=== PATIENT | male | born 1965 | race Two or more races ===

== ENCOUNTER 2024-07-28 17:59 | Emergency (ER) | payer MEDICAID, OTHER ==
[~2024-07-28] VITALS: Ht 170.2 cm; Wt 256.0 kg
[2024-07-28 19:52] LABS: Basophils # (auto) 0 10 ^3/uL (0-0.2); Eosinophils # (auto) 0.2 10 ^3/uL (0-0.8); Hemoglobin 12.7 g/dL (13.5-17.5); Platelet Count (auto) 75 10^3/uL (140-450)
[2024-07-28 19:55] LABS: Basophils % (auto) 0.6 % (0.0-2.0); Eosinophils % (auto) 3.2 % (0.0-7.0); Hematocrit 37.1 % (41.0-53.0); Lymphocytes # (auto) 2.8 10 ^3/uL (0.4-5.4); Lymphocytes % (auto) 52.2 % (10.0-50.0); Mean Corpuscular Hgb Conc. 34.4 g/dL (32.0-36.0); Mean Corpuscular Volume 101.8 fL (80.0-100.0); Monocytes # (auto) 0.7 10 ^3/uL (0-1.3); Monocytes % (auto) 12.6 % (0.0-12.0); Neutrophils # (auto) 1.7 10 ^3/uL (1.6-8.6); Neutrophils % (auto) 31.4 % (37.0-80.0); Nucleated Red Blood Cells % 0.4 %; Red Blood Cells 3.64 10^6/uL (4.5-5.90); Red Cell Distribution Width 19.1 % (11.8-14.3); White Blood Cell 5.3 10^3/uL (4.4-10.8)
[2024-07-28 20:07] LABS: Alanine Aminotransferase 35 U/L (7-40); Alkaline Phosphatase 243 U/L (46-116); Anion Gap 7 (5-15); Aspartate Aminotransferase 47 U/L (13-40); BUN/Creatinine Ratio 11.4 (10.0-20.0); Blood Urea Nitrogen 10 mg/dL (9-23); Calcium 8.9 mg/dL (8.7-10.4); Carbon Dioxide 24 mmol/L (20-31); Chloride 111 mmol/L (98-107); Glucose 69 mg/dL (74-106); Potassium 3.9 mmol/L (3.5-5.1); Sodium 142 mmol/L (136-145)
[2024-07-28 20:08] LABS: Albumin 2.6 g/dL (3.2-4.8); Macrocytosis Slight; Platelet Estimate Decreased; Total Protein 6.5 g/dL (5.7-8.2)
[2024-07-28] MEDS ORDERED: ZINC OXIDE 20 % OINT 30GM TOP SCH (22:00)
[2024-07-29] MEDS ORDERED: CEPH500C PO (01:19)
[2024-07-29] MEDS ORDERED: HYDR-4798 PO (01:19)
[2024-07-29] MEDS: NEOMYCIN-BACITRACIN-POLYM 15GM TOP OINT TOP ONE (01:38)
[2024-07-29 01:51] VITALS: BP 134/84; PULSE 83; RESP 16; TEMP 98.1; O2SAT 96
== END 2024-07-29 01:59 | disposition home or self-care (01) ==
LOC: ER 17:59
DX: I83.009 Varicose veins of unspecified lower extremity with ulcer of unspecified site (principal); L97.919 Non-pressure chronic ulcer of unspecified part of right lower leg with unspecified severity; L97.929 Non-pressure chronic ulcer of unspecified part of left lower leg with unspecified severity; I87.2 Venous insufficiency (chronic) (peripheral); I10 Essential (primary) hypertension; L03.116 Cellulitis of left lower limb; L03.115 Cellulitis of right lower limb; E11.9 Type 2 diabetes mellitus without complications; Z88.8 Allergy status to other drugs, medicaments and biological substances; Z79.899 Other long term (current) drug therapy
CPT/HCPCS: 36415; 80053; 83615; 85025

== ENCOUNTER 2024-10-22 15:47 | Inpatient (IN) | payer MEDICAID ==
[~2024-10-22] VITALS: Ht 170.2 cm; Wt 110.0 kg
[~2024-10-22 15:47] MED LIST: CEPH500C PO; HYDR-4798 PO
--- NOTE | 2024-10-22 16:04 | ED.PDOC ---
General HPI Comments 59 y.o male presents to he ED for a chief complaint of bilateral flank pain radiating down to his back associated with dark urine. Patient reports he was incarcerated, recently was let out but was never given a guide for PCP and specialist to help him manage his liver cirrhosis. At this time, patient feels he is more jaundice appearing and is here for help. Patient states of intermittent chest pain concerns as well. Patient was mildly hypertensive on arrival. Chief Complaint: Flank Pain Time Seen by MD: 15:55 Reviewed notes: Nurses Notes, Medications, Allergies Allergies: Coded Allergies: Ceftriaxone (Verified Allergy, Unknown, 07/28/24) Uncoded Allergies: FISH (Allergy, Unknown, 07/28/24) Home Meds Active Scripts Hydrocodone-Acetaminophen (Hydrocodone Bitartrate/AC 10-325 mg) 1 Tab Tab, 1 TAB PO Q8HPRN PRN for 3 Days, #9 TAB Prov:RAFAEL MORFIN MD 07/29/24 Cephalexin Monohydrate (Cephalexin) 500 Mg Cap, 500 MG PO Q6HR for 10 Days, #40 MG Prov:RAFAEL MORFIN MD 07/29/24 Information Source: Patient Mode of Arrival: Ambulatory Severity: Moderate Timing: Months, Came on: Gradually Duration: Since onset, Intermittent Onset: Spontaneous Symptoms: None History of: None Location: (R) Flank, (L)Flank Penile discharge: None Modifying factors: None associated signs and symptoms: Flank Pain, Back Pain, Other (Intermittent chest pain) Past Medical History PAST MEDICAL HISTORY: DM, Liver Surgical History: Denies all surgeries Family History Family History: Reviewed,noncontributory to illness, No family hx of Cancer, No family hx of DM, No family hx of Heart estephanie, No family hx of HTN, No family hx ofKidney estephanie, No family hx of Liver estephanie, No family hx of Lung estephanie, No family hx of Stroke Social History Smoker: Non-Smoker Alcohol: Denies ETOH Use Drugs: Denies Drug Use Lives In: Home Constitutional: denies: chills, diaphoresis, fatigue, fever, malaise, sweats, weakness, others EENTM: denies: blurred vision, double vision, ear bleeding, ear discharge, ear drainage, ear pain, ear ringing, eye pain, eye redness, hearing loss, mouth pain, mouth swelling, nasal discharge, nose bleeding, nose congestion, nose pain, photophobia, tearing, throat pain, throat swelling, voice changes, others Respiratory: denies: cough, hemoptysis, orthopnea, SOB at rest, shortness of breath, SOB with excertion, stridor, wheezing, others Cardiovascular: reports: chest pain; denies: dizzy spells, diaphoresis, Dyspnea on exertion, edema, irregular heart beat, left arm pain, lightheadedness, palpitations, PND, syncope, others Gastrointestinal: denies: abdomen distended, abdominal pain, blood streaked bowels, constipated, diarrhea, dysphagia, difficulty swallowing, hematemesis, melena, nausea, poor appetite, poor fluid intake, rectal bleeding, rectal pain, vomiting, others Genitourinary: reports: flank pain; denies: burning, dysuria, frequency, hematuria, incontinence, penile discharge, penile sore, pain, testicle pain, testicle swelling, urgency, others Neurological: denies: dizziness, fainting, headache, left sided numbness, left sided weakness, numbness, paresthesia, pre-existing deficit, right sided numbness, right sided weakness, seizure, speech problems, tingling, tremors, weakness, others Musculoskeletal: reports: back pain; denies: gout, joint pain, joint swelling, muscle pain, muscle stiffness, neck pain, others Integumetry: denies: bruises, change in color, change in hair/nails, dryness, laceration, lesions, lumps, rash, wounds, others Allergic/Immunocompromised: denies: Difficulty Healing, Frequent Infections, Hives, Itching, others Hematologic/Lymphatic: denies: anemia, blood clots, easy bleeding, easy b ruising, swollen glands, others Endocrine: denies: excessive hunger, excessive sweating, excessive thirst, excessive urination, flushing, intolerance to cold, intolerance to heat, unexplained weight gain, unexplained weight loss, others Psychiatric: denies: anxiety, bipolar disorder, depression, hopeless, panic disorder, schizophrenia, sleepless, suicidal, others All Other Systems: Reviewed and Negative Physical Exam General Appearance: Moderate Distress (Patient appears to be moderate distress at time of evaluation.), Normal HEENT: Normal ENT Inspection, Pharynx Normal, TMs Normal Neck: Full Range of Motion, Non-Tender, Normal, Normal Inspection Respiratory: Chest Non-Tender, Lungs Clear, No Accessory Muscle Use, No Res piratory Distress, Normal Breath Sounds Cardiovascular: No Edema, No JVD, No Murmur, No Gallop, Normal Peripheral Pulses, Regular Rate/Rhythm Breast Exam: Deferred Gastrointestinal: No Pulsatile Mass, Normal Bowel Sounds, Soft, Tenderness (Diffuse tenderness to palpation throughout bilateral upper quadrants. No puls atile masses. Abdomen was mildly rigid.) Genitalia: Deferred Pelvic: Deferred Rectal: Deferred Extremities: No calf tenderness, Normal capillary refill, Normal inspection, Normal range of motion, Non-tender, No pedal edema Musculoskeletal : Location: Bilateral Extremity Location: Back Apperance: Tenderness: Mild Neurologic: Alert, No Motor Deficits, Normal Affect, Normal Mood, No Sensory Deficits Cerebellar Function: Normal Reflexes: Normal Skin: Dry, Warm Lymphatic: No Adenopathy Was a procedure done? Was a procedure done?: No Differential Diagnosis Kidney stone (Female): Musculoskeletal pain, Pancreatitis, Pyelonephritis, Strain, Other (Learn cirrhosis, acute coronary syndrome) X-Ray, Labs, Meds, VS Vital Signs Date Time Temp Pulse Resp B/P (MAP) Pulse Ox O2 Delivery O2 Flow Rate FiO2 10/22/24 20:35 97.9 63 20 142/71 (94) 96 97.9 10/22/24 20:19 60 10/22/24 16:31 73 18 97 Room Air 10/22/24 16:31 98.1 73 18 120/69 (86) 97 98.1 10/22/24 15:58 97.6 82 18 148/72 (97) 98 Lab Test 10/22/24 19:01 10/22/24 17:50 10/22/24 16:33 10/22/24 16:20 Range/Units Lactic Acid Level 2.5 *H 0.4-2.0 mmol/L Troponin I High Sensitivity 193 *H 191 *H 202 *H </=54 ng/L Urine Color Yellow Yellow Urine Clarity Clear Clear Urine pH 6.5 5.0-9.0 Urine Specific [place] 1.021 1.001-1.035 Urine Protein 1+ H Negative Urine Ketones Trace Negative Urine Blood Trace H Negative /uL Urine Nitrite Negative Negative Urine Bilirubin 1+ Negative Urine Urobilinogen 4 H Negative mg/dL Urine Leukocyte Esterase Negative Negative /uL Urine RBC 3 0 - 3 /hpf Urine WBC 4 0 - 3 /hpf Urine Squamous Epithelial Cells Few <5 /hpf Urine Bacteria None seen None Seen /hpf Urine Mucus Few None Seen Urine Glucose Normal Normal mg/dL White Blood Count 3.7 L 4.4-10.8 10^3/uL Red Blood Count 3.91 L 4.5-5.90 10^6/uL Hemoglobin 14.1 13.5-17.5 g/dL Hematocrit 40.8 L 41.0-53.0 % Mean Corpuscular Volume 104.4 H 80.0-100.0 fL Mean Corpuscular Hemoglobin 36.2 H 28.0-32.0 pg Mean Corpuscular Hemoglobin Concent 34.7 32.0-36.0 g/dL Red Cell Distribution Width 18.2 H 11.8-14.3 % Platelet Count 69 L 140-450 10^3/uL Mean Platelet Volume 8.7 6.9-10.8 fL Neutrophils (%) (Auto) 44.5 37.0-80.0 % Lymphocytes (%) (Auto) 39.4 10.0-50.0 % Monocytes (%) (Auto) 12.9 H 0.0-12.0 % Eosinophils (%) (Auto) 2.5 0.0-7.0 % Basophils (%) (Auto) 0.7 0.0-2.0 % Neutrophils # (Auto) 1.7 1.6-8.6 10 ^3/uL Lymphocytes # (Auto) 1.5 0.4-5.4 10 ^3/uL Monocytes # (Auto) 0.5 0-1.3 10 ^3/uL Eosinophils # (Auto) 0.1 0-0.8 10 ^3/uL Basophils # (Auto) 0 0-0.2 10 ^3/uL Nucleated Red Blood Cells 0.3 % Sodium Level 142 136-145 mmol/L Potassium Level 3.5 3.5-5.1 mmol/L Chloride Level 111 H 98-107 mmol/L Carbon Dioxide Level 23 20-31 mmol/L Anion Gap 8 5-15 Blood Urea Nitrogen 10 9-23 mg/dL Creatinine 0.90 0.700-1.30 mg/dL Glomerular Filtration Rate Calc 98 >90 mL/min BUN/Creatinine Ratio 11.1 10.0-20.0 Serum Glucose 93 74-106 mg/dL Calcium Level 8.9 8.7-10.4 mg/dL Total Bilirubin 3.5 H 0.2-1.0 mg/dL Aspartate Amino Transferase (AST) 56 H 13-40 U/L Alanine Aminotransferase (ALT) 43 H 7-40 U/L Alkaline Phosphatase 265 H 46-116 U/L Total Protein 6.5 5.7-8.2 g/dL Albumin 2.7 L 3.2-4.8 g/dL Lipase 20 12-53 U/L Current Medications Medications (Trade) Dose Ordered Sig/Sherron Route Start Time Stop Time Status Last Admin Acetaminophen/ Hydrocodone Bitart ([place] 10/325MG Tab) 1 tab ONCE ONCE PO 10/22/24 16:00 10/22/24 16:01 DC 10/22/24 16:30 X-Ray, Labs, Meds, VS Comment All studies performed the ED were evaluated by me personally. Laboratories revealed a thrombocytopenia, elevated troponins and elevated lactic acid. EKG was remarkable for a sinus rhythm with a rate of 60. Abnormal R-wave progression and early transition was noted as well as an old inferior infarct and possible anterior infarct concerns. [place] interval of 143 and QT interval 493. Imaging studies confirmed liver cirrhosis without signs of ascites formation. Patient will be admitted for conversation is related to his acute coronary syndrome as well as assistance with respect to his liver cirrhosis. Time of 1ST Reevaluation: 20:49 Reevaluation 1ST: Improved Consultation: PCP, Cardiology Patient Education/Counseling: Diagnosis, Treatment, Prognosis Family Education/Counseling: Diagnosis, Treatment, No Family Present Departure 1 Departure Time of Disposition: 20:50 Impression: Primary Impression: Acute coronary syndrome Additional Impressions: Liver cirrhosis Elevated lactic acid level Elevated troponin Thrombocytopenia Disposition: 09 ADMITTED INPATIENT Condition: Stable Discharged With: Self Critical Care Note Critical Care Time?: No Stability Stability form required: No I personally scribed for ELIZABETH TURCIOS PAC ([email or web address]) on 10/22/24 at 16:04. Electronically submitted by Cecilia Otoole ([facility]). ELIZABETH TURCIOS PAC Oct 22, 2024 16:04
[2024-10-22] MEDS: HYDROcodone-ACET 10/325MG TAB PO ONE (16:30)
[2024-10-22 16:40] LABS: Basophils # (auto) 0 10 ^3/uL (0-0.2); Eosinophils # (auto) 0.1 10 ^3/uL (0-0.8); Eosinophils % (auto) 2.5 % (0.0-7.0); Mean Corpuscular Volume 104.4 fL (80.0-100.0); Monocytes # (auto) 0.5 10 ^3/uL (0-1.3); Nucleated Red Blood Cells % 0.3 %; White Blood Cell 3.7 10^3/uL (4.4-10.8)
[2024-10-22 16:42] LABS: Basophils % (auto) 0.7 % (0.0-2.0); Hematocrit 40.8 % (41.0-53.0); Hemoglobin 14.1 g/dL (13.5-17.5); Lymphocytes # (auto) 1.5 10 ^3/uL (0.4-5.4); Lymphocytes % (auto) 39.4 % (10.0-50.0); Mean Corpuscular Hemoglobin 36.2 pg (28.0-32.0); Mean Corpuscular Hgb Conc. 34.7 g/dL (32.0-36.0); Monocytes % (auto) 12.9 % (0.0-12.0); Neutrophils # (auto) 1.7 10 ^3/uL (1.6-8.6); Neutrophils % (auto) 44.5 % (37.0-80.0); Platelet Count (auto) 69 10^3/uL (140-450); Red Blood Cells 3.91 10^6/uL (4.5-5.90); Red Cell Distribution Width 18.2 % (11.8-14.3)
[2024-10-22 16:55] LABS: Urine Bacteria None Seen /hpf (None Seen)
--- NOTE | 2024-10-22 17:01 | DVH ---
Procedure: CT CT AB PEL WO CON-NO ORAL OR IV 10/22/2024 04:00 PM Indication: Chronic low back concerns, cirrhosis, renal disease Comparison Study: None available at time of dictation. Technique: Axial images were obtained and reformatted in coronal and sagittal planes. All CT scans at this medical facility are performed using dose modulation techniques as appropriate t o a performed exam including the following: Automated exposure control was utilized; adjustment of th e MA and/or KV according to patient size; and use of iterative reconstruction technique. CT Dose: CTDI volume is 24.68 mGy. Dose-length product is 1280.04 mGy*cm FINDINGS: Lower Chest: Base of the lungs are clear. Coronary artery calcification noted.. Hepatobiliary: Cirrhosis. Gallbladder surgically absent. Prominent gastrosplenic collaterals are see n Spleen: Mild splenomegaly, 12.2 cm in craniocaudal.. Pancreas: Unremarkable. Adrenal Glands: Unremarkable. tract: The kidneys are normal in size bilaterally without hydronephrosis . A 2 mm nonobstructing stone seen in the lower pole of the right kidney. The urinary bladder is unremarkable. GI tract: The stomach is grossly normal in appearance. No evidence of small bowel obstruction. The la rge bowel is unremarkable. The appendix is normal. Lymphatics: No mesenteric, retroperitoneal or periportal lymphadenopathy. Vasculature: The abdominal aorta is normal in in caliber. Prominent gastrosplenic collaterals. No sig nificant atherosclerotic disease. An infrarenal IVC noted. Pelvic Organs: Unremarkable Bones/soft tissues: No acute abnormality. Multilevel degenerative changes of the lumbar spine noted. Other: None. IMPRESSION: 1. No CT evidence for acute intra-abdominal or intrapelvic process. 2. Cirrhosis with evidence of portal hypertension.
[2024-10-22 17:06] LABS: Anion Gap 8 (5-15); BUN/Creatinine Ratio 11.1 (10.0-20.0); Blood Urea Nitrogen 10 mg/dL (9-23); Calcium 8.9 mg/dL (8.7-10.4); Carbon Dioxide 23 mmol/L (20-31); Glucose 93 mg/dL (74-106); Lipase 20 U/L (12-53); Sodium 142 mmol/L (136-145); Total Protein 6.5 g/dL (5.7-8.2)
[2024-10-22 17:10] LABS: Alanine Aminotransferase 43 U/L (7-40); Albumin 2.7 g/dL (3.2-4.8); Alkaline Phosphatase 265 U/L (46-116); Aspartate Aminotransferase 56 U/L (13-40); Bilirubin, Total 3.5 mg/dL (0.2-1.0); Chloride 111 mmol/L (98-107); Potassium 3.5 mmol/L (3.5-5.1)
[2024-10-22 17:11] LABS: Urine Blood TRACE /uL (Negative); Urine Clarity Clear (Clear); Urine Color Yellow (Yellow); Urine Mucus FEW (None Seen); Urine Protein, UAD 1+ (Negative); Urine Specific Gravity 1.021 (1.001-1.035); Urine Squamous Epithelial Cell FEW /hpf (<5); Urine Urobilinogen 4 mg/dL (Negative); Urine WBC 4 /hpf (0 - 3); Urine pH 6.5 (5.0-9.0)
[2024-10-22 19:44] LABS: Lactic Acid w/Reflex 2.5 mmol/L (0.4-2.0)
[2024-10-22] MEDS: SODIUM CHLORIDE 0.9% 1,000 ML IV ONE (21:01)
[2024-10-22] MEDS: HYDROmorphone HCL 2 MG/ML VL/or syr IV ONE (22:07)
[2024-10-22] MEDS ORDERED: NITROGLYCERIN 0.4 MG SL TAB SL PRN (22:30)
[2024-10-22] MEDS ORDERED: MORPHINE SULFATE INJ 2 MG/ml SYRG IV PRN (22:30)
--- NOTE | 2024-10-22 22:43 | DVHHPRES ---
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 Patient states that flank pain started 3 days ago which was continuous, sharp pain, 7/10 and radiates to the bilateral legs and associated with dark urine, 1 episodes of melena and yellowish discoloration of the sclera and skin. He also mentioned bilateral pain and swelling of both legs for last 1 week's. Previously he was diagnosed with DVT in both legs but was not continuing anticoagulants because he had bleeding episodes frequently that needed to stop the anticoagulant. Patient was diagnosed with liver cirrhosis due to hepatitis-C 10 years ago and he was on Harvony and he was on Lasix for 3 months but discontinued Lasix few months ago. The patient denies chest pain, shortness of breath, cough, dizziness, abdominal pain, diarrhea, constipation, hematuria, dysuria or any change in bowel movement. Past Medical History Liver cirrhosis, DVT Past Surgical History Cholecystectomy, bilateral knee replacement Family History None Smoke: No ALCOHOL: none Drugs: None Lives: with Family Review of Systems Constitutional: No: Fever, Chills, Sweats, Weakness, Malaise, Other Eyes: No: Pain, Vision change, Conjunctivae inflammation, Eyelid inflammation, Other, Redness ENT: No: Ear pain, Ear discharge, Nose pain, Nose discharge, Nose congestion, Mouth pain, Mouth swelling, Throat pain, Throat swelling, Other Respiratory: No: Cough, Dry, Shortness of breath, SOB with excertion, Wheezing, Hemoptysis, Pleuritic Pain, Sputum, Wheezing, Other Cardiovascular: Edema; No: Chest Pain, Palpitations, Orthopnea, Paroxysmal Noc. Dyspnea, Lt Headedness, Other Gastrointestinal: Melena; No: Nausea, Vomiting, Abdominal Pain, Diarrhea, Constipation, Hematochezia, Other Genitourinary: No Dysuria, No Frequency, No Incontinence, No Hematuria, No Retention, No Other Musculoskeletal: back pain; No: other, neck pain, shoulder pain, arm pain, hand pain, leg pain, foot pain Skin: Jaundice Neurological: No: Weakness, Numbness, Incoordination, Change in speech, Confusion, Seizures, Other Allergies: Coded Allergies: Ceftriaxone (Verified Allergy, Unknown, 07/28/24) Uncoded Allergies: FISH (Allergy, Unknown, 07/28/24) Medications Current Medications Medications Dose Ordered Sig/Sherron Route Start Time Stop Time Status Last Admin Dose Admin Aspirin 81 mg DAILY PO 10/23/24 10:00 UNV Atorvastatin Calcium 40 mg DAILY PO 10/23/24 10:00 UNV Furosemide 40 mg DAILY PO 10/23/24 10:00 UNV Exam Vital Signs Vital Signs Date Time Temp Pulse Resp B/P (MAP) Pulse Ox O2 Delivery O2 Flow Rate FiO2 10/22/24 22:07 61 18 146/73 10/22/24 22:03 96 10/22/24 20:35 97.9 97.9 10/22/24 16:31 Room Air Exam Physical examination: General Appearance: Alert, Oriented X3, Cooperative, No acute distress HEENT: Atraumatic, PERRLA, EOMI, Mucous membrane dry, yellow sclera and eye Respiratory: Clear to auscultation, Normal air movement Cardiovascular: Regular rate, Normal S1, Normal S2, No murmurs, no chest wall tenderness Abdominal: Normal bowel sounds, Soft, No tenderness, No hepatospenomegaly, No masses Extremities: Bilateral leg erythema and swelling, edema 2+, CVA tenderness absent, No clubbing, No cyanosis, Normal pulses, No tenderness/swelling Skin: No rashes, No breakdown, No significant lesion Neuro: Normal gait, Normal speech, Strength at 5/5 X4 ext, Normal tone, Sensation intact, grossly intact cranial nerves Psych/Mental Status: Mental status NL, Mood NL Labs/Xrays Labs Test 10/22/24 21:03 10/22/24 19:01 10/22/24 16:33 10/22/24 16:20 Range/Units Lactic Acid Level 1.9 0.4-2.0 mmol/L Troponin I High Sensitivity 193 *H </=54 ng/L Urine Color Yellow Yellow Urine Clarity Clear Clear Urine pH 6.5 5.0-9.0 Urine Specific [place] 1.021 1.001-1.035 Urine Protein 1+ H Negative Urine Ketones Trace Negative Urine Blood Trace H Negative /uL Urine Nitrite Negative Negative Urine Bilirubin 1+ Negative Urine Urobilinogen 4 H Negative mg/dL Urine Leukocyte Esterase Negative Negative /uL Urine RBC 3 0 - 3 /hpf Urine WBC 4 0 - 3 /hpf Urine Squamous Epithelial Cells Few <5 /hpf Urine Bacteria None seen None Seen /hpf Urine Mucus Few None Seen Urine Glucose Normal Normal mg/dL White Blood Count 3.7 L 4.4-10.8 10^3/uL Red Blood Count 3.91 L 4.5-5.90 10^6/uL Hemoglobin 14.1 13.5-17.5 g/dL Hematocrit 40.8 L 41.0-53.0 % Mean Corpuscular Volume 104.4 H 80.0-100.0 fL Mean Corpuscular Hemoglobin 36.2 H 28.0-32.0 pg Mean Corpuscular Hemoglobin Concent 34.7 32.0-36.0 g/dL Red Cell Distribution Width 18.2 H 11.8-14.3 % Platelet Count 69 L 140-450 10^3/uL Mean Platelet Volume 8.7 6.9-10.8 fL Neutrophils (%) (Auto) 44.5 37.0-80.0 % Lymphocytes (%) (Auto) 39.4 10.0-50.0 % Monocytes (%) (Auto) 12.9 H 0.0-12.0 % Eosinophils (%) (Auto) 2.5 0.0-7.0 % Basophils (%) (Auto) 0.7 0.0-2.0 % Neutrophils # (Auto) 1.7 1.6-8.6 10 ^3/uL Lymphocytes # (Auto) 1.5 0.4-5.4 10 ^3/uL Monocytes # (Auto) 0.5 0-1.3 10 ^3/uL Eosinophils # (Auto) 0.1 0-0.8 10 ^3/uL Basophils # (Auto) 0 0-0.2 10 ^3/uL Nucleated Red Blood Cells 0.3 % Sodium Level 142 136-145 mmol/L Potassium Level 3.5 3.5-5.1 mmol/L Chloride Level 111 H 98-107 mmol/L Carbon Dioxide Level 23 20-31 mmol/L Anion Gap 8 5-15 Blood Urea Nitrogen 10 9-23 mg/dL Creatinine 0.90 0.700-1.30 mg/dL Glomerular Filtration Rate Calc 98 >90 mL/min BUN/Creatinine Ratio 11.1 10.0-20.0 Serum Glucose 93 74-106 mg/dL Calcium Level 8.9 8.7-10.4 mg/dL Total Bilirubin 3.5 H 0.2-1.0 mg/dL Aspartate Amino Transferase (AST) 56 H 13-40 U/L Alanine Aminotransferase (ALT) 43 H 7-40 U/L Alkaline Phosphatase 265 H 46-116 U/L Total Protein 6.5 5.7-8.2 g/dL Albumin 2.7 L 3.2-4.8 g/dL Lipase 20 12-53 U/L Assessment/Plan Assessment/Plan Assessment and plan: # Bilateral flank pain and dark urine, ruled out renal stone - CT abdomen pelvis ruled out the possibility of renal stone. - U/A trace hematuria and 1+ bilirubin # Liver cirrhosis with portal hypertension, rule out GI bleeding - CT abdomen pelvis revealed cirrhosis with evidence of portal hypertension - Protonix 40 mg IV daily - Lasix 40 mg p.o. daily - Ordered FOBT, UDS, serum alcohol, coagulation studies and U/S of the liver # Lactic acidosis in history of liver cirrhosis - Patient was given 1 L Normal saline IV bolus - Monitor lactic acid level # NSTEMI type 2 secondary to above - Troponin trends are 202>191>193 - Ordered EKG and echo - Will consult with cardiology if patient will complaint of ongoing chest pain # Bilateral leg swelling, rule out DVT/ stasis dermatitis - Ordered Doppler of the lower extremity - Lovenox 40 mg sc daily for DVT prophylaxis # Hyperbilirubinemia with transaminitis due to cirrhosis of the liver - Ordered hepatitis panel, coagulation studies - Monitor CMP # Leukopenia and thrombocytopenia secondary to liver cirrhosis - Monitor CBC Goal of care discussed with the patient for more than 20 minutes full code Plan discussed with Dr. Sewell Plan discussed with: Patient, Other My Orders Orders - JAYSON KAUR RESIDENT Procedure Category Date Status Time Admit ADMIT 10/22/24 Transmitted 22:18 Stat Ekg For Chest LIZA 10/22/24 In Process Pain 22:18 Grain Merchandising Manager For LIZA 10/22/24 In Process 24 Hours 22:18 Bilat Lower Dvt US 10/22/24 Logged 22:18 Echo 2d Mode Cardiac US 10/22/24 Logged DOP 22:18 LIVER US 10/22/24 Logged 22:34 PTPTT LAB 10/22/24 Logged 22:34 Comprehensive LAB 10/22/24 Logged Hepatitis Panel 22:34 Aspirin Enteric PHA 10/23/24 Logged Coated Tablet 10:00 Atorvastatin (Lipitor) PHA 10/23/24 Logged 10:00 Furosemide Tablet PHA 10/23/24 Logged (Lasix Tablet) 10:00 Hemoglobin A1c LAB 10/22/24 Verified 22:41 Thyroid Stimulating LAB 10/22/24 Verified Hormone 22:41 Pantoprazole PHA 10/23/24 Verified (Protonix) 10:00 Enoxaparin Sodium PHA 10/23/24 Verified (Lovenox) 10:00 Date of Service: Oct 22, 2024 Billing Provider: LORNA SEWELL MD Common Visit Codes: [id number] INP/OBS CARE (HIGH) JAYSON KAUR RESIDENT Oct 22, 2024 22:43 LORNA SEWELL MD Oct 23, 2024 10:45
--- NOTE | 2024-10-22 23:53 | DVH ---
CLINICAL HISTORY: To rule out DvT TECHNIQUE: Color and duplex doppler imaging of the bilateral lower extremity veins was performed. Ves emmanuel compression if possible was also performed. WID: COMPARISON: None FINDINGS: Right Lower Extremity: Right common femoral vein: Normal compressibility and flow. Right femoral vein: Normal compressibility and flow. Right popliteal vein: Normal compressibility and flow. Proximal calf veins are normally compressible. Left Lower Extremity: Left common femoral vein: Normal compressibility and flow. Left femoral vein: Normal compressibility and flow. Left popliteal vein: Normal compressibility and flow. Proximal calf veins are normally compressible. IMPRESSION: NO SONOGRAPHIC EVIDENCE FOR DEEP VENOUS THROMBOSIS IN THE BILATERAL LOWER EXTREMITY VEINS.
[2024-10-23] VITALS (10 sets, daily range): BP systolic 102–124; BP diastolic 48–57; PULSE 51–72; RESP 14–19; TEMP 97.7–98; O2SAT 93–97
--- NOTE | 2024-10-23 00:19 | DVH ---
ABDOMINAL ULTRASOUND CLINICAL HISTORY: Liver cirrhosis TECHNIQUE: Multiple grayscale and color Doppler ultrasound images were obtained of the abdomen. WID: COMPARISON: CT abdomen and pelvis from same day FINDINGS: Liver and Biliary System: Small heterogeneous liver with coarse echotexture and nodular contour nereyda uring 12.6 cm. Main portal vein demonstrates hepatofugal blood flow. No definite focal hepatic obse rvations. No intrahepatic bile duct dilatation. The common duct is not visualized The gallbladder is surgically absent. Pancreas: Not well visualized due to overlying bowel gas Kidneys: The right kidney is 10.4 cm No hydronephrosis, increased echogenicity, shadowing stone, o r focal lesion. IMPRESSION: Cirrhotic liver. Hepatofugal blood flow of the main portal vein.
[2024-10-23] MEDS: HYDROcodone-ACET 7.5/325MG TAB PO PRN (03:10)
[2024-10-23 05:32] LABS: INR 1.51 (0.9-1.15); Partial Thromboplastin Time 28.8 SEC (24.5-34.5); Prothrombin Time 15.5 sec (9.3-11.8)
--- NOTE | 2024-10-23 06:56 | ECG ---
[facility] Test Date: 2024-10-22 Test Time: 20:19:27 Pat Name: SUSANNAH KAUFMAN Department: ED Room: 0271T B Gender: M Animal Behaviourist: DARRELL : 1965 Requested By: ELIZABETH TURCIOS Order Number: [id number] Reading MD: Sebastian Flores Measurements Intervals [place] Rate: 60 P: 45 AR: 143 QRS: -27 QRSD: 90 T: 11 QT: 493 QTc: 493 Interpretive Statements Sinus rhythm Abnormal R-wave progression, early transition Inferior infarct, old Consider anterior infarct Electronically Signed On 10-23-2024 14:48:56 PST by Sebastian Flores Please click the below link to view image of tracing.
[2024-10-23] MEDS: FUROSEMIDE 20 MG TAB PO SCH (09:12)
[2024-10-23] MEDS: PANTOPRAZOLE 40 MG/10 ML VIAL INJ IV SCH (09:14)
[2024-10-23] MEDS: ENOXAPARIN SOD 40 MG/0.4 ML SYRINGE SC SCH (10:00)
[2024-10-23] MEDS: ASPirin-EC 81 mg tab PO SCH (10:00)
[2024-10-23 10:12] LABS: Basophils # (auto) 0 10 ^3/uL (0-0.2); Basophils % (auto) 0.7 % (0.0-2.0); Eosinophils # (auto) 0.1 10 ^3/uL (0-0.8); Lymphocytes # (auto) 1.5 10 ^3/uL (0.4-5.4); Lymphocytes % (auto) 40.8 % (10.0-50.0); Monocytes # (auto) 0.5 10 ^3/uL (0-1.3); Neutrophils # (auto) 1.4 10 ^3/uL (1.6-8.6); Red Cell Distribution Width 17.9 % (11.8-14.3); White Blood Cell 3.6 10^3/uL (4.4-10.8)
[2024-10-23 10:15] LABS: Eosinophils % (auto) 3.8 % (0.0-7.0); Hematocrit 34.3 % (41.0-53.0); Mean Corpuscular Hemoglobin 36.6 pg (28.0-32.0); Mean Corpuscular Hgb Conc. 35.1 g/dL (32.0-36.0); Mean Corpuscular Volume 104.5 fL (80.0-100.0); Monocytes % (auto) 14.7 % (0.0-12.0); Nucleated Red Blood Cells % 0.2 %; Platelet Count (auto) 59 10^3/uL (140-450); Red Blood Cells 3.28 10^6/uL (4.5-5.90)
[2024-10-23 10:24] LABS: Alanine Aminotransferase 32 U/L (7-40); Anion Gap 4 (5-15); BUN/Creatinine Ratio 12.9 (10.0-20.0); Blood Urea Nitrogen 12 mg/dL (9-23); Carbon Dioxide 27 mmol/L (20-31); Potassium 3.7 mmol/L (3.5-5.1); Sodium 141 mmol/L (136-145)
[2024-10-23 10:32] LABS: Albumin 2.2 g/dL (3.2-4.8); Alkaline Phosphatase 224 U/L (46-116); Aspartate Aminotransferase 44 U/L (13-40); Bilirubin, Total 2.4 mg/dL (0.2-1.0); Calcium 8.6 mg/dL (8.7-10.4); Chloride 110 mmol/L (98-107); Glucose 139 mg/dL (74-106); Total Protein 5.4 g/dL (5.7-8.2)
[2024-10-23 13:52] LABS: Amphetamine Screen, Urine Neg (NEGATIVE); Barbiturate Scree,Urine Neg (NEGATIVE); Benzodiazephine Screen, Urine Neg (NEGATIVE); Cannabinoid Screen, Urine Pos (NEGATIVE); Cocaine Screen, Urine Neg (NEGATIVE); Opiate Scree,Urine Neg (NEGATIVE); Phencyclidine Screen, Urine Neg (NEGATIVE)
--- NOTE | 2024-10-23 14:22 | DVHSR ---
APPROVED REPORT EXAM: Two-dimensional and M-mode echocardiogram with Doppler and color Doppler. Blood Pressure: 103/48 mmHg INDICATION Elevated Troponin RISK FACTORS Obesity: Height: 5' 7", Weight: 229 DIMENSIONS LVDd5.2 (3.8-5.7cm)LA (2D)3.7 (1.9-4.0cm)Aortic Root3.0 (2.0-3.7cm) LVDs3.7 (2.5-4.0cm)LA (MM) (1.9-4.0cm)Aortic Cusp Exc1.5 (1.5-2.0cm) EF (%) 56.0 (55-70%)Rt. Atrium4.6 (1.9-4.0cm)Asc. Aorta cm IVSd1.0 (0.7-1.1cm)RV (D) (1.8-2.4cm) PWd1.1 (0.7-1.1cm) Mitral Valve MitralMitral Stenosis E wave1.20m/sMV Mean GR.mmHg A wave0.90m/sMV Peak GR.mmHg E/A ratio1.32D MVAcm2 Aortic Valve Aortic ValveAortic Stenosis V11.40m/Raegan Mean GR.10mmHg V22.10m/Raegan Peak GR.19mmHg LVOT Diameter2.2 (1.8-2.4cm)Doppler AVA2.53cm2 Pulmonic Valve V20.90m/s Tricuspid Valve TR Velocity2.80m/s [id number] Other Information Quality : Technically LimitedRhythm : Technically limited study due to body habitus. Conclusion Sinus rhythm. Left atrial enlargement with mild LV enlargement. Valves appear to be structurally normal. EF of 55% with normal RV function. Mild TR. No pericardial effusion masses or vegetations.
--- NOTE | 2024-10-23 16:15 | DVH ---
CHEST RADIOGRAPH Indication: assess volume overload affecting lungs Technique: Single frontal view of the chest was obtained COMPARISON: None FINDINGS: Lines and Tubes: None Lungs: Increased interstitial prominence. Pleura: No effusion. No pneumothorax. Cardiomediastinal contours: Unremarkable Bones: Unremarkable IMPRESSION: Mild congestion
--- NOTE | 2024-10-23 17:56 | DVHPN2 ---
Subjective Continue have CVA region pain. Feels swollen. Reviewed: H&P Changes from previous H/P or p: No Changes General: Per HPI Objective Vitals Vital Signs Date Time Temp Pulse Resp B/P (MAP) Pulse Ox O2 Delivery O2 Flow Rate FiO2 10/23/24 16:00 97.7 51 16 114/57 (76) 93 97.7 10/23/24 08:00 Room Air* 0 21 Intake/Output Intake and Output 10/23/24 07:00 Intake Total 1000 ml Output Total 0 ml Balance 1000 ml Intake Oral 0 ml IV Total 1000 ml Output Urine Total 0 ml Exam GEN: Healthy appearing, well-developed, NAD. HEENT: NC/AT; MMM. CV: Systolic murmur 2/6 LUNGS: CTAB, no w/r/c. ABD: Soft, NT/ND, NBS, no masses or organomegaly. Right CVA tenderness EXT: skin Warm, well perfused. no rashes. No clubbing, cyanosis, or edema. P edal edema 1 to 2+ bilaterally NEURO: Ambulating with no limitations. No focal deficits. Medications Current Medications Medications Dose Ordered Sig/Sherron Route Start Time Stop Time Status Last Admin Dose Admin Aspirin 81 mg DAILY PO 10/23/24 10:00 Atorvastatin Calcium 40 mg HS PO 10/23/24 22:00 Furosemide 40 mg DAILY PO 10/23/24 10:00 10/23/24 09:12 40 MG Pantoprazole Sodium 40 mg DAILY IV 10/23/24 10:00 10/23/24 09:14 40 MG Enoxaparin Sodium 40 mg DAILY SC 10/23/24 10:00 Hold Acetaminophen/ Hydrocodone Bitart 1 tab Q4HP PRN PO 10/23/24 03:15 10/23/24 15:46 1 TAB Laboratory Results Laboratory Tests 10/23/24 09:25 Chemistry Test 10/23/24 09:25 Albumin 2.2 g/dL (3.2-4.8) L Calcium Level 8.6 mg/dL (8.7-10.4) L Total Protein 5.4 g/dL (5.7-8.2) L Coagulation Test 10/23/24 04:47 Prothrombin Time 15.5 sec (9.3-11.8) H Prothrombin Time INR 1.51 (0.9-1.15) H Activated Partial Thromboplast Time 28.8 SEC (24.5-34.5) Cardiac Markers Test 10/23/24 09:25 B-Type Natriuretic Peptide 148.79 pg/mL (0-100) LFT Test 10/23/24 09:25 Alanine Aminotransferase (ALT) 32 U/L (7-40) Alkaline Phosphatase 224 U/L (46-116) H Aspartate Amino Transferase (AST) 44 U/L (13-40) H Total Bilirubin 2.4 mg/dL (0.2-1.0) H HgA1c, TSH Test 10/23/24 04:47 Hemoglobin A1c 4.8 % A1C (<5.7) Thyroid Stimulating Hormone (TSH) 1.62 uIU/mL (0.55-4.78) Urinalysis Test 10/22/24 16:33 Urine Color Yellow (Yellow) Urine Clarity Clear (Clear) Urine pH 6.5 (5.0-9.0) Urine Specific [place] 1.021 (1.001-1.035) Urine Protein 1+ (Negative) H Urine Ketones Trace (Negative) Urine Blood Trace /uL (Negative) H Urine Nitrite Negative (Negative) Urine Bilirubin 1+ (Negative) Urine Urobilinogen 4 mg/dL (Negative) H Urine Leukocyte Esterase Negative /uL (Negative) Urine RBC 3 /hpf (0 - 3) Urine WBC 4 /hpf (0 - 3) Urine Squamous Epithelial Cells Few /hpf (<5) Urine Bacteria None seen /hpf (None Seen) Urine Mucus Few (None Seen) Urine Glucose Normal mg/dL (Normal) Labs and/or images reviewed: Labs reviewed by me, Image(s) reviewed by me Assessment/Plan Assessment/Plan # volume overload/possible acute on chronic diastolic heart failure exacerbation start IV Lasix pending chest x-ray and BNP. Echo pending # Bilateral flank pain and dark urine, ruled out renal stone- CTA negative for stones. # UTI/pyelonephritis acute possible continue IV antibiotics # Lactic acidosis in history of liver cirrhosis - resolving. Status post IV fluids 1 L NS # Liver cirrhosis with portal hypertension, rule out GI bleeding - - CT abd/pelv w cirrhosis with hypertension. Protonix IV daily. # NSTEMI type 2 secondary to above - echo pending. Chest pain-free # Bilateral leg swelling, rule out DVT/ stasis dermatitis- Doppler lower extremity negative for DVT. Likely CHF versus cirrhosis. # Hyperbilirubinemia with transaminitis due to cirrhosis of the liver- colonic elevated (PT/INR high) hep panel pending # Leukopenia and thrombocytopenia secondary to liver cirrhosis Diet cardiac DVT prophylaxis-Lovenox unless platelets fall less than 50 GI prophylaxis IV Protonix Med tele Full code Plan discussed with: Patient My Orders Orders - KARLOS DOMINGUEZ MD Procedure Category Date Status Time Chest Portable XY 10/23/24 Resulted 10:08 Stool Occult Blood LAB 10/23/24 Logged 10:10 Furosemide Injection PHA 10/23/24 Verified (Lasix Injection) 18:00 Date of Service: Oct 23, 2024 Billing Provider: KARLOS DOMINGUEZ MD Common Visit Codes: [id number] INP/OBS CARE(HIGH) KARLOS DOMINGUEZ MD Oct 23, 2024 17:56
[2024-10-23] MEDS: FUROSEMIDE 20 MG/2 ML VIAL IV SCH (18:40)
[2024-10-23] MEDS: ATORVASTATIN 20 MG TAB PO SCH (21:26)
[2024-10-24] VITALS (8 sets, daily range): BP systolic 95–139; BP diastolic 49–67; PULSE 62–78; RESP 14–18; TEMP 98–98.9; O2SAT 90–100
[2024-10-24 11:18] LABS: Basophils # (auto) 0 10 ^3/uL (0-0.2); Basophils % (auto) 0.7 % (0.0-2.0); Eosinophils # (auto) 0.1 10 ^3/uL (0-0.8); Eosinophils % (auto) 2.9 % (0.0-7.0); Lymphocytes # (auto) 1.2 10 ^3/uL (0.4-5.4); Monocytes # (auto) 0.5 10 ^3/uL (0-1.3); Neutrophils # (auto) 1.2 10 ^3/uL (1.6-8.6); Platelet Count (auto) 58 10^3/uL (140-450)
[2024-10-24 11:21] LABS: Alanine Aminotransferase 33 U/L (7-40); Anion Gap 3 (5-15); BUN/Creatinine Ratio 9.9 (10.0-20.0); Blood Urea Nitrogen 10 mg/dL (9-23); Chloride 106 mmol/L (98-107); Hematocrit 37.6 % (41.0-53.0); Hemoglobin 13.1 g/dL (13.5-17.5); Lymphocytes % (auto) 40.3 % (10.0-50.0); Mean Corpuscular Hemoglobin 36.2 pg (28.0-32.0); Mean Corpuscular Hgb Conc. 34.7 g/dL (32.0-36.0); Mean Corpuscular Volume 104.2 fL (80.0-100.0); Monocytes % (auto) 15.6 % (0.0-12.0); Neutrophils % (auto) 40.5 % (37.0-80.0); Nucleated Red Blood Cells % 0.2 %; Red Blood Cells 3.61 10^6/uL (4.5-5.90); Red Cell Distribution Width 17.9 % (11.8-14.3); Sodium 141 mmol/L (136-145)
[2024-10-24 11:25] LABS: Albumin 2.3 g/dL (3.2-4.8); Alkaline Phosphatase 223 U/L (46-116); Aspartate Aminotransferase 50 U/L (13-40); Bilirubin, Total 3.2 mg/dL (0.2-1.0); Calcium 8.4 mg/dL (8.7-10.4); Carbon Dioxide 32 mmol/L (20-31); Glucose 169 mg/dL (74-106); Potassium 3.5 mmol/L (3.5-5.1); Total Protein 5.6 g/dL (5.7-8.2)
[2024-10-24 12:18] LABS: Base Excess 6.6 mmol/L (-2.0-3.0)
[2024-10-24] MEDS: acetaZOLAMIDE 250 MG TAB PO ONE (15:23)
[2024-10-24] MEDS: FUROSEMIDE 20 MG/2 ML VIAL IV ONE (15:29)
[2024-10-24] MEDS: FUROSEMIDE 20 MG/2 ML VIAL IV SCH (18:00)
[2024-10-24] MEDS: BACLOFEN 10 MG TAB PO SCH (21:27)
--- NOTE | 2024-10-24 22:38 | DVHPN2 ---
Subjective Update 10/24-patient feeling improved but not quite back to baseline yet. Having improved pain in the back and the CVA regions. Feels less swollen. No dysuria no bladder pain. UA was unconcerning for UTI. Chest x-ray shows some mild pulmonary vascular congestion and BNP is mildly elevated. Along with the volume overload symptoms this could be volume overload from new HFpEF versus cirrhosis. 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 We will continue treatment with diuresis. We will also try a nightly muscle relaxant which could be the back pain. --10/23- Continue have CVA region pain. Feels swollen. Reviewed: H&P Changes from previous H/P or p: No Changes General: Per HPI Objective Vitals Vital Signs Date Time Temp Pulse Resp B/P (MAP) Pulse Ox O2 Delivery O2 Flow Rate FiO2 10/24/24 18:00 99/52 10/24/24 17:00 98.0 78 14 100 98.0 10/24/24 08:00 Room Air* 0 21 Intake/Output Intake and Output 10/24/24 07:00 Intake Total 520 ml Output Total 2200 ml Balance -1680 ml Intake Oral 520 ml Output Urine Total 2200 ml # Voids 14 Exam GEN: Healthy appearing, well-developed, NAD. HEENT: NC/AT; MMM. CV: Systolic murmur 2/6 LUNGS: Rales at lower lobes bilaterally ABD: Soft, NT/ND, NBS, no masses or organomegaly. Mild tenderness paraspinal T3/4 bilateral right more than left EXT: skin Warm, well perfused. no rashes. No clubbing, cyanosis, or edema. P edal edema 1 to 2+ bilaterally NEURO: Ambulating with no limitations. No focal deficits. Medications Current Medications Medications Dose Ordered Sig/Sherron Route Start Time Stop Time Status Last Admin Dose Admin Aspirin 81 mg DAILY PO 10/23/24 10:00 Atorvastatin Calcium 40 mg HS PO 10/23/24 22:00 10/24/24 21:28 40 MG Pantoprazole Sodium 40 mg DAILY IV 10/23/24 10:00 10/24/24 09:46 40 MG Enoxaparin Sodium 40 mg DAILY SC 10/23/24 10:00 Hold Acetaminophen/ Hydrocodone Bitart 1 tab Q4HP PRN PO 10/23/24 03:15 10/24/24 15:52 1 TAB Furosemide 40 mg BIDD IV 10/24/24 18:00 Baclofen 10 mg HS PO 10/24/24 22:00 10/24/24 21:27 10 MG Laboratory Results Laboratory Tests 10/24/24 10:30 Chemistry Test 10/24/24 10:30 Albumin 2.3 g/dL (3.2-4.8) L Calcium Level 8.4 mg/dL (8.7-10.4) L Total Protein 5.6 g/dL (5.7-8.2) L LFT Test 10/24/24 10:30 Alanine Aminotransferase (ALT) 33 U/L (7-40) Alkaline Phosphatase 223 U/L (46-116) H Aspartate Amino Transferase (AST) 50 U/L (13-40) H Total Bilirubin 3.2 mg/dL (0.2-1.0) H Urinalysis Test 10/22/24 16:33 Urine Color Yellow (Yellow) Urine Clarity Clear (Clear) Urine pH 6.5 (5.0-9.0) Urine Specific [place] 1.021 (1.001-1.035) Urine Protein 1+ (Negative) H Urine Ketones Trace (Negative) Urine Blood Trace /uL (Negative) H Urine Nitrite Negative (Negative) Urine Bilirubin 1+ (Negative) Urine Urobilinogen 4 mg/dL (Negative) H Urine Leukocyte Esterase Negative /uL (Negative) Urine RBC 3 /hpf (0 - 3) Urine WBC 4 /hpf (0 - 3) Urine Squamous Epithelial Cells Few /hpf (<5) Urine Bacteria None seen /hpf (None Seen) Urine Mucus Few (None Seen) Urine Glucose Normal mg/dL (Normal) Blood Gas Results Test 10/24/24 12:07 Arterial Blood pH 7.461 (7.350-7.450) FiO2 % 21.0 Labs and/or images reviewed: Labs reviewed by me, Image(s) reviewed by me Assessment/Plan Assessment/Plan Update 10/24-patient feeling improved but not quite back to baseline yet. Having improved pain in the back and the CVA regions. Feels less swollen. No dysuria no bladder pain. UA was unconcerning for UTI. Chest x-ray shows some mild pulmonary vascular congestion and BNP is mildly elevated. Along with the volume overload symptoms this could be volume overload from new HFpEF versus cirrhosis. 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 We will continue treatment with diuresis. We will also try a nightly muscle relaxant which could be the back pain. # acute on chronic diastolic heart failure exacerbation likely - start IV Lasix . Chest x-ray with pulmonary vascular congestion and BNP mildly elevated.. Echo EF is 55% # Liver cirrhosis with portal hypertension, rule out GI bleeding - - CT abd/pelv w cirrhosis with hypertension. Protonix IV daily. SOB pending # volume overload - differential HFpEF exacerbation versus cirrhosis. As above # Bilateral flank pain and dark urine, ruled out renal stone- CTA negative for stones. # UTI/pyelonephritis acute possible continue IV antibiotics ceftriaxone # Lactic acidosis in history of liver cirrhosis - resolving. Status post IV fluids 1 L NS, p.o. hydration thereafter w fluid restrict 1.5 L # NSTEMI type 2 secondary to above - echo pending. Chest pain-free # Bilateral leg swelling, rule out DVT/ stasis dermatitis- Doppler lower extremity negative for DVT. Likely CHF versus cirrhosis. # Hyperbilirubinemia with transaminitis due to cirrhosis of the liver- colonic elevated (PT/INR high) hep panel pending # Leukopenia and thrombocytopenia secondary to liver cirrhosis- hold off DVT prophylaxis chemical. We will do SCDs Diet cardiac with fluid restriction 1.5 L DVT prophylaxis-SCDs GI prophylaxis IV Protonix (we will stop if SOB negative) - tolerating diet Med tele Full code Plan discussed with: Patient My Orders Orders - KARLOS DOMINGUEZ MD Procedure Category Date Status Time Furosemide Injection PHA 10/24/24 In Process (Lasix Injection) 18:00 Baclofen Tablet PHA 10/24/24 In Process (Liorisal Tablet) 22:00 Maintain Fluid LIZA 10/24/24 In Process Restrictions 10:23 Strict I & O LIZA 10/24/24 In Process 10:23 Abg W/ Co-Ox RT 10/24/24 Logged 11:39 Date of Service: Oct 24, 2024 Billing Provider: KARLOS DOMINGUEZ MD Common Visit Codes: [id number] INP/OBS CARE(HIGH) KARLOS DOMINGUEZ MD Oct 24, 2024 22:38
[2024-10-24] MEDS: cefTRIAXone 1GM/50ML D5W 50 ML IV ONE (22:45)
[2024-10-25 01:00] VITALS: BP 127/63; PULSE 67; RESP 15; TEMP 98.9; O2SAT 90
[2024-10-25] MEDS: ONDANSETRON HCL 4 MG/2 ML VIAL IV PRN (01:52)
[2024-10-25 05:00] VITALS: BP 124/72; PULSE 73; RESP 18; TEMP 97.7; O2SAT 93
[2024-10-25 07:20] LABS: Basophils # (auto) 0 10 ^3/uL (0-0.2); Eosinophils # (auto) 0.1 10 ^3/uL (0-0.8); Hemoglobin 15.2 g/dL (13.5-17.5); Lymphocytes # (auto) 1.6 10 ^3/uL (0.4-5.4); Neutrophils # (auto) 1.5 10 ^3/uL (1.6-8.6); White Blood Cell 3.6 10^3/uL (4.4-10.8)
[2024-10-25 07:24] LABS: Basophils % (auto) 0.5 % (0.0-2.0); Eosinophils % (auto) 1.9 % (0.0-7.0); Hematocrit 44.9 % (41.0-53.0); Lymphocytes % (auto) 43.8 % (10.0-50.0); Mean Corpuscular Hemoglobin 36.2 pg (28.0-32.0); Mean Corpuscular Hgb Conc. 33.9 g/dL (32.0-36.0); Monocytes # (auto) 0.5 10 ^3/uL (0-1.3); Monocytes % (auto) 12.8 % (0.0-12.0); Nucleated Red Blood Cells % 0.4 %; Platelet Count (auto) 64 10^3/uL (140-450); Red Cell Distribution Width 18.6 % (11.8-14.3)
[2024-10-25 08:00] VITALS: PULSE 87; RESP 16; O2SAT 95
[2024-10-25 08:04] LABS: Alanine Aminotransferase 40 U/L (7-40); Anion Gap 6 (5-15); BUN/Creatinine Ratio 9.3 (10.0-20.0); Blood Urea Nitrogen 10 mg/dL (9-23); Calcium 9.3 mg/dL (8.7-10.4); Carbon Dioxide 25 mmol/L (20-31); Potassium 3.8 mmol/L (3.5-5.1); Sodium 139 mmol/L (136-145); Total Protein 6.9 g/dL (5.7-8.2)
[2024-10-25 08:05] LABS: Albumin 2.7 g/dL (3.2-4.8); Alkaline Phosphatase 261 U/L (46-116); Aspartate Aminotransferase 53 U/L (13-40); Bilirubin, Total 3.3 mg/dL (0.2-1.0); Chloride 108 mmol/L (98-107); Glucose 149 mg/dL (74-106)
[2024-10-25 09:33] LABS: Hepatitis B Core Total AB Negative (Negative)
[2024-10-25 12:54] LABS: Hepatitis A Total Antibody Positive (Negative); Hepatitis B Surface Antigen Negative (Negative)
[2024-10-25 12:57] LABS: Hepatitis B Surface Antibody Positive (Negative); Hepatitis C Antibody Reactive (Negative)
[2024-10-25] MEDS: NALOXONE HCL 0.4 MG/ML VIAL IV ONE (13:30)
[2024-10-25 13:51] LABS: Base Excess -2.5 mmol/L (-2.0-3.0)
[2024-10-25 15:04] LABS: Basophils # (auto) 0 10 ^3/uL (0-0.2); Basophils % (auto) 0.3 % (0.0-2.0); Eosinophils # (auto) 0 10 ^3/uL (0-0.8); Eosinophils % (auto) 0.1 % (0.0-7.0); Lymphocytes # (auto) 0.7 10 ^3/uL (0.4-5.4); Monocytes # (auto) 0.3 10 ^3/uL (0-1.3)
[2024-10-25 15:10] LABS: Hematocrit 45.3 % (41.0-53.0); Hemoglobin 15.6 g/dL (13.5-17.5); Lymphocytes % (auto) 17.7 % (10.0-50.0); Mean Corpuscular Hemoglobin 36.3 pg (28.0-32.0); Mean Corpuscular Hgb Conc. 34.5 g/dL (32.0-36.0); Mean Corpuscular Volume 105.1 fL (80.0-100.0); Monocytes % (auto) 7.5 % (0.0-12.0); Neutrophils # (auto) 2.8 10 ^3/uL (1.6-8.6); Neutrophils % (auto) 74.4 % (37.0-80.0); Nucleated Red Blood Cells % 0.3 %; Platelet Count (auto) 68 10^3/uL (140-450); Red Blood Cells 4.32 10^6/uL (4.5-5.90); Red Cell Distribution Width 18.2 % (11.8-14.3); White Blood Cell 3.7 10^3/uL (4.4-10.8)
[2024-10-25 15:27] LABS: Anion Gap 11 (5-15); BUN/Creatinine Ratio 13.9 (10.0-20.0); Blood Urea Nitrogen 17 mg/dL (9-23); Calcium 9.4 mg/dL (8.7-10.4); Carbon Dioxide 21 mmol/L (20-31); Chloride 107 mmol/L (98-107); Potassium 3.8 mmol/L (3.5-5.1); Sodium 139 mmol/L (136-145); Total Protein 7.3 g/dL (5.7-8.2)
[2024-10-25 15:29] LABS: Alanine Aminotransferase 46 U/L (7-40); Alkaline Phosphatase 276 U/L (46-116); Aspartate Aminotransferase 57 U/L (13-40); Bilirubin, Total 3.2 mg/dL (0.2-1.0); Glucose 177 mg/dL (74-106)
[2024-10-25] MEDS ORDERED: LACTULOSE 10g/15ml SOLN 473ML PR SCH (16:00)
[2024-10-25] MEDS ORDERED: HALOPERIDOL LACTATE 5 MG/ML INJ VIAL IV PRN (16:00)
[2024-10-25] MEDS: PIPERACILLIN-TAZO 4.5GM 100 ML IV ONE (16:26)
[2024-10-25] MEDS ORDERED: HALOPERIDOL LACTATE 5 MG/ML INJ VIAL IM PRN (16:30)
[2024-10-25] MEDS: SODIUM CHLORIDE 0.9% 500 ML IV ONE (16:45)
[2024-10-25] MEDS: KETOROLAC TROMETH 30 MG/ML 1ML VIAL IV ONE (17:15)
[2024-10-25] MEDS: LACTULOSE 10g/15ml SOLN 473ML PR SCH (18:00)
--- NOTE | 2024-10-25 18:00 | DVH ---
EXAM: CT HEAD WITHOUT CONTRAST HISTORY: ALOC COMPARISON: None TECHNIQUE: Axial images were obtained and reformatted in coronal and sagittal planes. All CT scans at this medical facility are performed using dose modulation techniques as appropriate t o a performed exam including the following: Automated exposure control was utilized; adjustment of th e MA and/or KV according to patient size; and use of iterative reconstruction technique. CT Dose: CTDI volume is 67.3 mGy. Dose-length product is 1460.53 mGy*cm FINDINGS: Supratentorial Region: No evidence for large acute territorial ischemia. No intracranial hemorrhage is noted. Posterior Fossa: No acute abnormality. Brainstem: Unremarkable. Sellar/Suprasellar Region: Unremarkable. Ventricles, Cisterns, Sulci: Age-appropriate. Orbits: Unremarkable. Paranasal Sinuses: Unremarkable. Mastoid Air Cells: Unremarkable. Vasculature: Unremarkable. Bones/Soft Tissues: No acute abnormality. Other: None. IMPRESSION: 1. No acute intracranial process.
[2024-10-25 20:00] VITALS: PULSE 103; PULSE 98; RESP 18; O2SAT 93
--- NOTE | 2024-10-25 20:35 | DVHPN2 ---
Subjective Update 10/25 patient is confused today, somnolent, hard to awaken but is arousable to voice and tactile motion. Patient's mental status has decompensated. Battery of tests run with rule out of acute [place], hypercarbia, abdomen nonacute, no clinical/physical exam signs of stroke, vital signs stable, no bladder retention,. CT head pending, lactic acidosis present, ammonia is severely elevated, history of HCV? Treated? . Place patient on bedside sitter, continue q.6 H lactulose enemas rectally until patient improves enough to be able to tolerate p.o. lactulose. Low threshold to utilize chemical versus physical restraints versus upgrade to D OU step-down or Precedex. Update 10/24-patient feeling improved but not quite back to baseline yet. Having improved pain in the back and the CVA regions. Feels less swollen. No dysuria no bladder pain. UA was unconcerning for UTI. Chest x-ray shows some mild pulmonary vascular congestion and BNP is mildly elevated. Along with the volume overload symptoms this could be volume overload from new HFpEF versus cirrhosis. 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 We will continue treatment with diuresis. We will also try a nightly muscle relaxant which could be the back pain. --10/23- Continue have CVA region pain. Feels swollen. Reviewed: H&P Changes from previous H/P or p: No Changes General: Per HPI Objective Vitals Vital Signs Date Time Temp Pulse Resp B/P (MAP) Pulse Ox O2 Delivery O2 Flow Rate FiO2 10/25/24 08:00 87 10/25/24 08:00 16 95 Room Air* 0 21 10/25/24 06:17 124/72 10/25/24 05:00 97.7 97.7 Intake/Output Intake and Output 10/25/24 07:00 Intake Total 460 ml Output Total 1800 ml Balance -1340 ml Intake Oral 460 ml Output Urine Total 1800 ml Exam GEN: Difficulty arousing, hypersomnolent.. HEENT: NC/AT; MMM. CV: Systolic murmur 2/6 LUNGS: Rales at lower lobes bilaterally ABD: Soft, NT/ND, NBS, no masses or organomegaly. EXT: skin Warm, well perfused. no rashes. No clubbing, cyanosis, or edema. P edal edema 1 to 2+ bilaterally NEURO: Ambulating with no limitations. No focal deficits. Medications Current Medications Medications Dose Ordered Sig/Sherron Route Start Time Stop Time Status Last Admin Dose Admin Aspirin 81 mg DAILY PO 10/23/24 10:00 10/25/24 10:04 81 MG Atorvastatin Calcium 40 mg HS PO 10/23/24 22:00 10/24/24 21:28 40 MG Pantoprazole Sodium 40 mg DAILY IV 10/23/24 10:00 10/25/24 10:04 40 MG Acetaminophen/ Hydrocodone Bitart 1 tab Q4HP PRN PO 10/23/24 03:15 10/25/24 06:06 1 TAB Baclofen 10 mg HS PO 10/24/24 22:00 10/24/24 21:27 10 MG Ondansetron HCl 4 mg Q4HPRN PRN IV 10/25/24 01:45 10/25/24 06:06 4 MG Haloperidol Lactate 5 mg Q8HP PRN IM 10/25/24 16:30 Ketorolac Tromethamine 15 mg Q6HPRN PRN IV 10/26/24 00:00 10/31/24 00:00 Lactulose 300 ml Q6H [place] 10/25/24 18:00 10/25/24 18:00 300 ML Laboratory Results Laboratory Tests 10/25/24 14:42 Chemistry Test 10/25/24 06:29 10/25/24 14:42 Albumin 2.7 g/dL (3.2-4.8) L 3.0 g/dL (3.2-4.8) L Calcium Level 9.3 mg/dL (8.7-10.4) 9.4 mg/dL (8.7-10.4) Total Protein 6.9 g/dL (5.7-8.2) 7.3 g/dL (5.7-8.2) LFT Test 10/25/24 06:29 10/25/24 14:42 Alanine Aminotransferase (ALT) 40 U/L (7-40) 46 U/L (7-40) H Alkaline Phosphatase 261 U/L (46-116) H 276 U/L (46-116) H Aspartate Amino Transferase (AST) 53 U/L (13-40) H 57 U/L (13-40) H Total Bilirubin 3.3 mg/dL (0.2-1.0) H 3.2 mg/dL (0.2-1.0) H HgA1c, TSH Test 10/25/24 14:42 Thyroid Stimulating Hormone (TSH) 0.52 uIU/mL (0.55-4.78) L Urinalysis Test 10/22/24 16:33 Urine Color Yellow (Yellow) Urine Clarity Clear (Clear) Urine pH 6.5 (5.0-9.0) Urine Specific [place] 1.021 (1.001-1.035) Urine Protein 1+ (Negative) H Urine Ketones Trace (Negative) Urine Blood Trace /uL (Negative) H Urine Nitrite Negative (Negative) Urine Bilirubin 1+ (Negative) Urine Urobilinogen 4 mg/dL (Negative) H Urine Leukocyte Esterase Negative /uL (Negative) Urine RBC 3 /hpf (0 - 3) Urine WBC 4 /hpf (0 - 3) Urine Squamous Epithelial Cells Few /hpf (<5) Urine Bacteria None seen /hpf (None Seen) Urine Mucus Few (None Seen) Urine Glucose Normal mg/dL (Normal) Blood Gas Results Test 10/25/24 13:25 Arterial Blood pH 7.375 (7.350-7.450) FiO2 % 21.0 Labs and/or images reviewed: Labs reviewed by me, Image(s) reviewed by me Assessment/Plan Assessment/Plan Update 10/25 patient is confused today, somnolent, hard to awaken but is arousable to voice and tactile motion. Patient's mental status has decompensated. Battery of tests run with rule out of acute [place], hypercarbia, abdomen nonacute, no clinical/physical exam signs of stroke, vital signs stable, no bladder retention,. CT head pending, lactic acidosis present, ammonia is severely elevated, history of HCV? Treated? . Place patient on bedside sitter, continue q.6 H lactulose enemas rectally until patient improves enough to be able to tolerate p.o. lactulose. Low threshold to utilize chemical versus physical restraints versus upgrade to D OU step-down or Precedex. CT head pending # acute on chronic diastolic heart failure exacerbation likely - start IV Lasix . Chest x-ray with pulmonary vascular congestion and BNP mildly elevated.. Echo EF is 55% # acute toxic metabolic encephalopathy through vigorous workup on 10/25 identified hyperammonemia, sitter started, rectal lactulose q.6h. If improves we will convert lactulose to p.o.. CT head pending # hyperammonemia secondary to cirrhosis secondary to HCV # cirrhosis due to HCV, history HCV? Treated # Liver cirrhosis with portal hypertension, rule out GI bleeding - - CT abd/pelv w cirrhosis with hypertension. Protonix IV daily. SOB pending # volume overload - differential HFpEF exacerbation versus cirrhosis. As above # Bilateral flank pain and dark urine, ruled out renal stone- CTA negative for stones. # UTI/pyelonephritis acute possible continue IV antibiotics ceftriaxone # Lactic acidosis in history of liver cirrhosis - resolving. Status post IV fluids 1 L NS, p.o. hydration thereafter w fluid restrict 1.5 L. lactic acidosis remains on 10/25, given 1 L fluids. # NSTEMI type 2 secondary to above - echo pending. Chest pain-free # Bilateral leg swelling, rule out DVT/ stasis dermatitis- Doppler lower extremity negative for DVT. Likely CHF versus cirrhosis. # Hyperbilirubinemia with transaminitis due to cirrhosis of the liver- colonic elevated (PT/INR high) hep panel pending # Leukopenia and thrombocytopenia secondary to liver cirrhosis- hold off DVT prophylaxis chemical. We will do SCDs Diet NPO DVT prophylaxis-SCDs GI prophylaxis IV Protonix Med tele Full code Plan discussed with: Patient My Orders Orders - KARLOS DOMINGUEZ MD Procedure Category Date Status Time Abg W/ Co-Ox RT 10/25/24 Logged 12:49 Electrocardigram EKG 10/25/24 Logged 12:[address] 10/25/24 Resulted 13:36 Behavioral Restraints ED NURSING 10/25/24 Transmitted Sitter At Bedside ORDERS 10/25/24 Transmitted 15:58 Haloperidol Lactate PHA 10/25/24 In Process Injection (Haldol) 16:30 Ketorolac Injection PHA 10/26/24 In Process (Toradol Injection) 00:00 Lactulose Rectal PHA 10/25/24 In Process 18:00 Date of Service: Oct 25, 2024 Billing Provider: KARLOS DOMINGUEZ MD Common Visit Codes: [id number] INP/OBS CARE(HIGH) KARLOS DOMINGUEZ MD Oct 25, 2024 20:35
[2024-10-25 21:00] VITALS: BP 141/71; PULSE 98; RESP 18; TEMP 97.3; O2SAT 93
[2024-10-25] MEDS ORDERED: cefTRIAXone 1GM/50ML D5W 50 ML IV SCH (21:00)
[2024-10-26] VITALS (8 sets, daily range): BP systolic 114–138; BP diastolic 58–73; PULSE 76–99; RESP 18–20; TEMP 97.8–99.1; O2SAT 90–96
[2024-10-26] MEDS: KETOROLAC TROMETH 30 MG/ML 1ML VIAL IV PRN (05:18)
[2024-10-26] MEDS: LACTULOSE 20Gm/30ML SOLN PO ONE (07:03)
[2024-10-26] MEDS: LACTULOSE 20Gm/30ML SOLN PO SCH (10:01)
[2024-10-26 13:58] LABS: Anion Gap 8 (5-15); BUN/Creatinine Ratio 14.7 (10.0-20.0); Blood Urea Nitrogen 22 mg/dL (9-23); Calcium 9.3 mg/dL (8.7-10.4); Carbon Dioxide 24 mmol/L (20-31); Total Protein 6.3 g/dL (5.7-8.2)
[2024-10-26 13:59] LABS: Alanine Aminotransferase 40 U/L (7-40); Albumin 2.6 g/dL (3.2-4.8); Alkaline Phosphatase 217 U/L (46-116); Aspartate Aminotransferase 50 U/L (13-40); Bilirubin, Total 2.8 mg/dL (0.2-1.0); Chloride 115 mmol/L (98-107); Glucose 132 mg/dL (74-106); Potassium 3.5 mmol/L (3.5-5.1); Sodium 147 mmol/L (136-145)
[2024-10-26 15:20] LABS: Basophils # (auto) 0 10 ^3/uL (0-0.2); Monocytes # (auto) 0.9 10 ^3/uL (0-1.3); Nucleated Red Blood Cells % 0.1 %
[2024-10-26 15:22] LABS: Basophils % (auto) 0.5 % (0.0-2.0); Eosinophils # (auto) 0 10 ^3/uL (0-0.8); Eosinophils % (auto) 0.6 % (0.0-7.0); Hematocrit 43.9 % (41.0-53.0); Lymphocytes # (auto) 1.6 10 ^3/uL (0.4-5.4); Lymphocytes % (auto) 23.6 % (10.0-50.0); Mean Corpuscular Hemoglobin 35.9 pg (28.0-32.0); Mean Corpuscular Volume 105.5 fL (80.0-100.0); Monocytes % (auto) 13.2 % (0.0-12.0); Neutrophils # (auto) 4.2 10 ^3/uL (1.6-8.6); Neutrophils % (auto) 62.1 % (37.0-80.0); Platelet Count (auto) 62 10^3/uL (140-450); Red Blood Cells 4.16 10^6/uL (4.5-5.90); Red Cell Distribution Width 18.6 % (11.8-14.3); White Blood Cell 6.7 10^3/uL (4.4-10.8)
--- NOTE | 2024-10-26 19:53 | DVHPN2 ---
Subjective Update 10/26 patient is more confused today, he remains somnolent but arousable. He was more calm when aroused today. Ammonia level improving. We will continue treatment plan. 10/25 patient is confused today, somnolent, hard to awaken but is arousable to voice and tactile motion. Patient's mental status has decompensated. Battery of tests run with rule out of acute [place], hypercarbia, abdomen nonacute, no clinical/physical exam signs of stroke, vital signs stable, no bladder retention,. CT head pending, lactic acidosis present, ammonia is severely elevated, history of HCV? Treated? . Place patient on bedside sitter, continue q.6 H lactulose enemas rectally until patient improves enough to be able to tolerate p.o. lactulose. Low threshold to utilize chemical versus physical restraints versus upgrade to D OU step-down or Precedex. Update 10/24-patient feeling improved but not quite back to baseline yet. Having improved pain in the back and the CVA regions. Feels less swollen. No dysuria no bladder pain. UA was unconcerning for UTI. Chest x-ray shows some mild pulmonary vascular congestion and BNP is mildly elevated. Along with the volume overload symptoms this could be volume overload from new HFpEF versus cirrhosis. Patient does endorse that he was scheduled for tips procedure with mophead sewer, unclear. We will continue treatment with diuresis. We will also try a nightly muscle relaxant which could be the back pain. --10/23- Continue have CVA region pain. Feels swollen. Reviewed: H&P Changes from previous H/P or p: No Changes General: Per HPI Objective Vitals Vital Signs Date Time Temp Pulse Resp B/P (MAP) Pulse Ox O2 Delivery O2 Flow Rate FiO2 10/26/24 16:33 98.7 80 18 114/58 (76) 96 98.7 10/26/24 08:00 Room Air* 0 21 Intake/Output Intake and Output 10/26/24 06:59 Intake Total 0 ml Output Total 600 ml Balance -600 ml Intake Oral 0 ml Output Urine Total 600 ml Exam GEN: Difficulty arousing, hypersomnolent.. HEENT: NC/AT; MMM. CV: Systolic murmur 11/01 LUNGS: Rales at lower lobes bilaterally ABD: Soft, NT/ND, NBS, no masses or organomegaly. EXT: skin Warm, well perfused. no rashes. No clubbing, cyanosis, or edema. P edal edema 1 to 2+ bilaterally NEURO: Ambulating with no limitations. No focal deficits. Medications Current Medications Medications Dose Ordered Sig/Sherron Route Start Time Stop Time Status Last Admin Dose Admin Aspirin 81 mg DAILY PO 10/23/24 10:00 10/26/24 10:01 81 MG Atorvastatin Calcium 40 mg HS PO 10/23/24 22:00 10/24/24 21:28 40 MG Pantoprazole Sodium 40 mg DAILY IV 10/23/24 10:00 10/26/24 10:01 40 MG Acetaminophen/ Hydrocodone Bitart 1 tab Q4HP PRN PO 10/23/24 03:15 10/26/24 16:09 1 TAB Baclofen 10 mg HS PO 10/24/24 22:00 10/24/24 21:27 10 MG Ondansetron HCl 4 mg Q4HPRN PRN IV 10/25/24 01:45 10/25/24 06:06 4 MG Haloperidol Lactate 5 mg Q8HP PRN IM 10/25/24 16:30 Ketorolac Tromethamine 15 mg Q6HPRN PRN IV 10/26/24 00:00 10/31/24 00:00 10/26/24 05:18 15 MG Lactulose 30 ml BID PO 10/26/24 10:00 10/26/24 10:01 30 ML Laboratory Results Laboratory Tests 10/26/24 13:08 10/26/24 14:56 Chemistry Test 10/26/24 13:08 Albumin 2.6 g/dL (3.2-4.8) L Calcium Level 9.3 mg/dL (8.7-10.4) Total Protein 6.3 g/dL (5.7-8.2) LFT Test 10/26/24 13:08 Alanine Aminotransferase (ALT) 40 U/L (7-40) Alkaline Phosphatase 217 U/L (46-116) H Aspartate Amino Transferase (AST) 50 U/L (13-40) H Total Bilirubin 2.8 mg/dL (0.2-1.0) H Urinalysis Test 10/22/24 16:33 Urine Color Yellow (Yellow) Urine Clarity Clear (Clear) Urine pH 6.5 (5.0-9.0) Urine Specific [place] 1.021 (1.001-1.035) Urine Protein 1+ (Negative) H Urine Ketones Trace (Negative) Urine Blood Trace /uL (Negative) H Urine Nitrite Negative (Negative) Urine Bilirubin 1+ (Negative) Urine Urobilinogen 4 mg/dL (Negative) H Urine Leukocyte Esterase Negative /uL (Negative) Urine RBC 3 /hpf (0 - 3) Urine WBC 4 /hpf (0 - 3) Urine Squamous Epithelial Cells Few /hpf (<5) Urine Bacteria None seen /hpf (None Seen) Urine Mucus Few (None Seen) Urine Glucose Normal mg/dL (Normal) Labs and/or images reviewed: Labs reviewed by me, Image(s) reviewed by me Assessment/Plan Assessment/Plan 10/26 patient is more confused today, he remains somnolent but arousable. He was more calm when aroused today. Ammonia level improving. We will continue treatment plan. # acute toxic metabolic encephalopathy through vigorous workup on 10/25 identified hyperammonemia, sitter started, now oral lactulose bid. CT head negative, no FND # hyperammonemia secondary to cirrhosis secondary to HCV # Lactic acidosis in history of liver cirrhosis - resolving. Status post IV fluids 1 L NS, p.o. hydration thereafter w fluid restrict 1.5 L. lactic acidosis remains on 10/25, given 1 L fluids, again resolving. # acute on chronic diastolic heart failure exacerbation likely - holding v lasix due to worsening lactic acidosis . Chest x-ray with pulmonary vascular congestion and BNP mildly elevated.. 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 Treated - refer to GI outpatient to follow resolution. (? Patient might already have mophead sewer) # Liver cirrhosis with portal hypertension, rule out GI bleeding - - CT abd/pelv w cirrhosis with hypertension. Protonix IV daily. SOB pending # volume overload - differential HFpEF exacerbation versus cirrhosis. As above # Bilateral flank pain and dark urine, ruled out renal stone- CTA negative for stones. # UTI/pyelonephritis acute possible continue IV antibiotics ceftriaxone # NSTEMI type 2 secondary to above - echo pending. Chest pain-free # Bilateral leg swelling, rule out DVT/ stasis dermatitis- Doppler lower extremity negative for DVT. Likely CHF versus cirrhosis. # Hyperbilirubinemia with transaminitis due to cirrhosis of the liver- colonic elevated (PT/INR high) hep panel pending # Leukopenia and thrombocytopenia secondary to liver cirrhosis- hold off DVT prophylaxis chemical. We will do SCDs Diet NPO + aspiration precautions DVT prophylaxis-SCDs GI prophylaxis IV Protonix Med tele Full code Plan discussed with: Patient, Other My Orders Orders - KARLOS DOMINGUEZ MD Procedure Category Date Status Time Strict Aspiration LIZA 10/26/24 In Process Precautions 10:39 Date of Service: Oct 26, 2024 Billing Provider: KARLOS DOMINGUEZ MD Common Visit Codes: [id number] INP/OBS CARE(HIGH) KARLOS DOMINGUEZ MD Oct 26, 2024 19:53
[2024-10-26] MEDS ORDERED: LACTULOSE 20Gm/30ML SOLN PO SCH (22:00)
[2024-10-27] VITALS (8 sets, daily range): BP systolic 108–123; BP diastolic 53–62; PULSE 60–87; RESP 16–20; TEMP 97.9–98.3; O2SAT 93–98
[2024-10-27] MEDS: LACTATED RINGER'S 1,000 ML IV SCH (00:07)
[2024-10-27] MEDS: THIAMINE 100mg/ml INJ (200mg/2ml VIAL) IV ONE (00:07)
[2024-10-27 06:57] LABS: Basophils # (auto) 0 10 ^3/uL (0-0.2); Hemoglobin 12.8 g/dL (13.5-17.5); Mean Corpuscular Volume 104.2 fL (80.0-100.0); Nucleated Red Blood Cells % 0.1 %; Platelet Count (auto) 57 10^3/uL (140-450)
[2024-10-27 07:00] LABS: Basophils % (auto) 0.8 % (0.0-2.0); Eosinophils # (auto) 0.2 10 ^3/uL (0-0.8); Eosinophils % (auto) 3.1 % (0.0-7.0); Hematocrit 36.7 % (41.0-53.0); Lymphocytes # (auto) 1.9 10 ^3/uL (0.4-5.4); Lymphocytes % (auto) 33.7 % (10.0-50.0); Mean Corpuscular Hemoglobin 36.3 pg (28.0-32.0); Mean Corpuscular Hgb Conc. 34.9 g/dL (32.0-36.0); Monocytes % (auto) 17.2 % (0.0-12.0); Neutrophils # (auto) 2.6 10 ^3/uL (1.6-8.6); Neutrophils % (auto) 45.2 % (37.0-80.0); Red Blood Cells 3.53 10^6/uL (4.5-5.90); Red Cell Distribution Width 18.3 % (11.8-14.3); White Blood Cell 5.7 10^3/uL (4.4-10.8)
[2024-10-27 07:14] LABS: Alanine Aminotransferase 36 U/L (7-40); Anion Gap 6 (5-15); BUN/Creatinine Ratio 18.8 (10.0-20.0); Carbon Dioxide 27 mmol/L (20-31)
[2024-10-27 07:29] LABS: Albumin 2.3 g/dL (3.2-4.8); Alkaline Phosphatase 206 U/L (46-116); Aspartate Aminotransferase 45 U/L (13-40); Blood Urea Nitrogen 29 mg/dL (9-23); Calcium 8.6 mg/dL (8.7-10.4); Chloride 113 mmol/L (98-107); Glucose 116 mg/dL (74-106); Potassium 3.3 mmol/L (3.5-5.1); Sodium 146 mmol/L (136-145); Total Protein 5.5 g/dL (5.7-8.2)
--- NOTE | 2024-10-27 09:40 | DVHPN2 ---
Subjective Update -10/27 - patient is feeling much better, alert today, has complaints today of not being able to sleep enough and has she was body aches. More alert and orient. United and the leg sitting no acute pain anywhere in the body. No need for ammonia level today as patient is improving. 10/26 patient is more confused today, he remains somnolent but arousable. He was more calm when aroused today. Ammonia level improving. We will continue treatment plan. 10/25 patient is confused today, somnolent, hard to awaken but is arousable to voice and tactile motion. Patient's mental status has decompensated. Battery of tests run with rule out of acute [place], hypercarbia, abdomen nonacute, no clinical/physical exam signs of stroke, vital signs stable, no bladder retention,. CT head pending, lactic acidosis present, ammonia is severely elevated, history of HCV? Treated? . Place patient on bedside sitter, continue q.6 H lactulose enemas rectally until patient improves enough to be able to tolerate p.o. lactulose. Low threshold to utilize chemical versus physical restraints versus upgrade to D OU step-down or Precedex. Update 10/24-patient feeling improved but not quite back to baseline yet. Having improved pain in the back and the CVA regions. Feels less swollen. No dysuria no bladder pain. UA was unconcerning for UTI. Chest x-ray shows some mild pulmonary vascular congestion and BNP is mildly elevated. Along with the volume overload symptoms this could be volume overload from new HFpEF versus cirrhosis. Patient does endorse that he was scheduled for tips procedure with patient service coordinator, unclear. We will continue treatment with diuresis. We will also try a nightly muscle relaxant which could be the back pain. --10/23- Continue have CVA region pain. Feels swollen. Reviewed: H&P Changes from previous H/P or p: No Changes General: Per HPI Objective Vitals Vital Signs Date Time Temp Pulse Resp B/P (MAP) Pulse Ox O2 Delivery O2 Flow Rate FiO2 10/27/24 05:00 98.1 70 18 108/53 (71) 93 98.1 10/26/24 20:00 Room Air* 0 21 Intake/Output Intake and Output 10/27/24 07:00 Intake Total 1270 ml Output Total 825 ml Balance 445 ml Intake Oral 1270 ml Output Urine Total 825 ml # Bowel Movements 9 Exam GEN: Mild distress, awake and alert, oriented x3. HEENT: NC/AT; MMM. CV: Systolic murmur 11/01 LUNGS: Rales at lower lobes bilaterally ABD: Soft, NT/ND, NBS, no masses or organomegaly. EXT: skin Warm, well perfused. no rashes. No clubbing, cyanosis, or edema. P edal edema 1 to 2+ bilaterally NEURO: Ambulating with no limitations. No focal deficits. Medications Current Medications Medications Dose Ordered Sig/Sherron Route Start Time Stop Time Status Last Admin Dose Admin Aspirin 81 mg DAILY PO 10/23/24 10:00 10/27/24 08:40 81 MG Atorvastatin Calcium 40 mg HS PO 10/23/24 22:00 10/26/24 21:41 40 MG Pantoprazole Sodium 40 mg DAILY IV 10/23/24 10:00 10/27/24 08:40 40 MG Acetaminophen/ Hydrocodone Bitart 1 tab Q4HP PRN PO 10/23/24 03:15 10/27/24 08:48 1 TAB Baclofen 10 mg HS PO 10/24/24 22:00 10/26/24 21:41 10 MG Ondansetron HCl 4 mg Q4HPRN PRN IV 10/25/24 01:45 10/25/24 06:06 4 MG Haloperidol Lactate 5 mg Q8HP PRN IM 10/25/24 16:30 Ketorolac Tromethamine 15 mg Q6HPRN PRN IV 10/26/24 00:00 10/31/24 00:00 10/26/24 23:36 15 MG Lactulose 30 ml BID PO 10/26/24 10:00 10/27/24 08:40 30 ML Lactated Ringer's 1,000 ml @ 100 mls/hr Q10H IV 10/26/24 23:45 10/27/24 08:51 100 MLS/HR Laboratory Results Laboratory Tests 10/27/24 05:20 Chemistry Test 10/26/24 13:08 10/27/24 05:20 Albumin 2.6 g/dL (3.2-4.8) L 2.3 g/dL (3.2-4.8) L Calcium Level 9.3 mg/dL (8.7-10.4) 8.6 mg/dL (8.7-10.4) L Total Protein 6.3 g/dL (5.7-8.2) 5.5 g/dL (5.7-8.2) L LFT Test 10/26/24 13:08 10/27/24 05:20 Alanine Aminotransferase (ALT) 40 U/L (7-40) 36 U/L (7-40) Alkaline Phosphatase 217 U/L (46-116) H 206 U/L (46-116) H Aspartate Amino Transferase (AST) 50 U/L (13-40) H 45 U/L (13-40) H Total Bilirubin 2.8 mg/dL (0.2-1.0) H 2.0 mg/dL (0.2-1.0) H Urinalysis Test 10/22/24 16:33 Urine Color Yellow (Yellow) Urine Clarity Clear (Clear) Urine pH 6.5 (5.0-9.0) Urine Specific [place] 1.021 (1.001-1.035) Urine Protein 1+ (Negative) H Urine Ketones Trace (Negative) Urine Blood Trace /uL (Negative) H Urine Nitrite Negative (Negative) Urine Bilirubin 1+ (Negative) Urine Urobilinogen 4 mg/dL (Negative) H Urine Leukocyte Esterase Negative /uL (Negative) Urine RBC 3 /hpf (0 - 3) Urine WBC 4 /hpf (0 - 3) Urine Squamous Epithelial Cells Few /hpf (<5) Urine Bacteria None seen /hpf (None Seen) Urine Mucus Few (None Seen) Urine Glucose Normal mg/dL (Normal) Labs and/or images reviewed: Labs reviewed by me, Image(s) reviewed by me Assessment/Plan Assessment/Plan -10/27 - patient is feeling much better, alert today, has complaints today of not being able to sleep enough and has she was body aches. More alert and orient. United and the leg sitting no acute pain anywhere in the body. No need for ammonia level today as patient is improving. Needs PT, we will likely need BSC and possibly sniff rehab but defer that to PT eval.. Patient is improving we will likely not require sitter going forward. # acute toxic metabolic encephalopathy through vigorous workup on 10/25 identified hyperammonemia, sitter started, now oral lactulose bid. CT head negative, no FND. # hyperammonemia secondary to cirrhosis secondary to HCV # hepatic encephalopathy - see above # Lactic acidosis in history of liver cirrhosis - resolving. Status post IV fluids 1 L NS, p.o. hydration thereafter w fluid restrict 1.5 L. lactic acidosis remains on 10/25, given 1 L fluids, again resolving. # acute on chronic diastolic heart failure exacerbation likely - holding v lasix due to worsening lactic acidosis . Chest x-ray with pulmonary vascular congestion and BNP mildly elevated.. Echo EF is 55%. 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 pcr outpatient with GI. 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 Treated - refer to GI outpatient to follow resolution. (? Patient might already have patient service coordinator). # Liver cirrhosis with portal hypertension, rule out GI bleeding - - CT abd/pelv w cirrhosis with hypertension. Protonix IV daily. SOB + # volume overload - differential HFpEF exacerbation versus cirrhosis. As above. # Bilateral flank pain and dark urine, ruled out renal stone- CTA negative for stones. # UTI/pyelonephritis acute possible continue IV antibiotics ceftriaxone. # NSTEMI type 2 secondary to above - echo pending. Chest pain-free. # Bilateral leg swelling, rule out DVT/ stasis dermatitis- Doppler lower extremity negative for DVT. Likely CHF versus cirrhosis. # Hyperbilirubinemia with transaminitis due to cirrhosis of the liver- colonic elevated (PT/INR high) # Leukopenia and thrombocytopenia secondary to liver cirrhosis- hold off DVT prophylaxis chemical. We will do SCDs Diet NPO + aspiration precautions DVT prophylaxis-SCDs GI prophylaxis IV Protonix Med tele Full code Plan discussed with: Patient My Orders Orders - KARLOS DOMINGUEZ MD Procedure Category Date Status Time Strict Aspiration LIZA 10/26/24 In Process Precautions 10:39 Lactated Ringer's PHA 10/26/24 In Process 23:45 Date of Service: Oct 27, 2024 Billing Provider: KARLOS DOMINGUEZ MD Common Visit Codes: [id number] INP/OBS CARE(HIGH) KARLOS DOMINGUEZ MD Oct 27, 2024 09:40
[2024-10-27] MEDS: LACTATED RINGER'S 1,000 ML IV ONE (09:45)
[2024-10-27] MEDS: KETOROLAC TROMETH 30 MG/ML 1ML VIAL IV ONE (11:56)
[2024-10-27] MEDS: diphenhdrAMINE HCL 50 MG/1 ML VL IV ONE (14:56)
[2024-10-27] MEDS: traZODone HCL 50 MG TAB PO SCH (21:11)
[2024-10-28] VITALS (11 sets, daily range): BP systolic 108–129; BP diastolic 54–71; PULSE 68–94; RESP 16–20; TEMP 97.8–98.6; O2SAT 91–96
[2024-10-28] MEDS: LACTATED RINGER'S 500 ML IV ONE (09:34)
[2024-10-28 10:54] LABS: Alanine Aminotransferase 39 U/L (7-40); Anion Gap 5 (5-15); BUN/Creatinine Ratio 21.7 (10.0-20.0); Carbon Dioxide 26 mmol/L (20-31); Potassium 3.8 mmol/L (3.5-5.1); Sodium 142 mmol/L (136-145)
[2024-10-28 11:00] LABS: Basophils # (auto) 0 10 ^3/uL (0-0.2); Hemoglobin 12.5 g/dL (13.5-17.5); Lymphocytes # (auto) 1.3 10 ^3/uL (0.4-5.4); Mean Corpuscular Volume 105.8 fL (80.0-100.0); Monocytes # (auto) 0.6 10 ^3/uL (0-1.3); Neutrophils # (auto) 1.9 10 ^3/uL (1.6-8.6)
[2024-10-28 11:04] LABS: Basophils % (auto) 0.7 % (0.0-2.0); Eosinophils # (auto) 0.1 10 ^3/uL (0-0.8); Eosinophils % (auto) 3.6 % (0.0-7.0); Hematocrit 36.1 % (41.0-53.0); Lymphocytes % (auto) 32.3 % (10.0-50.0); Mean Corpuscular Hemoglobin 36.7 pg (28.0-32.0); Mean Corpuscular Hgb Conc. 34.7 g/dL (32.0-36.0); Monocytes % (auto) 16.1 % (0.0-12.0); Neutrophils % (auto) 47.3 % (37.0-80.0); Nucleated Red Blood Cells % 0.2 %; Red Blood Cells 3.41 10^6/uL (4.5-5.90); Red Cell Distribution Width 17.9 % (11.8-14.3)
[2024-10-28 11:05] LABS: Alkaline Phosphatase 220 U/L (46-116); Aspartate Aminotransferase 59 U/L (13-40); Bilirubin, Total 2.2 mg/dL (0.2-1.0); Blood Urea Nitrogen 28 mg/dL (9-23); Calcium 8.6 mg/dL (8.7-10.4); Chloride 111 mmol/L (98-107); Glucose 164 mg/dL (74-106)
[2024-10-28 11:06] LABS: Platelet Count (auto) 48 10^3/uL (140-450)
[2024-10-28 11:28] LABS: Creatinine, Urine 301.46 mg/dL (30.0-125.0)
[2024-10-28 17:26] LABS: Potassium 3.9 mmol/L (3.5-5.1); Sodium 142 mmol/L (136-145)
[2024-10-28 17:27] LABS: Anion Gap 3 (5-15); Carbon Dioxide 27 mmol/L (20-31)
[2024-10-28 17:32] LABS: BUN/Creatinine Ratio 22.6 (10.0-20.0)
[2024-10-28 17:35] LABS: Blood Urea Nitrogen 28 mg/dL (9-23); Calcium 8.5 mg/dL (8.7-10.4); Chloride 112 mmol/L (98-107); Glucose 119 mg/dL (74-106)
[2024-10-28] MEDS: LACTATED RINGER'S 1,000 ML IV SCH (18:24)
--- NOTE | 2024-10-28 23:45 | DVHPN2 ---
Subjective Update -10/28- patient is back at his baseline A&O x3 . Still has some back pain but all acute causes ruled out, this may be chronic back pain which is tolerable with no red flags. PT recommends sniff. Patient appears to have developed VALENTINA which is improving. Notified by RN patient is making minimal urine oliguria versus anuria. We will keep patient admitted with some more IV fluids with possibility to discharge to sniff tomorrow, pending rule out H RS. -10/27 - patient is feeling much better, alert today, has complaints today of not being able to sleep enough and has she was body aches. More alert and orient. United and the leg sitting no acute pain anywhere in the body. No need for ammonia level today as patient is improving. 10/26 patient is more confused today, he remains somnolent but arousable. He was more calm when aroused today. Ammonia level improving. We will continue treatment plan. 10/25 patient is confused today, somnolent, hard to awaken but is arousable to voice and tactile motion. Patient's mental status has decompensated. Battery of tests run with rule out of acute [place], hypercarbia, abdomen nonacute, no clinical/physical exam signs of stroke, vital signs stable, no bladder retention,. CT head pending, lactic acidosis present, ammonia is severely elevated, history of HCV? Treated? . Place patient on bedside sitter, continue q.6 H lactulose enemas rectally until patient improves enough to be able to tolerate p.o. lactulose. Low threshold to utilize chemical versus physical restraints versus upgrade to D OU step-down or Precedex. Update 10/24-patient feeling improved but not quite back to baseline yet. Having improved pain in the back and the CVA regions. Feels less swollen. No dysuria no bladder pain. UA was unconcerning for UTI. Chest x-ray shows some mild pulmonary vascular congestion and BNP is mildly elevated. Along with the volume overload symptoms this could be volume overload from new HFpEF versus cirrhosis. Patient does endorse that he was scheduled for tips procedure with rectification printer, unclear. We will continue treatment with diuresis. We will also try a nightly muscle relaxant which could be the back pain. --10/23- Continue have CVA region pain. Feels swollen. Reviewed: H&P Changes from previous H/P or p: No Changes General: Per HPI Objective Vitals Vital Signs Date Time Temp Pulse Resp B/P (MAP) Pulse Ox O2 Delivery O2 Flow Rate FiO2 10/28/24 22:00 98.2 78 18 129/71 (90) 94 98.2 10/28/24 20:00 Room Air* 0 21 Intake/Output Intake and Output 10/28/24 07:00 Intake Total 5350 ml Output Total 275 ml Balance 5075 ml Intake Oral 2350 ml IV Total 3000 ml Output Urine Total 275 ml # Bowel Movements 2 Exam GEN: Mild distress, awake and alert, oriented x3. HEENT: NC/AT; MMM. CV: Systolic murmur 11/01 LUNGS: bibasilar rales ABD: Soft, NT/ND, NBS, no masses or organomegaly. EXT: skin Warm, well perfused. no rashes. No clubbing, cyanosis, or edema. P edal edema trace BL NEURO: Ambulating with no limitations. No focal deficits. Medications Current Medications Medications Dose Ordered Sig/Sherron Route Start Time Stop Time Status Last Admin Dose Admin Aspirin 81 mg DAILY PO 10/23/24 10:00 10/28/24 09:20 81 MG Atorvastatin Calcium 40 mg HS PO 10/23/24 22:00 10/28/24 21:44 40 MG Pantoprazole Sodium 40 mg DAILY IV 10/23/24 10:00 10/28/24 09:20 40 MG Acetaminophen/ Hydrocodone Bitart 1 tab Q4HP PRN PO 10/23/24 03:15 10/27/24 08:48 1 TAB Baclofen 10 mg HS PO 10/24/24 22:00 10/28/24 21:44 10 MG Ondansetron HCl 4 mg Q4HPRN PRN IV 10/25/24 01:45 10/25/24 06:06 4 MG Haloperidol Lactate 5 mg Q8HP PRN IM 10/25/24 16:30 Ketorolac Tromethamine 15 mg Q6HPRN PRN IV 10/26/24 00:00 10/31/24 00:00 10/28/24 09:21 15 MG Lactulose 30 ml BID PO 10/26/24 10:00 10/28/24 21:44 30 ML Trazodone HCl 50 mg HS PO 10/27/24 22:00 10/28/24 21:44 50 MG Lactated Ringer's 1,000 ml @ 125 mls/hr Q8H IV 10/28/24 22:00 10/29/24 05:00 10/28/24 18:24 125 MLS/HR Laboratory Results Laboratory Tests 10/28/24 09:50 10/28/24 16:55 Chemistry Test 10/28/24 09:50 10/28/24 16:55 Albumin 2.0 g/dL (3.2-4.8) L Calcium Level 8.6 mg/dL (8.7-10.4) L 8.5 mg/dL (8.7-10.4) L Total Protein 5.0 g/dL (5.7-8.2) L LFT Test 10/28/24 09:50 Alanine Aminotransferase (ALT) 39 U/L (7-40) Alkaline Phosphatase 220 U/L (46-116) H Aspartate Amino Transferase (AST) 59 U/L (13-40) H Total Bilirubin 2.2 mg/dL (0.2-1.0) H Urinalysis Test 10/22/24 16:33 10/28/24 10:00 Urine Color Yellow (Yellow) Urine Clarity Clear (Clear) Urine pH 6.5 (5.0-9.0) Urine Specific [place] 1.021 (1.001-1.035) Urine Protein 1+ (Negative) H Urine Ketones Trace (Negative) Urine Blood Trace /uL (Negative) H Urine Nitrite Negative (Negative) Urine Bilirubin 1+ (Negative) Urine Urobilinogen 4 mg/dL (Negative) H Urine Leukocyte Esterase Negative /uL (Negative) Urine RBC 3 /hpf (0 - 3) Urine WBC 4 /hpf (0 - 3) Urine Squamous Epithelial Cells Few /hpf (<5) Urine Bacteria None seen /hpf (None Seen) Urine Mucus Few (None Seen) Urine Glucose Normal mg/dL (Normal) Urine Creatinine 301.46 mg/dL (30.0-125.0) H Urine Sodium 11 mmol/L (40-220) L Labs and/or images reviewed: Labs reviewed by me, Image(s) reviewed by me Assessment/Plan Assessment/Plan update -10/28- patient is back at his baseline A&O x3 . Still has some back pain but all acute causes ruled out, this may be chronic back pain which is tolerable with no red flags. PT recommends sniff. Patient appears to have developed VALENTINA which is improving. Notified by RN patient is making minimal urine oliguria versus anuria. We will keep patient admitted with some more IV fluids with [facility], pending rule out HRS. # acute toxic metabolic encephalopathy through vigorous workup on 10/25 identified hyperammonemia, karelyjimenez now that pt back to [facility], now oral lactulose bid. CT head negative, no FND. # hyperammonemia secondary to cirrhosis secondary to HCV # hepatic encephalopathy - see above # VALENTINA, Vmn likely, HRs rule out - Cr rise on 11, given fluids resulting in improvment. FeNa 0% (prerenal), Rn concern oligourea, will follow on 10/29 w more ivf. # Lactic acidosis in history of liver cirrhosis - resolving. Status post IV fluids 1 L NS, p.o. hydration thereafter w fluid restrict 1.5 L. lactic acidosis remains on 10/25, given 1 L fluids, again resolving. # acute on chronic diastolic heart failure exacerbation likely - holding v lasix due to worsening lactic acidosis . Chest x-ray with pulmonary vascular congestion and BNP mildly elevated.. Echo EF is 55%. 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 pcr outpatient with GI. 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 Treated - refer to GI outpatient to follow resolution. (? Patient might already have rectification printer). # Liver cirrhosis with portal hypertension, rule out GI bleeding - - CT abd/pelv w cirrhosis with hypertension. Protonix IV daily. SOB + # volume overload - differential HFpEF exacerbation versus cirrhosis. As above. # Bilateral flank pain and dark urine, ruled out renal stone- CTA negative for stones. # UTI/pyelonephritis acute possible continue IV antibiotics ceftriaxone. # NSTEMI type 2 secondary to above - echo pending. Chest pain-free. # Bilateral leg swelling, rule out DVT/ stasis dermatitis- Doppler lower extremity negative for DVT. Likely CHF versus cirrhosis. # Hyperbilirubinemia with transaminitis due to cirrhosis of the liver- colonic elevated (PT/INR high) # Leukopenia and thrombocytopenia secondary to liver cirrhosis- hold off DVT prophylaxis chemical. We will do SCDs Diet low salt DVT prophylaxis-SCDs GI prophylaxis - tolerating diet Med tele Full code Plan discussed with: Patient My Orders Orders - KARLOS DOMINGUEZ MD Procedure Category Date Status Time * Blanket Maker CONS 10/28/24 Transmitted Consult Discontinue Macdonald LIZA 10/28/24 In Process Catheter 13:16 D/C Sitter ORDERS 10/28/24 Transmitted 13:16 Lactated Ringer's PHA 10/28/24 In Process 22:00 Date of Service: Oct 28, 2024 Billing Provider: KARLOS DOMINGUEZ MD Common Visit Codes: [id number] INP/OBS CARE(HIGH) KARLOS DOMINGUEZ MD Oct 28, 2024 23:45
[2024-10-29] VITALS (8 sets, daily range): BP systolic 119–131; BP diastolic 60–68; PULSE 67–104; RESP 18–20; TEMP 97.7–98.2; O2SAT 93–98
[2024-10-29 10:43] LABS: Anion Gap 3 (5-15); BUN/Creatinine Ratio 23.8 (10.0-20.0); Calcium 8.8 mg/dL (8.7-10.4); Carbon Dioxide 28 mmol/L (20-31); Potassium 4.6 mmol/L (3.5-5.1); Sodium 142 mmol/L (136-145)
[2024-10-29 10:44] LABS: Total Protein 5.8 g/dL (5.7-8.2)
[2024-10-29 10:55] LABS: Alanine Aminotransferase 71 U/L (7-40); Albumin 2.3 g/dL (3.2-4.8); Alkaline Phosphatase 320 U/L (46-116); Aspartate Aminotransferase 111 U/L (13-40); Bilirubin, Total 2.5 mg/dL (0.2-1.0); Blood Urea Nitrogen 24 mg/dL (9-23); Chloride 111 mmol/L (98-107); Glucose 147 mg/dL (74-106)
[2024-10-29 11:19] LABS: Basophils # (auto) 0 10 ^3/uL (0-0.2); Basophils % (auto) 0.6 % (0.0-2.0); Eosinophils # (auto) 0.1 10 ^3/uL (0-0.8); Eosinophils % (auto) 1.2 % (0.0-7.0); Hematocrit 40.8 % (41.0-53.0); Lymphocytes # (auto) 1.5 10 ^3/uL (0.4-5.4); Lymphocytes % (auto) 32.6 % (10.0-50.0); Mean Corpuscular Hemoglobin 35.9 pg (28.0-32.0); Mean Corpuscular Hgb Conc. 34.3 g/dL (32.0-36.0); Mean Corpuscular Volume 104.6 fL (80.0-100.0); Monocytes # (auto) 0.6 10 ^3/uL (0-1.3); Monocytes % (auto) 12.7 % (0.0-12.0); Neutrophils # (auto) 2.5 10 ^3/uL (1.6-8.6); Neutrophils % (auto) 52.9 % (37.0-80.0); Nucleated Red Blood Cells % 0.2 %; Red Cell Distribution Width 17.7 % (11.8-14.3); White Blood Cell 4.7 10^3/uL (4.4-10.8)
[2024-10-29 11:22] LABS: Platelet Count (auto) 52 10^3/uL (140-450)
[2024-10-29] MEDS: LACTULOSE 20Gm/30ML SOLN PO SCH (18:00)
--- NOTE | 2024-10-29 18:11 | DVH ---
Procedure: US ABDOMEN LIMITED Study Date and Requested Time: 10/29/2024 05:28 PM History: ruq ultrasound worsening LFTs Comparison: US LIVER on DOS: 10/22/24 Technique: Multiple high resolution marcial-scale images obtained of the right upper quadrant of the abd omen with color Doppler for evaluation of blood flow and vascularity as indicated. Findings: Liver normal in size, measuring 13.2 cm in length, with increased echogenicity and coarse nodular ech otexture . No evidence of focal hepatic lesions, intrahepatic or extrahepatic ductal dilatation. Common bile duct is not visualized. Unable to determine flow of portal vein due to patient body habitus per assembler corncob pipes. Gallbladder is surgically absent Pancreas is obscured by bowel gas. Right kidney is not visualized. Inferior vena cava is poorly visualized. Impression: Study is significantly limited due to patient's body habitus, overlying bowel gas and patient being a ltered. Status post cholecystectomy. The common bile duct, pancreas, and right kidney are not visualized. Cirrhotic appearing liver which is not adequately assessed. Inadequate assessment of portal venous flow due to patient's body habitus.
--- NOTE | 2024-10-29 23:04 | DVHPN2 ---
Subjective Update -10/29 - patient continued on lactulose but becomes confused again. Repeated ammonia which is elevating. Keeping the patient euvolemic no further diuresis. Unclear why patient is still having elevated ammonia we will increase lactulose to t.i.d. from b.i.d.. Consult GI for resistant hyperammonemia. Still unable to discharge to sniff. -10/28- patient is back at his baseline A&O x3 . Still has some back pain but all acute causes ruled out, this may be chronic back pain which is tolerable with no red flags. PT recommends sniff. Patient appears to have developed VALENTINA which is improving. Notified by RN patient is making minimal urine oliguria versus anuria. We will keep patient admitted with some more IV fluids with possibility to discharge to sniff tomorrow, pending rule out H RS. -10/27 - patient is feeling much better, alert today, has complaints today of not being able to sleep enough and has she was body aches. More alert and orient. United and the leg sitting no acute pain anywhere in the body. No need for ammonia level today as patient is improving. 10/26 patient is more confused today, he remains somnolent but arousable. He was more calm when aroused today. Ammonia level improving. We will continue treatment plan. 10/25 patient is confused today, somnolent, hard to awaken but is arousable to voice and tactile motion. Patient's mental status has decompensated. Battery of tests run with rule out of acute IL, hypercarbia, abdomen nonacute, no clinical/physical exam signs of stroke, vital signs stable, no bladder retention,. CT head pending, lactic acidosis present, ammonia is severely elevated, history of HCV? Treated? . Place patient on bedside sitter, continue q.6 H lactulose enemas rectally until patient improves enough to be able to tolerate p.o. lactulose. Low threshold to utilize chemical versus physical restraints versus upgrade to D OU step-down or Precedex. Update 10/24-patient feeling improved but not quite back to baseline yet. Having improved pain in the back and the CVA regions. Feels less swollen. No dysuria no bladder pain. UA was unconcerning for UTI. Chest x-ray shows some mild pulmonary vascular congestion and BNP is mildly elevated. Along with the volume overload symptoms this could be volume overload from new HFpEF versus cirrhosis. 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 We will continue treatment with diuresis. We will also try a nightly muscle relaxant which could be the back pain. --10/23- Continue have CVA region pain. Feels swollen. Reviewed: H&P Changes from previous H/P or p: No Changes General: Per HPI Objective Vitals Vital Signs Date Time Temp Pulse Resp B/P (MAP) Pulse Ox O2 Delivery O2 Flow Rate FiO2 10/29/24 17:00 98.0 74 19 122/67 (85) 96 98.0 10/29/24 08:30 Room Air* 0 21 Intake/Output Intake and Output 10/29/24 07:00 Intake Total 3075 ml Output Total 400 ml Balance 2675 ml Intake Oral 1200 ml IV Total 1875 ml Output Urine Total 400 ml Exam GEN: Mild distress, awake and alert, oriented x1 self only. HEENT: NC/AT; MMM. CV: Systolic murmur 11/01 LUNGS: bibasilar rales ABD: Soft, NT/ND, NBS, no masses or organomegaly. EXT: skin Warm, well perfused. no rashes. No clubbing, cyanosis, or edema. P edal edema trace BL NEURO: Ambulating with no limitations. No focal deficits. Medications Current Medications Medications Dose Ordered Sig/Sherron Route Start Time Stop Time Status Last Admin Dose Admin Aspirin 81 mg DAILY PO 10/23/24 10:00 10/29/24 09:07 81 MG Atorvastatin Calcium 40 mg HS PO 10/23/24 22:00 10/29/24 21:53 40 MG Pantoprazole Sodium 40 mg DAILY IV 10/23/24 10:00 10/29/24 09:07 40 MG Acetaminophen/ Hydrocodone Bitart 1 tab Q4HP PRN PO 10/23/24 03:15 10/29/24 20:36 1 TAB Ondansetron HCl 4 mg Q4HPRN PRN IV 10/25/24 01:45 10/25/24 06:06 4 MG Haloperidol Lactate 5 mg Q8HP PRN IM 10/25/24 16:30 Trazodone HCl 50 mg HS PO 10/27/24 22:00 10/29/24 21:53 50 MG Lactulose 30 ml TID PO 10/29/24 17:15 10/29/24 21:53 30 ML Laboratory Results Laboratory Tests 10/29/24 10:03 Chemistry Test 10/29/24 10:03 Albumin 2.3 g/dL (3.2-4.8) L Calcium Level 8.8 mg/dL (8.7-10.4) Total Protein 5.8 g/dL (5.7-8.2) LFT Test 10/29/24 10:03 Alanine Aminotransferase (ALT) 71 U/L (7-40) H Alkaline Phosphatase 320 U/L (46-116) H Aspartate Amino Transferase (AST) 111 U/L (13-40) H Total Bilirubin 2.5 mg/dL (0.2-1.0) H Urinalysis Test 10/22/24 16:33 10/28/24 10:00 Urine Color Yellow (Yellow) Urine Clarity Clear (Clear) Urine pH 6.5 (5.0-9.0) Urine Specific [place] 1.021 (1.001-1.035) Urine Protein 1+ (Negative) H Urine Ketones Trace (Negative) Urine Blood Trace /uL (Negative) H Urine Nitrite Negative (Negative) Urine Bilirubin 1+ (Negative) Urine Urobilinogen 4 mg/dL (Negative) H Urine Leukocyte Esterase Negative /uL (Negative) Urine RBC 3 /hpf (0 - 3) Urine WBC 4 /hpf (0 - 3) Urine Squamous Epithelial Cells Few /hpf (<5) Urine Bacteria None seen /hpf (None Seen) Urine Mucus Few (None Seen) Urine Glucose Normal mg/dL (Normal) Urine Creatinine 301.46 mg/dL (30.0-125.0) H Urine Sodium 11 mmol/L (40-220) L Labs and/or images reviewed: Labs reviewed by me, Image(s) reviewed by me Assessment/Plan Assessment/Plan update -10/29 - patient continued on lactulose but becomes confused again. Repeated ammonia which is elevating. Keeping the patient euvolemic no further diuresis. Unclear why patient is still having elevated ammonia we will increase lactulose to t.i.d. from b.i.d.. Consult GI for resistant hyperammonemia. Still unable to discharge to sniff. # acute toxic metabolic encephalopathy through vigorous workup on 10/25 identified hyperammonemia, minda malone now that pt back to basline, now oral lactulose bid. CT head negative, no FND. # hyperammonemia secondary to cirrhosis secondary to HCV # hepatic encephalopathy - see above # VALENTINA, Vmn likely, HRs ruled out - Cr rise on 10/27, given fluids resulting in improvment. FeNa 0% (prerenal), Rn concern oligourea, will follow on 10/29 w more ivf. VALENTINA resolving after fluids, urine output increasing. # Lactic acidosis in history of liver cirrhosis - resolving. Status post IV fluids 1 L NS, p.o. hydration thereafter w fluid restrict 1.5 L. lactic acidosis remains on 10/25, given 1 L fluids, again resolving. # acute on chronic diastolic heart failure exacerbation likely - holding v lasix due to worsening lactic acidosis . Chest x-ray with pulmonary vascular congestion and BNP mildly elevated.. Echo EF is 55%. 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 pcr outpatient with GI. 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 Treated - refer to GI outpatient to follow resolution. (? Patient might already have pelt inspector). # Liver cirrhosis with portal hypertension, rule out GI bleeding - - CT abd/pelv w cirrhosis with hypertension. Protonix IV daily. SOB + # volume overload - differential HFpEF exacerbation versus cirrhosis. As above. # Bilateral flank pain and dark urine, ruled out renal stone- CTA negative for stones. # UTI/pyelonephritis acute possible continue IV antibiotics ceftriaxone. # NSTEMI type 2 secondary to above - echo pending. Chest pain-free. # Bilateral leg swelling, rule out DVT/ stasis dermatitis- Doppler lower extremity negative for DVT. Likely CHF versus cirrhosis. # Hyperbilirubinemia with transaminitis due to cirrhosis of the liver- colonic elevated (PT/INR high) # Leukopenia and thrombocytopenia secondary to liver cirrhosis- hold off DVT prophylaxis chemical. We will do SCDs Diet low salt DVT prophylaxis-SCDs GI prophylaxis - tolerating diet Med tele Full code Plan discussed with: Patient My Orders Orders - KARLOS DOMINGUEZ MD Procedure Category Date Status Time Lactulose Oral PHA 10/29/24 In Process 17:15 Abdomen Limited US 10/29/24 Resulted 17:19 * [facility] [employer] CONS 10/29/24 Transmitted 17:30 Date of Service: Oct 29, 2024 Billing Provider: KARLOS DOMINGUEZ MD Common Visit Codes: [id number] INP/OBS CARE(HIGH) KARLOS DOMINGUEZ MD Oct 29, 2024 23:04
[2024-10-29] MEDS: LACTATED RINGER'S 1,000 ML IV ONE (23:15)
[2024-10-30] VITALS (7 sets, daily range): BP systolic 95–127; BP diastolic 48–69; PULSE 70–85; RESP 18–19; TEMP 98–98.7; O2SAT 93–98
[2024-10-30] MEDS: CYANOCOBALAMIN 500 MCG TAB PO ONE (01:18)
[2024-10-30] MEDS: THIAMINE 100mg/ml INJ (200mg/2ml VIAL) IV ONE (01:18)
[2024-10-30] MEDS: D5W/SOD CHL 0.45% 1,000 ML IV ONE ×2 (06:02→22:10)
[2024-10-30 07:04] LABS: Basophils # (auto) 0 10 ^3/uL (0-0.2); Eosinophils # (auto) 0.2 10 ^3/uL (0-0.8); Lymphocytes # (auto) 1.5 10 ^3/uL (0.4-5.4); Monocytes # (auto) 0.6 10 ^3/uL (0-1.3); Nucleated Red Blood Cells % 0.2 %; Red Cell Distribution Width 17.7 % (11.8-14.3)
[2024-10-30 07:07] LABS: Basophils % (auto) 0.6 % (0.0-2.0); Eosinophils % (auto) 4.6 % (0.0-7.0); Hematocrit 37.3 % (41.0-53.0); Lymphocytes % (auto) 30.6 % (10.0-50.0); Mean Corpuscular Hemoglobin 36.3 pg (28.0-32.0); Mean Corpuscular Hgb Conc. 34.9 g/dL (32.0-36.0); Mean Corpuscular Volume 104.1 fL (80.0-100.0); Monocytes % (auto) 12.4 % (0.0-12.0); Neutrophils # (auto) 2.6 10 ^3/uL (1.6-8.6); Neutrophils % (auto) 51.8 % (37.0-80.0); Platelet Count (auto) 42 10^3/uL (140-450); Red Blood Cells 3.58 10^6/uL (4.5-5.90)
[2024-10-30 07:34] LABS: Anion Gap 6 (5-15); Blood Urea Nitrogen 20 mg/dL (9-23); Carbon Dioxide 26 mmol/L (20-31); Potassium 3.8 mmol/L (3.5-5.1); Sodium 143 mmol/L (136-145)
[2024-10-30 08:15] LABS: Alanine Aminotransferase 109 U/L (7-40); Albumin 2.1 g/dL (3.2-4.8); Alkaline Phosphatase 271 U/L (46-116); Aspartate Aminotransferase 178 U/L (13-40); Bilirubin, Total 2.3 mg/dL (0.2-1.0); Calcium 8.5 mg/dL (8.7-10.4); Chloride 111 mmol/L (98-107); Glucose 119 mg/dL (74-106); Total Protein 5.2 g/dL (5.7-8.2)
[2024-10-30] MEDS: FOLIC ACID 1 MG in D5W 5% 50 ML INJ ONE (08:42)
[2024-10-30] MEDS: THIAMINE HCL 100 MG TAB PO SCH (09:11)
[2024-10-30] MEDS: CYANOCOBALAMIN 500 MCG TAB PO SCH (09:11)
[2024-10-30] MEDS: MULTIPLE VITAMIN TAB PO SCH (09:11)
[2024-10-30] MEDS: FOLIC ACID 1 MG TAB PO SCH (09:11)
[2024-10-30] MEDS: AZTREONAM 1GM INJ 1 GM in D5W 5% 50 ML IV ONE (09:25)
[2024-10-30] MEDS ORDERED: cefTRIAXone 1GM/50ML D5W 50 ML IV ONE (13:15)
[2024-10-30] MEDS: rifAXIMin 550 MG TAB PO ONE (13:42)
[2024-10-30] MEDS: LACTULOSE 20Gm/30ML SOLN PO SCH (13:42)
--- NOTE | 2024-10-30 18:24 | DVHCONRES ---
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 According to the patient, he had been sober for about 9 months. But around [place] time, he had 1 bottle of whisky mixed with another alcoholic beverage. After that, he started feeling unwell and started having the flank pains Patient stated that flank pain and the dark urine. Pain was continuous, sharp pain, 7/10 and radiated to the bilateral legs and associated with dark urine, 1 episodes of melena and yellowish discoloration of the sclera and skin. He also mentioned bilateral pain and swelling of both legs for last 1 week's. He had a history of DVT in both legs but did not continue anticoagulants because he had bleeding episodes frequently that he could not take the anticoagulant. Patient was diagnosed with liver cirrhosis due to hepatitis-C 10 years ago and was managed on Harvoni. He also took Lasix for 3 months but discontinued Lasix few months ago. The patient denies chest pain, shortness of breath, cough, dizziness, abdominal pain, diarrhea, constipation, hematuria, dysuria or any change in bowel movement. Patient is currently managed by the primary. On 10/29/2023 GI consult was placed for further evaluation given the persistent confusion, hyperammonemia despite being on lactulose and Rifaximin. Repeated ammonia which is elevating. Ammonia was 170--> 70. Currently on latulose 30ml bid increase to TID today. 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 Family History Noncontributory Social History Lives at home with his brother and [id number] in the children Patient has been trying to cut down on drinking no smoking Allergies: Coded Allergies: Ceftriaxone (Verified Allergy, Unknown, 07/28/24) Uncoded Allergies: FISH (Allergy, Unknown, 07/28/24) Home Meds Active Scripts Hydrocodone-Acetaminophen (Hydrocodone Bitartrate/AC 10-325 mg) 1 Tab Tab, 1 TAB PO Q8HPRN PRN for 3 Days, #9 TAB Prov:RAFAEL MORFIN MD 07/29/24 Cephalexin Monohydrate (Cephalexin) 500 Mg Cap, 500 MG PO Q6HR for 10 Days, #40 MG Prov:RAFAEL MORFIN MD 07/29/24 Current Medications Current Medications Medications (Trade) Dose Ordered Sig/Sherron Route PRN Reason Start Time Stop Time Status Last Admin Multivitamins (Mvi Tab) 1 tab DAILY PO 10/30/24 10:00 10/30/24 09:11 Thiamine HCl 100 mg DAILY PO 10/30/24 10:00 10/30/24 09:11 Folic Acid 1 mg DAILY PO 10/30/24 10:00 10/30/24 09:11 Cyanocobalamin (Vitamin B-12) 500 mcg DAILY PO 10/30/24 10:00 10/30/24 09:11 Oxycodone HCl 10 mg Q6HP PRN PO MODERATE PAIN (4-6 PAIN SCALE) 10/30/24 11:15 Morphine Sulfate 2 mg Q4HPRN PRN IV SEVERE PAIN (7-10 PAIN SCALE) 10/30/24 11:15 Lactulose 30 ml QID PO 10/30/24 12:00 10/30/24 17:22 Rifaximin (Xifaxan) 550 mg BID PO 10/30/24 22:00 10/31/24 23:00 Ceftriaxone Sodium 50 ml @ 100 mls/hr DAILY@09 IV 10/31/24 09:00 10/30/24 14:22 DC Review of Systems Constitutional: Denies fever no chills no feeling of malaise, looking much better, slow speech, had a bowel movement today HEENT: Denies headache, ear pain, ear discharges, conjunctivitis, nasal discharge throat pain Cardiovascular: Denies chest pain, palpitation, orthopnea, PND, or pedal edema Respiratory: Denies shortness of breath, cough cough, sputum production, hemoptysis, GI: Denies abdominal pain, nausea, vomiting, diarrhea, hematemesis, hematochezia, : Denies frequency, urgency, hematuria, Endocrine: Denies unintentional weight gain or weight loss, feeling of hot flashes, [place]: Denies easy bruising, bleeding disorders, epistaxis Musculoskeletal: Denies joint pains, muscle aches Psych: No evidence of depression, nini, suicidal ideation Vital Signs Vital Signs Date Time Temp Pulse Resp B/P (MAP) Pulse Ox O2 Delivery O2 Flow Rate FiO2 10/30/24 17:00 98.0 80 18 95/51 (66) 94 98.0 10/30/24 08:00 Room Air* 0 21 Physical Exam General examination- Not in acute distress, looking better said he feels better, patient colored in tattoos HEENT: PEERLA, eyes injected, Chest: S1-S2 audible, rate and rhythm regular, no murmur Lung: CTAB, no wheeze or rhonchi Abdomen: Distended, BS+, nontenderness, Hepatomegaly Musculoskeletal: no acute joint swelling or tenderness Lower extremity: erythematous bilateral Neurological: cranial nerves intact,slow speech Psychiatry-- Normal mood and affect Skin- dry and wrinkled, covered in tattoos, mild jaundiced Labs/Diagnostic Data Labs Test 10/30/24 07:08 10/30/24 06:35 10/29/24 21:16 10/28/24 10:00 Range/Units Ammonia 70 H 11-32 umol/L White Blood Count 5.0 4.4-10.8 10^3/uL Red Blood Count 3.58 L 4.5-5.90 10^6/uL Hemoglobin 13.0 L 13.5-17.5 g/dL Hematocrit 37.3 L 41.0-53.0 % Mean Corpuscular Volume 104.1 H 80.0-100.0 fL Mean Corpuscular Hemoglobin 36.3 H 28.0-32.0 pg Mean Corpuscular Hemoglobin Concent 34.9 32.0-36.0 g/dL Red Cell Distribution Width 17.7 H 11.8-14.3 % Platelet Count 42 L 140-450 10^3/uL Mean Platelet Volume 10.1 6.9-10.8 fL Neutrophils (%) (Auto) 51.8 37.0-80.0 % Lymphocytes (%) (Auto) 30.6 10.0-50.0 % Monocytes (%) (Auto) 12.4 H 0.0-12.0 % Eosinophils (%) (Auto) 4.6 0.0-7.0 % Basophils (%) (Auto) 0.6 0.0-2.0 % Neutrophils # (Auto) 2.6 1.6-8.6 10 ^3/uL Lymphocytes # (Auto) 1.5 0.4-5.4 10 ^3/uL Monocytes # (Auto) 0.6 0-1.3 10 ^3/uL Eosinophils # (Auto) 0.2 0-0.8 10 ^3/uL Basophils # (Auto) 0 0-0.2 10 ^3/uL Nucleated Red Blood Cells 0.2 % Sodium Level 143 136-145 mmol/L Potassium Level 3.8 3.5-5.1 mmol/L Chloride Level 111 H 98-107 mmol/L Carbon Dioxide Level 26 20-31 mmol/L Anion Gap 6 5-15 Blood Urea Nitrogen 20 9-23 mg/dL Creatinine 1.00 0.700-1.30 mg/dL Glomerular Filtration Rate Calc 86 >90 mL/min BUN/Creatinine Ratio 20.0 10.0-20.0 Serum Glucose 119 H 74-106 mg/dL Calcium Level 8.5 L 8.7-10.4 mg/dL Total Bilirubin 2.3 H 0.2-1.0 mg/dL Aspartate Amino Transferase (AST) 178 H 13-40 U/L Alanine Aminotransferase (ALT) 109 H 7-40 U/L Alkaline Phosphatase 271 H 46-116 U/L Total Protein 5.2 L 5.7-8.2 g/dL Albumin 2.1 L 3.2-4.8 g/dL Lactic Acid Level 1.9 0.4-2.0 mmol/L Urine Creatinine 301.46 H 30.0-125.0 mg/dL Urine Sodium 11 L 40-220 mmol/L Test 10/27/24 05:20 10/25/24 14:42 10/25/24 13:25 10/25/24 12:46 Range/Units Creatine Kinase 97 46-171 U/L Vitamin B12 Level 1671 H 211-911 pg/mL Troponin I High Sensitivity 223 *H </=54 ng/L Thyroid Stimulating Hormone (TSH) 0.52 L 0.55-4.78 uIU/mL Blood Gas Specimen Type Arterial Blood Gas Sample Site Right radial Blood Gas Patient Temperature 37.0 Arterial Blood Date Drawn [id number] Arterial Blood pH 7.375 7.350-7.450 Arterial Blood Partial Pressure CO2 39.2 35.0-48.0 mmHg Arterial Blood Partial Pressure O2 70.9 L 83.0-108.0 mmHg Arterial Blood HCO3 22.4 21.0-28.0 mmol/L Arterial Blood Oxygen Saturation 92.3 L 94.0-98.0 % Arterial Blood Base Excess -2.5 L -2.0-3.0 mmol/L Arterial Blood Oxyhemoglobin 91.1 L 94.0-98.0 % Arterial Blood Carboxyhemoglobin 0.8 0.5-1.5 % Arterial Blood Methemoglobin 0.5 0.0-1.5 % Terence Test Yes Blood Gas Total Hemoglobin 15.80 13.5-17.5 g/dL Blood Gas Modality Room air FiO2 % 21.0 Blood Gas Critical Value Read Back Yes POC Glucose 157 H 70-106 mg/dl Test 10/23/24 09:25 10/23/24 04:47 10/22/24 16:33 10/22/24 16:20 Range/Units B-Type Natriuretic Peptide 148.79 0-100 pg/mL Prothrombin Time 15.5 H 9.3-11.8 sec Prothrombin Time INR 1.51 H 0.9-1.15 Activated Partial Thromboplast Time 28.8 24.5-34.5 SEC Hemoglobin A1c 4.8 <5.7 % A1C Plasma/Serum Blood Alcohol < 3.0 <10 mg/dL Hepatitis A Antibody Total Positive H Negative Hepatitis B Surface Antigen Negative Negative Hepatitis B Surface Antibody Positive H Negative Hepatitis B Core Total Antibody Negative Negative Hepatitis C Antibody Reactive *A Negative Urine Color Yellow Yellow Urine Clarity Clear Clear Urine pH 6.5 5.0-9.0 Urine Specific [place] 1.021 1.001-1.035 Urine Protein 1+ H Negative Urine Ketones Trace Negative Urine Blood Trace H Negative /uL Urine Nitrite Negative Negative Urine Bilirubin 1+ Negative Urine Urobilinogen 4 H Negative mg/dL Urine Leukocyte Esterase Negative Negative /uL Urine RBC 3 0 - 3 /hpf Urine WBC 4 0 - 3 /hpf Urine Squamous Epithelial Cells Few <5 /hpf Urine Bacteria None seen None Seen /hpf Urine Mucus Few None Seen Urine Glucose Normal Normal mg/dL Urine Opiates Screen Neg NEGATIVE Urine Fentanyl Screen Neg NEGATIVE Urine Barbiturates Screen Neg NEGATIVE Urine Phencyclidine Screen Neg NEGATIVE Urine Amphetamines Screen Neg NEGATIVE Urine Benzodiazepines Screen Neg NEGATIVE Urine Cocaine Screen Neg NEGATIVE Urine Cannabinoids Screen Pos NEGATIVE Lipase 20 12-53 U/L Assessment Acute Hepatic encephalopathy --> Consumed large amount of whisky around --> mattress discrimination function: 19.3 --> hyperammonemia secondary to cirrhosis secondary to HCV --> Ammonia: 170--> 70 --> increase lactulose q6hrs (qid) --> Continue Rifaximin --> Daily ammonia level --> Extensive education on alcohol cessation Liver cirrhosis --> History of HCV s/p treated with Harvoni 10 years ago --> Antibody positive ( residual) less, likely active infection --> PCR outpatient per GI --> advised to follow up with GI clinic for further evaluation --> .pcr outpatient with GI. Liver cirrhosis with portal hypertension --> rule out GI bleeding -> Protonix IV daily. --> SOB improving Hyperbilirubinemia with transaminitis -->> due to cirrhosis of the liver- colonic elevated (PT/INR high) Leukopenia--> resolved thrombocytopenia -->off DVT prophylaxis chemical. --> SCDs VALENTINA ricardo Johnsonn --> FeNa 0% (prerenal), Rn concern oligourea --> Improving with fluids Goal care discussed for more than 30 minute Case and plan discussed with Dr. Meneses Thank you for allowing us to participate in the care of this patient. Please call if you have any questions or concerns. Plan discussed with: Patient, Other (Nurse) TG HART RESIDENT Oct 30, 2024 18:24
[2024-10-30] MEDS: rifAXIMin 550 MG TAB PO SCH (21:56)
--- NOTE | 2024-10-30 22:11 | DVHPN2 ---
Subjective Update -10/30 - improving slowly. but almost falling asleeping during interview. he doesnt remember becoming confused yesterday. he has many complains from overnight, so probably started to gain some alertness yeseterday/last night. complains of RNs and imprecise pains. doing well and apeparing better overall. GI to follow today to evaluate complcioated resistant hyperammonemia with multi- HIV infection history. RUQ US is poor study, doesnt add to the case, just confirms cirrhosis. -10/29 - patient continued on lactulose but becomes confused again. Repeated ammonia which is elevating. Keeping the patient euvolemic no further diuresis. Unclear why patient is still having elevated ammonia we will increase lactulose to t.i.d. from b.i.d.. Consult GI for resistant hyperammonemia. Still unable to discharge to sniff. -10/28- patient is back at his baseline A&O x3 . Still has some back pain but all acute causes ruled out, this may be chronic back pain which is tolerable with no red flags. PT recommends sniff. Patient appears to have developed VALENTINA which is improving. Notified by RN patient is making minimal urine oliguria versus anuria. We will keep patient admitted with some more IV fluids with possibility to discharge to sniff tomorrow, pending rule out H RS. -10/27 - patient is feeling much better, alert today, has complaints today of not being able to sleep enough and has she was body aches. More alert and orient. United and the leg sitting no acute pain anywhere in the body. No need for ammonia level today as patient is improving. 10/26 patient is more confused today, he remains somnolent but arousable. He was more calm when aroused today. Ammonia level improving. We will continue treatment plan. 10/25 patient is confused today, somnolent, hard to awaken but is arousable to voice and tactile motion. Patient's mental status has decompensated. Battery of tests run with rule out of acute AZ, hypercarbia, abdomen nonacute, no clinical/physical exam signs of stroke, vital signs stable, no bladder retention,. CT head pending, lactic acidosis present, ammonia is severely elevated, history of HCV? Treated? . Place patient on bedside sitter, continue q.6 H lactulose enemas rectally until patient improves enough to be able to tolerate p.o. lactulose. Low threshold to utilize chemical versus physical restraints versus upgrade to D OU step-down or Precedex. Update 10/24-patient feeling improved but not quite back to baseline yet. Having improved pain in the back and the CVA regions. Feels less swollen. No dysuria no bladder pain. UA was unconcerning for UTI. Chest x-ray shows some mild pulmonary vascular congestion and BNP is mildly elevated. Along with the volume overload symptoms this could be volume overload from new HFpEF versus cirrhosis. Patient does endorse that he was scheduled for tips procedure with crime scene photographer, unclear. We will continue treatment with diuresis. We will also try a nightly muscle relaxant which could be the back pain. --10/23- Continue have CVA region pain. Feels swollen. Reviewed: H&P Changes from previous H/P or p: No Changes General: Per HPI Objective Vitals Vital Signs Date Time Temp Pulse Resp B/P (MAP) Pulse Ox O2 Delivery O2 Flow Rate FiO2 10/30/24 17:00 98.0 80 18 95/51 (66) 94 98.0 10/30/24 08:00 Room Air* 0 21 Intake/Output Intake and Output 10/30/24 07:00 Intake Total 1200 ml Output Total 900 ml Balance 300 ml Intake Oral 1200 ml Output Urine Total 900 ml Exam GEN: Mild distress, awake and alert, oriented x3 HEENT: NC/AT; MMM. CV: Systolic murmur 11/01 LUNGS: bibasilar rales ABD: Soft, NT/ND, NBS, no masses or organomegaly. EXT: skin Warm, well perfused. no rashes. No clubbing, cyanosis, or edema. P edal edema trace BL NEURO: Ambulating with no limitations. No focal deficits. Medications Current Medications Medications Dose Ordered Sig/Sherron Route Start Time Stop Time Status Last Admin Dose Admin Aspirin 81 mg DAILY PO 10/23/24 10:00 10/29/24 09:07 81 MG Atorvastatin Calcium 40 mg HS PO 10/23/24 22:00 10/29/24 21:53 40 MG Pantoprazole Sodium 40 mg DAILY IV 10/23/24 10:00 10/30/24 09:11 40 MG Ondansetron HCl 4 mg Q4HPRN PRN IV 10/25/24 01:45 1/4/25 15:03 4 MG Haloperidol Lactate 5 mg Q8HP PRN IM 10/25/24 16:30 Trazodone HCl 50 mg HS PO 10/27/24 22:00 10/29/24 21:53 50 MG Multivitamins 1 tab DAILY PO 10/30/24 10:00 10/30/24 09:11 1 TAB Thiamine HCl 100 mg DAILY PO 10/30/24 10:00 10/30/24 09:11 100 MG Folic Acid 1 mg DAILY PO 10/30/24 10:00 10/30/24 09:11 1 MG Cyanocobalamin 500 mcg DAILY PO 10/30/24 10:00 10/30/24 09:11 500 MCG Oxycodone HCl 10 mg Q6HP PRN PO 10/30/24 11:15 Morphine Sulfate 2 mg Q4HPRN PRN IV 10/30/24 11:15 Lactulose 30 ml QID PO 10/30/24 12:00 10/30/24 17:22 30 ML Rifaximin 550 mg BID PO 10/30/24 22:00 10/31/24 23:00 Laboratory Results Laboratory Tests 10/30/24 06:35 Chemistry Test 10/30/24 06:35 Albumin 2.1 g/dL (3.2-4.8) L Calcium Level 8.5 mg/dL (8.7-10.4) L Total Protein 5.2 g/dL (5.7-8.2) L LFT Test 10/30/24 06:35 Alanine Aminotransferase (ALT) 109 U/L (7-40) H Alkaline Phosphatase 271 U/L (46-116) H Aspartate Amino Transferase (AST) 178 U/L (13-40) H Total Bilirubin 2.3 mg/dL (0.2-1.0) H Urinalysis Test 10/22/24 16:33 10/28/24 10:00 Urine Color Yellow (Yellow) Urine Clarity Clear (Clear) Urine pH 6.5 (5.0-9.0) Urine Specific [place] 1.021 (1.001-1.035) Urine Protein 1+ (Negative) H Urine Ketones Trace (Negative) Urine Blood Trace /uL (Negative) H Urine Nitrite Negative (Negative) Urine Bilirubin 1+ (Negative) Urine Urobilinogen 4 mg/dL (Negative) H Urine Leukocyte Esterase Negative /uL (Negative) Urine RBC 3 /hpf (0 - 3) Urine WBC 4 /hpf (0 - 3) Urine Squamous Epithelial Cells Few /hpf (<5) Urine Bacteria None seen /hpf (None Seen) Urine Mucus Few (None Seen) Urine Glucose Normal mg/dL (Normal) Urine Creatinine 301.46 mg/dL (30.0-125.0) H Urine Sodium 11 mmol/L (40-220) L Labs and/or images reviewed: Labs reviewed by me, Image(s) reviewed by me Assessment/Plan Assessment/Plan update --10/30 - improving slowly. but almost falling asleeping during interview. he doesnt remember becoming confused yesterday. he has many complains from overnight, so probably started to gain some alertness yeseterday/last night. complains of RNs and imprecise pains. doing well and apeparing better overall. GI to follow today to evaluate complcioated resistant hyperammonemia with multi- HIV infection history. RUQ US is poor study, doesnt add to the case, just confirms cirrhosis. # acute toxic metabolic encephalopathy through vigorous workup on 10/25 identified hyperammonemia, . keeping sitter now since pt wax-wanes alert/orientation. CT head negative, no FND. uptitrating lactulose to QID and add rifaximin, GI consulted. # hyperammonemia secondary to cirrhosis secondary to HCV # hepatic encephalopathy - see above # etoh history? and related possible wernike encephalopathy - empiric tx with B1, foalte, b12. # meningitis possble - ctx allergy - will try vanco/ aztreonam # VALENTINA, Vmn likely, HRs ruled out - Cr rise on 10/27, given fluids resulting in improvment. FeNa 0% (prerenal), Rn concern oligourea, will follow on 10/29 w more ivf. VALENTINA resolving after fluids, urine output increasing. # Lactic acidosis in history of liver cirrhosis - resolving. Status post IV fluids 1 L NS, p.o. hydration thereafter w fluid restrict 1.5 L. lactic acidosis remains on 10/25, given 1 L fluids, again resolving. # acute on chronic diastolic heart failure exacerbation likely - holding v lasix due to worsening lactic acidosis . Chest x-ray with pulmonary vascular congestion and BNP mildly elevated.. Echo EF is 55%. 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 pcr outpatient with GI. 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 Treated - refer to GI outpatient to follow resolution. (? Patient might already have crime scene photographer). # Liver cirrhosis with portal hypertension, rule out GI bleeding - - CT abd/pelv w cirrhosis with hypertension. Protonix IV daily. SOB + # volume overload - differential HFpEF exacerbation versus cirrhosis. As above. # Bilateral flank pain and dark urine, ruled out renal stone- CTA negative for stones. # UTI/pyelonephritis acute possible continue IV antibiotics - vanco/ aztreonam -- can also try amp/FQ # NSTEMI type 2 secondary to above - echo pending. Chest pain-free. # Bilateral leg swelling, rule out DVT/ stasis dermatitis- Doppler lower extremity negative for DVT. Likely CHF versus cirrhosis. # Hyperbilirubinemia with transaminitis due to cirrhosis of the liver- colonic elevated (PT/INR high) # Leukopenia and thrombocytopenia secondary to liver cirrhosis- hold off DVT prophylaxis chemical. We will do SCDs Diet low salt DVT prophylaxis-SCDs GI prophylaxis - tolerating diet Med tele Full code Plan discussed with: Patient My Orders Orders - KARLOS DOMINGUEZ MD Procedure Category Date Status Time Multiple Vitamin PHA 10/30/24 In Process Tablet (Mvi Tab) 10:00 Thiamine Tab PHA 10/30/24 In Process 10:00 Folic Acid Tablet PHA 10/30/24 In Process 10:00 Cyanocobalamin PHA 10/30/24 In Process (Vitamin B-12) 10:00 RPR LAB 10/30/24 In Process 04:00 Oxycodone Immediate PHA 10/30/24 In Process Rel Tablet 11:15 Morphine Sulfate PHA 10/30/24 In Process Injection 11:15 Lactulose Oral PHA 10/30/24 In Process 12:00 Rifaximin (Xifaxan) PHA 10/30/24 In Process 22:00 Date of Service: Oct 30, 2024 Billing Provider: KARLOS DOMINGUEZ MD Common Visit Codes: [id number] INP/OBS CARE(HIGH) KARLOS DOMINGUEZ MD Oct 30, 2024 22:11
[2024-10-30] MEDS ORDERED: VANCOMYCIN PER PHARMACY 0 MG IV SCH (22:15)
[2024-10-30] MEDS: VANCOMYCIN 1GM/250ML KIT 250 ML IV SCH (23:16)
[2024-10-31] VITALS (8 sets, daily range): BP systolic 101–136; BP diastolic 48–76; PULSE 54–86; RESP 14–18; TEMP 97.3–98.7; O2SAT 92–97
[2024-10-31] MEDS: oxyCODONE HCL 5MG TAB PO PRN (01:32)
[2024-10-31] MEDS: MORPHINE SULFATE INJ 2 MG/ml SYRG IV PRN (05:04)
[2024-10-31] MEDS ORDERED: AZTREONAM 1GM INJ 1 GM in D5W 5% 50 ML IV SCH ×2 (06:00→07:00)
[2024-10-31 07:34] LABS: Anion Gap 2 (5-15); BUN/Creatinine Ratio 16.2 (10.0-20.0); Blood Urea Nitrogen 17 mg/dL (9-23); Carbon Dioxide 28 mmol/L (20-31); Potassium 4.1 mmol/L (3.5-5.1); Sodium 140 mmol/L (136-145)
[2024-10-31 07:35] LABS: Alkaline Phosphatase 282 U/L (46-116); Aspartate Aminotransferase 243 U/L (13-40); Chloride 110 mmol/L (98-107); Glucose 154 mg/dL (74-106)
[2024-10-31 07:36] LABS: Alanine Aminotransferase 160 U/L (7-40); Bilirubin, Total 2.3 mg/dL (0.2-1.0); Calcium 8.5 mg/dL (8.7-10.4); Total Protein 5.2 g/dL (5.7-8.2)
[2024-10-31] MEDS ORDERED: cefTRIAXone 1GM/50ML D5W 50 ML IV SCH (09:00)
[2024-10-31] MEDS: AZTREONAM 1GM INJ 1 GM in D5W 5% 50 ML IV SCH (09:46)
[2024-10-31] MEDS: VANCOMYCIN 1.25GM/250ML 250 ML IV SCH (11:30)
--- NOTE | 2024-10-31 11:34 | DVHPN2 ---
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 because of wanting to sleep I reviewed patient's records and apparently he was released from long term recently and was seen in our ER in July for chronic leg wounds Patient stated he has been treated with Harvoni for his hepatitis-C and he believes it is determined or in remission Patient has been recently drinking and drank a whole bottle of whiskey around [facility]; prior to that he had been sober for several months vital signs Vital Sign Date Time Temp Pulse Resp B/P (MAP) Pulse Ox O2 Delivery O2 Flow Rate FiO2 10/31/24 09:00 97.3 61 14 101/48 (65) 96 97.3 10/31/24 08:00 Room Air* 0 21 Total Intake and Output 10/30/24 10/30/24 10/31/24 15:00 23:00 07:00 Intake Total 917 ml 564 ml Output Total 175 ml 350 ml Balance 742 ml 214 ml medications Current Medications Medications Dose Ordered Sig/Sherron Route Start Time Stop Time Status Last Admin Dose Admin Aspirin 81 mg DAILY PO 10/23/24 10:00 10/29/24 09:07 81 MG Atorvastatin Calcium 40 mg HS PO 10/23/24 22:00 10/30/24 21:56 40 MG Pantoprazole Sodium 40 mg DAILY IV 10/23/24 10:00 10/31/24 09:46 40 MG Ondansetron HCl 4 mg Q4HPRN PRN IV 10/25/24 01:45 10/30/24 15:03 4 MG Haloperidol Lactate 5 mg Q8HP PRN IM 10/25/24 16:30 Trazodone HCl 50 mg HS PO 10/27/24 22:00 10/30/24 21:56 50 MG Multivitamins 1 tab DAILY PO 10/30/24 10:00 10/31/24 09:46 1 TAB Thiamine HCl 100 mg DAILY PO 10/30/24 10:00 10/31/24 09:46 100 MG Folic Acid 1 mg DAILY PO 10/30/24 10:00 10/31/24 09:46 1 MG Oxycodone HCl 10 mg Q6HP PRN PO 10/30/24 11:15 10/31/24 01:32 10 MG Morphine Sulfate 2 mg Q4HPRN PRN IV 10/30/24 11:15 10/31/24 05:04 2 MG Lactulose 30 ml QID PO 10/30/24 12:00 10/31/24 06:22 30 ML Rifaximin 550 mg BID PO 10/30/24 22:00 10/31/24 23:00 10/31/24 09:46 550 MG Vancomycin HCl 0 ml @ 0 mls/hr UD IV 10/30/24 22:15 Aztreonam 1 gm/ Dextrose 50 ml @ 100 mls/hr Q8H IV 10/31/24 10:00 10/31/24 09:46 100 MLS/HR Vancomycin HCl 250 ml @ 200 mls/hr Q12H IV 10/31/24 11:00 objective General examination- Not in acute distress, looking better said he feels better HEENT: PEERLA, EOMI intact CVS: S1-S2 audible, rate and rhythm regular, no murmur Lung: CTAB, no wheeze or rhonchi Abdomen: soft, mildly distended, BS+, nontenderness, Hepatomegaly Extremity: Bilateral trace pedal edema; multiple tattoos Neurological: Nonfocal no asterixis, slow speech Psychiatry-- Normal mood and affect laboratory and microbiology Laboratory Tests 10/31/24 05:59 10/30/24 06:35 Test 10/31/24 05:59 Range/Units Serum Glucose 154 H 74-106 mg/dL LIVER USG IMPRESSION: Cirrhotic liver. Hepatofugal blood flow of the main portal vein. Problems(with codes): (1) Cirrhosis of liver (2) Hyperammonemia (3) Elevated lactic acid level (4) Acute coronary syndrome (5) Thrombocytopenia (6) Liver cirrhosis (7) Stasis dermatitis with ulcer of right lower extremity due to peripheral venous hypertension (8) Hepatitis C antibody positive in blood (9) Elevated troponin (10) Stasis dermatitis with ulcer of left lower extremity due to peripheral venous hypertension (11) Marijuana abuse (12) ETOH abuse Prognosis Plan Patient has underlying cirrhosis of the liver due to history of hepatitis-C and chronic alcohol abuse in the past His MELD score is 15 points which is suggestive of good prognosis with only a 6% three-month mortality risk His [employer] discrimination function is 23 points which is also suggestive of good prognosis and patient does not need steroids Continue supportive care and treatment of his hepatic encephalopathy Patient is currently on lactulose 30 mL every 6 hours, he was also on rifaximin 550 mg p.o. twice a day Titrate lactulose so he has 2-3 good bowel movements a day Patient will be encouraged not to refuse his lactulose Continue thiamine folic acid, vitamin K; IV PPI There are no signs of active GI bleeding and H&H is stable Patient is on broad-spectrum antibiotics for lactic acidosis no sepsis workup in the chart Taper off antibiotics with no active source of infection is identified Plan discussed with: Patient, Other (Mechedung Ho) PARMINDER NAIR MD Oct 31, 2024 11:34
--- NOTE | 2024-10-31 15:10 | DVHPN2 ---
Subjective Update -10/31 - patient remaining alert and oriented, tolerating his lactulose he is managing well at encouraged to not have declined hospital lactulose. Also started on rifaximin. Has Macdonald with dark urine. Patient complaining of diffuse body aches. GI following, no emergent inpatient treatment needed for any hepatitis. Labs stable. PT to eval today and tomorrow, if patient continues to remain stable we will take off sitter. And possible DC to sniff tomorrow if patient remains stable and alert and oriented. -10/30 - improving slowly. but almost falling asleeping during interview. he doesnt remember becoming confused yesterday. he has many complains from overnight, so probably started to gain some alertness yeseterday/last night. complains of RNs and imprecise pains. doing well and apeparing better overall. GI to follow today to evaluate complcioated resistant hyperammonemia with multi- HIV infection history. RUQ US is poor study, doesnt add to the case, just confirms cirrhosis. -10/29 - patient continued on lactulose but becomes confused again. Repeated ammonia which is elevating. Keeping the patient euvolemic no further diuresis. Unclear why patient is still having elevated ammonia we will increase lactulose to t.i.d. from b.i.d.. Consult GI for resistant hyperammonemia. Still unable to discharge to sniff. -10/28- patient is back at his baseline A&O x3 . Still has some back pain but all acute causes ruled out, this may be chronic back pain which is tolerable with no red flags. PT recommends sniff. Patient appears to have developed VALENTINA which is improving. Notified by RN patient is making minimal urine oliguria versus anuria. We will keep patient admitted with some more IV fluids with possibility to discharge to sniff tomorrow, pending rule out H RS. -10/27 - patient is feeling much better, alert today, has complaints today of not being able to sleep enough and has she was body aches. More alert and orient. United and the leg sitting no acute pain anywhere in the body. No need for ammonia level today as patient is improving. 10/26 patient is more confused today, he remains somnolent but arousable. He was more calm when aroused today. Ammonia level improving. We will continue treatment plan. 10/25 patient is confused today, somnolent, hard to awaken but is arousable to voice and tactile motion. Patient's mental status has decompensated. Battery of tests run with rule out of acute UT, hypercarbia, abdomen nonacute, no clinical/physical exam signs of stroke, vital signs stable, no bladder retention,. CT head pending, lactic acidosis present, ammonia is severely elevated, history of HCV? Treated? . Place patient on bedside sitter, continue q.6 H lactulose enemas rectally until patient improves enough to be able to tolerate p.o. lactulose. Low threshold to utilize chemical versus physical restraints versus upgrade to D OU step-down or Precedex. Update 10/24-patient feeling improved but not quite back to baseline yet. Having improved pain in the back and the CVA regions. Feels less swollen. No dysuria no bladder pain. UA was unconcerning for UTI. Chest x-ray shows some mild pulmonary vascular congestion and BNP is mildly elevated. Along with the volume overload symptoms this could be volume overload from new HFpEF versus cirrhosis. Patient does endorse that he was scheduled for tips procedure with managed services consultant, unclear. We will continue treatment with diuresis. We will also try a nightly muscle relaxant which could be the back pain. --10/23- Continue have CVA region pain. Feels swollen. Reviewed: H&P Changes from previous H/P or p: No Changes, Changes General: Per HPI Objective Vitals Vital Signs Date Time Temp Pulse Resp B/P (MAP) Pulse Ox O2 Delivery O2 Flow Rate FiO2 10/31/24 13:00 97.5 76 18 111/64 (80) 97 97.5 10/31/24 08:00 Room Air* 0 21 Intake/Output Intake and Output 10/31/24 07:00 Intake Total 1481 ml Output Total 525 ml Balance 956 ml Intake Oral 1481 ml Output Urine Total 525 ml # Bowel Movements 2 Exam GEN: Mild distress, awake and alert, oriented x3 HEENT: NC/AT; MMM. CV: Systolic murmur 11/01 LUNGS: bibasilar rales ABD: Soft, NT/ND, NBS, no masses or organomegaly. EXT: skin Warm, well perfused. no rashes. No clubbing, cyanosis, or edema. P edal edema trace BL NEURO: Ambulating with no limitations. No focal deficits. Medications Current Medications Medications Dose Ordered Sig/Sherron Route Start Time Stop Time Status Last Admin Dose Admin Aspirin 81 mg DAILY PO 10/23/24 10:00 10/29/24 09:07 81 MG Atorvastatin Calcium 40 mg HS PO 10/23/24 22:00 10/30/24 21:56 40 MG Pantoprazole Sodium 40 mg DAILY IV 10/23/24 10:00 10/31/24 09:46 40 MG Ondansetron HCl 4 mg Q4HPRN PRN IV 10/25/24 01:45 10/30/24 15:03 4 MG Haloperidol Lactate 5 mg Q8HP PRN IM 10/25/24 16:30 Trazodone HCl 50 mg HS PO 10/27/24 22:00 10/30/24 21:56 50 MG Multivitamins 1 tab DAILY PO 10/30/24 10:00 10/31/24 09:46 1 TAB Thiamine HCl 100 mg DAILY PO 10/30/24 10:00 10/31/24 09:46 100 MG Folic Acid 1 mg DAILY PO 10/30/24 10:00 10/31/24 09:46 1 MG Oxycodone HCl 10 mg Q6HP PRN PO 10/30/24 11:15 10/31/24 01:32 10 MG Morphine Sulfate 2 mg Q4HPRN PRN IV 10/30/24 11:15 10/31/24 11:31 2 MG Lactulose 30 ml QID PO 10/30/24 12:00 10/31/24 11:30 30 ML Rifaximin 550 mg BID PO 10/30/24 22:00 10/31/24 23:00 10/31/24 09:46 550 MG Vancomycin HCl 0 ml @ 0 mls/hr UD IV 10/30/24 22:15 Aztreonam 1 gm/ Dextrose 50 ml @ 100 mls/hr Q8H IV 10/31/24 10:00 10/31/24 09:46 100 MLS/HR Vancomycin HCl 250 ml @ 200 mls/hr Q12H IV 10/31/24 11:00 10/31/24 11:30 200 MLS/HR Laboratory Results Laboratory Tests 10/30/24 06:35 10/31/24 05:59 Chemistry Test 10/31/24 05:59 Albumin 2.0 g/dL (3.2-4.8) L Calcium Level 8.5 mg/dL (8.7-10.4) L Total Protein 5.2 g/dL (5.7-8.2) L LFT Test 10/31/24 05:59 Alanine Aminotransferase (ALT) 160 U/L (7-40) H Alkaline Phosphatase 282 U/L (46-116) H Aspartate Amino Transferase (AST) 243 U/L (13-40) H Total Bilirubin 2.3 mg/dL (0.2-1.0) H Urinalysis Test 10/22/24 16:33 10/28/24 10:00 Urine Color Yellow (Yellow) Urine Clarity Clear (Clear) Urine pH 6.5 (5.0-9.0) Urine Specific Voss 1.021 (1.001-1.035) Urine Protein 1+ (Negative) H Urine Ketones Trace (Negative) Urine Blood Trace /uL (Negative) H Urine Nitrite Negative (Negative) Urine Bilirubin 1+ (Negative) Urine Urobilinogen 4 mg/dL (Negative) H Urine Leukocyte Esterase Negative /uL (Negative) Urine RBC 3 /hpf (0 - 3) Urine WBC 4 /hpf (0 - 3) Urine Squamous Epithelial Cells Few /hpf (<5) Urine Bacteria None seen /hpf (None Seen) Urine Mucus Few (None Seen) Urine Glucose Normal mg/dL (Normal) Urine Creatinine 301.46 mg/dL (30.0-125.0) H Urine Sodium 11 mmol/L (40-220) L Labs and/or images reviewed: Labs reviewed by me, Image(s) reviewed by me Assessment/Plan Assessment/Plan update --10/31 - patient remaining alert and oriented, tolerating his lactulose he is managing well at encouraged to not have declined hospital lactulose. Also started on rifaximin. Has Macdonald with dark urine. Patient complaining of diffuse body aches. GI following, no emergent inpatient treatment needed for any hepatitis. Labs stable. PT to eval today and tomorrow, if patient continues to remain stable we will take off sitter. And possible DC to sniff tomorrow if patient remains stable and alert and oriented. # acute toxic metabolic encephalopathy through vigorous workup on 10/25 identified hyperammonemia, . keeping sitter now since pt wax-wanes alert/orientation. CT head negative, no FND. uptitrating lactulose to QID and add rifaximin, GI consulted. # hyperammonemia secondary to cirrhosis secondary to HCV # hepatic encephalopathy - see above # etoh history? and related possible wernike encephalopathy - empiric tx with B1, foalte, b12. # meningitis possble - ctx allergy - will try vanco/ aztreonam # VALENTINA, Vmn likely, HRs ruled out - Cr rise on 10/27, given fluids resulting in improvment. FeNa 0% (prerenal), Rn concern oligourea, will follow on 10/29 w more ivf. VALENTINA resolving after fluids, urine output increasing. # Lactic acidosis in history of liver cirrhosis - resolving. Status post IV fluids 1 L NS, p.o. hydration thereafter w fluid restrict 1.5 L. lactic acidosis remains on 10/25, given 1 L fluids, again resolving. # acute on chronic diastolic heart failure exacerbation likely - holding v lasix due to worsening lactic acidosis . Chest x-ray with pulmonary vascular congestion and BNP mildly elevated.. Echo EF is 55%. 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 pcr outpatient with GI. 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 Treated - refer to GI outpatient to follow resolution. (? Patient might already have managed services consultant). # Liver cirrhosis with portal hypertension, rule out GI bleeding - - CT abd/pelv w cirrhosis with hypertension. Protonix IV daily. SOB + # volume overload - differential HFpEF exacerbation versus cirrhosis. As above. # Bilateral flank pain and dark urine, ruled out renal stone- CTA negative for stones. # UTI/pyelonephritis acute possible continue IV antibiotics - vanco/ aztreonam -- can also try amp/FQ # NSTEMI type 2 secondary to above - echo pending. Chest pain-free. # Bilateral leg swelling, rule out DVT/ stasis dermatitis- Doppler lower extremity negative for DVT. Likely CHF versus cirrhosis. # Hyperbilirubinemia with transaminitis due to cirrhosis of the liver- colonic elevated (PT/INR high) # Leukopenia and thrombocytopenia secondary to liver cirrhosis- hold off DVT prophylaxis chemical. We will do SCDs Diet low salt DVT prophylaxis-SCDs GI prophylaxis - tolerating diet Med tele Full code Plan discussed with: Patient My Orders Orders - KARLOS DOMINGUEZ MD Procedure Category Date Status Time Vancomycin Per PHA 10/30/24 In Process Pharmacy 22:15 Aztreonam 1gm Inj PHA 10/31/24 In Process (Azactam) 10:00 Vancomycin PHA 10/31/24 In Process 1.25gm/250ml 11:00 Vancomycin,Trough LAB 11/01/24 Verified 10:00 Creatinine LAB 11/01/24 Verified 10:00 Vancomycin Per [facility]ZA 11/01/24 In Process Pharmacy Protoc 11:00 Date of Service: Oct 31, 2024 Billing Provider: KARLOS DOMINGUEZ MD Common Visit Codes: [id number] INP/OBS CARE(HIGH) KARLOS DOMINGUEZ MD Oct 31, 2024 15:10
[2024-11-01] VITALS (9 sets, daily range): BP systolic 95–131; BP diastolic 52–71; PULSE 69–86; RESP 15–18; TEMP 97.8–98.5; O2SAT 92–97
[2024-11-01 06:56] LABS: INR 2.12 (0.9-1.15); Prothrombin Time 21.3 sec (9.3-11.8)
[2024-11-01 07:00] LABS: Anion Gap 4 (5-15); BUN/Creatinine Ratio 13.4 (10.0-20.0); Blood Urea Nitrogen 16 mg/dL (9-23); Carbon Dioxide 26 mmol/L (20-31); Potassium 4.4 mmol/L (3.5-5.1); Sodium 138 mmol/L (136-145)
[2024-11-01 07:06] LABS: Alanine Aminotransferase 257 U/L (7-40); Albumin 1.9 g/dL (3.2-4.8); Alkaline Phosphatase 298 U/L (46-116); Aspartate Aminotransferase 380 U/L (13-40); Bilirubin, Total 2.5 mg/dL (0.2-1.0); Calcium 8.1 mg/dL (8.7-10.4); Chloride 108 mmol/L (98-107); Glucose 149 mg/dL (74-106); Total Protein 4.9 g/dL (5.7-8.2)
[2024-11-01 07:43] LABS: Eosinophils # (auto) 0.2 10 ^3/uL (0-0.8); Hemoglobin 12.4 g/dL (13.5-17.5); Lymphocytes # (auto) 1.4 10 ^3/uL (0.4-5.4)
[2024-11-01 07:45] LABS: Basophils # (auto) 0.1 10 ^3/uL (0-0.2); Basophils % (auto) 0.9 % (0.0-2.0); Eosinophils % (auto) 2.9 % (0.0-7.0); Lymphocytes % (auto) 24.6 % (10.0-50.0); Mean Corpuscular Hemoglobin 36.2 pg (28.0-32.0); Mean Corpuscular Hgb Conc. 34.4 g/dL (32.0-36.0); Mean Corpuscular Volume 105.3 fL (80.0-100.0); Monocytes % (auto) 17.3 % (0.0-12.0); Neutrophils % (auto) 54.3 % (37.0-80.0); Nucleated Red Blood Cells % 0.2 %; Platelet Count (auto) 39 10^3/uL (140-450); Red Blood Cells 3.42 10^6/uL (4.5-5.90); Red Cell Distribution Width 18.2 % (11.8-14.3); White Blood Cell 5.6 10^3/uL (4.4-10.8)
[2024-11-01] MEDS: rifAXIMin 550 MG TAB PO SCH (15:28)
--- NOTE | 2024-11-01 15:41 | DVH ---
CLINICAL INDICATION: r/o fracture TECHNIQUE: XY L SHOULDER 1V XRAY Comparison: None FINDINGS/IMPRESSION: There is no evidence of acute fracture or dislocation. Glenohumeral osteoarthritis The alignment is anatomical. There is no radiopaque foreign body.
--- NOTE | 2024-11-01 18:16 | DVHPN2 ---
Progress Note Date Seen: Nov 01, 2024 Resident Creating Document: TG HART RESIDENT Medical Necessity Reason Pt with a Central, PICC or Fol: No Medical Necessity Reason sleeping, but easily arousable Subjective Review of Systems sleeping,but easily arousable. he has no new complaints He had bowel movement earlier prior to my arrival and he also received his lactulose this AM. No sitter at the bed side today. I reviewed patient's records and apparently he was released from [facility] recently and was seen in our ER in July for chronic leg wounds Patient stated he has been treated with Harvoni for his hepatitis-C and he believes it is determined or in remission Patient has been recently drinking and drank a whole bottle of whiskey around Narda time; prior to that he had been sober for several months Objective vital signs Vital Sign Date Time Temp Pulse Resp B/P (MAP) Pulse Ox O2 Delivery O2 Flow Rate FiO2 11/01/24 17:05 72 19 131/71 11/01/24 13:00 97.9 97 97.9 11/01/24 07:55 Room Air* 0 21 Total Intake and Output 10/31/24 10/31/24 11/01/24 15:00 23:00 07:00 Intake Total 200 ml 725 ml 950 ml Output Total 475 ml 300 ml Balance 200 ml 250 ml 650 ml medications Current Medications Medications Dose Ordered Sig/Sherron Route Start Time Stop Time Status Last Admin Dose Admin Aspirin 81 mg DAILY PO 10/23/24 10:00 11/01/24 09:52 81 MG Atorvastatin Calcium 40 mg HS PO 10/23/24 22:00 10/31/24 22:41 40 MG Pantoprazole Sodium 40 mg DAILY IV 10/23/24 10:00 11/01/24 09:52 40 MG Ondansetron HCl 4 mg Q4HPRN PRN IV 10/25/24 01:45 10/30/24 15:03 4 MG Haloperidol Lactate 5 mg Q8HP PRN IM 10/25/24 16:30 Trazodone HCl 50 mg HS PO 10/27/24 22:00 10/31/24 22:41 50 MG Multivitamins 1 tab DAILY PO 10/30/24 10:00 11/01/24 09:52 1 TAB Thiamine HCl 100 mg DAILY PO 10/30/24 10:00 11/01/24 09:52 100 MG Folic Acid 1 mg DAILY PO 10/30/24 10:00 11/01/24 09:52 1 MG Oxycodone HCl 10 mg Q6HP PRN PO 10/30/24 11:15 11/01/24 14:18 10 MG Morphine Sulfate 2 mg Q4HPRN PRN IV 10/30/24 11:15 11/01/24 17:05 2 MG Lactulose 30 ml QID PO 10/30/24 12:00 11/01/24 11:18 30 ML Vancomycin HCl 0 ml @ 0 mls/hr UD IV 10/30/24 22:15 Aztreonam 1 gm/ Dextrose 50 ml @ 100 mls/hr Q8H IV 10/31/24 10:00 11/01/24 09:50 100 MLS/HR Rifaximin 550 mg BID PO 11/01/24 15:00 11/01/24 15:28 550 MG Examination General examination- Not in acute distress, looking better said he feels better HEENT: PEERLA, EOMI intact CVS: S1-S2 audible, rate and rhythm regular, no murmur Lung: CTAB, no wheeze or rhonchi Abdomen: soft, mildly distended, BS+, nontenderness, Hepatomegaly Extremity: Bilateral trace pedal edema; multiple tattoos Neurological: Nonfocal no asterixis, slow speech Psychiatry-- Normal mood and affect laboratory and microbiology Laboratory Tests 11/01/24 10:08 11/01/24 05:30 Test 11/01/24 05:30 Range/Units Serum Glucose 149 H 74-106 mg/dL Problem List/Assessment/Plan Problem List/Assessment/Plan Acute Hepatic encephalopathy --> Consumed large amount of whisky around --> hipages Group discrimination function:23 --> hyperammonemia secondary to cirrhosis secondary to HCV --> Ammonia: 170--> 70 --> increase lactulose q6hrs (qid) --> Continue Rifaximin --> Daily ammonia level --> Extensive education on alcohol cessation Liver cirrhosis --> History of HCV s/p treated with Harvoni 10 years ago --> Antibody positive ( residual) less, likely active infection --> PCR outpatient per GI --> advised to follow up with GI clinic for further evaluation --> .pcr outpatient with GI. Liver cirrhosis with portal hypertension --> rule out GI bleeding -> Protonix IV daily. --> SOB improving Hyperbilirubinemia with transaminitis -->> due to cirrhosis of the liver- colonic elevated (PT/INR high) Leukopenia--> resolved thrombocytopenia -->off DVT prophylaxis chemical. --> SCDs VALENTINA likely Vmn --> FeNa 0% (prerenal), Rn concern oligourea --> Improving with fluids Acute coronary syndrome Stasis dermatitis with ulcer of right lower extremity due to peripheral venous hypertension Hepatitis C antibody positive in blood Plan Patient has underlying cirrhosis of the liver due to history of hepatitis-C and chronic alcohol abuse in the past His MELD score is 15 points which is suggestive of good prognosis with only a 6% three-month mortality risk His Maddrey discrimination function is 23 points which is also suggestive of good prognosis and patient does not need steroids Continue supportive care and treatment of his hepatic encephalopathy Patient is currently on lactulose 30 mL every 6 hours, he was also on rifaximin 550 mg p.o. twice a day Titrate lactulose so he has 2-3 good bowel movements a day Patient will be encouraged not to refuse his lactulose Continue thiamine folic acid, vitamin K; IV PPI There are no signs of active GI bleeding and H&H is stable Patient is on broad-spectrum antibiotics for lactic acidosis no sepsis workup in the chart Taper off antibiotics with no active source of infection is identified Goal care discussed for more than 25 minutes Case and plan discussed with Dr. Meneses Thank you for allowing us to participate in the care of this patient. Please call if you have any questions or concerns. Plan discussed with: Patient My Orders My Orders Orders - TG HART RESIDENT Procedure Category Date Status Time Phytonadione (Vitamin PHA 11/01/24 Verified K) 18:15 TG HART RESIDENT Nov 01, 2024 18:16
[2024-11-01] MEDS: PHYTONADIONE (VIT K)10 MG/ML 1ML VIAL SUBCUT ONE (19:04)
--- NOTE | 2024-11-01 21:10 | DVHPN2 ---
Subjective Update -11/01 - patient stays oriented alert. He is ambulating with PT,. Making urine. We will plan to remove Macdonald. Further PT sessions. Patient ready to go to SNF tomorrow for further PT. -10/31 - patient remaining alert and oriented, tolerating his lactulose he is managing well at encouraged to not have declined hospital lactulose. Also started on rifaximin. Has Macdonald with dark urine. Patient complaining of diffuse body aches. GI following, no emergent inpatient treatment needed for any hepatitis. Labs stable. PT to eval today and tomorrow, if patient continues to remain stable we will take off sitter. And possible DC to sniff tomorrow if patient remains stable and alert and oriented. -10/30 - improving slowly. but almost falling asleeping during interview. he doesnt remember becoming confused yesterday. he has many complains from overnight, so probably started to gain some alertness yeseterday/last night. complains of RNs and imprecise pains. doing well and apeparing better overall. GI to follow today to evaluate complcioated resistant hyperammonemia with multi- HIV infection history. RUQ US is poor study, doesnt add to the case, just confirms cirrhosis. -10/29 - patient continued on lactulose but becomes confused again. Repeated ammonia which is elevating. Keeping the patient euvolemic no further diuresis. Unclear why patient is still having elevated ammonia we will increase lactulose to t.i.d. from b.i.d.. Consult GI for resistant hyperammonemia. Still unable to discharge to sniff. -10/28- patient is back at his baseline A&O x3 . Still has some back pain but all acute causes ruled out, this may be chronic back pain which is tolerable with no red flags. PT recommends sniff. Patient appears to have developed VALENTINA which is improving. Notified by RN patient is making minimal urine oliguria versus anuria. We will keep patient admitted with some more IV fluids with possibility to discharge to sniff tomorrow, pending rule out H RS. -10/27 - patient is feeling much better, alert today, has complaints today of not being able to sleep enough and has she was body aches. More alert and orient. United and the leg sitting no acute pain anywhere in the body. No need for ammonia level today as patient is improving. 12/31 patient is more confused today, he remains somnolent but arousable. He was more calm when aroused today. Ammonia level improving. We will continue treatment plan. 10/25 patient is confused today, somnolent, hard to awaken but is arousable to voice and tactile motion. Patient's mental status has decompensated. Battery of tests run with rule out of acute [place], hypercarbia, abdomen nonacute, no clinical/physical exam signs of stroke, vital signs stable, no bladder retention,. CT head pending, lactic acidosis present, ammonia is severely elevated, history of HCV? Treated? . Place patient on bedside sitter, continue q.6 H lactulose enemas rectally until patient improves enough to be able to tolerate p.o. lactulose. Low threshold to utilize chemical versus physical restraints versus upgrade to D OU step-down or Precedex. 10/24-patient feeling improved but not quite back to baseline yet. Having improved pain in the back and the CVA regions. Feels less swollen. No dysuria no bladder pain. UA was unconcerning for UTI. Chest x-ray shows some mild pulmonary vascular congestion and BNP is mildly elevated. Along with the volume overload symptoms this could be volume overload from new HFpEF versus cirrhosis. Patient does endorse that he was scheduled for tips procedure with bingo cashier, unclear. We will continue treatment with diuresis. We will also try a nightly muscle relaxant which could be the back pain. --10/23- Continue have CVA region pain. Feels swollen. Reviewed: H&P Changes from previous H/P or p: No Changes General: Per HPI Objective Vitals Vital Signs Date Time Temp Pulse Resp B/P (MAP) Pulse Ox O2 Delivery O2 Flow Rate FiO2 11/01/24 20:00 16 Room Air* 0 21 11/01/24 17:35 72 131/71 11/01/24 16:00 98.0 94 98.0 Intake/Output Intake and Output 11/01/24 07:00 Intake Total 1875 ml Output Total 775 ml Balance 1100 ml Intake Oral 1625 ml IV Total 250 ml Output Urine Total 725 ml Emesis 50 ml # Bowel Movements 2 Exam GEN: Mild distress, awake and alert, oriented x3 HEENT: NC/AT; MMM. CV: Systolic murmur 11/01 LUNGS: bibasilar rales ABD: Soft, NT/ND, NBS, no masses or organomegaly. EXT: skin Warm, well perfused. no rashes. No clubbing, cyanosis, or edema. P edal edema trace BL NEURO: Ambulating with no limitations. No focal deficits. Medications Current Medications Medications Dose Ordered Sig/Sherron Route Start Time Stop Time Status Last Admin Dose Admin Aspirin 81 mg DAILY PO 10/23/24 10:00 11/01/24 09:52 81 MG Atorvastatin Calcium 40 mg HS PO 10/23/24 22:00 10/31/24 22:41 40 MG Pantoprazole Sodium 40 mg DAILY IV 10/23/24 10:00 11/01/24 09:52 40 MG Ondansetron HCl 4 mg Q4HPRN PRN IV 10/25/24 01:45 10/30/24 15:03 4 MG Haloperidol Lactate 5 mg Q8HP PRN IM 10/25/24 16:30 Trazodone HCl 50 mg HS PO 10/27/24 22:00 10/31/24 22:41 50 MG Multivitamins 1 tab DAILY PO 10/30/24 10:00 11/01/24 09:52 1 TAB Thiamine HCl 100 mg DAILY PO 10/30/24 10:00 11/01/24 09:52 100 MG Folic Acid 1 mg DAILY PO 10/30/24 10:00 11/01/24 09:52 1 MG Oxycodone HCl 10 mg Q6HP PRN PO 10/30/24 11:15 11/01/24 14:18 10 MG Morphine Sulfate 2 mg Q4HPRN PRN IV 10/30/24 11:15 11/01/24 17:05 2 MG Lactulose 30 ml QID PO 10/30/24 12:00 11/01/24 11:18 30 ML Vancomycin HCl 0 ml @ 0 mls/hr UD IV 10/30/24 22:15 Aztreonam 1 gm/ Dextrose 50 ml @ 100 mls/hr Q8H IV 10/31/24 10:00 11/01/24 18:25 100 MLS/HR Rifaximin 550 mg BID PO 11/01/24 15:00 11/01/24 15:28 550 MG Laboratory Results Laboratory Tests 11/01/24 05:30 11/01/24 10:08 Chemistry Test 11/01/24 05:30 Albumin 1.9 g/dL (3.2-4.8) L Calcium Level 8.1 mg/dL (8.7-10.4) L Total Protein 4.9 g/dL (5.7-8.2) L Coagulation Test 11/01/24 05:30 Prothrombin Time 21.3 sec (9.3-11.8) H Prothrombin Time INR 2.12 (0.9-1.15) H LFT Test 11/01/24 05:30 Alanine Aminotransferase (ALT) 257 U/L (7-40) H Alkaline Phosphatase 298 U/L (46-116) H Aspartate Amino Transferase (AST) 380 U/L (13-40) H Total Bilirubin 2.5 mg/dL (0.2-1.0) H Urinalysis Test 10/22/24 16:33 10/28/24 10:00 Urine Color Yellow (Yellow) Urine Clarity Clear (Clear) Urine pH 6.5 (5.0-9.0) Urine Specific [place] 1.021 (1.001-1.035) Urine Protein 1+ (Negative) H Urine Ketones Trace (Negative) Urine Blood Trace /uL (Negative) H Urine Nitrite Negative (Negative) Urine Bilirubin 1+ (Negative) Urine Urobilinogen 4 mg/dL (Negative) H Urine Leukocyte Esterase Negative /uL (Negative) Urine RBC 3 /hpf (0 - 3) Urine WBC 4 /hpf (0 - 3) Urine Squamous Epithelial Cells Few /hpf (<5) Urine Bacteria None seen /hpf (None Seen) Urine Mucus Few (None Seen) Urine Glucose Normal mg/dL (Normal) Urine Creatinine 301.46 mg/dL (30.0-125.0) H Urine Sodium 11 mmol/L (40-220) L Labs and/or images reviewed: Labs reviewed by me, Image(s) reviewed by me Assessment/Plan Assessment/Plan update - 11/01 - patient stays oriented alert. He is ambulating with PT,. Making urine. We will plan to remove Macdonald. Further PT sessions. Patient ready to go to SNF tomorrow for further PT. # acute toxic metabolic encephalopathy through vigorous workup on 10/25 identified hyperammonemia, . keeping sitter now since pt wax-wanes alert/orientation. CT head negative, no FND. uptitrating lactulose to QID and add rifaximin, GI consulted. # hyperammonemia secondary to cirrhosis secondary to HCV # hepatic encephalopathy - see above # etoh history? and related possible wernike encephalopathy - empiric tx with B1, folate, b12. # meningitis possible - ctx allergy - will try vanco/ aztreonam # VALENTINA, Vmn likely, HRs ruled out - Cr rise on 10/27, given fluids resulting in improvement. FeNa 0% (prerenal), Rn concern oligourea, will follow on 10/29 w more ivf. VALENTINA resolving after fluids, urine output increasing. # Lactic acidosis in history of liver cirrhosis - resolving. Status post IV fluids 1 L NS, p.o. hydration thereafter w fluid restrict 1.5 L. lactic acidosis remains on 10/25, given 1 L fluids, again resolving. # acute on chronic diastolic heart failure exacerbation likely - holding iv lasix due to worsening lactic acidosis . Chest x-ray with pulmonary vascular congestion and BNP mildly elevated.. Echo EF is 55%. 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 pcr outpatient with GI. 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 Treated - refer to GI outpatient to follow resolution. (? Patient might already have bingo cashier). # Liver cirrhosis with portal hypertension, rule out GI bleeding - - CT abd/pelv w cirrhosis with hypertension. Protonix IV daily. SOB + # volume overload - differential HFpEF exacerbation versus cirrhosis. As above. # Bilateral flank pain and dark urine, ruled out renal stone- CTA negative for stones. # UTI/pyelonephritis acute possible continue IV antibiotics - vanco/ aztreonam -- can also try amp/FQ # NSTEMI type 2 secondary to above - echo pending. Chest pain-free. # Bilateral leg swelling, rule out DVT/ stasis dermatitis- Doppler lower extremity negative for DVT. Likely CHF versus cirrhosis. # Hyperbilirubinemia with transaminitis due to cirrhosis of the liver- colonic elevated (PT/INR high) # Leukopenia and thrombocytopenia secondary to liver cirrhosis- hold off DVT prophylaxis chemical. We will do SCDs Diet low salt DVT prophylaxis-SCDs GI prophylaxis - tolerating diet Med tele Full code Plan discussed with: Patient My Orders Orders - KARLOS DOMINGUEZ MD Procedure Category Date Status Time L Shoulder 1v Xray XY 11/01/24 Resulted 14:19 Discontinue Macdonald LIZA 11/01/24 In Process Catheter 14:19 D/C Sitter ORDERS 11/01/24 Transmitted 14:19 Rifaximin (Xifaxan) PHA 11/01/24 In Process 15:00 Complete Blood Count LAB 11/02/24 Verified 04:00 Creatinine LAB 11/02/24 Verified 04:00 Vancomycin,Random LAB 11/02/24 Verified 04:00 Date of Service: Nov 01, 2024 Billing Provider: KARLOS DOMINGUEZ MD Common Visit Codes: [id number] INP/OBS CARE(HIGH) KARLOS DOMINGUEZ MD Nov 01, 2024 21:10
[2024-11-02 01:00] VITALS: BP 100/63; PULSE 84; RESP 18; TEMP 97.7; O2SAT 93
[2024-11-02 05:00] VITALS: BP 115/50; PULSE 80; RESP 18; TEMP 97.7; O2SAT 91
[2024-11-02 05:07] LABS: RPR Non Reactive (Non Reactive)
[2024-11-02 07:37] LABS: White Blood Cell 5.5 10^3/uL (4.4-10.8)
[2024-11-02 07:40] LABS: Hematocrit 37.3 % (41.0-53.0); Hemoglobin 12.8 g/dL (13.5-17.5); Mean Corpuscular Hemoglobin 35.8 pg (28.0-32.0); Mean Corpuscular Hgb Conc. 34.3 g/dL (32.0-36.0); Mean Corpuscular Volume 104.5 fL (80.0-100.0); Platelet Count (auto) 37 10^3/uL (140-450); Red Blood Cells 3.57 10^6/uL (4.5-5.90); Red Cell Distribution Width 17.8 % (11.8-14.3)
[2024-11-02 07:43] LABS: Band Neutrophils % (manual) 0; Basophils % (manual) 0 (0.0-2.0); Blast Cells 0; Metamyelocytes % 0; Myelocytes % 0; Promyelocytes % 0; Reactive Lymphocytes 0
[2024-11-02 08:00] VITALS: PULSE 83; RESP 15
[2024-11-02 08:14] LABS: Anion Gap 4 (5-15); BUN/Creatinine Ratio 14.2 (10.0-20.0); Blood Urea Nitrogen 17 mg/dL (9-23); Carbon Dioxide 26 mmol/L (20-31); Chloride 107 mmol/L (98-107); Potassium 4.6 mmol/L (3.5-5.1); Sodium 137 mmol/L (136-145)
[2024-11-02 08:22] LABS: Alanine Aminotransferase 357 U/L (7-40); Albumin 1.9 g/dL (3.2-4.8); Alkaline Phosphatase 327 U/L (46-116); Aspartate Aminotransferase 486 U/L (13-40); Bilirubin, Total 3.3 mg/dL (0.2-1.0); Calcium 8.2 mg/dL (8.7-10.4); Glucose 120 mg/dL (74-106)
[2024-11-02 08:35] VITALS: BP 101/62; PULSE 67; RESP 18; TEMP 98; O2SAT 95
[2024-11-02 10:28] LABS: Eosinophils % (manual) 1 (0-7); Lymphocytes % (manual) 31 (10.0-50.0); Monocytes % (manual) 8 (0-12); Platelet Estimate Decreased
[2024-11-02] MEDS: VANCOMYCIN 1GM/250ML KIT 250 ML IV ONE (11:26)
[2024-11-02 11:49] VITALS: BP 124/72; PULSE 86; TEMP 36.7; O2SAT 96
--- NOTE | 2024-11-02 11:49 | DVHDS2 ---
Discharge Summary Date of Admission Oct 22, 2024 at 22:18 Date of Discharge: Nov 02, 2024 Labs/Diagnostic Data: Laboratory Results Test 11/02/24 06:09 11/01/24 10:08 11/01/24 05:30 10/30/24 06:35 White Blood Count 5.5 10^3/uL (4.4-10.8) Red Blood Count 3.57 10^6/uL (4.5-5.90) Hemoglobin 12.8 g/dL (13.5-17.5) Hematocrit 37.3 % (41.0-53.0) Mean Corpuscular Volume 104.5 fL (80.0-100.0) Mean Corpuscular Hemoglobin 35.8 pg (28.0-32.0) Mean Corpuscular Hemoglobin Concent 34.3 g/dL (32.0-36.0) Red Cell Distribution Width 17.8 % (11.8-14.3) Platelet Count 37 10^3/uL (140-450) Mean Platelet Volume 11.0 fL (6.9-10.8) Neutrophils (%) (Auto) % (37.0-80.0) Lymphocytes (%) (Auto) % (10.0-50.0) Monocytes (%) (Auto) % (0.0-12.0) Basophils (%) (Auto) % (0.0-2.0) Neutrophils # (Auto) 10 ^3/uL (1.6-8.6) Lymphocytes # (Auto) 10 ^3/uL (0.4-5.4) Monocytes # (Auto) 10 ^3/uL (0-1.3) Differential Total Cells Counted 100.0 (100) Neutrophils % (Manual) 60 (37.0-80.0) Band Neutrophils % (Manual) 0 Lymphocytes % (Manual) 31 (10.0-50.0) Monocytes % (Manual) 8 (0-12) Eosinophils % (Manual) 1 (0-7) Basophils % (Manual) 0 (0.0-2.0) Metamyelocytes % (manual) 0 Myelocytes % (Manual) 0 Promyelocytes % (Manual) 0 Blast Cells % (Manual) 0 Reactive Lymphocytes 0 Platelet Estimate Decreased Sodium Level 137 mmol/L (136-145) Potassium Level 4.6 mmol/L (3.5-5.1) Chloride Level 107 mmol/L (98-107) Carbon Dioxide Level 26 mmol/L (20-31) Anion Gap 4 (5-15) Blood Urea Nitrogen 17 mg/dL (9-23) Creatinine 1.20 mg/dL (0.700-1.30) Glomerular Filtration Rate Calc 69 mL/min (>90) BUN/Creatinine Ratio 14.2 (10.0-20.0) Serum Glucose 120 mg/dL (74-106) Calcium Level 8.2 mg/dL (8.7-10.4) Total Bilirubin 3.3 mg/dL (0.2-1.0) Aspartate Amino Transferase (AST) 486 U/L (13-40) Alanine Aminotransferase (ALT) 357 U/L (7-40) Alkaline Phosphatase 327 U/L (46-116) Total Protein 5.0 g/dL (5.7-8.2) Albumin 1.9 g/dL (3.2-4.8) Random Vancomycin Level 18.4 ug/mL (5-10) Vancomycin Level Trough 21.7 ug/mL (5-10) Eosinophils (%) (Auto) 2.9 % (0.0-7.0) Eosinophils # (Auto) 0.2 10 ^3/uL (0-0.8) Basophils # (Auto) 0.1 10 ^3/uL (0-0.2) Nucleated Red Blood Cells 0.2 % Prothrombin Time 21.3 sec (9.3-11.8) Prothrombin Time INR 2.12 (0.9-1.15) Ammonia 107 umol/L (11-32) Rapid Plasma Reagin Non reactive (Non Reactive) Test 10/29/24 21:16 10/28/24 10:00 10/27/24 05:20 10/25/24 14:42 Lactic Acid Level 1.9 mmol/L (0.4-2.0) Urine Creatinine 301.46 mg/dL (30.0-125.0) Urine Sodium 11 mmol/L (40-220) Creatine Kinase 97 U/L (46-171) Vitamin B12 Level 1671 pg/mL (211-911) Troponin I High Sensitivity 223 ng/L (</=54) Thyroid Stimulating Hormone (TSH) 0.52 uIU/mL (0.55-4.78) Test 10/25/24 13:25 10/25/24 12:46 10/23/24 09:25 10/23/24 04:47 Blood Gas Specimen Type Arterial Blood Gas Sample Site Right radial Blood Gas Patient Temperature 37.0 Arterial Blood Date Drawn [id number] Arterial Blood pH 7.375 (7.350-7.450) Arterial Blood Partial Pressure CO2 39.2 mmHg (35.0-48.0) Arterial Blood Partial Pressure O2 70.9 mmHg (83.0-108.0) Arterial Blood HCO3 22.4 mmol/L (21.0-28.0) Arterial Blood Oxygen Saturation 92.3 % (94.0-98.0) Arterial Blood Base Excess -2.5 mmol/L (-2.0-3.0) Arterial Blood Oxyhemoglobin 91.1 % (94.0-98.0) Arterial Blood Carboxyhemoglobin 0.8 % (0.5-1.5) Arterial Blood Methemoglobin 0.5 % (0.0-1.5) Terence Test Yes Blood Gas Total Hemoglobin 15.80 g/dL (13.5-17.5) Blood Gas Modality Room air FiO2 % 21.0 Blood Gas Critical Value Read Back Yes POC Glucose 157 mg/dl (70-106) B-Type Natriuretic Peptide 148.79 pg/mL (0-100) Activated Partial Thromboplast Time 28.8 SEC (24.5-34.5) Hemoglobin A1c 4.8 % A1C (<5.7) Plasma/Serum Blood Alcohol < 3.0 mg/dL (<10) Hepatitis A Antibody Total Positive (Negative) Hepatitis B Surface Antigen Negative (Negative) Hepatitis B Surface Antibody Positive (Negative) Hepatitis B Core Total Antibody Negative (Negative) Hepatitis C Antibody Reactive (Negative) Test 10/22/24 16:33 10/22/24 16:20 Urine Color Yellow (Yellow) Urine Clarity Clear (Clear) Urine pH 6.5 (5.0-9.0) Urine Specific [place] 1.021 (1.001-1.035) Urine Protein 1+ (Negative) Urine Ketones Trace (Negative) Urine Blood Trace /uL (Negative) Urine Nitrite Negative (Negative) Urine Bilirubin 1+ (Negative) Urine Urobilinogen 4 mg/dL (Negative) Urine Leukocyte Esterase Negative /uL (Negative) Urine RBC 3 /hpf (0 - 3) Urine WBC 4 /hpf (0 - 3) Urine Squamous Epithelial Cells Few /hpf (<5) Urine Bacteria None seen /hpf (None Seen) Urine Mucus Few (None Seen) Urine Glucose Normal mg/dL (Normal) Urine Opiates Screen Neg (NEGATIVE) Urine Fentanyl Screen Neg (NEGATIVE) Urine Barbiturates Screen Neg (NEGATIVE) Urine Phencyclidine Screen Neg (NEGATIVE) Urine Amphetamines Screen Neg (NEGATIVE) Urine Benzodiazepines Screen Neg (NEGATIVE) Urine Cocaine Screen Neg (NEGATIVE) Urine Cannabinoids Screen Pos (NEGATIVE) Lipase 20 U/L (12-53) Other Laboratory Tests 11/02/24 06:09 Brief Hx & Hospital Course: HPI: 59 years old male with past medical history of 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 Patient states that flank pain started 3 days ago which was continuous, sharp pain, 7/10 and radiates to the bilateral legs and associated with dark urine, 1 episodes of melena and yellowish discoloration of the sclera and skin. He also mentioned bilateral pain and swelling of both legs for last 1 week's. Previously he was diagnosed with DVT in both legs but was not continuing anticoagulants because he had bleeding episodes frequently that needed to stop the anticoagulant. Patient was diagnosed with liver cirrhosis due to hepatitis-C 10 years ago and he was on Harvony and he was on Lasix for 3 months but discontinued Lasix few months ago. on admit noted to have BL pitting kira, elevated BNP 148, and rales bibasilar. on admit CT abd/pelv w/o any significant findings (no renal stones, no acute abdomen findings) and LE U/S negative for DVT. Liver U/S done due to abnormal high LFTs consistent with cirrhosis liver and hepatofugal blood flow in main portal vein. heaptitis panel + AB for HCV, HBV, and HAV. patient is started on lasix diuresis. on day 2 he is feeling improved and on day 3 he becomes altered mid-day AOx0, somnolent, rapid work-up with CT head negative, and ammonia highly elevated. Treatment started for hepatic encephalopathy with lactulose TID, he improved initally but again confused with rising ammonia. started on rifaximin and GI consulted for resistant hyperammonemia; mailed 15, MDF 23.. patient remains AOx3-4, further iv diuress held due to hepatic encephalopathy and PT eval rec SNF. patient dc to SNF with plan below. diagnosis: acute on chronic back pain; volume overload due to cirrhosis; acute toxic/hepatic encephalopathy, resolving; hyperammonemia, resolving; decompensated cirrhosis with hepatic encephalopathy; hx HCV treated, HCV cirrhosis; etoh cirrhosis possible; hoa due to vmn, prerenal, resolved; hypoalbuminemia, severe malnutrition; hyperbilirubinemia; history of alcohol abuse; elevated LFTs; elevated ALP; lactic acidosis resolved; pancytopenia, possibly due to alcohol versus cirrhosis, chronic; history hepatitis a; history hepatitis-B history hepatitis-C, treated; stasis dermatitis bilateral lower extremities,; status dermatitis ulcer right lower extremity; Discharge plan: - dc to snf for PT rehab - continue lactulose 30 qid, rifaximin 550 bid. Needs strict compliance. no tylenol ever. - pain control with po ibuprofen and/or po tramadol - start po lasix 10 and spironolactone 12.5 - trazodone nightly - low salt diet, fluid restriction 2L - no further antibiotics needed - close f/u with PCP, GI Visitation and planning required 35 minutes Condition at Discharge: Guarded Final Diagnosis/Problems List acute on chronic back pain; volume overload due to cirrhosis; acute toxic/hepatic encephalopathy, resolving; hyperammonemia, resolving; decompensated cirrhosis with hepatic encephalopathy; hx HCV treated, HCV cirrhosis; etoh cirrhosis possible; hoa due to vmn, prerenal, resolved; hypoalbuminemia, severe malnutrition; hyperbilirubinemia; history of alcohol abuse; elevated LFTs; elevated ALP; lactic acidosis resolved; pancytopenia, possibly due to alcohol versus cirrhosis, chronic; history hepatitis a; history hepatitis-B history hepatitis-C, treated; stasis dermatitis bilateral lower extremities,; status dermatitis ulcer right lower extremity; Discharge Disposition: [facility] Discharge Instruct/Medications Diet: Cardiac 2g Na,low cholest Activity: No Restrictions, As Tolerated Follow Up/Referral: pcp, gi Medications: below Discharge Statement: "Patient was advised to return to the ER or call 911 if any headaches, dizziness, shortness of breath, chest pain, abdominal pain, bleeding, fevers, or worsening of medical condition. Patient was counseled about treatment plan, medications, possible side effects, patientverbalized understanding. All questions were answered to the best of my ability. This discharge took greater then 30 minutes in planning, reviewing documentation, counseling the patient, and discussing with other team members." ASSESSMENT ASSESSMENT Assessment acute on chronic back pain; volume overload due to cirrhosis; acute toxic/hepatic encephalopathy, resolving; hyperammonemia, resolving; decompensated cirrhosis with hepatic encephalopathy; hx HCV treated, HCV cirrhosis; etoh cirrhosis possible; hoa due to vmn, prerenal, resolved; hypoalbuminemia, severe malnutrition; hyperbilirubinemia; history of alcohol abuse; elevated LFTs; elevated ALP; lactic acidosis resolved; pancytopenia, possibly due to alcohol versus cirrhosis, chronic; history hepatitis a; history hepatitis-B history hepatitis-C, treated; stasis dermatitis bilateral lower extremities,; status dermatitis ulcer right lower extremity; Date of Service: Nov 02, 2024 Billing Provider: KARLOS DOMINGUEZ MD Common Visit Codes: 24114-VBP/OBS DISCH DAY >30min KARLOS DOMINGUEZ MD Nov 02, 2024 11:48
[2024-11-02 13:00] VITALS: BP 113/59; PULSE 84; RESP 18; TEMP 97.7; O2SAT 94
--- NOTE | 2024-11-02 20:15 | DVHPN2 ---
Progress Note - Dictate Date Seen: Nov 02, 2024 (Late entryPatient seen at 1:30 p.m.) Medical Necessity Reason Pt with a Central, PICC or Fol: No Subjective No new complaints ; feels better Four bowel movements recorded I reviewed patient's records and apparently he was released from jail recently and was seen in our ER in July for chronic leg wounds Patient stated he has been treated with Harvoni for his hepatitis-C and he believes it is determined or in remission Patient has been recently drinking and drank a whole bottle of whiskey around [place] time; prior to that he had been sober for several months vital signs Vital Sign Date Time Temp Pulse Resp B/P (MAP) Pulse Ox O2 Delivery O2 Flow Rate FiO2 11/02/24 13:00 97.7 84 18 113/59 (77) 94 97.7 11/02/24 08:00 Room Air* 0 21 Total Intake and Output 11/01/24 11/01/24 11/02/24 15:00 23:00 07:00 Intake Total 300 ml 960 ml 320 ml Output Total 550 ml Balance 300 ml 410 ml 320 ml objective General examination- Not in acute distress, looking better said he feels better HEENT: PEERLA, EOMI intact CVS: S1-S2 audible, rate and rhythm regular, no murmur Lung: CTAB, no wheeze or rhonchi Abdomen: soft, mildly distended, BS+, nontenderness, Hepatomegaly Extremity: Bilateral trace pedal edema; multiple tattoos Neurological: Nonfocal no asterixis, slow speech Psychiatry-- Normal mood and affect laboratory and microbiology Laboratory Tests 11/02/24 06:09 Test 11/02/24 06:09 Range/Units Serum Glucose 120 H 74-106 mg/dL Problems(with codes): (1) Marijuana abuse (2) Stasis dermatitis with ulcer of left lower extremity due to peripheral venous hypertension (3) Hepatitis C antibody positive in blood (4) Hyperammonemia (5) Cirrhosis of liver (6) Elevated lactic acid level (7) Thrombocytopenia (8) Liver cirrhosis (9) Stasis ulcer of left lower extremity (10) Stasis ulcer of right lower extremity Prognosis Plan Patient is being transferred the SNF for further post acute rehab Patient has underlying cirrhosis of the liver due to history of hepatitis-C and chronic alcohol abuse in the past His MELD score is 15 points which is suggestive of good prognosis with only a 6% three-month mortality risk His Maddrey discrimination function is 23 points which is also suggestive of good prognosis and patient does not need steroids Continue supportive care and treatment of his hepatic encephalopathy Titrate lactulose so he has 2-3 good bowel movements a day; he was also on rifaximin 550 mg p.o. twice a day Continue thiamine folic acid, vitamin K; IV PPI There are no signs of active GI bleeding and H&H is stable Plan discussed with: Patient PARMINDER NAIR MD Nov 02, 2024 20:15
[2024-11-03] MEDS ORDERED: FUROSEMIDE 20 MG TAB PO SCH (10:00)
[2024-11-03] MEDS ORDERED: SPIRONOLACTONE 25 MG TAB PO SCH (10:00)
== END 2024-11-02 14:00 ==
LOC: ER 15:47 → TELE 22:18 → TELE-WESTW 10-23 01:40
PROVIDERS: ADMIT Student in an Organized Health Care Education/Training Program; ATTEND Student in an Organized Health Care Education/Training Program
PROC: 05HB33Z Insertion of Infusion Device into Right Basilic Vein, Percutaneous Approach (ICD-10-PCS; principal; 2024-11-01)
PROC: B54MZZA Ultrasonography of Right Upper Extremity Veins, Guidance (ICD-10-PCS; 2024-11-01)
DX: K76.82 Hepatic encephalopathy (principal); N17.0 Acute kidney failure with tubular necrosis; G03.9 Meningitis, unspecified; D61.818 Other pancytopenia; E43 Unspecified severe protein-calorie malnutrition; I21.A1 Myocardial infarction type 2; G92.8 Other toxic encephalopathy; E72.20 Disorder of urea cycle metabolism, unspecified; I11.0 Hypertensive heart disease with heart failure; N12 Tubulo-interstitial nephritis, not specified as acute or chronic; B19.20 Unspecified viral hepatitis C without hepatic coma; K76.6 Portal hypertension; E87.20 Acidosis, unspecified; D69.59 Other secondary thrombocytopenia; I50.33 Acute on chronic diastolic (congestive) heart failure; E11.9 Type 2 diabetes mellitus without complications; D72.819 Decreased white blood cell count, unspecified; M54.9 Dorsalgia, unspecified; G89.29 Other chronic pain; I87.2 Venous insufficiency (chronic) (peripheral); B15.9 Hepatitis A without hepatic coma; E88.09 Other disorders of plasma-protein metabolism, not elsewhere classified; L30.9 Dermatitis, unspecified; F10.10 Alcohol abuse, uncomplicated; Y90.9 Presence of alcohol in blood, level not specified; K74.60 Unspecified cirrhosis of liver; Z88.8 Allergy status to other drugs, medicaments and biological substances; Z88.1 Allergy status to other antibiotic agents; Z88.5 Allergy status to narcotic agent; Z91.013 Allergy to seafood; Z90.49 Acquired absence of other specified parts of digestive tract
CPT/HCPCS: 36415; 36600; 70450; 71045; 73020; 74176; 76705; 80048; 80053; 80202; 80307; 80320; 81001; 82105; 82140; 82550; 82565; 82570; 82607; 82805; 82962; 83036; 83605; 83690; 83880; 84300; 84443; 84484; 85007; 85025; 85027; 85610; 85730; 86592; 86704; 86706; 86708; 86803; 87340; 93005; 93306; 93970; 97110; 97116; 97163; 97530; G0378; J1885; J2405; J2470; J2543; J3430; J7060

== ENCOUNTER 2024-11-05 18:10 | Inpatient (IN) | payer MEDICAID ==
[~2024-11-05] VITALS: Ht 167.6 cm; Wt 127.3 kg
--- NOTE | 2024-11-05 18:58 | ED.PDOC ---
GI ASSESSMENT HPI Comments 59-year-old male your via EMS for abdominal pain. Patient picked up with a care home facility. Does have history of liver cirrhosis, hepatitis-C, congestive heart failure, GI bleed. Patient has been complaining of diffuse abdominal pain for the past 3 days, associated bouts of nausea, vomiting and diarrhea. Denies any hematemesis or melena. Patient complaining of dizziness and back pains in generalized weakness especially in both his arms. Upon arrival by paramedics, noted to be hypotensive with systolic 100, hemoglobin levels of 5.0 Chief Complaint: Abdominal Pain Time Seen by MD: 18:57 Reviewed Notes: Caterers Helper Notes Allergies: Coded Allergies: Ceftriaxone (Verified Allergy, Unknown, 07/28/24) Uncoded Allergies: FISH (Allergy, Unknown, 07/28/24) Home Meds Active Scripts Hydrocodone-Acetaminophen (Hydrocodone Bitartrate/AC 10-325 mg) 1 Tab Tab, 1 TAB PO Q8HPRN PRN for 3 Days, #9 TAB Prov:RAFAEL MORFIN MD 07/29/24 Cephalexin Monohydrate (Cephalexin) 500 Mg Cap, 500 MG PO Q6HR for 10 Days, #40 MG Prov:RAFAEL MORFIN MD 07/29/24 Information Source: Patient, Emergency Med Personnel Mode of Arrival: EMS Timing: Days Duration: Intermittent Prehospital treatment: None Quality: Aching, Cramping Vomitus: Watery Stool: Loose Severity: Moderate Recent: None Recent Hx of: Liver Disease, Abdominal Surgery Pain Location: Diffuse Modifying Factors: Nothing Associated sign and symptoms: Nausea, Vomiting, Diarrhea, Abdominal Pain, Faintness Review of Systems REVIEW OF SYSTEMS: No fever, no chills, or fatigue HEENT: No sore throat, no earache, no congestion, no neck pain. Cardiac: No chest pain. No palpitations. Lungs: No shortness of breath, no cough. GI: Positive abdominal pain, nausea vomiting and diarrhea. No blood in the v omitus or stool : No dysuria, frequency, or urgency. No hematuria. Musculoskeletal: No joint pain , no joint swelling, positive extremity edema. Skin: No rash, no itching. Neuro: No headache, no dizziness, no weakness Vital Signs Vital Signs Date Time Temp Pulse Resp B/P (MAP) Pulse Ox O2 Delivery O2 Flow Rate FiO2 11/05/24 20:35 84 13 88/40 (56) 100 11/05/24 20:04 96.7 96.7 Physical Exam General: Awake, alert and oriented. No acute distress. Skin: Skin in warm, dry and intact. Appropriate color for ethnicity. Nailbeds pink with no cyanosis. HEENT: The head is normocephalic and atraumatic. Conjunctivae are clear without exudates or hemorrhage. Sclera is non-icteric. EOM are intact. No signs of nystagmus. Eyelids are normal in appearance without swelling or lesions. Oral mucosa is pink and moist Neck: The neck is supple with normal range of motion. No JVD. Cardiac: Heart rate and rhythm are normal. No murmurs, gallops, or rubs are auscultated. Respiratory: No signs of respiratory distress. Lung sounds are clear in all lobes bilaterally without rales, ronchi, or wheezes. Abdominal: Abdomen is soft, generally tender without distention. Bowel sounds are diminished in all four quadrants. Extremities: Upper and lower extremities are atraumatic in appearance. Bilateral 2+ pitting edema Neurological: The patient is awake, alert and oriented to person, place, and time with normal speech. Speech is clear. There is no facial asymmetry. Psychiatric: Appropriate mood and affect. Good judgement and insight. No visual or auditory hallucinations. Past Medical History PAST MEDICAL HISTORY: CHF, DM, Liver Past Medical History (Other): Liver cirrhosis, hepatitis-C, GI bleed Surgical History: Cholecystectomy Family History Family History: Reviewed,noncontributory to illness Social History Smoker: Non-Smoker Alcohol: Denies ETOH Use Drugs: Denies Drug Use Lives In: [facility] EKG EKG : Pulse Rate (adult): 91 Cardiac Rhythm: NSR Was a procedure done? Was a procedure done?: No GI differential Dx Differential Diagnosis: Diverticular disease, Gastritis/PUD, Gastroenteritis, GI hemorrhage, Hepatitis, Ischemic Bowel, Pancreatitis, UTI, Dehydration, Electrolyte Imbalance, Anemia, Esophageal Varicies X-Ray, Labs, Meds, VS Vital Signs Date Time Temp Pulse Resp B/P (MAP) Pulse Ox O2 Delivery O2 Flow Rate FiO2 11/05/24 20:35 84 13 88/40 (56) 100 11/05/24 20:20 77 11/05/24 20:20 77 11/05/24 20:04 96.7 78 13 67/35 (46) 98 96.7 11/05/24 19:59 86 14 83/24 (43) 93 11/05/24 18:58 91 11/05/24 18:38 98.2 78 15 100/66 (77) 98 Lab Test 11/05/24 21:00 11/05/24 20:42 11/05/24 19:12 Range/Units Sodium Level 125 L 123 #L 136-145 mmol/L Potassium Level 5.8 *H 6.1 *H 3.5-5.1 mmol/L Chloride Level 97 L 96 #L 98-107 mmol/L Carbon Dioxide Level 20 20 20-31 mmol/L Anion Gap 8 7 5-15 Blood Urea Nitrogen 42 H 41 H 9-23 mg/dL Creatinine 3.14 H 3.01 H 0.700-1.30 mg/dL Glomerular Filtration Rate Calc 22 23 >90 mL/min BUN/Creatinine Ratio 13.4 13.6 10.0-20.0 Serum Glucose 102 107 H 74-106 mg/dL Lactic Acid Level 5.5 *H 4.6 *H 0.4-2.0 mmol/L Calcium Level 7.3 L 8.0 L 8.7-10.4 mg/dL Total Bilirubin 6.5 H 7.6 H 0.2-1.0 mg/dL Aspartate Amino Transferase (AST) 360 H 438 H 13-40 U/L Alanine Aminotransferase (ALT) 355 H 426 H 7-40 U/L Alkaline Phosphatase 361 H 423 H 46-116 U/L Ammonia 80 H 11-32 umol/L Total Protein 4.8 L 5.7 5.7-8.2 g/dL Albumin 1.7 L 2.0 L 3.2-4.8 g/dL POC Glucose 120 H 70-106 mg/dl White Blood Count 8.3 # 4.4-10.8 10^3/uL Red Blood Count 4.44 L 4.5-5.90 10^6/uL Hemoglobin 15.8 # 13.5-17.5 g/dL Hematocrit 46.0 # 41.0-53.0 % Mean Corpuscular Volume 103.8 H 80.0-100.0 fL Mean Corpuscular Hemoglobin 35.6 H 28.0-32.0 pg Mean Corpuscular Hemoglobin Concent 34.3 32.0-36.0 g/dL Red Cell Distribution Width 18.1 H 11.8-14.3 % Platelet Count 53 L 140-450 10^3/uL Mean Platelet Volume 10.9 H 6.9-10.8 fL Neutrophils (%) (Auto) 71.7 37.0-80.0 % Lymphocytes (%) (Auto) 12.0 10.0-50.0 % Monocytes (%) (Auto) 15.2 H 0.0-12.0 % Eosinophils (%) (Auto) 0.7 0.0-7.0 % Basophils (%) (Auto) 0.4 0.0-2.0 % Neutrophils # (Auto) 6.0 1.6-8.6 10 ^3/uL Lymphocytes # (Auto) 1.0 0.4-5.4 10 ^3/uL Monocytes # (Auto) 1.3 0-1.3 10 ^3/uL Eosinophils # (Auto) 0.1 0-0.8 10 ^3/uL Basophils # (Auto) 0 0-0.2 10 ^3/uL Nucleated Red Blood Cells 0.3 % Platelet Estimate Decreased Macrocytosis Slight Prothrombin Time 18.3 H 9.3-11.8 sec Prothrombin Time INR 1.80 H 0.9-1.15 Activated Partial Thromboplast Time 37.3 H 24.5-34.5 SEC Magnesium Level 3.0 H 1.6-2.6 mg/dL B-Type Natriuretic Peptide 30.50 0-100 pg/mL Lipase 33 12-53 U/L Current Medications Medications (Trade) Dose Ordered Sig/Sherron Route Start Time Stop Time Status Last Admin Ondansetron HCl (Zofran) 4 mg ONCE ONCE IV 11/05/24 19:00 11/05/24 19:01 DC 11/05/24 20:50 Sodium Chloride 1,000 ml @ 150 mls/hr Q6H40M ONCE IV 11/05/24 19:00 11/05/24 22:20 DC 11/05/24 20:53 Insulin Human Regular (InsuLIN R) 10 units ONCE ONCE IV 11/05/24 20:00 11/05/24 20:37 DC 11/05/24 21:13 Dextrose 50 ml ONCE ONCE IV 11/05/24 20:00 11/05/24 20:37 DC 11/05/24 21:13 Sodium Bicarbonate 50 ml ONCE ONCE IV 11/05/24 20:00 11/05/24 20:37 DC 11/05/24 21:13 Calcium Gluconate/ Sodium Chloride 50 ml @ 120 mls/hr ONCE ONCE IV 11/05/24 20:00 11/05/24 20:37 DC 11/05/24 21:15 Zirconium Oxide (Lokelma) 10 gm ONCE ONCE PO 11/05/24 20:00 11/05/24 20:37 DC 11/05/24 21:13 Sodium Chloride 1,000 ml @ 1,000 mls/hr Q1H ONCE IV 11/05/24 20:00 11/05/24 20:59 DC 11/05/24 21:01 Sodium Chloride 1,000 ml @ 1,000 mls/hr Q1H ONCE IV 11/05/24 21:00 11/05/24 21:59 DC 11/05/24 21:18 Norepinephrine Bitartrate 250 ml @ 3.75 mls/hr Q24H IV 11/05/24 20:45 11/05/24 22:21 Time of 1ST Reevaluation: 18:54 Reevaluation 1ST: Unchanged Patient Education/Counseling: Diagnosis, Treatment, Other (DIAGNOSIS AND RECOMMENDATION FOR ADMISSION) Family Education/Counseling: No Family Present Departure 1 Departure Time of Disposition: 20:42 Impression: Primary Impression: Hepatic encephalopathy Additional Impressions: Acute hepatic failure Septic shock ARF (acute renal failure) Hyperkalemia Disposition: ADMITTED INPATIENT Admit to: ICU Condition: Critical Comments 59-year-old male presenting with abdominal pain. Workup revealed hyperkalemia acute panic failure, acute renal failure, pending encephalopathy and septic shock. Patient was started on IV fluids, pressors for hypotension, and antibiotics in the emergency department. Hyperkalemia treatment initiated in the emergency department. Number & Complexity of Problems Addressed 1 acute or chronic illness that poses a threat to life or bodily function: Acute renal failure, septic shock, acute hepatic encephalopathy, acute hepatic failure Extensive evaluation was performed to identify or rule out: Differential diagnoses considered include: Abdominal aortic aneurysm, OR, esophageal rupture, intestinal obstruction, mesenteric ischemia, perforated viscus or solid organ rupture, CHF with hepatomegaly, pneumonia, abscess, appendicitis, biliary disease, diverticulitis, gastritis, gastroenteritis, hepatitis, hernia, inflammatory bowel disease, pancreatitis, peptic ulcer disease, ureteral colic, constipation, GERD, irritable syndrome, abdominal wall pain, nonspecific abdominal pain, herpes zoster. Amount and/or Complexity of Data to be Reviewed/Analyzed Tests reviewed: The diagnostic results section Documents reviewed: Na Independent historian: EMS Independent interpretation of tests: EKG, chest x-ray Discussion of management or test interpretation with external physician/other qualified health home health care worker: N/A Risk of Complications and/or Morbidity or Mortality of Patient Management Patient was at high risk of morbidity from additional diagnostic testing or treatment Drug therapy requiring intensive monitoring for toxicity: Norepinephrine IV, V potassium Decision regarding elective major surgery with identified patient or procedure risk factors: N/A Decision regarding emergency major surgery: N/A Decision regarding hospitalization or escalation of hospital level of care: Yes Decision not to resuscitate or to de-escalate care because of poor prognosis: N/A Parenteral controlled substances: N/A-- Critical Care Note Critical Care Time?: Yes (35 min-critical care time only) Critical care comment: Hypotension, Septic Shock, Acute Hepatic Failure Due to a high probability of clinically significant, life threatening deterioration, the patient required my highest level of preparedness to intervene emergently and I personally spent this critical care time directly and personally managing the patient. This critical care time included obtaining a history; examining the patient; pulse oximetry; ordering and review of studies; arranging urgent treatment with development of a management plan; evaluation of patient's response to treatment; frequent reassessment; and, discussions with other providers. This critical care time was performed to assess and manage the high probability of imminent, life-threatening deterioration that could result in multi-organ failure. It was exclusive of separately billable procedures and treating other patients and teaching time. Please see my other sections and the rest of the note for further information on patient assessment and treatment. Stability Stability form required: No I personally scribed for IRMA CROUCH MD ([email or web address]) on 11/05/24 at 18:58. Electronically submitted by Jose Conrad ([facility]). I personally scribed for IRMA CROUCH MD ([email or web address]) on 11/05/24 at 19:35. Electronically submitted by Jose Conrad ([email or web address]). I personally scribed for IRMA CROUCH MD ([email or web address]) on 11/05/24 at 20:34. Electronically submitted by Jose Conrad ([email or web address]). IRMA CROUCH MD Nov 05, 2024 18:58
[2024-11-05 19:47] LABS: Anion Gap 7 (5-15); BUN/Creatinine Ratio 13.6 (10.0-20.0); Carbon Dioxide 20 mmol/L (20-31)
[2024-11-05 19:50] LABS: Basophils # (auto) 0 10 ^3/uL (0-0.2); Eosinophils # (auto) 0.1 10 ^3/uL (0-0.8); INR 1.8 (0.9-1.15); Monocytes # (auto) 1.3 10 ^3/uL (0-1.3); Monocytes % (auto) 15.2 % (0.0-12.0); Nucleated Red Blood Cells % 0.3 %; Partial Thromboplastin Time 37.3 SEC (24.5-34.5); Prothrombin Time 18.3 sec (9.3-11.8)
[2024-11-05 19:51] LABS: Alanine Aminotransferase 426 U/L (7-40); Alkaline Phosphatase 423 U/L (46-116); Aspartate Aminotransferase 438 U/L (13-40); Basophils % (auto) 0.4 % (0.0-2.0); Bilirubin, Total 7.6 mg/dL (0.2-1.0); Blood Urea Nitrogen 41 mg/dL (9-23); Chloride 96 mmol/L (98-107); Eosinophils % (auto) 0.7 % (0.0-7.0); Glucose 107 mg/dL (74-106); Hemoglobin 15.8 g/dL (13.5-17.5); Lactic Acid w/Reflex 4.6 mmol/L (0.4-2.0); Mean Corpuscular Hemoglobin 35.6 pg (28.0-32.0); Mean Corpuscular Hgb Conc. 34.3 g/dL (32.0-36.0); Mean Corpuscular Volume 103.8 fL (80.0-100.0); Neutrophils % (auto) 71.7 % (37.0-80.0); Platelet Count (auto) 53 10^3/uL (140-450); Red Blood Cells 4.44 10^6/uL (4.5-5.90); Red Cell Distribution Width 18.1 % (11.8-14.3); Sodium 123 mmol/L (136-145); White Blood Cell 8.3 10^3/uL (4.4-10.8)
[2024-11-05 19:52] LABS: Potassium 6.1 mmol/L (3.5-5.1)
[2024-11-05 20:02] LABS: Lipase 33 U/L (12-53)
[2024-11-05 20:04] VITALS: PULSE 85; RESP 12; O2SAT 95
[2024-11-05 20:04] LABS: Total Protein 5.7 g/dL (5.7-8.2)
[2024-11-05 20:41] LABS: Macrocytosis Slight; Platelet Estimate Decreased
[2024-11-05] MEDS: MORPHINE SULFATE 4 MG/ML SYR/VIAL IV ONE (20:47)
[2024-11-05] MEDS: ONDANSETRON HCL 4 MG/2 ML VIAL IV ONE (20:50)
[2024-11-05] MEDS: SODIUM CHLORIDE 0.9% 1,000 ML IV ONE ×3 (20:53→21:18)
[2024-11-05] MEDS: DEXTROSE (50%) 50ML SYRG IV ONE (21:13)
[2024-11-05] MEDS: InsuLIN REG 1unit/0.01ml Soln (100units/ml) IV ONE (21:13)
[2024-11-05] MEDS: SODIUM BICARB 8.4% 50Meq/50ml SYR INJ IV ONE (21:13)
[2024-11-05] MEDS: SODIUM ZIRCONIUM CYCL 10 GM PAK PO ONE (21:13)
[2024-11-05] MEDS: CALCIUM GLUC 1,000mg/50ml-NS 50 ML IV ONE (21:15)
[2024-11-05] MEDS ORDERED: NITROGLYCERIN 0.4 MG SL TAB SL PRN (21:30)
[2024-11-05] MEDS ORDERED: MORPHINE SULFATE INJ 2 MG/ml SYRG IV PRN (21:30)
[2024-11-05 21:42] LABS: Anion Gap 8 (5-15); BUN/Creatinine Ratio 13.4 (10.0-20.0); Carbon Dioxide 20 mmol/L (20-31); Glucose 102 mg/dL (74-106)
[2024-11-05 21:45] LABS: Alanine Aminotransferase 355 U/L (7-40); Albumin 1.7 g/dL (3.2-4.8); Alkaline Phosphatase 361 U/L (46-116); Aspartate Aminotransferase 360 U/L (13-40); Bilirubin, Total 6.5 mg/dL (0.2-1.0); Blood Urea Nitrogen 42 mg/dL (9-23); Calcium 7.3 mg/dL (8.7-10.4); Chloride 97 mmol/L (98-107); Sodium 125 mmol/L (136-145); Total Protein 4.8 g/dL (5.7-8.2)
[2024-11-05 21:49] LABS: Potassium 5.8 mmol/L (3.5-5.1)
--- NOTE | 2024-11-05 21:54 | DVH ---
EXAMINATION: AP portable chest radiograph CLINICAL HISTORY: r/o pulmonary edema COMPARISON: XY CHEST PORTABLE on DOS: 10/23/24 FINDINGS: Lead wires overlie the thorax. Diffuse interstitial prominence and central vascular redistribution. No lobar consolidation identifie d. Mild apparent prominence of the cardiac silhouette may be in part exaggerated by technique. No def inite pleural effusion or pneumothorax. IMPRESSION: Pulmonary vascular congestion/interstitial edema. Please correlate to exclude atypical infection.
[2024-11-05] MEDS ORDERED: cefTRIAXone 2GM/50ML D5W 50 ML IV ONE (22:15)
[2024-11-05] MEDS: NOREPINEPHRINE 8 MG/250ML KIT 250 ML IV SCH (22:21)
[2024-11-05] MEDS: MIDODRINE HCL 10 MG TAB PO ONE (22:26)
[2024-11-05 22:44] LABS: Base Excess -9.2 mmol/L (-2.0-3.0)
[2024-11-05 22:45] VITALS: PULSE 82; RESP 18; O2SAT 95
--- NOTE | 2024-11-05 22:45 | DVH ---
ULTRASOUND ABDOMEN limited, 4 QUADRANTS INDICATION: suspected ascites Evaluate for ascites. TECHNIQUE: The four quadrants of the abdomen were scanned in martin-scale to assess for the presence of ascites. N o solid organ assessment was performed. FINDINGS/IMPRESSIONS: No ascites identified.
[2024-11-06] VITALS (9 sets, daily range): BP systolic 97; BP diastolic 41; PULSE 1–103; RESP 15–27; O2SAT 91–99
[2024-11-06] MEDS: LACTULOSE 20Gm/30ML SOLN PO SCH
[2024-11-06] MEDS ORDERED: CEFEPIME 2GM/50ML NS 50 ML IV ONE
[2024-11-06] MEDS: ALBUMIN 25% 100 ML IV SCH ×2 (00:32→10:22)
[2024-11-06 03:33] LABS: Eosinophils # (auto) 0 10 ^3/uL (0-0.8); Eosinophils % (auto) 0.2 % (0.0-7.0); Lymphocytes % (auto) 10.1 % (10.0-50.0)
[2024-11-06 03:35] LABS: Basophils # (auto) 0.1 10 ^3/uL (0-0.2); Hematocrit 39.2 % (41.0-53.0); Hemoglobin 13.5 g/dL (13.5-17.5); Lymphocytes # (auto) 1.3 10 ^3/uL (0.4-5.4); Mean Corpuscular Hemoglobin 35.8 pg (28.0-32.0); Mean Corpuscular Hgb Conc. 34.5 g/dL (32.0-36.0); Mean Corpuscular Volume 103.7 fL (80.0-100.0); Monocytes # (auto) 2.1 10 ^3/uL (0-1.3); Neutrophils # (auto) 9.4 10 ^3/uL (1.6-8.6); Neutrophils % (auto) 72.7 % (37.0-80.0); Nucleated Red Blood Cells % 0.2 %; Platelet Count (auto) 65 10^3/uL (140-450); Red Blood Cells 3.78 10^6/uL (4.5-5.90); Red Cell Distribution Width 17.9 % (11.8-14.3); White Blood Cell 12.9 10^3/uL (4.4-10.8)
[2024-11-06 03:39] LABS: Anion Gap 8 (5-15); BUN/Creatinine Ratio 13.8 (10.0-20.0); Carbon Dioxide 20 mmol/L (20-31); Glucose 97 mg/dL (74-106)
[2024-11-06] MEDS ORDERED: CIPROFLOXACIN 400MG/200ML 200 ML IV SCH (03:45)
[2024-11-06 03:56] LABS: Alanine Aminotransferase 341 U/L (7-40); Albumin 2.6 g/dL (3.2-4.8); Alkaline Phosphatase 334 U/L (46-116); Aspartate Aminotransferase 353 U/L (13-40); Bilirubin, Total 8.2 mg/dL (0.2-1.0); Blood Urea Nitrogen 45 mg/dL (9-23); Calcium 7.8 mg/dL (8.7-10.4); Chloride 97 mmol/L (98-107); Sodium 125 mmol/L (136-145); Total Protein 5.7 g/dL (5.7-8.2)
[2024-11-06 04:21] LABS: Potassium 5.7 mmol/L (3.5-5.1)
--- NOTE | 2024-11-06 04:39 | DVH ---
Exam: CT CT AB PEL WO CON-NO ORAL OR IV History: ABD PAIN Comparison Study: CT 10/22/2024 TECHNIQUE: Multidetector CT of the abdomen was performed from lung bases to pubic symphysis. Imaging was performed without IV contrast. Axial, coronal and sagittal multiplanar reformats were obtained fr om the axial data set by the technologist. Radiation optimization: All CT scans at this facility use at least one of these dose optimization deepa hniques: automated exposure control mA and/or kV adjustment per patient size (includes targeted exam s where dose is matched to clinical indication) or iterative reconstruction. Radiation Dose Information: CT Dose: Dose-length product is 1567.61 mGy*cm FINDINGS: Evaluation of solid organs is limited due to lack of intravenous contrast use. Findings: Imaged portions of the lung bases demonstrate bibasilar subsegmental atelectasis. There are coronary artery calcifications. The liver appears nodular in contour. There has been prior cholecystectomy. T he stomach is distended with debris and fluid with possible mass at the pylorus. The small bowel is r elatively collapsed. There is an IVC filter. No suspicious osseous lesion. There are large splenorenal collaterals and varicosities. The pancreas is atrophic. Diffuse subcutaneous edema. IMPRESSION: 1. Distended stomach with fluid and debris with possible mass of the gastric pylorus, limited assessm ent given lack of intravenous contrast and oral contrast. 2. Findings compatible with hepatic cirrhosis and portal hypertension
[2024-11-06 05:04] LABS: Protein, Urine 81.7 mg/dL (1-14)
[2024-11-06 05:06] LABS: Creatinine, Urine 169.31 mg/dL (30.0-125.0); Urine Protein/Creatinine Ratio 0.48
[2024-11-06 05:07] LABS: Cannabinoid Screen, Urine Pos (NEGATIVE)
[2024-11-06 05:13] LABS: Urine Bacteria None Seen /hpf (None Seen)
[2024-11-06] MEDS: DOXYCYCLINE 100MG/100ML 100 ML IV SCH (05:15)
--- NOTE | 2024-11-06 05:18 | DVHHPRES ---
History of Present Illness Resident Creating Document: FANNIEUzielIMELDATAMAR RESIDENT History of Present Illness Patient is a 59-year-old male with a past medical history of liver cirrhosis due to hepatitis-C, heart failure with preserved ejection fraction was brought to the ED from from senior care facility with a chief complaint of abdominal pain since the past 3 days. Patient was admitted recently for decompensated liver cirrhosis with hepatic encephalopathy and volume overload and was discharged to SNF for physical therapy rehab. Patient reports since the time he has been discharged ED he has been having worsening abdominal pain which is diffuse, dull associated with tenderness. Patient also reports associated nausea, vomiting and episodes of watery stools but no associated blood in vomitus or stool. Patient at the time of examination was lethargic and noncompliant so only limited history of present illness could be obtained. Past medical history: Liver cirrhosis likely D/T hepatitis-C, ?alcohol induced, heart failure with preserved ejection fraction, previous DVT Past surgical history: Cholecystectomy, bilateral knee replacement Social history: Patient denies current smoking, alcohol, drug use and lives with the family Home medication: Aspirin 81 mg, atorvastatin 40 mg, Lasix 20 mg q.d. lactulose 30 mL q.i.d. spironolactone 25 mg q.d., trazodone 50 mg HS Review of Systems Review of Systems Patient reports abdominal pain and and has difficulty breathing. Difficulty passing urine but denied dysuria. Denies current nausea, vomiting, diarrhea Patient has yellowing of the skin and the sclera Denied chest pain, palpitations, headache, blurry vision. Allergies: Coded Allergies: Ceftriaxone (Verified Allergy, Unknown, 07/28/24) Uncoded Allergies: FISH (Allergy, Unknown, 07/28/24) Medications Current Medications Medications Dose Ordered Sig/Sherron Route Start Time Stop Time Status Last Admin Dose Admin Norepinephrine Bitartrate 250 ml @ 3.75 mls/hr Q24H IV 11/05/24 20:45 11/05/24 22:21 3.75 MLS/HR Nitroglycerin 0.4 mg Q5MINP PRN SL 11/05/24 21:30 Morphine Sulfate 2 mg Q30M PRN IV 11/05/24 21:30 Lactulose 30 ml Q6HR PO 11/06/24 00:00 Exam Vital Signs Vital Signs Date Time Temp Pulse Resp B/P (MAP) Pulse Ox O2 Delivery O2 Flow Rate FiO2 11/06/24 03:00 115/50 11/06/24 02:00 92 12 100 11/05/24 22:45 Nasal Cannula* 3 32 11/05/24 20:04 96.7 96.7 Exam Physical Examination Constitutional: Patient was somnolent but easily arousable by touch, was alert and oriented to time, place and person, was agitated and non cooperative and appeared to be in mild acute respiratory distress. Gen - no pallor, scleral icterus present, no cyanosis, no clubbing, no LAD, bilateral 3+ pitting edema in the lower extremities up to mid ridley Skin - Patients skin is warm and dry. HEENT - normocephalic, atraumatic, dry mucous membranes. Neck - full ROM, no LAD, no JVD Pulmonary - B/L equal air entry with decreased breath sounds in the lower lobes with inspiratory coarse crackles, no wheezing, no stridor. cardiovascular - parasternal heave felt, variable S1,S2 heard. ? Systolic murmur at LUSB. GI - soft abdomen with diffuse tenderness to palpation and guarding. Bowel sounds hypoactive Neurological - Patient is A/O X 3. Lethargic, agitated, shortened attention span, asterixis present Bilateral upper extremity strength 5/5, bilateral lower extremity strength 5/5, no facial droop, normal speech, no tremor, no sensory deficiets. Labs/Xrays Labs Test 11/06/24 03:10 11/05/24 22:28 11/05/24 21:00 11/05/24 20:42 Range/Units Blood Gas Specimen Type Arterial Blood Gas Sample Site Right radial Blood Gas Patient Temperature 37.0 Arterial Blood Date Drawn [id number] Arterial Blood pH 7.217 *L 7.350-7.450 Arterial Blood Partial Pressure CO2 46.4 35.0-48.0 mmHg Arterial Blood Partial Pressure O2 84.8 83.0-108.0 mmHg Arterial Blood HCO3 18.4 L 21.0-28.0 mmol/L Arterial Blood Oxygen Saturation 94.6 94.0-98.0 % Arterial Blood Base Excess -9.2 L -2.0-3.0 mmol/L Arterial Blood Oxyhemoglobin 92.8 L 94.0-98.0 % Arterial Blood Carboxyhemoglobin 1.3 0.5-1.5 % Arterial Blood Methemoglobin 0.6 0.0-1.5 % Terence Test Modified Blood Gas Total Hemoglobin 14.50 13.5-17.5 g/dL Blood Gas Liter Flow 2.00 Blood Gas Modality Nasal cannula FiO2 % 28.0 Blood Gas Critical Value Read Back Yes Blood Gas Notified Whom janis Vincent md Blood Gas Notified Time [id number] Blood Gas Notified By surya Sigala rrt Lactic Acid Level 5.5 *H 0.4-2.0 mmol/L Ammonia 80 H 11-32 umol/L POC Glucose 120 H 70-106 mg/dl Test 11/05/24 19:12 Range/Units Eosinophils (%) (Auto) 0.7 0.0-7.0 % Eosinophils # (Auto) 0.1 0-0.8 10 ^3/uL Basophils # (Auto) 0 0-0.2 10 ^3/uL Nucleated Red Blood Cells 0.3 % Platelet Estimate Decreased Macrocytosis Slight Prothrombin Time 18.3 H 9.3-11.8 sec Prothrombin Time INR 1.80 H 0.9-1.15 Activated Partial Thromboplast Time 37.3 H 24.5-34.5 SEC Magnesium Level 3.0 H 1.6-2.6 mg/dL B-Type Natriuretic Peptide 30.50 0-100 pg/mL Lipase 33 12-53 U/L Assessment/Plan Assessment/Plan Acute metabolic encephalopathy likely due to hyperammonemia Hepatic encephalopathy likely grade 2 - serum ammonia 80 - asterixis present - patient is easily arousable and is maintaining his airway - on lactulose 30 mL q.i.d. Septic shock likely due to pneumonia vs sbp Acute hypoxic respiratory failure likely due to pneumonia ? Community-acquired pneumonia likely due to viral with superimposed ?gram +/- ? Atypical Lactic acidosis - chest x-ray shows pulmonary vascular congestion/interstitial edema, with a opacities in right middle and the upper and left lower lung - patient on norepinephrine, goal MAP>65mmhg - on 4 L oxygen via NC, goal SpO2> 92% - on ciprofloxacin 400 mg q.12h number IV and metronidazole 500 mg q.8 hour IV, doxycycline 100 mg q.12 hours IV - COVID, influenza, MRSA pending - sputum culture pending - monitor vitals, BMP Acute decompensated liver failure with septic shock Acute hepatic encephalopathy ?SBP ?Hepatorenal syndrome Hypoalbuminemia Transaminitis Coagulopathy with the elevated PT/INR - on norepinephrine - on lactulose 30 mL q.i.d. - abdominal ultrasound shows no ascites - CT abdomen pelvis shows 1. Distended stomach with fluid and debris with possible mass of the gastric pylorus, limited assessment given lack of intravenous contrast and oral contrast. 2. Findings compatible with hepatic cirrhosis and portal hypertension - albumin 50 mg once given, patient is started on albumin 25 mg q.12 hours - on ciprofloxacin 400 mg q.12h number IV and metronidazole 500 mg q.8 hour IV ( patient allergic to ceftriaxone) - urine sodium, creatinine, osmolality pending - Protonix 40 mg IV daily VALENTINA on CKD likely prerenal due to VMN ?Hepatorenal syndrome Hyperkalemia Serum creatinine increased from 1.2--> 3 Patient given albumin 50 mg once Started on albumin 25 mg q.12 hours Hyperkalemia protocol X 2 Nephrology consulted NSTEMI likely type 2 - ECG showed no evidence of acute ischemia - troponins elevated History of DVT, s/p IVC filter Goals of care discussed with the patient for over 25 minutes. Full code Plan discussed with Dr. Sewell Plan discussed with: Patient My Orders Orders - OWEN VINCENT RESIDENT Procedure Category Date Status Time Admit ADMIT 11/05/24 Transmitted 21:23 Nitroglycerin PHA 11/05/24 In Process Sublingual (Ntrostat 21:30 Morphine Sulfate PHA 11/05/24 In Process Injection 21:30 Oxygen By Nasal RT 11/05/24 Transmitted Cannula 21:23 Stat Ekg For Chest LIZA 11/05/24 In Process Pain 21:23 Notify Of Changes LIZA 11/05/24 In Process From Base 21:23 Recruiting Intern For LIZA 11/05/24 In Process 24 Hours 21:23 Emergency Dysrhythmia LIZA 11/05/24 In Process Protocol 21:23 Drug Screen LAB 11/05/24 Logged 21:23 Urine Sodium LAB 11/05/24 Logged 21:23 Urine LAB 11/05/24 Logged Protein/Creatinine Abdomen Limited US 11/05/24 Resulted 21:46 Stool Occult Blood LAB 11/05/24 Logged 21:46 Abg W/ Co-Ox RT 11/05/24 Logged 22:15 Respiratory Culture BANG 11/05/24 Uncollected W/ Gs 22:15 Covid19 Antigen Leyla LAB 11/05/24 Logged Rapid Influenza A&B LAB 11/05/24 Logged 22:15 Code Status CODE 11/05/24 Transmitted 22:21 Transfer Orders XFER 11/05/24 Transmitted 22:24 Insert Macdonald Catheter LIZA 11/05/24 In Process 22:24 Strict I & O LIZA 11/05/24 In Process 22:24 Lactulose Oral PHA 11/06/24 In Process 00:00 Central Line Insertion BD 11/05/24 Transmitted 22:48 Cefepime 2gm/50ml Ns PHA 11/06/24 Pending (Maxipime 2gm/50ml) 00:00 Complete Blood Count LAB 11/06/24 In Process 04:00 Comprehensive LAB 11/06/24 In Process Metabolic Panel 04:00 Abg W/ Co-Ox RT 11/06/24 Logged 04:00 Date of Service: Nov 05, 2024 Billing Provider: LORNA SEWELL MD Common Visit Codes: [id number] INP/OBS CARE (HIGH) OWEN VINCENT RESIDENT Nov 06, 2024 05:18 LORNA SEWELL MD Nov 08, 2024 12:00
[2024-11-06] MEDS: ALBUTEROL SULF 2.5 MG/0.5ML(0.5%) NEB SOLN NEB ONE (05:24)
[2024-11-06 05:33] LABS: Amphetamine Screen, Urine Neg (NEGATIVE); Barbiturate Scree,Urine Neg (NEGATIVE); Benzodiazephine Screen, Urine Neg (NEGATIVE); Cocaine Screen, Urine Neg (NEGATIVE); Opiate Scree,Urine Pos (NEGATIVE); Phencyclidine Screen, Urine Neg (NEGATIVE)
[2024-11-06 05:42] LABS: Urine Blood 1+ /uL (Negative); Urine Budding Yeast MANY /hpf (None Seen); Urine Clarity Ex.Turbid (Clear); Urine Color Dark-Yellow (Yellow); Urine Mucus FEW (None Seen); Urine Protein, UAD 1+ (Negative); Urine Specific Gravity 1.018 (1.001-1.035); Urine Squamous Epithelial Cell FEW /hpf (<5); Urine Urobilinogen Normal (Negative); Urine WBC 138 /hpf (0 - 3); Urine WBC Clumps PRESENT /hpf (None Seen); Urine pH 5.5 (5.0-9.0)
[2024-11-06 05:54] LABS: Base Excess -5.2 mmol/L (-2.0-3.0)
[2024-11-06] MEDS ORDERED: metroNIDAZOLE 500MG/100ML 100 ML IV SCH (06:00)
[2024-11-06] MEDS ORDERED: MEROPENEM 1GM IVPB 50 ML IV ONE (06:15)
[2024-11-06] MEDS ORDERED: VANCOMYCIN PER PHARMACY 0 MG IV SCH (06:15)
--- NOTE | 2024-11-06 07:25 | DVH ---
EXAM: XR Chest, 1 View CLINICAL INDICATION: CENTRAL LINE PLACEMNET TECHNIQUE: Frontal view of the chest. COMPARISON: XY CHEST XRAY 1 VIEW on DOS: 11/05/24, XY CHEST PORTABLE on DOS: 10/23/24 FINDINGS: LUNGS AND PLEURAL SPACES: Unremarkable. No consolidation. No pneumothorax. HEART: Unremarkable. No cardiomegaly. MEDIASTINUM: Unremarkable. Normal mediastinal contour. BONES/JOINTS: Unremarkable. No acute fracture. TUBES, LINES AND DEVICES: Right peripherally inserted central catheter (PICC) tip in the superior ve na cava. OTHER FINDINGS: . . Mild CHF. IMPRESSION: No acute cardiopulmonary process.
--- NOTE | 2024-11-06 07:27 | ED.PDOC ---
Was a procedure done? 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 Indication: Hypotension Room prepared for procedure: Yes Hand Buffing Wheel Former performed hand hygien: Yes Maximal sterile barrier precau: Mask/Eye shield, Sterile gown, Cap, Sterlie gloves, Large sterlie drape Skin Preparation: Other (local anesthetic ) Skin preparation completely dr: Yes Insertion site: Right, Supraclavicular Central line catheter type: Deh-[id number] dialysis Number of lumens: 3 Central line exchanged over a: No Antiseptic ointment applied to: No Post Assessment: Chest X-Ray, Proper placement Informed consent obtained: Yes Risks/benefits/alt described: Yes I personally scribed for ALEX ANN MD ([email or web address]) on 11/06/24 at 07:27. Electronically submitted by Swapnil Hager [email or web address]). ALEX ANN MD Nov 06, 2024 07:27
[2024-11-06] MEDS: CALCIUM GLUC 1,000mg/50ml-NS 50 ML IV ONE (08:04)
[2024-11-06] MEDS: MEROPENEM 1 GM IV ONE (08:05)
[2024-11-06] MEDS: VASOPRESSIN 20 UNITS in SODIUM CHL 0.9% 99 ML IV SCH (08:14)
[2024-11-06] MEDS: HYDROCORTISONE SOD SUCC 100 MG/2ML INJ VIAL IV SCH (08:23)
[2024-11-06 08:28] LABS: Lactic Acid w/Reflex 3.7 mmol/L (0.4-2.0)
[2024-11-06] MEDS: DEXTROSE (50%) 50ML SYRG IV ONE (08:50)
[2024-11-06] MEDS: InsuLIN REG 1unit/0.01ml Soln (100units/ml) IV ONE (08:51)
[2024-11-06] MEDS: VANCOMYCIN 1GM/250ML KIT 250 ML IV SCH (09:03)
[2024-11-06] MEDS: SODIUM ZIRCONIUM CYCL 10 GM PAK PO ONE (09:17)
[2024-11-06] MEDS ORDERED: IPRATROPIUM BROM 0.5 MG/2.5ML INH SOL NEB SCH (10:00)
[2024-11-06] MEDS ORDERED: ALBUTEROL SULF 2.5 MG/0.5ML(0.5%) NEB SOLN NEB SCH (10:00)
[2024-11-06] MEDS: PANTOPRAZOLE 40 MG/10 ML VIAL INJ IV SCH (10:20)
--- NOTE | 2024-11-06 10:41 | DVHPN2 ---
Subjective Patient encephalopathic Reviewed: Care Plan, H&P, Labs, Medications Changes from previous H/P or p: No Changes General: Per HPI Objective Vitals Vital Signs Date Time Temp Pulse Resp B/P (MAP) Pulse Ox O2 Delivery O2 Flow Rate FiO2 11/06/24 10:00 113 11/06/24 09:45 15 107/45 (65) 97 11/06/24 07:32 4.0 36 11/06/24 05:25 Nasal Cannula 11/05/24 20:04 96.7 96.7 Intake/Output Intake and Output 11/06/24 07:00 Intake Total 2437.4375 ml Balance 2437.4375 ml Intake IV Total 2437.4375 ml General Appearance: moderate distress, Other HEENT: Other (Sclericteric) Cardiovascular: Normal S1, Normal S2 Extremities: Other (Plus three ankle/pedal edema) Neuro: Other (Encephalopathic. Response to pain) Skin: Other (Jaundiced) Psych/Mental Status: Other (Encephalopathic. Response to pain) Medications Current Medications Medications Dose Ordered Sig/Sherron Route Start Time Stop Time Status Last Admin Dose Admin Norepinephrine Bitartrate 250 ml @ 3.75 mls/hr Q24H IV 11/05/24 20:45 11/06/24 09:45 56.25 MLS/HR Nitroglycerin 0.4 mg Q5MINP PRN SL 11/05/24 21:30 Morphine Sulfate 2 mg Q30M PRN IV 11/05/24 21:30 Lactulose 30 ml Q6HR PO 11/06/24 00:00 11/06/24 08:30 30 ML Albumin Human 100 ml @ 100 mls/hr Q12HR IV 11/06/24 10:00 11/06/24 10:22 100 MLS/HR Zirconium Oxide 10 gm TID PO 11/06/24 14:00 11/08/24 06:01 Pantoprazole Sodium 40 mg DAILY IV 11/06/24 10:00 11/06/24 10:20 40 MG Albuterol 2.5 mg Q6HR NEB 11/06/24 12:00 Ipratropium [place] 0.5 mg Q6HR NEB 11/06/24 12:00 Vancomycin HCl 0 ml @ 0 mls/hr UD IV 11/06/24 06:15 Hydrocortisone Sodium Succinate 50 mg Q6HR IV 11/06/24 06:15 11/06/24 08:23 50 MG Vasopressin 20 units/Sodium Chloride 100 ml @ 9 mls/hr Q11H7M IV 11/06/24 07:45 11/06/24 08:14 9 MLS/HR Laboratory Results Laboratory Tests 11/06/24 03:10 Chemistry Test 11/05/24 19:12 11/05/24 21:00 11/06/24 03:10 Albumin 2.0 g/dL (3.2-4.8) L 1.7 g/dL (3.2-4.8) L 2.6 g/dL (3.2-4.8) L Calcium Level 8.0 mg/dL (8.7-10.4) L 7.3 mg/dL (8.7-10.4) L 7.8 mg/dL (8.7-10.4) L Magnesium Level 3.0 mg/dL (1.6-2.6) H Total Protein 5.7 g/dL (5.7-8.2) 4.8 g/dL (5.7-8.2) L 5.7 g/dL (5.7-8.2) Coagulation Test 11/05/24 19:12 Prothrombin Time 18.3 sec (9.3-11.8) H Prothrombin Time INR 1.80 (0.9-1.15) H Activated Partial Thromboplast Time 37.3 SEC (24.5-34.5) H Lipid panel Test 11/05/24 19:12 Lipase 33 U/L (12-53) Cardiac Markers Test 11/05/24 19:12 B-Type Natriuretic Peptide 30.50 pg/mL (0-100) LFT Test 11/05/24 19:12 11/05/24 21:00 11/06/24 03:10 Alanine Aminotransferase (ALT) 426 U/L (7-40) H 355 U/L (7-40) H 341 U/L (7-40) H Alkaline Phosphatase 423 U/L (46-116) H 361 U/L (46-116) H 334 U/L (46-116) H Aspartate Amino Transferase (AST) 438 U/L (13-40) H 360 U/L (13-40) H 353 U/L (13-40) H Total Bilirubin 7.6 mg/dL (0.2-1.0) H 6.5 mg/dL (0.2-1.0) H 8.2 mg/dL (0.2-1.0) H Urinalysis Test 11/05/24 04:07 11/06/24 04:07 Urine Color Dark-yellow (Yellow) Urine Clarity Ex.turbid (Clear) Urine pH 5.5 (5.0-9.0) Urine Specific [place] 1.018 (1.001-1.035) Urine Protein 1+ (Negative) H Urine Ketones Negative (Negative) Urine Blood 1+ /uL (Negative) H Urine Nitrite Negative (Negative) Urine Bilirubin 1+ (Negative) Urine Urobilinogen Normal mg/dL (Negative) Urine Leukocyte Esterase Trace /uL (Negative) Urine RBC 8 /hpf (0 - 3) Urine WBC 138 /hpf (0 - 3) Urine WBC Clumps Present /hpf (None Seen) Urine Squamous Epithelial Cells Few /hpf (<5) Urine Bacteria None seen /hpf (None Seen) Urine Mucus Few (None Seen) Urine Yeast (Budding) Many /hpf (None Seen) Urine Creatinine 169.31 mg/dL (30.0-125.0) H Urine Protein/Creatinine Ratio 0.48 Urine Sodium < 10 mmol/L (40-220) L Urine Glucose Normal mg/dL (Normal) Urine Total Protein 81.7 mg/dL (1-14) H Urine Osmolality 352 mOsm/kg Blood Gas Results Test 11/05/24 22:28 11/06/24 05:46 Arterial Blood pH 7.217 (7.350-7.450) 7.295 (7.350-7.450) FiO2 % 28.0 36.0 Labs and/or images reviewed: Labs reviewed by me, Image(s) reviewed by me Assessment/Plan Assessment/Plan Impression: -sepsis with shock -hepatic/metabolic encephalopathy -acute kidney injury, questionable hepatorenal failure -obesity -liver cirrhosis with portal hypertension -severe protein malnutrition -polysubstance abuse including cannabinoids and opiates -obesity -thrombocytopenia Plan: -patient currently lethargic/encephalopathic. Does respond to painful stimuli and tract to voice. Patient on vasopressor therapy with norepinephrine and vasopressin. -albumin 25% 50 mL x3 every 8 hours -start sodium bicarbonate drip -nephrology consultation -continue empiric antibiotic therapy with meropenem. Stop vancomycin given renal function -continue Lokelma -continue lactulose q.6 hours -start rifaximin -SCDs, ppi -repeat labs in a.m. Critical care time spent with patient discussing and formulating plan of care: 40 minutes. This does not include time spent performing procedures. This medical document was created using an electronic medical record system with [employer] dictation system. Although this document has been carefully reviewed, there may still be some phonetic and typographical errors. These areas are purely typographical due to imperfections of the software programs, and do not reflect any compromise in the patient's medical care. Plan discussed with: Patient, Other (RN) My Orders Orders - ELIANE MONDRAGON NP Procedure Category Date Status Time Phenylephrine PHA 11/06/24 Verified 20mg/250ml 10:15 1/2nsw Sodium PHA 11/06/24 Verified Bicarbonate Drip 10:15 Complete Blood Count LAB 11/07/24 Verified 04:00 Comprehensive LAB 11/07/24 Verified Metabolic Panel 04:00 Date of Service: Nov 06, 2024 Billing Provider: ELIANE MONDRAGON NP Common Visit Codes: [id number] CARE 30-74 MIN ELIANE MONDRAGON NP Nov 06, 2024 10:41
--- NOTE | 2024-11-06 10:48 | DVHINCON2 ---
Date Seen: Nov 06, 2024 Referring Physician Carlton Reason for Consultation NSTEMI History of Present Illness 59-year-old male with PMH for liver cirrhosis, remote history of alcohol usage quit at age 40, hepatitis-C, right popliteal DVT with IVC filter placement, HFpEF, persistently elevated LFTs, and hepatic encephalopathy presented to the hospital from snf facility with chief complaint of abdominal pain x3 days. Patient had recent admission for decompensated liver cirrhosis and hepatic encephalopathy and volume overload [facility]. Patient fairly lethargic at time of assessment information gathering mainly from chart review. Denies chest pain. Troponins found to be elevated trending to 0 2, 191, 193, 223, 240, 241, and 264. Potassium 6.1. Creatinine 3.01. AST and ALT 438 and 426. Ammonia 80. BNP 30. EKG reviewed and shows normal sinus rhythm at 90 beats per minute, no acute ST and T-wave abnormality noted. Past Medical History Hepatitis-C Liver cirrhosis Alcohol abuse HFpEF Right lower extremity DVT Hepatic encephalopathy GI bleed Past Surgical History IVC filter placement EGD 03/12/2024 showing small gastric fundal varices without stigmata of recent bleeding Family History: Patient reports no known family medical history. Family History Denies pertinent family cardiac history Social History Denies alcohol or tobacco use, endorses use of cannabinoids intermittently. Allergies: Coded Allergies: Ceftriaxone (Verified Allergy, Unknown, 07/28/24) Uncoded Allergies: FISH (Allergy, Unknown, 07/28/24) Home Meds Active Scripts Hydrocodone-Acetaminophen (Hydrocodone Bitartrate/AC 10-325 mg) 1 Tab Tab, 1 TAB PO Q8HPRN PRN for 3 Days, #9 TAB Prov:RAFAEL MORFIN MD 07/29/24 Cephalexin Monohydrate (Cephalexin) 500 Mg Cap, 500 MG PO Q6HR for 10 Days, #40 MG Prov:RAFAEL MORFIN MD 07/29/24 Current Medications Current Medications Medications (Trade) Dose Ordered Sig/Sherron Route PRN Reason Start Time Stop Time Status Last Admin Norepinephrine Bitartrate 250 ml @ 3.75 mls/hr Q24H IV 11/05/24 20:45 11/06/24 09:45 Nitroglycerin (Ntrostat Sublingual) 0.4 mg Q5MINP PRN SL FOR CHEST PAIN 11/05/24 21:30 Morphine Sulfate 2 mg Q30M PRN IV FOR CHEST PAIN 11/05/24 21:30 Albumin Human 100 ml @ 100 mls/hr Q1HR IV 11/05/24 23:00 11/06/24 00:59 DC 11/06/24 01:17 Lactulose 30 ml Q6HR PO 11/06/24 00:00 11/06/24 08:30 Ciprofloxacin 200 ml @ 200 mls/hr Q12HR IV 11/06/24 03:45 11/06/24 06:14 DC Metronidazole 100 ml @ 100 mls/hr Q8HR IV 11/06/24 06:00 11/06/24 06:14 DC Albumin Human 100 ml @ 100 mls/hr Q12HR IV 11/06/24 10:00 Doxycycline Hyclate 100 ml @ 50 mls/hr Q12H IV 11/06/24 03:45 11/06/24 06:14 DC 11/06/24 05:15 Zirconium Oxide (Lokelma) 10 gm TID PO 11/06/24 14:00 11/08/24 06:01 Albuterol (Ventolin Medneb) 2.5 mg Q6HR NEB 11/06/24 10:00 11/06/24 05:57 DC Ipratropium [place] (Atrovent Medneb) 0.5 mg Q6HR NEB 11/06/24 10:00 11/06/24 05:57 DC Pantoprazole Sodium (Protonix) 40 mg DAILY IV 11/06/24 10:00 Albuterol (Ventolin Medneb) 2.5 mg Q6HR NEB 11/06/24 12:00 Ipratropium [place] (Atrovent Medneb) 0.5 mg Q6HR NEB 11/06/24 12:00 Meropenem 50 ml @ 17 mls/hr Q8HR IV 11/06/24 14:00 11/06/24 06:32 DC Vancomycin HCl 0 ml @ 0 mls/hr UD IV 11/06/24 06:15 Hydrocortisone Sodium Succinate (Solu-CORTEF INJECTION) 50 mg Q6HR IV 11/06/24 06:15 11/06/24 08:23 Vancomycin HCl 250 ml @ 125 mls/hr Q2H IV 11/06/24 06:30 11/06/24 10:29 11/06/24 10:14 Vasopressin 20 units/Sodium Chloride 100 ml @ 9 mls/hr Q11H7M IV 11/06/24 07:45 11/06/24 08:14 Review of Systems Constitutional: No: Fever, Chills, Sweats, , Malaise, Other positive: Weakness Eyes: No: Pain, Vision change, Conjunctivae inflammation, Eyelid inflammation, Other, Redness ENT: No: Ear pain, Ear discharge, Nose pain, Nose discharge, Nose congestion, Mouth pain, Mouth swelling, Throat pain, Throat swelling, Other Respiratory: No: Cough, Dry, , Wheezing, Hemoptysis, Pleuritic Pain, Sputum, Wheezing, Othe positive: rShortness of breath, SOB with exertion Cardiovascular: ; No: Chest Pain Palpitations, Orthopnea, Paroxysmal Noc. Dyspnea, , Lt Headedness, Other positive: Edema Gastrointestinal: No: Nausea, Vomiting, Abdominal Pain, Diarrhea, Constipation, Melena, Hematochezia, Other Genitourinary: No Dysuria, No Frequency, No Incontinence, No Hematuria, No Retention, No Other Musculoskeletal: neck pain; No: other, shoulder pain, arm pain, back pain, hand pain, leg pain, foot pain Skin: No: Rash, Lesions, Jaundice, Bruising, Other Neurological: Other (Dizziness, headache.); No: Weakness, Numbness, Incoordination, Change in speech, Confusion, Seizures Vital Signs Vital Signs Date Time Temp Pulse Resp B/P (MAP) Pulse Ox O2 Delivery O2 Flow Rate FiO2 11/06/24 10:00 113 11/06/24 09:45 15 107/45 (65) 97 11/06/24 07:32 4.0 36 11/06/24 05:25 Nasal Cannula 11/05/24 20:04 96.7 96.7 Physical Exam General appearance: Obese, ill-appearing, in no acute distress. HEENT: Exam shows: Normocephalic, atraumatic, PERRLA, EOMI Neck: Supple, no bruits Chest: Equal chest excursion bilaterally. Breath sounds rhonchi/rales. Heart: Rhythm: Regular rate; no murmur or gallop Abdomen: Exam shows: Soft, nontender, nondistended Musculoskeletal: No clubbing, no cyanosis, +3 lower extremity edema Dermatology: Skin warm, moist. Neurological: Exam shows: Sleepy, oriented x2. Available prior records, labs, EKG, rhythm strips reviewed and interpreted Labs/Diagnostic Data Labs Test 11/06/24 08:53 11/06/24 08:14 11/06/24 06:03 11/06/24 05:46 Range/Units Lactic Acid Level 4.0 *H 0.4-2.0 mmol/L POC Glucose 115 H 70-106 mg/dl Troponin I High Sensitivity 264 *H </=54 ng/L Blood Gas Specimen Type Arterial Blood Gas Sample Site Right radial Blood Gas Patient Temperature 37.0 Arterial Blood Date Drawn [id number] Arterial Blood pH 7.295 L 7.350-7.450 Arterial Blood Partial Pressure CO2 44.6 35.0-48.0 mmHg Arterial Blood Partial Pressure O2 87.7 83.0-108.0 mmHg Arterial Blood HCO3 21.2 21.0-28.0 mmol/L Arterial Blood Oxygen Saturation 96.2 94.0-98.0 % Arterial Blood Base Excess -5.2 L -2.0-3.0 mmol/L Arterial Blood Oxyhemoglobin 94.5 94.0-98.0 % Arterial Blood Carboxyhemoglobin 1.2 0.5-1.5 % Arterial Blood Methemoglobin 0.6 0.0-1.5 % Terence Test Positive Blood Gas Total Hemoglobin 13.80 13.5-17.5 g/dL Blood Gas Liter Flow 4.00 Blood Gas Modality Nasal cannula FiO2 % 36.0 Test 11/06/24 04:07 11/06/24 03:10 11/05/24 22:28 11/05/24 21:00 Range/Units Urine Osmolality 352 mOsm/kg White Blood Count 12.9 #H 4.4-10.8 10^3/uL Red Blood Count 3.78 L 4.5-5.90 10^6/uL Hemoglobin 13.5 13.5-17.5 g/dL Hematocrit 39.2 #L 41.0-53.0 % Mean Corpuscular Volume 103.7 H 80.0-100.0 fL Mean Corpuscular Hemoglobin 35.8 H 28.0-32.0 pg Mean Corpuscular Hemoglobin Concent 34.5 32.0-36.0 g/dL Red Cell Distribution Width 17.9 H 11.8-14.3 % Platelet Count 65 L 140-450 10^3/uL Mean Platelet Volume 11.2 H 6.9-10.8 fL Neutrophils (%) (Auto) 72.7 37.0-80.0 % Lymphocytes (%) (Auto) 10.1 10.0-50.0 % Monocytes (%) (Auto) 16.0 H 0.0-12.0 % Eosinophils (%) (Auto) 0.2 0.0-7.0 % Basophils (%) (Auto) 1.0 0.0-2.0 % Neutrophils # (Auto) 9.4 H 1.6-8.6 10 ^3/uL Lymphocytes # (Auto) 1.3 0.4-5.4 10 ^3/uL Monocytes # (Auto) 2.1 H 0-1.3 10 ^3/uL Eosinophils # (Auto) 0 0-0.8 10 ^3/uL Basophils # (Auto) 0.1 0-0.2 10 ^3/uL Nucleated Red Blood Cells 0.2 % Sodium Level 125 L 136-145 mmol/L Potassium Level 5.7 *H 3.5-5.1 mmol/L Chloride Level 97 L 98-107 mmol/L Carbon Dioxide Level 20 20-31 mmol/L Anion Gap 8 5-15 Blood Urea Nitrogen 45 H 9-23 mg/dL Creatinine 3.26 H 0.700-1.30 mg/dL Glomerular Filtration Rate Calc 21 >90 mL/min BUN/Creatinine Ratio 13.8 10.0-20.0 Serum Glucose 97 74-106 mg/dL Serum Osmolality 286 278-298 mOsm/kg Calcium Level 7.8 L 8.7-10.4 mg/dL Total Bilirubin 8.2 H 0.2-1.0 mg/dL Aspartate Amino Transferase (AST) 353 H 13-40 U/L Alanine Aminotransferase (ALT) 341 H 7-40 U/L Alkaline Phosphatase 334 H 46-116 U/L Total Protein 5.7 5.7-8.2 g/dL Albumin 2.6 L 3.2-4.8 g/dL Blood Gas Critical Value Read Back Yes Blood Gas Notified Whom janis Vincent md Blood Gas Notified Time [id number] Blood Gas Notified By surya Sigala rrt Ammonia 80 H 11-32 umol/L Test 11/05/24 19:12 11/05/24 04:07 Range/Units Platelet Estimate Decreased Macrocytosis Slight Prothrombin Time 18.3 H 9.3-11.8 sec Prothrombin Time INR 1.80 H 0.9-1.15 Activated Partial Thromboplast Time 37.3 H 24.5-34.5 SEC Magnesium Level 3.0 H 1.6-2.6 mg/dL B-Type Natriuretic Peptide 30.50 0-100 pg/mL Lipase 33 12-53 U/L Urine Color Dark-yellow Yellow Urine Clarity Ex.turbid Clear Urine pH 5.5 5.0-9.0 Urine Specific [place] 1.018 1.001-1.035 Urine Protein 1+ H Negative Urine Ketones Negative Negative Urine Blood 1+ H Negative /uL Urine Nitrite Negative Negative Urine Bilirubin 1+ Negative Urine Urobilinogen Normal Negative mg/dL Urine Leukocyte Esterase Trace Negative /uL Urine RBC 8 0 - 3 /hpf Urine WBC 138 0 - 3 /hpf Urine WBC Clumps Present None Seen /hpf Urine Squamous Epithelial Cells Few <5 /hpf Urine Bacteria None seen None Seen /hpf Urine Mucus Few None Seen Urine Yeast (Budding) Many None Seen /hpf Urine Creatinine 169.31 H 30.0-125.0 mg/dL Urine Protein/Creatinine Ratio 0.48 Urine Sodium < 10 L 40-220 mmol/L Urine Glucose Normal Normal mg/dL Urine Total Protein 81.7 H 1-14 mg/dL Urine Opiates Screen Pos NEGATIVE Urine Fentanyl Screen Neg NEGATIVE Urine Barbiturates Screen Neg NEGATIVE Urine Phencyclidine Screen Neg NEGATIVE Urine Amphetamines Screen Neg NEGATIVE Urine Benzodiazepines Screen Neg NEGATIVE Urine Cocaine Screen Neg NEGATIVE Urine Cannabinoids Screen Pos NEGATIVE Assessment NSTEMI, likely type 2 Acute on chronic HFpEF, fluid overload Acute hypoxic respiratory failure in setting of pulmonary congestion, pneumonia? Shock, septic versus cardiogenic?. Thrombocytopenia Liver cirrhosis Elevated LFTs Hepatic encephalopathy VALENTINA on CKD Hyperkalemia Plan/Recommendation * Troponins trending stable, negative acute EKG changes. Likely type 2 [place]. patient not a candidate at the time for invasive cardiac ischemic workup, unable to start on anticoagulation therapy in setting of thrombocytopenia. Continue conservative medical management. * Continue on vasopressor support, unable to diurese at this time. Monitor fluid volume status. * Continue monitoring kidney function, avoid nephrotoxic agents. * IV antibiotics * Follow up limited echo * Continued on lactulose * GI and nephrology on board Case Discussed with Dr Wolf. Continue supportive management with vasopressors. On IV antibiotics. Unable to start on anticoagulation therapy. Follow-up limited echo. Follow up GI and Nephrology recommendations. Critical care, time spent: 40 minutes This medical document was created using an electronic medical record system with voice recognition software and computerized dictation system. Although this document has been carefully reviewed, there might still be some phonetic and typographical errors. Occasional wrong-word or ``sound-alike substitutions may have occurred due to the inherent limitations of voice recognition software. These areas are purely typographical due to imperfections of the software programs and do not reflect any compromise in the patient's medical care. Please read the chart carefully and recognize, using context, where these substitutions have occurred. Thank you for allowing me to participate in the management of this patient. The treatment plan was discussed with and agreed upon by patient/family including requesting consultants and ordering of imaging/procedures. Plan discussed with: Patient NYHA Physical activity limitations: Class2(Slight)fatigue,sob Date of Service: Nov 06, 2024 Billing Provider: DALIA HARTMAN Cardiology Common Codes: 49512[facility], [id number] CARE 30-74 MIN DALIA HARTMAN Nov 06, 2024 10:48
[2024-11-06] MEDS: ALBUTEROL SULF 2.5 MG/0.5ML(0.5%) NEB SOLN NEB SCH (11:12)
[2024-11-06] MEDS: IPRATROPIUM BROM 0.5 MG/2.5ML INH SOL NEB SCH (11:12)
--- NOTE | 2024-11-06 12:31 | DVH ---
EXAM: CT HEAD WITHOUT CONTRAST INDICATION: ALOC TECHNIQUE: CT of the head without intravenous contrast. Radiation dose : 1. Head: CT Dose: CTDI volume is 59.6 mGy. Dose-length product is 955.31 mGy*cm The dose indicators for CT are the volume computed tomography (CT) dose index (CTDIvol) and the dose length product (DLP), and are measured in units of mGy and mGy-cm, respectively. These indicators are not patient dose, but values generated from the CT scanner acquisition factors. The report includes radiation exposure data for exposures received during this examination. COMPARISON: CT HEAD WITHOUT CONTRAST on DOS: 10/25/24 FINDINGS: There is no evidence of acute intracranial hemorrhage, extra-axial collection, mass effect, midline s hift, herniation or hydrocephalus. The ventricles, sulci and cisterns are age appropriate. The marcial-white differentiation is intact. Patchy periventricular and subcortical white matter hypoattenuation is nonspecific but may be related to small vessel ischemic disease. The visualized paranasal sinuses and mastoid air cells are clear. The surrounding soft tissues and osseous structures are unremarkable. IMPRESSION: 1. No acute intracranial abnormality. Radiation optimization: All CT scans at this facility use at least one of these dose optimization deepa hniques: Automated exposure control mA and/or kV adjustment per patient size (includes targeted exams where dose is matched to clinical indication) or iterative reconstruction.
[2024-11-06 12:33] LABS: Anion Gap 10 (5-15); Sodium 125 mmol/L (136-145)
[2024-11-06 12:37] LABS: Calcium 7.8 mg/dL (8.7-10.4)
[2024-11-06 12:39] LABS: BUN/Creatinine Ratio 13.3 (10.0-20.0); Blood Urea Nitrogen 44 mg/dL (9-23); Carbon Dioxide 17 mmol/L (20-31); Chloride 98 mmol/L (98-107); Glucose 96 mg/dL (74-106); Potassium 5.8 mmol/L (3.5-5.1)
[2024-11-06] MEDS: SODIUM BICARB 50mEq/50ml Vial 50 ML in SOD CHL 0.45% 1,000 ML IV SCH (12:43)
[2024-11-06 12:59] LABS: Rapid Influenza A Negative (Negative); Rapid Influenza B Negative (Negative)
[2024-11-06 13:00] LABS: COVID19 ANTIGEN SOFIA FIA NEGATIVE (NEGATIVE)
[2024-11-06] MEDS ORDERED: MEROPENEM 1GM IVPB 50 ML IV SCH (14:00)
[2024-11-06 14:12] LABS: Basophils # (auto) 0 10 ^3/uL (0-0.2); Basophils % (auto) 0.1 % (0.0-2.0); Lymphocytes # (auto) 0.7 10 ^3/uL (0.4-5.4); Mean Corpuscular Hemoglobin 35.4 pg (28.0-32.0); Mean Corpuscular Hgb Conc. 33.2 g/dL (32.0-36.0); Monocytes # (auto) 1.9 10 ^3/uL (0-1.3); Monocytes % (auto) 16.7 % (0.0-12.0); Nucleated Red Blood Cells % 0.1 %
[2024-11-06 14:14] LABS: Eosinophils # (auto) 0 10 ^3/uL (0-0.8); Eosinophils % (auto) 0.3 % (0.0-7.0); Hematocrit 39.2 % (41.0-53.0); Lymphocytes % (auto) 6.2 % (10.0-50.0); Mean Corpuscular Volume 106.7 fL (80.0-100.0); Neutrophils # (auto) 8.5 10 ^3/uL (1.6-8.6); Neutrophils % (auto) 76.7 % (37.0-80.0); Platelet Count (auto) 51 10^3/uL (140-450); Red Blood Cells 3.67 10^6/uL (4.5-5.90); Red Cell Distribution Width 18.5 % (11.8-14.3); White Blood Cell 11.1 10^3/uL (4.4-10.8)
[2024-11-06] MEDS: SODIUM ZIRCONIUM CYCL 10 GM PAK PO SCH (14:17)
--- NOTE | 2024-11-06 15:03 | DVHINCON2 ---
Date of service: Nov 06, [address] VINCENT Reason for Consultation Chronic, liver disease cirrhosis with abnormal CT scan of the stomach possible gastric tumor History of Present Illness This 59-year-old male came to the emergency room with complaints of abdominal pain for last three four days. Patient has history of alcoholic liver disease with cirrhosis which is decompensated hepatic encephalopathy patient was [facility] patient has been having increasing abdominal pain and came to the emergency room and from there admitted. Patient also has abdominal pain nausea vomiting on some occasional watery stools. Denies hematemesis or melena patient also has got mild lethargy and was found to have high ammonia levels Had a CT scan showed possible gastric outlet obstruction with possible pyloric mass but CT was done without contrast Past Medical History Liver cirrhosis questionable hepatitis-CAlcoholism heart problems heart failure previous DVT Past Surgical History showed cholecystectomy and knee replacement Family History: Patient reports no known family medical history. Family History Noncontributory Social History Denies smoking or drinking Allergies: Coded Allergies: Ceftriaxone (Verified Allergy, Unknown, 07/28/24) Uncoded Allergies: FISH (Allergy, Unknown, 07/28/24) Home Meds Active Scripts Hydrocodone-Acetaminophen (Hydrocodone Bitartrate/AC 10-325 mg) 1 Tab Tab, 1 TAB PO Q8HPRN PRN for 3 Days, #9 TAB Prov:RAFAEL MORFIN MD 07/29/24 Cephalexin Monohydrate (Cephalexin) 500 Mg Cap, 500 MG PO Q6HR for 10 Days, #40 MG Prov:RAFAEL MORFIN MD 07/29/24 Current Medications Current Medications Medications (Trade) Dose Ordered Sig/Sherron Route PRN Reason Start Time Stop Time Status Last Admin Norepinephrine Bitartrate 250 ml @ 3.75 mls/hr Q24H IV 11/05/24 20:45 11/06/24 14:17 Nitroglycerin (Ntrostat Sublingual) 0.4 mg Q5MINP PRN SL FOR CHEST PAIN 11/05/24 21:30 Morphine Sulfate 2 mg Q30M PRN IV FOR CHEST PAIN 11/05/24 21:30 Albumin Human 100 ml @ 100 mls/hr Q1HR IV 11/05/24 23:00 11/06/24 00:59 DC 11/06/24 01:17 Lactulose 30 ml Q6HR PO 11/06/24 00:00 11/06/24 14:17 Ciprofloxacin 200 ml @ 200 mls/hr Q12HR IV 11/06/24 03:45 11/06/24 06:14 DC Metronidazole 100 ml @ 100 mls/hr Q8HR IV 11/06/24 06:00 11/06/24 06:14 DC Albumin Human 100 ml @ 100 mls/hr Q12HR IV 11/06/24 10:00 11/06/24 10:22 Doxycycline Hyclate 100 ml @ 50 mls/hr Q12H IV 11/06/24 03:45 11/06/24 06:14 DC 11/06/24 05:15 Zirconium Oxide (Lokelma) 10 gm TID PO 11/06/24 14:00 11/08/24 06:01 11/06/24 14:17 Albuterol (Ventolin Medneb) 2.5 mg Q6HR NEB 11/06/24 10:00 11/06/24 05:57 DC Ipratropium [place] (Atrovent Medneb) 0.5 mg Q6HR NEB 11/06/24 10:00 11/06/24 05:57 DC Pantoprazole Sodium (Protonix) 40 mg DAILY IV 11/06/24 10:00 11/06/24 10:20 Albuterol (Ventolin Medneb) 2.5 mg Q6HR NEB 11/06/24 12:00 11/06/24 11:12 Ipratropium [place] (Atrovent Medneb) 0.5 mg Q6HR NEB 11/06/24 12:00 11/06/24 11:12 Meropenem 50 ml @ 17 mls/hr Q8HR IV 11/06/24 14:00 11/06/24 06:32 DC Vancomycin HCl 0 ml @ 0 mls/hr UD IV 11/06/24 06:15 Hydrocortisone Sodium Succinate (Solu-CORTEF INJECTION) 50 mg Q6HR IV 11/06/24 06:15 11/06/24 14:17 Vancomycin HCl 250 ml @ 125 mls/hr Q2H IV 11/06/24 06:30 11/06/24 10:29 DC 11/06/24 10:14 Vasopressin 20 units/Sodium Chloride 100 ml @ 9 mls/hr Q11H7M IV 11/06/24 07:45 11/06/24 08:14 Phenylephrine HCl 250 ml @ 30 mls/hr Q8H20M IV 11/06/24 10:15 Sodium Bicarbonate 50 ml/ Sodium Chloride 1,050 ml @ 75 mls/hr Q14H IV 11/06/24 10:15 11/06/24 12:43 Review of Systems Noncontributory Vital Signs Vital Signs Date Time Temp Pulse Resp B/P (MAP) Pulse Ox O2 Delivery O2 Flow Rate FiO2 11/06/24 14:17 107/79 11/06/24 14:15 101 16 97 11/06/24 11:12 Nasal Cannula 4.0 11/06/24 11:12 36 11/06/24 10:30 98.7 98.7 Physical Exam Originally built and nourished male slightly on the obese side in no acute distress but chronically ill looking HEENT examination mild scleral icterus Lungs are clear Abdomen distended mildly with some mild tenderness diffuse no rigidity or guarding Bowel sounds normal no masses felt Neurological grossly intact except slight drowsiness Labs/Diagnostic Data Labs Test 11/06/24 13:40 11/06/24 09:08 11/06/24 08:53 11/06/24 08:14 Range/Units White Blood Count 11.1 H 4.4-10.8 10^3/uL Red Blood Count 3.67 L 4.5-5.90 10^6/uL Hemoglobin 13.0 L 13.5-17.5 g/dL Hematocrit 39.2 L 41.0-53.0 % Mean Corpuscular Volume 106.7 H 80.0-100.0 fL Mean Corpuscular Hemoglobin 35.4 H 28.0-32.0 pg Mean Corpuscular Hemoglobin Concent 33.2 32.0-36.0 g/dL Red Cell Distribution Width 18.5 H 11.8-14.3 % Platelet Count 51 L 140-450 10^3/uL Mean Platelet Volume 10.8 6.9-10.8 fL Neutrophils (%) (Auto) 76.7 37.0-80.0 % Lymphocytes (%) (Auto) 6.2 L 10.0-50.0 % Monocytes (%) (Auto) 16.7 H 0.0-12.0 % Eosinophils (%) (Auto) 0.3 0.0-7.0 % Basophils (%) (Auto) 0.1 0.0-2.0 % Neutrophils # (Auto) 8.5 1.6-8.6 10 ^3/uL Lymphocytes # (Auto) 0.7 0.4-5.4 10 ^3/uL Monocytes # (Auto) 1.9 H 0-1.3 10 ^3/uL Eosinophils # (Auto) 0 0-0.8 10 ^3/uL Basophils # (Auto) 0 0-0.2 10 ^3/uL Nucleated Red Blood Cells 0.1 % Potassium Level 5.7 *H 3.5-5.1 mmol/L Sodium Level 125 L 136-145 mmol/L Chloride Level 98 98-107 mmol/L Carbon Dioxide Level 17 L 20-31 mmol/L Anion Gap 10 5-15 Blood Urea Nitrogen 44 H 9-23 mg/dL Creatinine 3.32 H 0.700-1.30 mg/dL Glomerular Filtration Rate Calc 20 >90 mL/min BUN/Creatinine Ratio 13.3 10.0-20.0 Serum Glucose 96 74-106 mg/dL Calcium Level 7.8 L 8.7-10.4 mg/dL Lactic Acid Level 4.0 *H 0.4-2.0 mmol/L POC Glucose 115 H 70-106 mg/dl Test 11/06/24 06:03 11/06/24 05:46 11/06/24 04:07 11/06/24 03:10 Range/Units Troponin I High Sensitivity 264 *H </=54 ng/L Blood Gas Specimen Type Arterial Blood Gas Sample Site Right radial Blood Gas Patient Temperature 37.0 Arterial Blood Date Drawn [id number] Arterial Blood pH 7.295 L 7.350-7.450 Arterial Blood Partial Pressure CO2 44.6 35.0-48.0 mmHg Arterial Blood Partial Pressure O2 87.7 83.0-108.0 mmHg Arterial Blood HCO3 21.2 21.0-28.0 mmol/L Arterial Blood Oxygen Saturation 96.2 94.0-98.0 % Arterial Blood Base Excess -5.2 L -2.0-3.0 mmol/L Arterial Blood Oxyhemoglobin 94.5 94.0-98.0 % Arterial Blood Carboxyhemoglobin 1.2 0.5-1.5 % Arterial Blood Methemoglobin 0.6 0.0-1.5 % Terence Test Positive Blood Gas Total Hemoglobin 13.80 13.5-17.5 g/dL Blood Gas Liter Flow 4.00 Blood Gas Modality Nasal cannula FiO2 % 36.0 Urine Osmolality 352 mOsm/kg Serum Osmolality 286 278-298 mOsm/kg Total Bilirubin 8.2 H 0.2-1.0 mg/dL Aspartate Amino Transferase (AST) 353 H 13-40 U/L Alanine Aminotransferase (ALT) 341 H 7-40 U/L Alkaline Phosphatase 334 H 46-116 U/L Total Protein 5.7 5.7-8.2 g/dL Albumin 2.6 L 3.2-4.8 g/dL Test 11/06/24 00:00 11/05/24 22:28 11/05/24 21:00 11/05/24 19:12 Range/Units SARS-CoV-2 Antigen (Rapid) Negative NEGATIVE Blood Gas Critical Value Read Back Yes Blood Gas Notified Whom janis Vincent md Blood Gas Notified Time [id number] Blood Gas Notified By surya Sigala rrt Ammonia 80 H 11-32 umol/L Platelet Estimate Decreased Macrocytosis Slight Prothrombin Time 18.3 H 9.3-11.8 sec Prothrombin Time INR 1.80 H 0.9-1.15 Activated Partial Thromboplast Time 37.3 H 24.5-34.5 SEC Magnesium Level 3.0 H 1.6-2.6 mg/dL B-Type Natriuretic Peptide 30.50 0-100 pg/mL Lipase 33 12-53 U/L Test 11/05/24 04:07 Range/Units Urine Color Dark-yellow Yellow Urine Clarity Ex.turbid Clear Urine pH 5.5 5.0-9.0 Urine Specific [place] 1.018 1.001-1.035 Urine Protein 1+ H Negative Urine Ketones Negative Negative Urine Blood 1+ H Negative /uL Urine Nitrite Negative Negative Urine Bilirubin 1+ Negative Urine Urobilinogen Normal Negative mg/dL Urine Leukocyte Esterase Trace Negative /uL Urine RBC 8 0 - 3 /hpf Urine WBC 138 0 - 3 /hpf Urine WBC Clumps Present None Seen /hpf Urine Squamous Epithelial Cells Few <5 /hpf Urine Bacteria None seen None Seen /hpf Urine Mucus Few None Seen Urine Yeast (Budding) Many None Seen /hpf Urine Creatinine 169.31 H 30.0-125.0 mg/dL Urine Protein/Creatinine Ratio 0.48 Urine Sodium < 10 L 40-220 mmol/L Urine Glucose Normal Normal mg/dL Urine Total Protein 81.7 H 1-14 mg/dL Urine Opiates Screen Pos NEGATIVE Urine Fentanyl Screen Neg NEGATIVE Urine Barbiturates Screen Neg NEGATIVE Urine Phencyclidine Screen Neg NEGATIVE Urine Amphetamines Screen Neg NEGATIVE Urine Benzodiazepines Screen Neg NEGATIVE Urine Cocaine Screen Neg NEGATIVE Urine Cannabinoids Screen Pos NEGATIVE Microbiology Date/Time Source Procedure Growth Status 11/06/24 07:53 Nose MRSA Screen - Final Complete Assessment 59-year-old with a history of liver disease or cirrhosis hepatitis-C heart failure with very poor ejection fraction admitted with the complaints of abdominal pain CT scan of the abdomen showed some a few diffuse fullness in the abdomen in the stomach with possible mass effect in the pain antrum gastric out let obstruction can not be ruled out but done without contrast patient has associated nausea vomiting but no hematemesis or melena patient is also very drowsy and high ammonia levels patient has also jaundice with high liver enzymes Clinical impression Chronic liver disease alcoholism with a possible hepatitis-C with cirrhosis hepatic encephalopathy mild kidney failure has got possible gastric outlet obstruction versus gastroparesis with abnormal CT scan Possibility of gastric mass can not be excluded Plan/Recommendation Stabilize for the time being with pressor support because of the hypotension Follow the hemoglobin and LFTs and ammonia closely Repeat a CT scan with contrast to delineate the pathology in the stomach better We will probably need an EGD evaluation if the CT scan is persistently showing some abdominal If nausea vomiting bleeding NG-tube We will continue treatment with lactulose His overall prognosis is guarded Thank you Dr. Mathews Plan discussed with: Patient ELVIS MATHEWS MD Nov 06, 2024 15:03
[2024-11-06] MEDS: PHENYLEPHRINE IV 250 ML IV SCH (15:45)
[2024-11-06] MEDS: SODIUM CHLORIDE 0.9% 1,000 ML IV ONE (15:49)
[2024-11-06] MEDS: MEROPENEM 500MG PREMIX 50 ML IV SCH (19:26)
--- NOTE | 2024-11-06 21:36 | DVHSR ---
APPROVED REPORT EXAM: Two-dimensional and M-mode echocardiogram with Doppler and color Doppler. Blood Pressure: 105/54 mmHg INDICATION shock RISK FACTORS Obesity: Height: 5'6, Weight: 279 DIMENSIONS LVDd4.8 (3.8-5.7cm)LA (2D)4.5 (1.9-4.0cm)Aortic Root3.1 (2.0-3.7cm) LVDs2.8 (2.5-4.0cm)LA (MM) (1.9-4.0cm)Aortic Cusp Exc1.2 (1.5-2.0cm) EF (%) 60.0 (55-70%)Rt. Atrium (1.9-4.0cm)Asc. Aorta cm IVSd1.0 (0.7-1.1cm)RV (D) (1.8-2.4cm) PWd1.1 (0.7-1.1cm) Mitral Valve MitralMitral Stenosis E wave1.13m/sMV Mean GR.mmHg A wave1.27m/sMV Peak GR.mmHg E/A ratio0.92D MVAcm2 DECEL [id number] 1/2 Timems Aortic Valve Aortic ValveAortic Stenosis V1m/Raegan Mean GR.22mmHg V22.89m/Raegan Peak GR.34mmHg LVOT Diameter1.7 (1.8-2.4cm)Doppler AVAcm2 Pulmonic Valve V21.19m/s Tricuspid Valve TR Velocity2.53m/s [id number] Conclusion MILD LVH AND MILD LV DIASTOLIC DYSFUNCTION HYPERDYNAMIC LV LV EJECTION FRACTION IS 70% NORMAL VALVES NO EFFUSION NORMAL RV FUNCTION MILD AORTIC REGURGITATION
--- NOTE | 2024-11-06 21:43 | DVHINCON2 ---
Date Seen: Nov 06, 2024 Referring Physician Carlton Reason for Consultation NSTEMI History of Present Illness This is a 59-year-old male with a PMH of liver cirrhosis, remote history of alcohol usage quit at age 40, hepatitis-C, right popliteal DVT with IVC filter placement, HFpEF, persistently elevated LFTs, and hepatic encephalopathy who [facility] with complaint of abdominal pain x3 days. Patient had recent admission for decompensated liver cirrhosis and hepatic encephalopathy and volume overload with [facility]. Patient is fairly lethargic at time of assessment information gathering mainly from chart review. Denies chest pain. Troponins found to be elevated trending to 0 2, 191, 193, 223, 240, 241, and 264. Potassium 6.1. Creatinine 3.01. AST and ALT 438 and 426. Ammonia 80. BNP 30. EKG reviewed and shows normal sinus rhythm at 90 beats per minute, no acute ST and T-wave abnormality noted. Chest x-ray shows pulmonary vascular congestion/interstitial edema. Patient was admitted to the hospital. I am asked to consult on this patient. Family History: Patient reports no known family medical history. Allergies: Coded Allergies: Ceftriaxone (Verified Allergy, Unknown, 07/28/24) Uncoded Allergies: FISH (Allergy, Unknown, 07/28/24) Home Meds Active Scripts Hydrocodone-Acetaminophen (Hydrocodone Bitartrate/AC 10-325 mg) 1 Tab Tab, 1 TAB PO Q8HPRN PRN for 3 Days, #9 TAB Prov:RAFAEL MORFIN MD 07/29/24 Cephalexin Monohydrate (Cephalexin) 500 Mg Cap, 500 MG PO Q6HR for 10 Days, #40 MG Prov:RAFAEL MORFIN MD 07/29/24 Current Medications Current Medications Medications (Trade) Dose Ordered Sig/Sherron Route PRN Reason Start Time Stop Time Status Last Admin Norepinephrine Bitartrate 250 ml @ 3.75 mls/hr Q24H IV 11/05/24 20:45 11/06/24 14:17 Nitroglycerin (Ntrostat Sublingual) 0.4 mg Q5MINP PRN SL FOR CHEST PAIN 11/05/24 21:30 Morphine Sulfate 2 mg Q30M PRN IV FOR CHEST PAIN 11/05/24 21:30 Albumin Human 100 ml @ 100 mls/hr Q1HR IV 11/05/24 23:00 11/06/24 00:59 DC 11/06/24 01:17 Lactulose 30 ml Q6HR PO 11/06/24 00:00 11/06/24 14:17 Ciprofloxacin 200 ml @ 200 mls/hr Q12HR IV 11/06/24 03:45 11/06/24 06:14 DC Metronidazole 100 ml @ 100 mls/hr Q8HR IV 11/06/24 06:00 11/06/24 06:14 DC Albumin Human 100 ml @ 100 mls/hr Q12HR IV 11/06/24 10:00 11/06/24 10:22 Doxycycline Hyclate 100 ml @ 50 mls/hr Q12H IV 11/06/24 03:45 11/06/24 06:14 DC 11/06/24 05:15 Zirconium Oxide (Lokelma) 10 gm TID PO 11/06/24 14:00 11/08/24 06:01 11/06/24 14:17 Albuterol (Ventolin Medneb) 2.5 mg Q6HR NEB 11/06/24 10:00 11/06/24 05:57 DC Ipratropium [place] (Atrovent Medneb) 0.5 mg Q6HR NEB 11/06/24 10:00 11/06/24 05:57 DC Pantoprazole Sodium (Protonix) 40 mg DAILY IV 11/06/24 10:00 11/06/24 10:20 Albuterol (Ventolin Medneb) 2.5 mg Q6HR NEB 11/06/24 12:00 11/06/24 11:12 Ipratropium [place] (Atrovent Medneb) 0.5 mg Q6HR NEB 11/06/24 12:00 11/06/24 11:12 Meropenem 50 ml @ 17 mls/hr Q8HR IV 11/06/24 14:00 11/06/24 06:32 DC Vancomycin HCl 0 ml @ 0 mls/hr UD IV 11/06/24 06:15 Hydrocortisone Sodium Succinate (Solu-CORTEF INJECTION) 50 mg Q6HR IV 11/06/24 06:15 11/06/24 14:17 Vancomycin HCl 250 ml @ 125 mls/hr Q2H IV 11/06/24 06:30 11/06/24 10:29 DC 11/06/24 10:14 Vasopressin 20 units/Sodium Chloride 100 ml @ 9 mls/hr Q11H7M IV 11/06/24 07:45 11/06/24 08:14 Phenylephrine HCl 250 ml @ 30 mls/hr Q8H20M IV 11/06/24 10:15 11/06/24 15:45 Sodium Bicarbonate 50 ml/ Sodium Chloride 1,050 ml @ 75 mls/hr Q14H IV 11/06/24 10:15 11/06/24 12:43 Review of Systems Constitutional: No: Fever, Chills, Sweats, , Malaise, Other positive: Weakness Eyes: No: Pain, Vision change, Conjunctivae inflammation, Eyelid inflammation, Other, Redness ENT: No: Ear pain, Ear discharge, Nose pain, Nose discharge, Nose congestion, Mouth pain, Mouth swelling, Throat pain, Throat swelling, Other Respiratory: No: Cough, Dry, , Wheezing, Hemoptysis, Pleuritic Pain, Sputum, Wheezing, Othe positive: rShortness of breath, SOB with exertion Cardiovascular: ; No: Chest Pain Palpitations, Orthopnea, Paroxysmal Noc. Dyspnea, , Lt Headedness, Other positive: Edema Gastrointestinal: No: Nausea, Vomiting, Abdominal Pain, Diarrhea, Constipation, Melena, Hematochezia, Other Genitourinary: No Dysuria, No Frequency, No Incontinence, No Hematuria, No Retention, No Other Musculoskeletal: neck pain; No: other, shoulder pain, arm pain, back pain, hand pain, leg pain, foot pain Skin: No: Rash, Lesions, Jaundice, Bruising, Other Neurological: Other (Dizziness, headache.); No: Weakness, Numbness, Incoordination, Change in speech, Confusion, Seizures Vital Signs Vital Signs Date Time Temp Pulse Resp B/P (MAP) Pulse Ox O2 Delivery O2 Flow Rate FiO2 11/06/24 15:45 81/36 11/06/24 15:00 100 15 100 11/06/24 11:12 Nasal Cannula 4.0 11/06/24 11:12 36 11/06/24 10:30 98.7 98.7 Physical Exam GENERAL: Awake, alert, oriented. Obese. Ill appearing. LUNGS: Clear. CARDIOVASCULAR: Heart sounds are good. ABDOMEN: Soft. EXT: +3 LLE edema. Labs/Diagnostic Data Labs Test 1/11/25 13:40 11/06/24 09:08 11/06/24 08:53 11/06/24 08:14 Range/Units White Blood Count 11.1 H 4.4-10.8 10^3/uL Red Blood Count 3.67 L 4.5-5.90 10^6/uL Hemoglobin 13.0 L 13.5-17.5 g/dL Hematocrit 39.2 L 41.0-53.0 % Mean Corpuscular Volume 106.7 H 80.0-100.0 fL Mean Corpuscular Hemoglobin 35.4 H 28.0-32.0 pg Mean Corpuscular Hemoglobin Concent 33.2 32.0-36.0 g/dL Red Cell Distribution Width 18.5 H 11.8-14.3 % Platelet Count 51 L 140-450 10^3/uL Mean Platelet Volume 10.8 6.9-10.8 fL Neutrophils (%) (Auto) 76.7 37.0-80.0 % Lymphocytes (%) (Auto) 6.2 L 10.0-50.0 % Monocytes (%) (Auto) 16.7 H 0.0-12.0 % Eosinophils (%) (Auto) 0.3 0.0-7.0 % Basophils (%) (Auto) 0.1 0.0-2.0 % Neutrophils # (Auto) 8.5 1.6-8.6 10 ^3/uL Lymphocytes # (Auto) 0.7 0.4-5.4 10 ^3/uL Monocytes # (Auto) 1.9 H 0-1.3 10 ^3/uL Eosinophils # (Auto) 0 0-0.8 10 ^3/uL Basophils # (Auto) 0 0-0.2 10 ^3/uL Nucleated Red Blood Cells 0.1 % Potassium Level 5.7 *H 3.5-5.1 mmol/L Sodium Level 125 L 136-145 mmol/L Chloride Level 98 98-107 mmol/L Carbon Dioxide Level 17 L 20-31 mmol/L Anion Gap 10 5-15 Blood Urea Nitrogen 44 H 9-23 mg/dL Creatinine 3.32 H 0.700-1.30 mg/dL Glomerular Filtration Rate Calc 20 >90 mL/min BUN/Creatinine Ratio 13.3 10.0-20.0 Serum Glucose 96 74-106 mg/dL Calcium Level 7.8 L 8.7-10.4 mg/dL Lactic Acid Level 4.0 *H 0.4-2.0 mmol/L POC Glucose 115 H 70-106 mg/dl Test 11/06/24 06:03 11/06/24 05:46 11/06/24 04:07 11/06/24 03:10 Range/Units Troponin I High Sensitivity 264 *H </=54 ng/L Blood Gas Specimen Type Arterial Blood Gas Sample Site Right radial Blood Gas Patient Temperature 37.0 Arterial Blood Date Drawn [id number] Arterial Blood pH 7.295 L 7.350-7.450 Arterial Blood Partial Pressure CO2 44.6 35.0-48.0 mmHg Arterial Blood Partial Pressure O2 87.7 83.0-108.0 mmHg Arterial Blood HCO3 21.2 21.0-28.0 mmol/L Arterial Blood Oxygen Saturation 96.2 94.0-98.0 % Arterial Blood Base Excess -5.2 L -2.0-3.0 mmol/L Arterial Blood Oxyhemoglobin 94.5 94.0-98.0 % Arterial Blood Carboxyhemoglobin 1.2 0.5-1.5 % Arterial Blood Methemoglobin 0.6 0.0-1.5 % Terence Test Positive Blood Gas Total Hemoglobin 13.80 13.5-17.5 g/dL Blood Gas Liter Flow 4.00 Blood Gas Modality Nasal cannula FiO2 % 36.0 Urine Osmolality 352 mOsm/kg Serum Osmolality 286 278-298 mOsm/kg Total Bilirubin 8.2 H 0.2-1.0 mg/dL Aspartate Amino Transferase (AST) 353 H 13-40 U/L Alanine Aminotransferase (ALT) 341 H 7-40 U/L Alkaline Phosphatase 334 H 46-116 U/L Total Protein 5.7 5.7-8.2 g/dL Albumin 2.6 L 3.2-4.8 g/dL Test 11/06/24 00:00 11/05/24 22:28 11/05/24 21:00 11/05/24 19:12 Range/Units SARS-CoV-2 Antigen (Rapid) Negative NEGATIVE Blood Gas Critical Value Read Back Yes Blood Gas Notified Whom janis Vincent md Blood Gas Notified Time [id number] Blood Gas Notified By Sigala,a,box shook patcher Ammonia 80 H 11-32 umol/L Platelet Estimate Decreased Macrocytosis Slight Prothrombin Time 18.3 H 9.3-11.8 sec Prothrombin Time INR 1.80 H 0.9-1.15 Activated Partial Thromboplast Time 37.3 H 24.5-34.5 SEC Magnesium Level 3.0 H 1.6-2.6 mg/dL B-Type Natriuretic Peptide 30.50 0-100 pg/mL Lipase 33 12-53 U/L Test 11/05/24 04:07 Range/Units Urine Color Dark-yellow Yellow Urine Clarity Ex.turbid Clear Urine pH 5.5 5.0-9.0 Urine Specific [place] 1.018 1.001-1.035 Urine Protein 1+ H Negative Urine Ketones Negative Negative Urine Blood 1+ H Negative /uL Urine Nitrite Negative Negative Urine Bilirubin 1+ Negative Urine Urobilinogen Normal Negative mg/dL Urine Leukocyte Esterase Trace Negative /uL Urine RBC 8 0 - 3 /hpf Urine WBC 138 0 - 3 /hpf Urine WBC Clumps Present None Seen /hpf Urine Squamous Epithelial Cells Few <5 /hpf Urine Bacteria None seen None Seen /hpf Urine Mucus Few None Seen Urine Yeast (Budding) Many None Seen /hpf Urine Creatinine 169.31 H 30.0-125.0 mg/dL Urine Protein/Creatinine Ratio 0.48 Urine Sodium < 10 L 40-220 mmol/L Urine Glucose Normal Normal mg/dL Urine Total Protein 81.7 H 1-14 mg/dL Urine Opiates Screen Pos NEGATIVE Urine Fentanyl Screen Neg NEGATIVE Urine Barbiturates Screen Neg NEGATIVE Urine Phencyclidine Screen Neg NEGATIVE Urine Amphetamines Screen Neg NEGATIVE Urine Benzodiazepines Screen Neg NEGATIVE Urine Cocaine Screen Neg NEGATIVE Urine Cannabinoids Screen Pos NEGATIVE Microbiology Date/Time Source Procedure Growth Status 11/06/24 07:53 Nose MRSA Screen - Final Complete Assessment NSTEMI, likely type 2. Acute on chronic HFpEF, fluid overload. Acute hypoxic respiratory failure in setting of pulmonary congestion, pneumonia?. Shock, septic versus cardiogenic?. Thrombocytopenia. Liver cirrhosis. Elevated LFTs. Hepatic encephalopathy. [place] on CKD. Hyperkalemia. Plan/Recommendation I agree with your ongoing assessment and care of plan. Patient has been seen by Anthony Lara NP on my behalf, him and I discussed the plan with the patient. Troponins trending stable, negative acute EKG changes. Likely type 2 PA. patient not a candidate at the time for invasive cardiac ischemic workup, unable to start on anticoagulation therapy in setting of thrombocytopenia. Continue conservative medical management. Continue on vasopressor support, unable to diurese at this time. Monitor fluid volume status. Continue monitoring kidney function, avoid nephrotoxic agents. IV antibiotics. Follow up limited echo. Continued on lactulose. Additional plan as per the hospital course. Plan discussed with: Patient NYHA Physical activity limitations: NA Date of Service: Nov 06, 2024 Billing Provider: CHALINO ROCHA MD Cardiology Common Codes: [id number] INP/OBS CARE (High), [id number] CARE 30-74 MIN CHALINO ROCHA MD Nov 06, 2024 16:12
[2024-11-07] VITALS (39 sets, daily range): BP systolic 95–131; BP diastolic 41–62; PULSE 92–105; RESP 18–30; O2SAT 90–100
[2024-11-07] MEDS: SODIUM BICARB 8.4% 50Meq/50ml SYR Vial IV ONE (03:55)
[2024-11-07 04:50] LABS: Basophils # (auto) 0 10 ^3/uL (0-0.2); Eosinophils # (auto) 0 10 ^3/uL (0-0.8); Hematocrit 37.8 % (41.0-53.0); Lymphocytes # (auto) 0.8 10 ^3/uL (0.4-5.4); Monocytes # (auto) 1.7 10 ^3/uL (0-1.3); Platelet Count (auto) 53 10^3/uL (140-450); White Blood Cell 10.9 10^3/uL (4.4-10.8)
[2024-11-07 04:54] LABS: Basophils % (auto) 0.4 % (0.0-2.0); Eosinophils % (auto) 0.1 % (0.0-7.0); Hemoglobin 12.8 g/dL (13.5-17.5); Mean Corpuscular Hemoglobin 35.1 pg (28.0-32.0); Mean Corpuscular Hgb Conc. 33.9 g/dL (32.0-36.0); Mean Corpuscular Volume 103.6 fL (80.0-100.0); Monocytes % (auto) 15.7 % (0.0-12.0); Neutrophils # (auto) 8.4 10 ^3/uL (1.6-8.6); Neutrophils % (auto) 76.8 % (37.0-80.0); Nucleated Red Blood Cells % 0.2 %; Red Blood Cells 3.65 10^6/uL (4.5-5.90); Red Cell Distribution Width 17.7 % (11.8-14.3)
[2024-11-07 05:05] LABS: Anion Gap 8 (5-15); Chloride 99 mmol/L (98-107)
[2024-11-07 05:12] LABS: BUN/Creatinine Ratio 15.6 (10.0-20.0)
[2024-11-07 05:27] LABS: Alanine Aminotransferase 310 U/L (7-40); Albumin 2.3 g/dL (3.2-4.8); Alkaline Phosphatase 318 U/L (46-116); Aspartate Aminotransferase 323 U/L (13-40); Bilirubin, Total 9.5 mg/dL (0.2-1.0); Blood Urea Nitrogen 57 mg/dL (9-23); Calcium 7.1 mg/dL (8.7-10.4); Carbon Dioxide 18 mmol/L (20-31); Glucose 167 mg/dL (74-106); Potassium 5.4 mmol/L (3.5-5.1); Sodium 125 mmol/L (136-145); Total Protein 5.1 g/dL (5.7-8.2)
--- NOTE | 2024-11-07 08:36 | DVH ---
CHEST RADIOGRAPH Indication: chf Technique: Frontal view of the chest. Comparison: XY CHEST PORTABLE on DOS: 11/06/24, XY CHEST XRAY 1 VIEW on DOS: 11/05/24, XY CHEST PORTABL E on DOS: 10/23/24, XY CHEST PORTABLE on DOS: 11/06/24 FINDINGS: LUNGS AND PLEURAL SPACES: Unremarkable. No consolidation. No pneumothorax. HEART: ardiomegaly. MEDIASTINUM: Unremarkable. Normal mediastinal contour. BONES/JOINTS: Unremarkable. No acute fracture. TUBES, LINES AND DEVICES: Right peripherally inserted central catheter (PICC) tip in the superior ve na cava. IMPRESSION: Mild stable CHF
[2024-11-07] MEDS: PHENYLEPHRINE INJ 80 MG in SODIUM CHL 0.9% 242 ML IV SCH (09:00)
--- NOTE | 2024-11-07 09:02 | DVHPN2 ---
Subjective Patient encephalopathic Reviewed: Care Plan, H&P, Labs, Medications Changes from previous H/P or p: No Changes General: Per HPI Objective Vitals Vital Signs Date Time Temp Pulse Resp B/P (MAP) Pulse Ox O2 Delivery O2 Flow Rate FiO2 11/07/24 08:48 103 11/07/24 08:47 110/49 11/07/24 07:00 19 96 11/07/24 05:41 Nasal Cannula 3.0 11/07/24 05:41 32 11/06/24 10:30 98.7 98.7 Intake/Output Intake and Output 11/07/24 07:00 Intake Total 1775 ml Output Total 600 ml Balance 1175 ml Intake IV Total 1775 ml Output Urine Total 600 ml General Appearance: Alert, Oriented X3, Cooperative HEENT: Atraumatic, PERRLA Lungs: Clear to auscultation, Normal air movement Cardiovascular: Normal S1, Normal S2 Musculoskeletal: Normal sensory function, Normal motor function Extremities: Other (Plus three ankle/pedal edema) Neuro: Other (Encephalopathic. Response to pain) Skin: Other (Jaundiced) Psych/Mental Status: Other (Encephalopathic. Response to pain) Medications Current Medications Medications Dose Ordered Sig/Sherron Route Start Time Stop Time Status Last Admin Dose Admin Norepinephrine Bitartrate 250 ml @ 3.75 mls/hr Q24H IV 11/05/24 20:45 11/07/24 08:47 56.25 MLS/HR Nitroglycerin 0.4 mg Q5MINP PRN SL 11/05/24 21:30 Morphine Sulfate 2 mg Q30M PRN IV 11/05/24 21:30 Lactulose 30 ml Q6HR PO 11/06/24 00:00 11/07/24 02:11 30 ML Albumin Human 100 ml @ 100 mls/hr Q12HR IV 11/06/24 10:00 11/06/24 10:22 100 MLS/HR Zirconium Oxide 10 gm TID PO 11/06/24 14:00 11/08/24 06:01 11/07/24 02:11 10 GM Pantoprazole Sodium 40 mg DAILY IV 11/06/24 10:00 11/06/24 10:20 40 MG Albuterol 2.5 mg Q6HR NEB 11/06/24 12:00 11/07/24 05:41 2.5 MG Ipratropium [place] 0.5 mg Q6HR NEB 11/06/24 12:00 11/07/24 05:41 0.5 MG Hydrocortisone Sodium Succinate 50 mg Q6HR IV 11/06/24 06:15 11/07/24 02:11 50 MG Vasopressin 20 units/Sodium Chloride 100 ml @ 9 mls/hr Q11H7M IV 11/06/24 07:45 11/07/24 03:47 9 MLS/HR Phenylephrine HCl 250 ml @ 30 mls/hr Q8H20M IV 11/06/24 10:15 11/07/24 07:46 30 MLS/HR Sodium Bicarbonate 50 ml/ Sodium Chloride 1,050 ml @ 75 mls/hr Q14H IV 11/06/24 10:15 11/07/24 04:16 75 MLS/HR Phenylephrine HCl 80 mg/Sodium Chloride 250 ml @ 7.5 mls/hr Q24H IV 11/07/24 09:00 UNV Norepinephrine Bitartrate 32 mg/ Sodium Chloride 250 ml @ 0.938 mls/ hr Q24H IV 11/07/24 09:00 UNV Laboratory Results Laboratory Tests 11/07/24 04:26 Chemistry Test 11/06/24 09:08 11/07/24 04:26 Calcium Level 7.8 mg/dL (8.7-10.4) L 7.1 mg/dL (8.7-10.4) L Albumin 2.3 g/dL (3.2-4.8) L Total Protein 5.1 g/dL (5.7-8.2) L LFT Test 11/07/24 04:26 Alanine Aminotransferase (ALT) 310 U/L (7-40) H Alkaline Phosphatase 318 U/L (46-116) H Aspartate Amino Transferase (AST) 323 U/L (13-40) H Total Bilirubin 9.5 mg/dL (0.2-1.0) H Urinalysis Test 11/05/24 04:07 11/06/24 04:07 Urine Color Dark-yellow (Yellow) Urine Clarity Ex.turbid (Clear) Urine pH 5.5 (5.0-9.0) Urine Specific [place] 1.018 (1.001-1.035) Urine Protein 1+ (Negative) H Urine Ketones Negative (Negative) Urine Blood 1+ /uL (Negative) H Urine Nitrite Negative (Negative) Urine Bilirubin 1+ (Negative) Urine Urobilinogen Normal mg/dL (Negative) Urine Leukocyte Esterase Trace /uL (Negative) Urine RBC 8 /hpf (0 - 3) Urine WBC 138 /hpf (0 - 3) Urine WBC Clumps Present /hpf (None Seen) Urine Squamous Epithelial Cells Few /hpf (<5) Urine Bacteria None seen /hpf (None Seen) Urine Mucus Few (None Seen) Urine Yeast (Budding) Many /hpf (None Seen) Urine Creatinine 169.31 mg/dL (30.0-125.0) H Urine Protein/Creatinine Ratio 0.48 Urine Sodium < 10 mmol/L (40-220) L Urine Glucose Normal mg/dL (Normal) Urine Total Protein 81.7 mg/dL (1-14) H Urine Osmolality 352 mOsm/kg Microbiology Microbiology Date/Time Source Procedure Growth Status 11/06/24 07:53 Nose MRSA Screen - Final Complete 11/05/24 21:00 Blood Blood Culture - Preliminary NO GROWTH AFTER 24 HOURS OF INCUBATION. Resulted Labs and/or images reviewed: Labs reviewed by me, Image(s) reviewed by me Assessment/Plan Assessment/Plan Impression: -sepsis with shock -hepatic/metabolic encephalopathy -acute kidney injury, questionable hepatorenal failure -obesity -liver cirrhosis with portal hypertension -severe protein malnutrition -polysubstance abuse including cannabinoids and opiates -obesity -thrombocytopenia Plan: -events: Patient more alert. Urine output noted. Remains to be hyperkalemic with some improvement. Repeat chest x-ray shows no worsening CHF with O2 requirements remaining the same. VBG pending. Continue current treatment plan with sodium bicarbonate drip. Albumin replacement. Further recommendations per Nephrology regarding acute kidney injury. -start sodium bicarbonate drip -nephrology consultation -continue empiric antibiotic therapy with meropenem. -continue Lokelma -continue lactulose q.6 hours -start rifaximin -SCDs, ppi -repeat labs in a.m. Critical care time spent with patient discussing and formulating plan of care: 40 minutes. This does not include time spent performing procedures. This medical document was created using an electronic medical record system with [employer] system. Although this document has been carefully reviewed, there may still be some phonetic and typographical errors. These areas are purely typographical due to imperfections of the software programs, and do not reflect any compromise in the patient's medical care. Plan discussed with: Patient, Other (RN) My Orders Orders - ELIANE MONDRAGON NP Procedure Category Date Status Time Phenylephrine Iv PHA 11/06/24 In Process (Phenylephrine/Ns) 10:15 Sod Chl 0.45% PHA 11/06/24 In Process (Sodi... W/Sodium 10:15 Npo Except For LIZA 11/06/24 In Process Medications 12:59 Communication Order ORDERS 11/06/24 Transmitted 12:59 Chest Xray 1 View XY 11/07/24 Resulted 07:07 Ammonia LAB 11/07/24 In Process 07:08 Ammonia LAB 11/08/24 Verified 04:00 Comprehensive LAB 11/08/24 Verified Metabolic Panel 04:00 Complete Blood Count LAB 11/08/24 Verified 04:00 Abg W/ Co-Ox RT 11/07/24 Logged 08:26 Sodium Chl 0.9% PHA 11/07/24 Logged (Ns... 09:00 Sodium Chl 0.9% PHA 11/07/24 Logged (Ns... 09:00 Rifaximin (Xifaxan) PHA 11/07/24 Verified 10:00 Albumin Ivpb PHA 11/07/24 Verified 09:00 Date of Service: Nov 07, 2024 Billing Provider: ELIANE MONDRAGON NP Common Visit Codes: [id number] CARE 30-74 MIN ELIANE MONDRAGON NP Nov 07, 2024 09:02
[2024-11-07 09:17] LABS: Base Excess -7.1 mmol/L (-2.0-3.0)
[2024-11-07] MEDS: ALBUMIN 25% 100 ML IV ONE (09:45)
[2024-11-07] MEDS: rifAXIMin 550 MG TAB PO SCH (09:59)
[2024-11-07] MEDS: NOREPINEPHRINE 8 MG/250ML KIT 250 ML IV ONE (13:01)
[2024-11-07] MEDS: NOREPINEPHRINE BITARTRATE 32 MG in SODIUM CHL 0.9% 218 ML IV SCH (13:08)
--- NOTE | 2024-11-07 13:47 | DVHINCON2 ---
Date of service: Nov 07, [address] Vincent Reason for Consultation Acute kidney injury History of Present Illness Mr. Henry is a 59-year-old male with known history of cirrhosis, hepatitis, heart failure presented for further evaluation and management of abdominal discomfort. He was seen in the emergency department initially yesterday, his RN was at bedside. Current consultation requested due to the finding of elevated serum creatinine to the three range. Baseline creatinine is in the low one range. He was unable to participate in the history and physical examination. Most of the history was obtained through the chart. He has been hyperkalemic and has been treated medically. Past Medical History Hepatitis-C Cirrhosis Heart failure Allergies: Coded Allergies: Ceftriaxone (Verified Allergy, Unknown, 07/28/24) Uncoded Allergies: FISH (Allergy, Unknown, 07/28/24) Home Meds Active Scripts Hydrocodone-Acetaminophen (Hydrocodone Bitartrate/AC 10-325 mg) 1 Tab Tab, 1 TAB PO Q8HPRN PRN for 3 Days, #9 TAB Prov:RAFAEL MORFIN MD 07/29/24 Cephalexin Monohydrate (Cephalexin) 500 Mg Cap, 500 MG PO Q6HR for 10 Days, #40 MG Prov:RAFAEL MORFIN MD 07/29/24 Current Medications Current Medications Medications (Trade) Dose Ordered Sig/Sherron Route PRN Reason Start Time Stop Time Status Last Admin Zirconium Oxide (Lokelma) 10 gm TID PO 11/06/24 14:00 11/08/24 06:01 11/07/24 02:11 Meropenem 50 ml @ 17 mls/hr Q8HR IV 11/06/24 14:00 11/06/24 06:32 DC Phenylephrine HCl 80 mg/Sodium Chloride 250 ml @ 7.5 mls/hr Q24H IV 11/07/24 09:00 Norepinephrine Bitartrate 32 mg/ Sodium Chloride 250 ml @ 0.938 mls/ hr Q24H IV 11/07/24 09:00 11/07/24 13:08 Rifaximin (Xifaxan) 550 mg BID PO 11/07/24 10:00 11/07/24 09:59 Family History: Patient reports no known family medical history. Review of Systems Unable to be obtained due to patient's mental status H&P Exam Vital Signs/I&O Vital Sign Date Time Temp Pulse Resp B/P (MAP) Pulse Ox O2 Delivery O2 Flow Rate FiO2 11/07/24 13:25 100 11/07/24 13:15 20 123/48 (73) 94 11/07/24 11:58 Nasal Cannula 4.0 11/07/24 11:58 36 11/06/24 10:30 98.7 98.7 Intake and Output 11/06/24 11/07/24 18:59 06:59 Intake Total 1831.25 ml Output Total 600 ml Balance 1831.25 ml -600 ml Intake IV Total 1831.25 ml Output Urine Total 600 ml Physical Exam gen: somnolent, tachpneic heent: dry oral mucosae lungs: occ ronchi cvs: no rub abd: soft ext: no edema skin: no rash, numerous tatoos throughout neuro: lethargic/ somnolent Labs/Diagnostic Data Labs/Diagnostic Data Laboratory Tests Test 11/07/24 13:05 11/07/24 09:10 11/07/24 08:29 11/07/24 04:26 Range/Units Blood Gas Specimen Type Arterial Blood Gas Sample Site Left radial Blood Gas Patient Temperature 37.0 Arterial Blood Date Drawn [id number] Arterial Blood pH 7.304 L 7.350-7.450 Arterial Blood Partial Pressure CO2 38.4 35.0-48.0 mmHg Arterial Blood Partial Pressure O2 48.7 *L 83.0-108.0 mmHg Arterial Blood HCO3 18.6 L 21.0-28.0 mmol/L Arterial Blood Oxygen Saturation 79.9 *L 94.0-98.0 % Arterial Blood Base Excess -7.1 L -2.0-3.0 mmol/L Arterial Blood Oxyhemoglobin 78.8 L 94.0-98.0 % Arterial Blood Carboxyhemoglobin 0.8 0.5-1.5 % Arterial Blood Methemoglobin 0.6 0.0-1.5 % Terence Test Yes Blood Gas Total Hemoglobin 13.30 L 13.5-17.5 g/dL Blood Gas Liter Flow 2.50 Blood Gas Modality Nasal cannula FiO2 % 30.0 Blood Gas Critical Value Read Back Yes Blood Gas Notified Whom Bharat meade np Blood Gas Notified Time [id number] Blood Gas Notified By Stan shah candy waffle assembler Ammonia 109 H 11-32 umol/L White Blood Count 10.9 H 4.4-10.8 10^3/uL Red Blood Count 3.65 L 4.5-5.90 10^6/uL Hemoglobin 12.8 L 13.5-17.5 g/dL Hematocrit 37.8 L 41.0-53.0 % Mean Corpuscular Volume 103.6 H 80.0-100.0 fL Mean Corpuscular Hemoglobin 35.1 H 28.0-32.0 pg Mean Corpuscular Hemoglobin Concent 33.9 32.0-36.0 g/dL Red Cell Distribution Width 17.7 H 11.8-14.3 % Platelet Count 53 L 140-450 10^3/uL Mean Platelet Volume 10.5 6.9-10.8 fL Neutrophils (%) (Auto) 76.8 37.0-80.0 % Lymphocytes (%) (Auto) 7.0 L 10.0-50.0 % Monocytes (%) (Auto) 15.7 H 0.0-12.0 % Eosinophils (%) (Auto) 0.1 0.0-7.0 % Basophils (%) (Auto) 0.4 0.0-2.0 % Neutrophils # (Auto) 8.4 1.6-8.6 10 ^3/uL Lymphocytes # (Auto) 0.8 0.4-5.4 10 ^3/uL Monocytes # (Auto) 1.7 H 0-1.3 10 ^3/uL Eosinophils # (Auto) 0 0-0.8 10 ^3/uL Basophils # (Auto) 0 0-0.2 10 ^3/uL Nucleated Red Blood Cells 0.2 % Sodium Level 125 L 136-145 mmol/L Potassium Level 5.4 H 3.5-5.1 mmol/L Chloride Level 99 98-107 mmol/L Carbon Dioxide Level 18 L 20-31 mmol/L Anion Gap 8 5-15 Blood Urea Nitrogen 57 #H 9-23 mg/dL Creatinine 3.66 H 0.700-1.30 mg/dL Glomerular Filtration Rate Calc 18 >90 mL/min BUN/Creatinine Ratio 15.6 10.0-20.0 Serum Glucose 167 H 74-106 mg/dL Calcium Level 7.1 L 8.7-10.4 mg/dL Total Bilirubin 9.5 H 0.2-1.0 mg/dL Aspartate Amino Transferase (AST) 323 H 13-40 U/L Alanine Aminotransferase (ALT) 310 H 7-40 U/L Alkaline Phosphatase 318 H 46-116 U/L Total Protein 5.1 L 5.7-8.2 g/dL Albumin 2.3 L 3.2-4.8 g/dL Random Vancomycin Level 23.1 H 5-10 ug/mL Test 11/06/24 22:15 11/06/24 13:40 11/06/24 09:08 11/06/24 08:53 Range/Units Influenza Type A Antigen Negative Negative Influenza Type B Antigen Negative Negative White Blood Count 11.1 H 4.4-10.8 10^3/uL Red Blood Count 3.67 L 4.5-5.90 10^6/uL Hemoglobin 13.0 L 13.5-17.5 g/dL Hematocrit 39.2 L 41.0-53.0 % Mean Corpuscular Volume 106.7 H 80.0-100.0 fL Mean Corpuscular Hemoglobin 35.4 H 28.0-32.0 pg Mean Corpuscular Hemoglobin Concent 33.2 32.0-36.0 g/dL Red Cell Distribution Width 18.5 H 11.8-14.3 % Platelet Count 51 L 140-450 10^3/uL Mean Platelet Volume 10.8 6.9-10.8 fL Neutrophils (%) (Auto) 76.7 37.0-80.0 % Lymphocytes (%) (Auto) 6.2 L 10.0-50.0 % Monocytes (%) (Auto) 16.7 H 0.0-12.0 % Eosinophils (%) (Auto) 0.3 0.0-7.0 % Basophils (%) (Auto) 0.1 0.0-2.0 % Neutrophils # (Auto) 8.5 1.6-8.6 10 ^3/uL Lymphocytes # (Auto) 0.7 0.4-5.4 10 ^3/uL Monocytes # (Auto) 1.9 H 0-1.3 10 ^3/uL Eosinophils # (Auto) 0 0-0.8 10 ^3/uL Basophils # (Auto) 0 0-0.2 10 ^3/uL Nucleated Red Blood Cells 0.1 % Potassium Level 5.7 *H 5.8 *H 3.5-5.1 mmol/L Sodium Level 125 L 136-145 mmol/L Chloride Level 98 98-107 mmol/L Carbon Dioxide Level 17 L 20-31 mmol/L Anion Gap 10 5-15 Blood Urea Nitrogen 44 H 9-23 mg/dL Creatinine 3.32 H 0.700-1.30 mg/dL Glomerular Filtration Rate Calc 20 >90 mL/min BUN/Creatinine Ratio 13.3 10.0-20.0 Serum Glucose 96 74-106 mg/dL Calcium Level 7.8 L 8.7-10.4 mg/dL Lactic Acid Level 4.0 *H 0.4-2.0 mmol/L Test 11/06/24 08:14 11/06/24 06:03 11/06/24 05:46 11/06/24 04:07 Range/Units POC Glucose 115 H 70-106 mg/dl Lactic Acid Level 3.7 *H 0.4-2.0 mmol/L Troponin I High Sensitivity 264 *H </=54 ng/L Blood Gas Specimen Type Arterial Blood Gas Sample Site Right radial Blood Gas Patient Temperature 37.0 Arterial Blood Date Drawn [id number] Arterial Blood pH 7.295 L 7.350-7.450 Arterial Blood Partial Pressure CO2 44.6 35.0-48.0 mmHg Arterial Blood Partial Pressure O2 87.7 83.0-108.0 mmHg Arterial Blood HCO3 21.2 21.0-28.0 mmol/L Arterial Blood Oxygen Saturation 96.2 94.0-98.0 % Arterial Blood Base Excess -5.2 L -2.0-3.0 mmol/L Arterial Blood Oxyhemoglobin 94.5 94.0-98.0 % Arterial Blood Carboxyhemoglobin 1.2 0.5-1.5 % Arterial Blood Methemoglobin 0.6 0.0-1.5 % Terence Test Positive Blood Gas Total Hemoglobin 13.80 13.5-17.5 g/dL Blood Gas Liter Flow 4.00 Blood Gas Modality Nasal cannula FiO2 % 36.0 Urine Osmolality 352 mOsm/kg Test 11/06/24 03:10 11/06/24 00:19 11/06/24 00:00 11/05/24 22:28 Range/Units White Blood Count 12.9 #H 4.4-10.8 10^3/uL Red Blood Count 3.78 L 4.5-5.90 10^6/uL Hemoglobin 13.5 13.5-17.5 g/dL Hematocrit 39.2 #L 41.0-53.0 % Mean Corpuscular Volume 103.7 H 80.0-100.0 fL Mean Corpuscular Hemoglobin 35.8 H 28.0-32.0 pg Mean Corpuscular Hemoglobin Concent 34.5 32.0-36.0 g/dL Red Cell Distribution Width 17.9 H 11.8-14.3 % Platelet Count 65 L 140-450 10^3/uL Mean Platelet Volume 11.2 H 6.9-10.8 fL Neutrophils (%) (Auto) 72.7 37.0-80.0 % Lymphocytes (%) (Auto) 10.1 10.0-50.0 % Monocytes (%) (Auto) 16.0 H 0.0-12.0 % Eosinophils (%) (Auto) 0.2 0.0-7.0 % Basophils (%) (Auto) 1.0 0.0-2.0 % Neutrophils # (Auto) 9.4 H 1.6-8.6 10 ^3/uL Lymphocytes # (Auto) 1.3 0.4-5.4 10 ^3/uL Monocytes # (Auto) 2.1 H 0-1.3 10 ^3/uL Eosinophils # (Auto) 0 0-0.8 10 ^3/uL Basophils # (Auto) 0.1 0-0.2 10 ^3/uL Nucleated Red Blood Cells 0.2 % Sodium Level 125 L 136-145 mmol/L Potassium Level 5.7 *H 3.5-5.1 mmol/L Chloride Level 97 L 98-107 mmol/L Carbon Dioxide Level 20 20-31 mmol/L Anion Gap 8 5-15 Blood Urea Nitrogen 45 H 9-23 mg/dL Creatinine 3.26 H 0.700-1.30 mg/dL Glomerular Filtration Rate Calc 21 >90 mL/min BUN/Creatinine Ratio 13.8 10.0-20.0 Serum Glucose 97 74-106 mg/dL Serum Osmolality 286 278-298 mOsm/kg Calcium Level 7.8 L 8.7-10.4 mg/dL Total Bilirubin 8.2 H 0.2-1.0 mg/dL Aspartate Amino Transferase (AST) 353 H 13-40 U/L Alanine Aminotransferase (ALT) 341 H 7-40 U/L Alkaline Phosphatase 334 H 46-116 U/L Troponin I High Sensitivity 241 *H 240 *H </=54 ng/L Total Protein 5.7 5.7-8.2 g/dL Albumin 2.6 L 3.2-4.8 g/dL SARS-CoV-2 Antigen (Rapid) Negative NEGATIVE Blood Gas Specimen Type Arterial Blood Gas Sample Site Right radial Blood Gas Patient Temperature 37.0 Arterial Blood Date Drawn [id number] Arterial Blood pH 7.217 *L 7.350-7.450 Arterial Blood Partial Pressure CO2 46.4 35.0-48.0 mmHg Arterial Blood Partial Pressure O2 84.8 83.0-108.0 mmHg Arterial Blood HCO3 18.4 L 21.0-28.0 mmol/L Arterial Blood Oxygen Saturation 94.6 94.0-98.0 % Arterial Blood Base Excess -9.2 L -2.0-3.0 mmol/L Arterial Blood Oxyhemoglobin 92.8 L 94.0-98.0 % Arterial Blood Carboxyhemoglobin 1.3 0.5-1.5 % Arterial Blood Methemoglobin 0.6 0.0-1.5 % Terence Test Modified Blood Gas Total Hemoglobin 14.50 13.5-17.5 g/dL Blood Gas Liter Flow 2.00 Blood Gas Modality Nasal cannula FiO2 % 28.0 Blood Gas Critical Value Read Back Yes Blood Gas Notified Whom janis Vincent md Blood Gas Notified Time [id number] Blood Gas Notified By surya Sigala rrt Test 11/05/24 21:00 11/05/24 20:42 11/05/24 19:12 11/05/24 04:07 Range/Units Sodium Level 125 L 123 #L 136-145 mmol/L Potassium Level 5.8 *H 6.1 *H 3.5-5.1 mmol/L Chloride Level 97 L 96 #L 98-107 mmol/L Carbon Dioxide Level 20 20 20-31 mmol/L Anion Gap 8 7 5-15 Blood Urea Nitrogen 42 H 41 H 9-23 mg/dL Creatinine 3.14 H 3.01 H 0.700-1.30 mg/dL Glomerular Filtration Rate Calc 22 23 >90 mL/min BUN/Creatinine Ratio 13.4 13.6 10.0-20.0 Serum Glucose 102 107 H 74-106 mg/dL Lactic Acid Level 5.5 *H 4.6 *H 0.4-2.0 mmol/L Calcium Level 7.3 L 8.0 L 8.7-10.4 mg/dL Total Bilirubin 6.5 H 7.6 H 0.2-1.0 mg/dL Aspartate Amino Transferase (AST) 360 H 438 H 13-40 U/L Alanine Aminotransferase (ALT) 355 H 426 H 7-40 U/L Alkaline Phosphatase 361 H 423 H 46-116 U/L Ammonia 80 H 11-32 umol/L Total Protein 4.8 L 5.7 5.7-8.2 g/dL Albumin 1.7 L 2.0 L 3.2-4.8 g/dL POC Glucose 120 H 70-106 mg/dl White Blood Count 8.3 # 4.4-10.8 10^3/uL Red Blood Count 4.44 L 4.5-5.90 10^6/uL Hemoglobin 15.8 # 13.5-17.5 g/dL Hematocrit 46.0 # 41.0-53.0 % Mean Corpuscular Volume 103.8 H 80.0-100.0 fL Mean Corpuscular Hemoglobin 35.6 H 28.0-32.0 pg Mean Corpuscular Hemoglobin Concent 34.3 32.0-36.0 g/dL Red Cell Distribution Width 18.1 H 11.8-14.3 % Platelet Count 53 L 140-450 10^3/uL Mean Platelet Volume 10.9 H 6.9-10.8 fL Neutrophils (%) (Auto) 71.7 37.0-80.0 % Lymphocytes (%) (Auto) 12.0 10.0-50.0 % Monocytes (%) (Auto) 15.2 H 0.0-12.0 % Eosinophils (%) (Auto) 0.7 0.0-7.0 % Basophils (%) (Auto) 0.4 0.0-2.0 % Neutrophils # (Auto) 6.0 1.6-8.6 10 ^3/uL Lymphocytes # (Auto) 1.0 0.4-5.4 10 ^3/uL Monocytes # (Auto) 1.3 0-1.3 10 ^3/uL Eosinophils # (Auto) 0.1 0-0.8 10 ^3/uL Basophils # (Auto) 0 0-0.2 10 ^3/uL Nucleated Red Blood Cells 0.3 % Platelet Estimate Decreased Macrocytosis Slight Prothrombin Time 18.3 H 9.3-11.8 sec Prothrombin Time INR 1.80 H 0.9-1.15 Activated Partial Thromboplast Time 37.3 H 24.5-34.5 SEC Magnesium Level 3.0 H 1.6-2.6 mg/dL B-Type Natriuretic Peptide 30.50 0-100 pg/mL Lipase 33 12-53 U/L Urine Color Dark-yellow Yellow Urine Clarity Ex.turbid Clear Urine pH 5.5 5.0-9.0 Urine Specific [place] 1.018 1.001-1.035 Urine Protein 1+ H Negative Urine Ketones Negative Negative Urine Blood 1+ H Negative /uL Urine Nitrite Negative Negative Urine Bilirubin 1+ Negative Urine Urobilinogen Normal Negative mg/dL Urine Leukocyte Esterase Trace Negative /uL Urine RBC 8 0 - 3 /hpf Urine WBC 138 0 - 3 /hpf Urine WBC Clumps Present None Seen /hpf Urine Squamous Epithelial Cells Few <5 /hpf Urine Bacteria None seen None Seen /hpf Urine Mucus Few None Seen Urine Yeast (Budding) Many None Seen /hpf Urine Creatinine 169.31 H 30.0-125.0 mg/dL Urine Protein/Creatinine Ratio 0.48 Urine Sodium < 10 L 40-220 mmol/L Urine Glucose Normal Normal mg/dL Urine Total Protein 81.7 H 1-14 mg/dL Urine Opiates Screen Pos NEGATIVE Urine Fentanyl Screen Neg NEGATIVE Urine Barbiturates Screen Neg NEGATIVE Urine Phencyclidine Screen Neg NEGATIVE Urine Amphetamines Screen Neg NEGATIVE Urine Benzodiazepines Screen Neg NEGATIVE Urine Cocaine Screen Neg NEGATIVE Urine Cannabinoids Screen Pos NEGATIVE Microbiology Date/Time Source Procedure Growth Status 11/06/24 07:53 Nose MRSA Screen - Final Complete Assessment IMP: 1) Hemodynamically mediated [place] and Vaso-motor nephropathy/ Pre-renal state. Low urine Na 2) Toxic metabolic encephalopahty 3) Hyperkalemia 4) Hyponatremia - ? non-osmotic ADH release in setting of low flow state/ HF/Cirrhosis or true hypovolemic component 5) Hx of HF REC: - judicious trial of volume expansion and will reassess - bid chemistry panels - avoidance of AGUSTIN/ARB/NsAIDS/ IV contrast if able - will continue to follow closely along with you. Thank you for the consultation Plan discussed with: JAZMIN Ware MD Nov 07, 2024 13:47
--- NOTE | 2024-11-07 14:52 | DVHPN2 ---
Progress Note - Dictate Date Seen: Nov 07, 2024 Medical Necessity Reason Pt with a Central, PICC or Fol: Yes Subjective Patient with end-stage liver disease hypotension on maximum vasopressor support at this time had some nausea vomiting possibly some mild hematemesis vital signs Vital Sign Date Time Temp Pulse Resp B/P (MAP) Pulse Ox O2 Delivery O2 Flow Rate FiO2 11/07/24 13:25 100 11/07/24 13:15 20 123/48 (73) 94 11/07/24 11:58 Nasal Cannula 4.0 11/07/24 11:58 36 11/06/24 10:30 98.7 98.7 Total Intake and Output 11/06/24 11/06/24 11/07/24 15:00 23:00 07:00 Intake Total 775 ml 1000 ml Output Total 600 ml Balance 775 ml 1000 ml -600 ml medications Current Medications Medications Dose Ordered Sig/Sherron Route Start Time Stop Time Status Last Admin Dose Admin Nitroglycerin 0.4 mg Q5MINP PRN SL 11/05/24 21:30 Morphine Sulfate 2 mg Q30M PRN IV 11/05/24 21:30 Lactulose 30 ml Q6HR PO 11/06/24 00:00 11/07/24 02:11 30 ML Zirconium Oxide 10 gm TID PO 11/06/24 14:00 11/08/24 06:01 11/07/24 02:11 10 GM Pantoprazole Sodium 40 mg DAILY IV 11/06/24 10:00 11/07/24 09:46 40 MG Albuterol 2.5 mg Q6HR NEB 11/06/24 12:00 11/07/24 11:58 2.5 MG Ipratropium [place] 0.5 mg Q6HR NEB 11/06/24 12:00 11/07/24 11:58 0.5 MG Hydrocortisone Sodium Succinate 50 mg Q6HR IV 11/06/24 06:15 11/07/24 11:46 50 MG Vasopressin 20 units/Sodium Chloride 100 ml @ 9 mls/hr Q11H7M IV 11/06/24 07:45 11/07/24 03:47 9 MLS/HR Sodium Bicarbonate 50 ml/ Sodium Chloride 1,050 ml @ 75 mls/hr Q14H IV 11/06/24 10:15 11/07/24 04:16 75 MLS/HR Phenylephrine HCl 80 mg/Sodium Chloride 250 ml @ 7.5 mls/hr Q24H IV 11/07/24 09:00 Norepinephrine Bitartrate 32 mg/ Sodium Chloride 250 ml @ 0.938 mls/ hr Q24H IV 11/07/24 09:00 11/07/24 13:08 14.063 MLS/HR Rifaximin 550 mg BID PO 11/07/24 10:00 11/07/24 09:59 550 MG objective Patient is icteric abdomen is soft some fullness no rigidity no guarding CT scan had showed abdominal fullness with possible pyloric obstruction Hemoglobin is relatively stable Patient is icteric He is on vasopressor support to keep his blood pressure up laboratory and microbiology Laboratory Tests 11/07/24 13:05 11/07/24 04:26 Test 11/07/24 04:26 Range/Units Serum Glucose 167 H 74-106 mg/dL Assessment/Plan 59-year-old with end-stage liver disease hypertension on hospice support hemoglobin is relatively stable at this time Intensely icteric Had some nausea vomiting and some blood But hemoglobin is stable Abdomen showed some mild fullness no rigidity no guarding CT scan showed gastric fullness with possible outlet obstruction though no clearcut without oral, contrast Patient is on vasopressors as well as octreotide and Protonix Plans Keep NPO etc. except ice chips If persistent vomiting may need NG-tube though we will be careful is with the platelets low Patient too sick at this time for any endoscopic intervention When better may need a CT scan of the abdomen with oral contrast Continue vasopressors as well as octreotide and Protonix Ammonia level and lactulose or rifaximin as needed Overall prognosis guarded Thank you Dr. Bisi Brar discussed with: Patient ELVIS SMITH MD Nov 07, 2024 14:52
--- NOTE | 2024-11-07 15:46 | DVHPN2 ---
Consult Progress Note Subjective Review of Systems: Deferred (Continues to be altered.) Objective vital signs Vital Sign Date Time Temp Pulse Resp B/P (MAP) Pulse Ox O2 Delivery O2 Flow Rate FiO2 11/07/24 15:08 131/57 11/07/24 13:25 100 11/07/24 13:15 20 94 11/07/24 11:58 Nasal Cannula 4.0 11/07/24 11:58 36 11/06/24 10:30 98.7 98.7 Total Intake and Output 11/06/24 11/06/24 11/07/24 15:00 23:00 07:00 Intake Total 775 ml 1000 ml Output Total 600 ml Balance 775 ml 1000 ml -600 ml medications Current Medications Medications Dose Ordered Sig/Sherron Route Start Time Stop Time Status Last Admin Dose Admin Nitroglycerin 0.4 mg Q5MINP PRN SL 11/05/24 21:30 Morphine Sulfate 2 mg Q30M PRN IV 11/05/24 21:30 Lactulose 30 ml Q6HR PO 11/06/24 00:00 11/07/24 02:11 30 ML Zirconium Oxide 10 gm TID PO 11/06/24 14:00 11/08/24 06:01 11/07/24 02:11 10 GM Pantoprazole Sodium 40 mg DAILY IV 11/06/24 10:00 11/07/24 09:46 40 MG Albuterol 2.5 mg Q6HR NEB 11/06/24 12:00 11/07/24 11:58 2.5 MG Ipratropium [place] 0.5 mg Q6HR NEB 11/06/24 12:00 11/07/24 11:58 0.5 MG Hydrocortisone Sodium Succinate 50 mg Q6HR IV 11/06/24 06:15 11/07/24 11:46 50 MG Vasopressin 20 units/Sodium Chloride 100 ml @ 9 mls/hr Q11H7M IV 11/06/24 07:45 11/07/24 15:08 9 MLS/HR Sodium Bicarbonate 50 ml/ Sodium Chloride 1,050 ml @ 75 mls/hr Q14H IV 11/06/24 10:15 11/07/24 04:16 75 MLS/HR Phenylephrine HCl 80 mg/Sodium Chloride 250 ml @ 7.5 mls/hr Q24H IV 11/07/24 09:00 Norepinephrine Bitartrate 32 mg/ Sodium Chloride 250 ml @ 0.938 mls/ hr Q24H IV 11/07/24 09:00 11/07/24 13:08 14.063 MLS/HR Rifaximin 550 mg BID PO 11/07/24 10:00 11/07/24 09:59 550 MG Examination: CVS:Abnormal (+3BLE), ABDOMEN:Abnormal (anaasarca), NEURO:Abnormal (obtunded) laboratory and microbiology Laboratory Tests 11/07/24 13:05 11/07/24 04:26 Test 11/07/24 04:26 Range/Units Serum Glucose 167 H 74-106 mg/dL Problem List/Assessment/Plan Problem List/Assessment/Plan Assessment NSTEMI, likely type 2 Acute on chronic HFpEF, fluid overload Acute hypoxic respiratory failure in setting of pulmonary congestion, pneumonia? Shock, septic Thrombocytopenia Liver cirrhosis Elevated LFTs Hepatic encephalopathy VALENTINA on CKD Hyperkalemia Plan/Recommendation * Troponins trending stable, negative acute EKG changes. Likely type 2 NE. patient not a candidate at the time for invasive cardiac ischemic workup, unable to start on anticoagulation therapy in setting of thrombocytopenia. Continue conservative medical management. * Continue on vasopressor support, unable to diurese at this time. Monitor fluid volume status. * Continue monitoring kidney function, avoid nephrotoxic agents. * IV antibiotics * Follow up limited echo shows preserved LV function. * CT abdomen showing possible outlet obstruction. Follow-up GI recs. * Nephrology on board Case Discussed with Dr Wolf. Continue supportive management with vasopressors now on Levophed, vasopressin, and Thierry-Synephrine. On IV antibiotics. Unable to start on anticoagulation therapy. Follow-up limited echo showing normal EF. Follow up GI and Nephrology recommendations. Critical care, time spent: 40 minutes This medical document was created using an electronic medical record system with voice recognition software and computerized dictation system. Although this document has been carefully reviewed, there might still be some phonetic and typographical errors. Occasional wrong-word or ``sound-alike substitutions may have occurred due to the inherent limitations of voice recognition software. These areas are purely typographical due to imperfections of the software programs and do not reflect any compromise in the patient's medical care. Please read the chart carefully and recognize, using context, where these substitutions have occurred. Thank you for allowing me to participate in the management of this patient. The treatment plan was discussed with and agreed upon by patient/family including requesting consultants and ordering of imaging/procedures. Plan discussed with: Other (RN at bedside) Date of Service: Nov 07, 2024 Billing Provider: DALIA HARTMAN Common Visit Codes: [id number] INP/OBS CARE(HIGH), [id number] CARE 30-74 MIN DALIA HARTMAN Nov 07, 2024 15:46
[2024-11-07] MEDS: SODIUM CHLORIDE 0.9% 1,000 ML IV ONE (19:40)
--- NOTE | 2024-11-07 21:33 | DVHINCON2 ---
Date of service: Nov 07, 2024 Referring Physician Marv Vincent MD Reason for Consultation Acute hypoxic respiratory failure History of Present Illness A 59-year-old man with past medical history of liver cirrhosis due to hepatitis- C, heart failure with preserved ejection fraction who was brought to the ED from nursing home facility on 11/06/24 with a chief complaint of abdominal pain x3 days. Patient was admitted recently for decompensated liver cirrhosis with hepatic encephalopathy and volume overload and was discharged to SNF for physical therapy rehab. Patient reports since the time of discharge, he has been having worsening abdominal pain which is diffuse, dull, associated with tenderness. He also c/o associated nausea, vomiting and episodes of watery stools but no associated blood in vomitus or stool. HPI is limited as patient at the time of examination was lethargic and noncompliant. Patient was admitted for further care, and pulmonary consultation is requested for evaluation and management of acute hypoxic respiratory failure. Review of Systems: 14-point review of systems negative unless otherwise noted above. Past Medical History: Liver cirrhosis likely D/T hepatitis-C, ?alcohol induced. Heart failure with preserved ejection fraction. Previous DVT Past Surgical History: Cholecystectomy, bilateral knee replacement Medications: Reviewed. Allergies: Ceftriaxone and Fish. Family History: No family history of premature CAD. No family history of lung disorders. Social History: Nonsmoker. No alcohol or illicit drug use. Family History: Patient reports no known family medical history. Allergies: Coded Allergies: Ceftriaxone (Verified Allergy, Unknown, 07/28/24) Uncoded Allergies: FISH (Allergy, Unknown, 07/28/24) Home Meds Active Scripts Hydrocodone-Acetaminophen (Hydrocodone Bitartrate/AC 10-325 mg) 1 Tab Tab, 1 TAB PO Q8HPRN PRN for 3 Days, #9 TAB Prov:RAFAEL MORFIN MD 07/29/24 Cephalexin Monohydrate (Cephalexin) 500 Mg Cap, 500 MG PO Q6HR for 10 Days, #40 MG Prov:RAFAEL MORFIN MD 07/29/24 Current Medications Current Medications Medications (Trade) Dose Ordered Sig/Sherron Route PRN Reason Start Time Stop Time Status Last Admin Phenylephrine HCl 80 mg/Sodium Chloride 250 ml @ 7.5 mls/hr Q24H IV 11/07/24 09:00 Norepinephrine Bitartrate 32 mg/ Sodium Chloride 250 ml @ 0.938 mls/ hr Q24H IV 11/07/24 09:00 11/07/24 13:08 Rifaximin (Xifaxan) 550 mg BID PO 11/07/24 10:00 11/07/24 09:59 Vital Signs Vital Signs Date Time Temp Pulse Resp B/P (MAP) Pulse Ox O2 Delivery O2 Flow Rate FiO2 11/07/24 21:15 96 22 123/51 (75) 95 11/07/24 19:41 97.7 97.7 11/07/24 19:41 Nasal Cannula* 6 44 Physical Exam Gen: Patient lying in bed in no apparent distress. On supplemental oxygen. Head: Normocephalic, atraumatic. Eyes: EOMI/PERRLA. Ears: Normal hearing. Normal anatomy. Neck/trachea: Trachea midline, supple. Nose: Normal external anatomy. Mouth: Moist mucous membranes. Chest: Decreased air entry bilaterally. No wheezing or rhonchi. Cardiovascular: Positive S1, positive S2. Regular rate and rhythm. Abdomen: Positive bowel sounds in all 4 quadrants. Soft, non-tender, non- distended. : Deferred. Rectal: Deferred. Skin: Warm, dry. Intact. Extremities: 2+ radial pulses bilaterally. No lower extremity edema. Neuro: Awake, alert, oriented x3. No gross motor or sensory deficits. Cranial nerves II through XII intact. Gait not assessed. Labs/Diagnostic Data Labs Test 11/07/24 13:05 11/07/24 09:10 11/07/24 08:29 11/07/24 04:26 Range/Units Potassium Level 5.1 3.5-5.1 mmol/L Blood Gas Specimen Type Arterial Blood Gas Sample Site Left radial Blood Gas Patient Temperature 37.0 Arterial Blood Date Drawn [id number] Arterial Blood pH 7.304 L 7.350-7.450 Arterial Blood Partial Pressure CO2 38.4 35.0-48.0 mmHg Arterial Blood Partial Pressure O2 48.7 *L 83.0-108.0 mmHg Arterial Blood HCO3 18.6 L 21.0-28.0 mmol/L Arterial Blood Oxygen Saturation 79.9 *L 94.0-98.0 % Arterial Blood Base Excess -7.1 L -2.0-3.0 mmol/L Arterial Blood Oxyhemoglobin 78.8 L 94.0-98.0 % Arterial Blood Carboxyhemoglobin 0.8 0.5-1.5 % Arterial Blood Methemoglobin 0.6 0.0-1.5 % Terence Test Yes Blood Gas Total Hemoglobin 13.30 L 13.5-17.5 g/dL Blood Gas Liter Flow 2.50 Blood Gas Modality Nasal cannula FiO2 % 30.0 Blood Gas Critical Value Read Back Yes Blood Gas Notified Whom Bharat meade np Blood Gas Notified Time [id number] Blood Gas Notified By Stan shah brim buster Ammonia 109 H 11-32 umol/L White Blood Count 10.9 H 4.4-10.8 10^3/uL Red Blood Count 3.65 L 4.5-5.90 10^6/uL Hemoglobin 12.8 L 13.5-17.5 g/dL Hematocrit 37.8 L 41.0-53.0 % Mean Corpuscular Volume 103.6 H 80.0-100.0 fL Mean Corpuscular Hemoglobin 35.1 H 28.0-32.0 pg Mean Corpuscular Hemoglobin Concent 33.9 32.0-36.0 g/dL Red Cell Distribution Width 17.7 H 11.8-14.3 % Platelet Count 53 L 140-450 10^3/uL Mean Platelet Volume 10.5 6.9-10.8 fL Neutrophils (%) (Auto) 76.8 37.0-80.0 % Lymphocytes (%) (Auto) 7.0 L 10.0-50.0 % Monocytes (%) (Auto) 15.7 H 0.0-12.0 % Eosinophils (%) (Auto) 0.1 0.0-7.0 % Basophils (%) (Auto) 0.4 0.0-2.0 % Neutrophils # (Auto) 8.4 1.6-8.6 10 ^3/uL Lymphocytes # (Auto) 0.8 0.4-5.4 10 ^3/uL Monocytes # (Auto) 1.7 H 0-1.3 10 ^3/uL Eosinophils # (Auto) 0 0-0.8 10 ^3/uL Basophils # (Auto) 0 0-0.2 10 ^3/uL Nucleated Red Blood Cells 0.2 % Sodium Level 125 L 136-145 mmol/L Chloride Level 99 98-107 mmol/L Carbon Dioxide Level 18 L 20-31 mmol/L Anion Gap 8 5-15 Blood Urea Nitrogen 57 #H 9-23 mg/dL Creatinine 3.66 H 0.700-1.30 mg/dL Glomerular Filtration Rate Calc 18 >90 mL/min BUN/Creatinine Ratio 15.6 10.0-20.0 Serum Glucose 167 H 74-106 mg/dL Calcium Level 7.1 L 8.7-10.4 mg/dL Total Bilirubin 9.5 H 0.2-1.0 mg/dL Aspartate Amino Transferase (AST) 323 H 13-40 U/L Alanine Aminotransferase (ALT) 310 H 7-40 U/L Alkaline Phosphatase 318 H 46-116 U/L Total Protein 5.1 L 5.7-8.2 g/dL Albumin 2.3 L 3.2-4.8 g/dL Random Vancomycin Level 23.1 H 5-10 ug/mL Test 11/06/24 22:15 11/06/24 08:53 11/06/24 08:14 11/06/24 06:03 Range/Units Influenza Type A Antigen Negative Negative Influenza Type B Antigen Negative Negative Lactic Acid Level 4.0 *H 0.4-2.0 mmol/L POC Glucose 115 H 70-106 mg/dl Troponin I High Sensitivity 264 *H </=54 ng/L Test 11/06/24 04:07 11/06/24 03:10 11/06/24 00:00 11/05/24 19:12 Range/Units Urine Osmolality 352 mOsm/kg Serum Osmolality 286 278-298 mOsm/kg SARS-CoV-2 Antigen (Rapid) Negative NEGATIVE Platelet Estimate Decreased Macrocytosis Slight Prothrombin Time 18.3 H 9.3-11.8 sec Prothrombin Time INR 1.80 H 0.9-1.15 Activated Partial Thromboplast Time 37.3 H 24.5-34.5 SEC Magnesium Level 3.0 H 1.6-2.6 mg/dL B-Type Natriuretic Peptide 30.50 0-100 pg/mL Lipase 33 12-53 U/L Test 11/05/24 04:07 Range/Units Urine Color Dark-yellow Yellow Urine Clarity Ex.turbid Clear Urine pH 5.5 5.0-9.0 Urine Specific [place] 1.018 1.001-1.035 Urine Protein 1+ H Negative Urine Ketones Negative Negative Urine Blood 1+ H Negative /uL Urine Nitrite Negative Negative Urine Bilirubin 1+ Negative Urine Urobilinogen Normal Negative mg/dL Urine Leukocyte Esterase Trace Negative /uL Urine RBC 8 0 - 3 /hpf Urine WBC 138 0 - 3 /hpf Urine WBC Clumps Present None Seen /hpf Urine Squamous Epithelial Cells Few <5 /hpf Urine Bacteria None seen None Seen /hpf Urine Mucus Few None Seen Urine Yeast (Budding) Many None Seen /hpf Urine Creatinine 169.31 H 30.0-125.0 mg/dL Urine Protein/Creatinine Ratio 0.48 Urine Sodium < 10 L 40-220 mmol/L Urine Glucose Normal Normal mg/dL Urine Total Protein 81.7 H 1-14 mg/dL Urine Opiates Screen Pos NEGATIVE Urine Fentanyl Screen Neg NEGATIVE Urine Barbiturates Screen Neg NEGATIVE Urine Phencyclidine Screen Neg NEGATIVE Urine Amphetamines Screen Neg NEGATIVE Urine Benzodiazepines Screen Neg NEGATIVE Urine Cocaine Screen Neg NEGATIVE Urine Cannabinoids Screen Pos NEGATIVE Microbiology Date/Time Source Procedure Growth Status 11/06/24 07:53 Nose MRSA Screen - Final Complete 11/05/24 21:00 Blood Blood Culture - Preliminary NO GROWTH AFTER 48 HOURS OF INCUBATION. Resulted Assessment Impression: Acute hypoxic respiratory failure Dependence on supplemental oxygen Septic shock Acute metabolic encephalopathy Morbid obesity BMI 44.5 Plan: Supplemental oxygen 5 LPM NC Titrate to keep O2 sats above 92%. Taper O2 as tolerated. On pressors for hemodynamic support Levophed 30 mcg/min, vasopressin 0.03 units/min Off Thierry-Synephrine Titrate to keep mean arterial pressure greater than 65 mmHg. Continue antibiotics Follow up cultures Monitor renal function. Monitor electrolytes. Supplement as necessary. Monitor ins and outs. Diet and lifestyle modifications for weight reduction Morbid obesity - complicates all care DVT prophylaxis. Prognosis: Poor given patient's multiple co-morbidities. Condition: Critical Rest of plan per hospitalist and other consultants. A total of 35 minutes of critical care time was spent reviewing the patient record, examining the patient, making a diagnostic and therapeutic plan, discussing this plan with the medical personnel, following up on diagnostic studies and following the patient for clinical stability excluding any and all procedures. At least 50% of this time was spent in direct, [id number] contact. Thank you, Dr. Vincent, for allowing me to participate in this patient's care. Further recommendations will depend on the patient's clinical course. Please do not hesitate to contact me if you have any questions or concerns. This medical document was created using an electronic medical record system with [employer] computerized dictation system. Although these documentations are being carefully reviewed, there may still be some phonetic and typographical changes. The errors are purely typographical, due to imperfection on the software program, and do not reflect any compromise in the patient's medical care. Plan discussed with: Other (RN, ENERGY CONSERVATION SPECIALIST) SEYMOUR FINNEY MD Nov 07, 2024 21:33
--- NOTE | 2024-11-07 22:43 | DVHPN2 ---
Consult Progress Note Subjective Other Systems: Patient was seen and evaluated in follow up. Overnight, patient was restless and removing medical equipment. Patient remains altered. WBC 10.9, NA 125, K 5.4, CO2 18, BUN 57, DELIVERY ROUTE DRIVER 3.66, AST 323, ALT 310. Telemetry reviewed. Objective vital signs Vital Sign Date Time Temp Pulse Resp B/P (MAP) Pulse Ox O2 Delivery O2 Flow Rate FiO2 11/07/24 15:08 131/57 11/07/24 13:25 100 11/07/24 13:15 20 94 11/07/24 11:58 Nasal Cannula 4.0 11/07/24 11:58 36 11/06/24 10:30 98.7 98.7 Total Intake and Output 11/06/24 11/06/24 11/07/24 15:00 23:00 07:00 Intake Total 775 ml 1000 ml Output Total 600 ml Balance 775 ml 1000 ml -600 ml medications Current Medications Medications Dose Ordered Sig/Sherron Route Start Time Stop Time Status Last Admin Dose Admin Nitroglycerin 0.4 mg Q5MINP PRN SL 11/05/24 21:30 Morphine Sulfate 2 mg Q30M PRN IV 11/05/24 21:30 Lactulose 30 ml Q6HR PO 11/06/24 00:00 11/07/24 02:11 30 ML Zirconium Oxide 10 gm TID PO 11/06/24 14:00 11/08/24 06:01 11/07/24 02:11 10 GM Pantoprazole Sodium 40 mg DAILY IV 11/06/24 10:00 11/07/24 09:46 40 MG Albuterol 2.5 mg Q6HR NEB 11/06/24 12:00 11/07/24 11:58 2.5 MG Ipratropium [place] 0.5 mg Q6HR NEB 11/06/24 12:00 11/07/24 11:58 0.5 MG Hydrocortisone Sodium Succinate 50 mg Q6HR IV 11/06/24 06:15 11/07/24 11:46 50 MG Vasopressin 20 units/Sodium Chloride 100 ml @ 9 mls/hr Q11H7M IV 11/06/24 07:45 11/07/24 15:08 9 MLS/HR Sodium Bicarbonate 50 ml/ Sodium Chloride 1,050 ml @ 75 mls/hr Q14H IV 11/06/24 10:15 11/07/24 04:16 75 MLS/HR Phenylephrine HCl 80 mg/Sodium Chloride 250 ml @ 7.5 mls/hr Q24H IV 11/07/24 09:00 Norepinephrine Bitartrate 32 mg/ Sodium Chloride 250 ml @ 0.938 mls/ hr Q24H IV 11/07/24 09:00 11/07/24 13:08 14.063 MLS/HR Rifaximin 550 mg BID PO 11/07/24 10:00 11/07/24 09:59 550 MG Examination: GENERAL:Normal, HEENT:Normal, NECK:Normal, LUNGS:Normal, CVS:Abnormal (3+ BLE), ABDOMEN:Abnormal (Anasarca), MSK:Normal, SKIN:Normal, NEURO:Abnormal (obtunded ) laboratory and microbiology Laboratory Tests 11/07/24 13:05 11/07/24 04:26 Test 11/07/24 04:26 Range/Units Serum Glucose 167 H 74-106 mg/dL Problem List/Assessment/Plan Problem List/Assessment/Plan NSTEMI, likely type 2. Acute on chronic HFpEF, fluid overload. Acute hypoxic respiratory failure in setting of pulmonary congestion, pneumonia?. Shock, septic versus cardiogenic?. Thrombocytopenia. Liver cirrhosis. Elevated LFTs. Hepatic encephalopathy. VALENTINA on CKD. Hyperkalemia. Plan/Recommendation I agree with your ongoing assessment and care of plan. Patient has been seen by Anthony Lara PET ADOPTION COUNSELOR on my behalf, him and I discussed the plan with the patient. Continue supportive management with vasopressors now on Levophed, vasopressin, and Thierry-Synephrine. IV antibiotics. Unable to start on anticoagulation therapy. Follow-up limited echo showing normal EF. Follow up GI and Nephrology recommendations. Troponins trending stable, negative acute EKG changes. Continue monitoring kidney function, avoid nephrotoxic agents. Additional plan as per the hospital course. Plan discussed with: Other Date of Service: Nov 07, 2024 Billing Provider: CHALINO ROCHA MD Cardiology Common Codes: [id number] HOSP CARE(High, [id number] CARE 30-74 MIN CHALINO ROCHA MD Nov 07, 2024 16:37
[2024-11-08] VITALS (96 sets, daily range): BP systolic 97–138; BP diastolic 37–68; PULSE 60–116; RESP 14–49; TEMP 96.8–98.1; O2SAT 88–98
[2024-11-08] MEDS: VASOPRESSIN 20 UNIT/ML ONE (01:38)
[2024-11-08] MEDS: NOREPINEPHRINE BITARTRATE 4 ML IV ONE (05:34)
[2024-11-08 06:23] LABS: Basophils # (auto) 0 10 ^3/uL (0-0.2); Eosinophils # (auto) 0 10 ^3/uL (0-0.8); Hemoglobin 12.5 g/dL (13.5-17.5); Lymphocytes # (auto) 0.6 10 ^3/uL (0.4-5.4); Neutrophils # (auto) 11.1 10 ^3/uL (1.6-8.6); Nucleated Red Blood Cells % 0.1 %; Platelet Count (auto) 47 10^3/uL (140-450)
[2024-11-08 06:25] LABS: Basophils % (auto) 0.2 % (0.0-2.0); Eosinophils % (auto) 0.3 % (0.0-7.0); Mean Corpuscular Hemoglobin 35.5 pg (28.0-32.0); Mean Corpuscular Hgb Conc. 33.8 g/dL (32.0-36.0); Mean Corpuscular Volume 105.1 fL (80.0-100.0); Monocytes % (auto) 14.9 % (0.0-12.0); Neutrophils % (auto) 80.6 % (37.0-80.0); Red Blood Cells 3.52 10^6/uL (4.5-5.90); White Blood Cell 13.7 10^3/uL (4.4-10.8)
[2024-11-08 06:36] LABS: Anion Gap 10 (5-15); Chloride 100 mmol/L (98-107); Potassium 4.7 mmol/L (3.5-5.1)
[2024-11-08 06:45] LABS: Alanine Aminotransferase 290 U/L (7-40); Albumin 2.4 g/dL (3.2-4.8); Alkaline Phosphatase 308 U/L (46-116); Aspartate Aminotransferase 314 U/L (13-40); Bilirubin, Total 11.3 mg/dL (0.2-1.0); Blood Urea Nitrogen 63 mg/dL (9-23); Calcium 6.7 mg/dL (8.7-10.4); Carbon Dioxide 17 mmol/L (20-31); Glucose 192 mg/dL (74-106); Sodium 127 mmol/L (136-145); Total Protein 5.2 g/dL (5.7-8.2)
[2024-11-08 06:58] LABS: BUN/Creatinine Ratio 21.2 (10.0-20.0)
[2024-11-08 07:41] LABS: Platelet Estimate Decreased
[2024-11-08 09:13] LABS: Hepatitis A Ab IgM Negative; Hepatitis B Core IgM Negative (Negative); Hepatitis B Surface Antigen Negative (Negative)
[2024-11-08 09:16] LABS: Hepatitis C Antibody Reactive (Negative)
--- NOTE | 2024-11-08 11:03 | ECG ---
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
[2024-11-08] MEDS: ALBUMIN 25% 50 ML IV ONE (11:45)
--- NOTE | 2024-11-08 11:47 | DVHPN2 ---
Subjective More awake and following commands. Denies any symptoms. Reviewed: Care Plan, H&P, Labs, Medications Changes from previous H/P or p: No Changes General: Per HPI Objective Vitals Vital Signs Date Time Temp Pulse Resp B/P (MAP) Pulse Ox O2 Delivery O2 Flow Rate FiO2 11/08/24 11:41 94 24 95 11/08/24 11:41 Nasal Cannula 5.0 11/08/24 11:41 40 11/08/24 06:45 114/53 (73) 11/08/24 04:00 97.6 97.6 Intake/Output Intake and Output 11/08/24 07:00 Intake Total 2821.856 ml Output Total 1200 ml Balance 1621.856 ml Intake Oral 200 ml IV Total 2621.856 ml Output Urine Total 1200 ml General Appearance: Alert, Oriented X3, Cooperative HEENT: Atraumatic, PERRLA Lungs: Clear to auscultation, Normal air movement Cardiovascular: Normal S1, Normal S2 Musculoskeletal: Normal sensory function, Normal motor function Extremities: Other (Plus three ankle/pedal edema) Neuro: Other (Encephalopathic. Response to pain) Skin: Other (Jaundiced) Psych/Mental Status: Other (Encephalopathic. Response to pain) Medications Current Medications Medications Dose Ordered Sig/Sherron Route Start Time Stop Time Status Last Admin Dose Admin Nitroglycerin 0.4 mg Q5MINP PRN SL 11/05/24 21:30 Morphine Sulfate 2 mg Q30M PRN IV 11/05/24 21:30 Lactulose 30 ml Q6HR PO 11/06/24 00:00 11/08/24 06:08 30 ML Pantoprazole Sodium 40 mg DAILY IV 11/06/24 10:00 11/08/24 10:26 40 MG Albuterol 2.5 mg Q6HR NEB 11/06/24 12:00 11/08/24 11:41 2.5 MG Ipratropium [place] 0.5 mg Q6HR NEB 11/06/24 12:00 11/08/24 11:41 0.5 MG Hydrocortisone Sodium Succinate 50 mg Q6HR IV 11/06/24 06:15 11/08/24 07:09 50 MG Vasopressin 20 units/Sodium Chloride 100 ml @ 9 mls/hr Q11H7M IV 11/06/24 07:45 11/08/24 02:07 9 MLS/HR Phenylephrine HCl 80 mg/Sodium Chloride 250 ml @ 7.5 mls/hr Q24H IV 11/07/24 09:00 Norepinephrine Bitartrate 32 mg/ Sodium Chloride 250 ml @ 0.938 mls/ hr Q24H IV 11/07/24 09:00 11/08/24 06:57 7.5 MLS/HR Rifaximin 550 mg BID PO 11/07/24 10:00 11/08/24 10:26 550 MG Albumin Human 100 ml @ 100 mls/hr Q8H IV 11/08/24 11:45 11/09/24 04:44 UNV Doxycycline Hyclate 100 ml @ 50 mls/hr Q12H IV 11/08/24 11:45 UNV Morphine Sulfate 1 mg Q3HP PRN IV 11/08/24 11:45 UNV Laboratory Results Laboratory Tests 11/08/24 05:34 Chemistry Test 11/08/24 05:34 Albumin 2.4 g/dL (3.2-4.8) L Calcium Level 6.7 mg/dL (8.7-10.4) L Total Protein 5.2 g/dL (5.7-8.2) L LFT Test 11/08/24 05:34 Alanine Aminotransferase (ALT) 290 U/L (7-40) H Alkaline Phosphatase 308 U/L (46-116) H Aspartate Amino Transferase (AST) 314 U/L (13-40) H Total Bilirubin 11.3 mg/dL (0.2-1.0) H Urinalysis Test 11/05/24 04:07 11/06/24 04:07 Urine Color Dark-yellow (Yellow) Urine Clarity Ex.turbid (Clear) Urine pH 5.5 (5.0-9.0) Urine Specific [place] 1.018 (1.001-1.035) Urine Protein 1+ (Negative) H Urine Ketones Negative (Negative) Urine Blood 1+ /uL (Negative) H Urine Nitrite Negative (Negative) Urine Bilirubin 1+ (Negative) Urine Urobilinogen Normal mg/dL (Negative) Urine Leukocyte Esterase Trace /uL (Negative) Urine RBC 8 /hpf (0 - 3) Urine WBC 138 /hpf (0 - 3) Urine WBC Clumps Present /hpf (None Seen) Urine Squamous Epithelial Cells Few /hpf (<5) Urine Bacteria None seen /hpf (None Seen) Urine Mucus Few (None Seen) Urine Yeast (Budding) Many /hpf (None Seen) Urine Creatinine 169.31 mg/dL (30.0-125.0) H Urine Protein/Creatinine Ratio 0.48 Urine Sodium < 10 mmol/L (40-220) L Urine Glucose Normal mg/dL (Normal) Urine Total Protein 81.7 mg/dL (1-14) H Urine Osmolality 352 mOsm/kg Microbiology Microbiology Date/Time Source Procedure Growth Status 11/06/24 07:53 Nose MRSA Screen - Final Complete 11/05/24 21:00 Blood Blood Culture - Preliminary Resulted Labs and/or images reviewed: Labs reviewed by me, Image(s) reviewed by me Assessment/Plan Assessment/Plan Impression: -sepsis with shock -hepatic/metabolic encephalopathy -acute kidney injury, questionable hepatorenal failure -obesity -liver cirrhosis with portal hypertension -severe protein malnutrition -polysubstance abuse including cannabinoids and opiates -obesity -thrombocytopenia Plan: -events: Patient more alert today. Urine output increasing. Renal function with slight improvement. Blood culture preliminary with Gram-positive cocci. -pain management -continue bicarb drip -albumin 25% x1 -nephrology consultation: Recommendations appreciated -continue empiric antibiotic therapy with meropenem, add doxycycline -continue lactulose q.6 hours -continue rifaximin -SCDs, ppi -repeat labs in a.m. Critical care time spent with patient discussing and formulating plan of care: 40 minutes. This does not include time spent performing procedures. This medical document was created using an electronic medical record system with [employer] dictation system. Although this document has been carefully reviewed, there may still be some phonetic and typographical errors. These areas are purely typographical due to imperfections of the software programs, and do not reflect any compromise in the patient's medical care. Plan discussed with: Patient, Other (RN) My Orders Orders - ELIANE MONDRAGON NP Procedure Category Date Status Time Chest Portable XY 11/08/24 Logged 10:50 Doxycycline PHA 11/08/24 Logged 100mg/100ml 11:45 Albumin 25% (Alb[place]in) PHA 11/08/24 Logged 11:45 Morphine Sulfate PHA 11/08/24 Logged Injection 11:45 Date of Service: Nov 08, 2024 Billing Provider: ELIANE MONDRAGON NP Common Visit Codes: [id number] CARE 30-74 MIN ELIANE MONDRAGON NP Nov 08, 2024 11:47
[2024-11-08] MEDS: MORPHINE SULFATE INJ 2 MG/ml SYRG IV PRN (12:20)
[2024-11-08] MEDS: ALBUMIN 25% 100 ML IV SCH (12:28)
--- NOTE | 2024-11-08 12:30 | DVHPN2 ---
Progress Note Date Seen: Nov 08, 2024 Medical Necessity Reason Pt with a Central, PICC or Fol: Yes The following are medically ne: Macdonald Catheter Subjective Review of Systems: GI:Abnormal Objective vital signs Vital Sign Date Time Temp Pulse Resp B/P (MAP) Pulse Ox O2 Delivery O2 Flow Rate FiO2 11/08/24 12:20 97 26 102/53 11/08/24 11:47 97 11/08/24 11:41 Nasal Cannula 5.0 11/08/24 11:41 40 11/08/24 04:00 97.6 97.6 Total Intake and Output 11/07/24 11/07/24 11/08/24 15:00 23:00 07:00 Intake Total 1182.565 ml 805.541 ml 833.75 ml Output Total 600 ml 600 ml Balance 1182.565 ml 205.541 ml 233.75 ml medications Current Medications Medications Dose Ordered Sig/Sherron Route Start Time Stop Time Status Last Admin Dose Admin Nitroglycerin 0.4 mg Q5MINP PRN SL 11/05/24 21:30 Morphine Sulfate 2 mg Q30M PRN IV 11/05/24 21:30 Lactulose 30 ml Q6HR PO 11/06/24 00:00 11/08/24 11:54 30 ML Pantoprazole Sodium 40 mg DAILY IV 11/06/24 10:00 11/08/24 10:26 40 MG Albuterol 2.5 mg Q6HR NEB 11/06/24 12:00 11/08/24 11:41 2.5 MG Ipratropium [place] 0.5 mg Q6HR NEB 11/06/24 12:00 11/08/24 11:41 0.5 MG Hydrocortisone Sodium Succinate 50 mg Q6HR IV 11/06/24 06:15 11/08/24 11:54 50 MG Vasopressin 20 units/Sodium Chloride 100 ml @ 9 mls/hr Q11H7M IV 11/06/24 07:45 11/08/24 02:07 9 MLS/HR Phenylephrine HCl 80 mg/Sodium Chloride 250 ml @ 7.5 mls/hr Q24H IV 11/07/24 09:00 Norepinephrine Bitartrate 32 mg/ Sodium Chloride 250 ml @ 0.938 mls/ hr Q24H IV 11/07/24 09:00 11/08/24 06:57 7.5 MLS/HR Rifaximin 550 mg BID PO 11/07/24 10:00 11/08/24 10:26 550 MG Albumin Human 100 ml @ 100 mls/hr Q8H IV 11/08/24 11:45 11/09/24 04:44 Doxycycline Hyclate 100 ml @ 50 mls/hr Q12H IV 11/08/24 11:45 UNV Morphine Sulfate 1 mg Q3HP PRN IV 11/08/24 11:45 11/08/24 12:20 1 MG Examination: GENERAL:Abnormal, CVS:Abnormal, ABDOMEN:Abnormal, NEURO:Abnormal laboratory and microbiology Laboratory Tests 11/08/24 05:34 Test 11/08/24 05:34 Range/Units Serum Glucose 192 H 74-106 mg/dL Microbiology Date/Time Source Procedure Growth Status 11/06/24 07:53 Nose MRSA Screen - Final Complete 11/05/24 21:00 Blood Blood Culture - Preliminary Resulted Problem List/Assessment/Plan Problem List/Assessment/Plan Acute kidney injury hemodynamically mediated; prerenal 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
[2024-11-08] MEDS: FUROSEMIDE 100 MG/10ML VIAL IV ONE (12:35)
--- NOTE | 2024-11-08 12:36 | DVH ---
CHEST RADIOGRAPH Indication: shortness of breath Technique: Frontal view of the chest. Comparison: XY CHEST XRAY 1 VIEW on DOS: 11/07/24, XY CHEST PORTABLE on DOS: 11/06/24, XY CHEST XRAY 1 VIEW on DOS: 11/05/24, XY CHEST PORTABLE on DOS: 10/23/24, XY CHEST XRAY 1 VIEW on DOS: 11/07/24 FINDINGS: LUNGS AND PLEURAL SPACES: Unremarkable. No consolidation. No pneumothorax. HEART: ardiomegaly. MEDIASTINUM: Unremarkable. Normal mediastinal contour. BONES/JOINTS: Unremarkable. No acute fracture. TUBES, LINES AND DEVICES: Right peripherally inserted central catheter (PICC) tip in the superior ve na cava. IMPRESSION: Mild stable CHF
[2024-11-08] MEDS: DOXYCYCLINE 100MG/100ML 100 ML IV SCH (14:00)
[2024-11-08 16:29] LABS: Chloride 100 mmol/L (98-107)
[2024-11-08 16:30] LABS: Anion Gap 10 (5-15); Calcium 6.7 mg/dL (8.7-10.4); Carbon Dioxide 19 mmol/L (20-31); Sodium 129 mmol/L (136-145)
[2024-11-08 16:37] LABS: BUN/Creatinine Ratio 25.8 (10.0-20.0)
[2024-11-08 16:38] LABS: Glucose 216 mg/dL (74-106)
[2024-11-08 16:45] LABS: Blood Urea Nitrogen 80 mg/dL (9-23)
[2024-11-08] MEDS: SODIUM BICARB 8.4% 50Meq/50ml SYR Vial IV ONE (18:10)
[2024-11-08] MEDS: FUROSEMIDE 40 MG/4 ML VIAL IV ONE (18:10)
--- NOTE | 2024-11-08 21:52 | DVHPN2 ---
Progress Note - Dictate Date Seen: Nov 08, 2024 Medical Necessity Reason Pt with a Central, PICC or Fol: Yes The following are medically ne: Abreu Catheter Reason for abreu catheter: Strict I&O Subjective Patient seen and examined at bedside. Remains on supplemental oxygen Overnight events reviewed. vital signs Vital Sign Date Time Temp Pulse Resp B/P (MAP) Pulse Ox O2 Delivery O2 Flow Rate FiO2 11/08/24 21:26 99 18 111/54 11/08/24 19:26 94 11/08/24 19:20 Nasal Cannula 4.0 11/08/24 19:20 36 11/08/24 18:00 97.4 97.4 Total Intake and Output 11/07/24 11/07/24 11/08/24 15:00 23:00 07:00 Intake Total 1182.565 ml 805.541 ml 850.25 ml Output Total 600 ml 600 ml Balance 1182.565 ml 205.541 ml 250.25 ml medications Current Medications Medications Dose Ordered Sig/Sherron Route Start Time Stop Time Status Last Admin Dose Admin Nitroglycerin 0.4 mg Q5MINP PRN SL 11/05/24 21:30 Morphine Sulfate 2 mg Q30M PRN IV 11/05/24 21:30 Lactulose 30 ml Q6HR PO 11/06/24 00:00 11/08/24 18:10 30 ML Pantoprazole Sodium 40 mg DAILY IV 11/06/24 10:00 11/08/24 10:26 40 MG Albuterol 2.5 mg Q6HR NEB 11/06/24 12:00 11/08/24 19:19 2.5 MG Ipratropium [place] 0.5 mg Q6HR NEB 11/06/24 12:00 11/08/24 19:19 0.5 MG Hydrocortisone Sodium Succinate 50 mg Q6HR IV 11/06/24 06:15 11/08/24 18:09 50 MG Vasopressin 20 units/Sodium Chloride 100 ml @ 9 mls/hr Q11H7M IV 11/06/24 07:45 11/08/24 02:07 9 MLS/HR Phenylephrine HCl 80 mg/Sodium Chloride 250 ml @ 7.5 mls/hr Q24H IV 11/07/24 09:00 Norepinephrine Bitartrate 32 mg/ Sodium Chloride 250 ml @ 0.938 mls/ hr Q24H IV 11/07/24 09:00 11/08/24 06:57 7.5 MLS/HR Rifaximin 550 mg BID PO 11/07/24 10:00 11/08/24 10:26 550 MG Albumin Human 100 ml @ 100 mls/hr Q8H IV 11/08/24 11:45 11/09/24 04:44 11/08/24 12:28 100 MLS/HR Doxycycline Hyclate 100 ml @ 50 mls/hr Q12HR IV 11/08/24 11:45 11/08/24 14:00 50 MLS/HR Morphine Sulfate 1 mg Q3HP PRN IV 11/08/24 11:45 11/08/24 21:26 1 MG objective Gen.: Patient lying in bed in no apparent distress. On supplemental oxygen. Head: Normocephalic, atraumatic. Eyes: EOMI/PERRLA. Ears: Normal hearing. Normal anatomy. Neck/trachea: Trachea midline, supple. Nose: Normal external anatomy. Mouth: Moist mucous membranes. Chest: Decreased air entry bilaterally. No wheezing or rhonchi. Cardiovascular: Positive S1, positive S2. Regular rate and rhythm. Abdomen: Positive bowel sounds in all 4 quadrants. Soft, non-tender, non- distended. : Deferred. Rectal: Deferred. Skin: Warm, dry. Intact. Extremities: 2+ radial pulses bilaterally. No lower extremity edema. Neuro: Awake, alert, oriented x3. No gross motor or sensory deficits. Cranial nerves II through XII intact. Gait not assessed. laboratory and microbiology Laboratory Tests 11/08/24 16:00 11/08/24 05:34 Test 11/08/24 16:00 Range/Units Serum Glucose 216 H 74-106 mg/dL Assessment/Plan Impression: Acute hypoxic respiratory failure Dependence on supplemental oxygen Septic shock Acute metabolic encephalopathy Morbid obesity BMI 44.5 Events: Remains on supplemental oxygen, 4 LPM NC Taper O2 as tolerated CXR reviewed; no consolidation, pleural effusion or pneumothorax. On multiple pressors for hemodynamic support On Levophed, vasopressin, Thierry-Synephrine Titrate to keep mean arterial pressure greater than 65 mmHg. Bicarb drip. Continue bronchodilators Continue IV steroids Continue antibiotics Follow up cultures Hepatitis C positive. WBC trending up- 13.7 K Monitor platelets - trending down at 47 K Pain control Avoid oversedation Diurese as tolerated w/ Lasix Monitor renal function Monitor electrolytes. Supplement as necessary. Labs and imaging reviewed. Rest of plan as noted below. Plan: Supplemental oxygen Titrate to keep O2 sats above 92%. On pressors for hemodynamic support Titrate to keep mean arterial pressure greater than 65 mmHg. Continue antibiotics Follow up cultures Monitor renal function. Monitor electrolytes. Supplement as necessary. Monitor ins and outs. Diet and lifestyle modifications for weight reduction Morbid obesity - complicates all care DVT prophylaxis. Prognosis: Poor given patient's multiple co-morbidities. Condition: Critical Rest of plan per hospitalist and other consultants. A total of 35 minutes of critical care time was spent reviewing the patient record, examining the patient, making a diagnostic and therapeutic plan, discussing this plan with the medical personnel, following up on diagnostic studies and following the patient for clinical stability excluding any and all procedures. At least 50% of this time was spent in direct, [id number] contact. Thank you, Dr. Vincent, for allowing me to participate in this patient's care. Further recommendations will depend on the patient's clinical course. Please do not hesitate to contact me if you have any questions or concerns. This medical document was created using an electronic medical record system with [employer] computerized dictation system. Although these documentations are being carefully reviewed, there may still be some phonetic and typographical changes. The errors are purely typographical, due to imperfection on the software program, and do not reflect any compromise in the patient's medical care. Plan discussed with: Other (RAMA Gant) Critical Care Time(min): 35 SEYMOUR FINNEY MD Nov 08, 2024 21:52
--- NOTE | 2024-11-08 23:59 | DVHPN2 ---
Progress Note - Dictate Date Seen: Nov 08, 2024 Medical Necessity Reason Pt with a Central, PICC or Fol: Yes The following are medically ne: Abreu Catheter Reason for abreu catheter: Strict I&O Subjective Patient was seen and evaluated in follow up. Patient is more awake and following commands. Patient is on 4 LPM NC. Patient receiving vasopressors for hemodynamic support. WBC 13.7, CO2 19, BUN 80, FACILITY REHAB DIRECTOR 3.10. AST 314, ALT 290, Alk phos 308. Chest x-ray shows mild stable CHF. Telemetry reviewed. vital signs Vital Sign Date Time Temp Pulse Resp B/P (MAP) Pulse Ox O2 Delivery O2 Flow Rate FiO2 11/08/24 23:45 98.1 97 18 100/53 (69) 90 98.1 11/08/24 20:00 Nasal Cannula* 4 36 Total Intake and Output 11/07/24 11/07/24 11/08/24 15:00 23:00 07:00 Intake Total 1182.565 ml 805.541 ml 850.25 ml Output Total 600 ml 600 ml Balance 1182.565 ml 205.541 ml 250.25 ml medications Current Medications Medications Dose Ordered Sig/Sherron Route Start Time Stop Time Status Last Admin Dose Admin Nitroglycerin 0.4 mg Q5MINP PRN SL 11/05/24 21:30 Morphine Sulfate 2 mg Q30M PRN IV 11/05/24 21:30 Lactulose 30 ml Q6HR PO 11/06/24 00:00 11/08/24 18:10 30 ML Pantoprazole Sodium 40 mg DAILY IV 11/06/24 10:00 11/08/24 10:26 40 MG Albuterol 2.5 mg Q6HR NEB 11/06/24 12:00 11/08/24 19:19 2.5 MG Ipratropium [place] 0.5 mg Q6HR NEB 11/06/24 12:00 11/08/24 19:19 0.5 MG Hydrocortisone Sodium Succinate 50 mg Q6HR IV 11/06/24 06:15 11/08/24 23:37 50 MG Vasopressin 20 units/Sodium Chloride 100 ml @ 9 mls/hr Q11H7M IV 11/06/24 07:45 11/08/24 02:07 9 MLS/HR Phenylephrine HCl 80 mg/Sodium Chloride 250 ml @ 7.5 mls/hr Q24H IV 11/07/24 09:00 Norepinephrine Bitartrate 32 mg/ Sodium Chloride 250 ml @ 0.938 mls/ hr Q24H IV 11/07/24 09:00 11/08/24 06:57 7.5 MLS/HR Rifaximin 550 mg BID PO 11/07/24 10:00 11/08/24 10:26 550 MG Albumin Human 100 ml @ 100 mls/hr Q8H IV 11/08/24 11:45 11/09/24 04:44 11/08/24 22:28 100 MLS/HR Doxycycline Hyclate 100 ml @ 50 mls/hr Q12HR IV 11/08/24 11:45 11/08/24 23:36 50 MLS/HR Morphine Sulfate 1 mg Q3HP PRN IV 11/08/24 11:45 11/08/24 21:26 1 MG objective GENERAL: Awake, alert, oriented x2. LUNGS: Clear. CARDIOVASCULAR: Heart sounds are good. ABDOMEN: Soft. laboratory and microbiology Laboratory Tests 11/08/24 16:00 11/08/24 05:34 Test 11/08/24 16:00 Range/Units Serum Glucose 216 H 74-106 mg/dL Problem List NSTEMI, likely type 2. Acute on chronic HFpEF, fluid overload. Acute hypoxic respiratory failure in setting of pulmonary congestion, pneumonia?. Shock, septic versus cardiogenic?. Thrombocytopenia. Liver cirrhosis. Elevated LFTs. Hepatic encephalopathy. [place] on CKD. Hyperkalemia. Plan/Recommendation I agree with your ongoing assessment and care of plan. Patient has been seen by Anthony Lara DIRECTOR INSURANCE on my behalf, him and I discussed the plan with the patient. Continue supportive management with vasopressors now on Levophed, vasopressin, and Thierry-Synephrine. IV antibiotics. Unable to start on anticoagulation therapy. Follow-up limited echo showing normal EF. Follow up GI and Nephrology recommendations. Troponins trending stable, negative acute EKG changes. Continue monitoring kidney function, avoid nephrotoxic agents. Additional plan as per the hospital course. Assessment/Plan Continued all current supportive medical care. IV antibiotics as ordered. Morphine for pain management. Vasopressors for hemodynamic support. GI prophylactics. Nitro SL. Additional plan as per the hospital course. Critical care time of 45 minutes provided to include time spent evaluation of patient at bedside, when appropriate patient/family education for diagnosis, treatment plan, review of pertinent medical information and discussion of care with specialty providers and PCP. Plan discussed with: Other CHALINO ROCHA MD Nov 08, 2024 23:59
[2024-11-09] VITALS (104 sets, daily range): BP systolic 79–131; BP diastolic 20–68; PULSE 85–105; RESP 15–46; TEMP 96.2–98.4; O2SAT 81–100
[2024-11-09 04:05] LABS: Base Excess -4.4 mmol/L (-2.0-3.0)
[2024-11-09] MEDS: ALBUMIN 25% 100 ML IV ONE (04:27)
[2024-11-09 04:52] LABS: Lymphocytes # (auto) 0.5 10 ^3/uL (0.4-5.4); Neutrophils # (auto) 10.9 10 ^3/uL (1.6-8.6); Nucleated Red Blood Cells % 0.1 %; White Blood Cell 12.8 10^3/uL (4.4-10.8)
[2024-11-09 04:53] LABS: Basophils # (auto) 0 10 ^3/uL (0-0.2); Basophils % (auto) 0.2 % (0.0-2.0); Eosinophils # (auto) 0 10 ^3/uL (0-0.8); Eosinophils % (auto) 0.3 % (0.0-7.0); Hematocrit 30.3 % (41.0-53.0); Hemoglobin 10.7 g/dL (13.5-17.5); Lymphocytes % (auto) 3.9 % (10.0-50.0); Mean Corpuscular Hgb Conc. 35.2 g/dL (32.0-36.0); Mean Corpuscular Volume 102.1 fL (80.0-100.0); Monocytes # (auto) 1.3 10 ^3/uL (0-1.3); Monocytes % (auto) 10.4 % (0.0-12.0); Neutrophils % (auto) 85.2 % (37.0-80.0); Platelet Count (auto) 35 10^3/uL (140-450); Red Blood Cells 2.97 10^6/uL (4.5-5.90); Red Cell Distribution Width 16.9 % (11.8-14.3)
[2024-11-09 05:04] LABS: Chloride 101 mmol/L (98-107)
[2024-11-09 05:05] LABS: Anion Gap 11 (5-15); Carbon Dioxide 21 mmol/L (20-31)
[2024-11-09 05:23] LABS: Blood Urea Nitrogen 83 mg/dL (9-23); Calcium 6.8 mg/dL (8.7-10.4); Glucose 165 mg/dL (74-106); Sodium 133 mmol/L (136-145)
[2024-11-09 05:24] LABS: BUN/Creatinine Ratio 27.2 (10.0-20.0)
--- NOTE | 2024-11-09 05:40 | DVH ---
CHEST RADIOGRAPH Indication: CHF Technique: Single frontal view of the chest was obtained COMPARISON: XY CHEST PORTABLE on DOS: 11/08/24, XY CHEST XRAY 1 VIEW on DOS: 11/07/24, XY CHEST PORTABL E on DOS: 11/06/24, XY CHEST XRAY 1 VIEW on DOS: 11/05/24, XY CHEST PORTABLE on DOS: 10/23/24 FINDINGS: Lines and Tubes: Right central venous catheter in satisfactory position. Lungs: Increased severe multifocal airspace disease. Pleura: No effusion. No pneumothorax. Cardiomediastinal contours: Unremarkable Bones: Unremarkable IMPRESSION: Increased severe multifocal airspace disease.
[2024-11-09] MEDS: ETOMIDATE (2MG/ML) 20ML VIAL IV ONE ×2 (09:17→10:37)
[2024-11-09] MEDS: ROCURONIUM 10MG/ML 10ML VIAL IV ONE ×2 (09:18→10:40)
--- NOTE | 2024-11-09 10:27 | DVHPN2 ---
Progress Note Date Seen: Nov 09, 2024 Medical Necessity Reason Pt with a Central, PICC or Fol: Yes The following are medically ne: Abreu Catheter Reason for abreu catheter: Strict I&O Subjective Patient reports: Feels worse (Patient is lethargic and tachypneic no onNRB/ bipap) Review of Systems: RESPIRATORY:Abnormal Objective vital signs Vital Sign Date Time Temp Pulse Resp B/P (MAP) Pulse Ox O2 Delivery O2 Flow Rate FiO2 11/09/24 08:00 97 11/09/24 07:30 102/48 94 Facial BiPAP Mask 60 11/09/24 07:03 42 11/09/24 06:57 8 11/09/24 05:45 97.1 97.1 Total Intake and Output 11/08/24 11/08/24 11/09/24 15:00 23:00 07:00 Intake Total 256.08 ml 196.316 ml 105.628 ml Output Total 550 ml 620 ml Balance 256.08 ml -353.684 ml -514.372 ml medications Current Medications Medications Dose Ordered Sig/Sherron Route Start Time Stop Time Status Last Admin Dose Admin Nitroglycerin 0.4 mg Q5MINP PRN SL 11/05/24 21:30 Morphine Sulfate 2 mg Q30M PRN IV 11/05/24 21:30 Lactulose 30 ml Q6HR PO 11/06/24 00:00 11/08/24 18:10 30 ML Pantoprazole Sodium 40 mg DAILY IV 11/06/24 10:00 11/08/24 10:26 40 MG Albuterol 2.5 mg Q6HR NEB 11/06/24 12:00 11/09/24 06:57 2.5 MG Ipratropium [place] 0.5 mg Q6HR NEB 11/06/24 12:00 11/09/24 06:58 0.5 MG Hydrocortisone Sodium Succinate 50 mg Q6HR IV 11/06/24 06:15 11/09/24 05:02 50 MG Vasopressin 20 units/Sodium Chloride 100 ml @ 9 mls/hr Q11H7M IV 11/06/24 07:45 11/08/24 02:07 9 MLS/HR Phenylephrine HCl 80 mg/Sodium Chloride 250 ml @ 7.5 mls/hr Q24H IV 11/07/24 09:00 Norepinephrine Bitartrate 32 mg/ Sodium Chloride 250 ml @ 0.938 mls/ hr Q24H IV 11/07/24 09:00 11/08/24 06:57 7.5 MLS/HR Rifaximin 550 mg BID PO 11/07/24 10:00 11/08/24 10:26 550 MG Doxycycline Hyclate 100 ml @ 50 mls/hr Q12HR IV 11/08/24 11:45 11/08/24 23:36 50 MLS/HR Morphine Sulfate 1 mg Q3HP PRN IV 11/08/24 11:45 11/08/24 21:26 1 MG Examination: GENERAL:Abnormal, HEENT:Abnormal, LUNGS:Abnormal, CVS:Abnormal, SKIN:Abnormal laboratory and microbiology Laboratory Tests 11/09/24 04:37 Test 11/09/24 04:37 Range/Units Serum Glucose 165 H 74-106 mg/dL Microbiology Date/Time Source Procedure Growth Status 11/06/24 07:53 Nose MRSA Screen - Final Complete 11/05/24 21:00 Blood Blood Culture - Preliminary Resulted Problem List/Assessment/Plan Problem List/Assessment/Plan Acute kidney injury hemodynamically mediated; prerenal Hep C cirrhosis w/o ascites Altered mental status in the setting of hepatic encephalopathy Sepsis secondary to pneumonia Acute respiratory failure secondary to pneumonia Morbid obesity Transaminitis Hyponatremia Hypervolemia with two to 3+ bilateral pitting edema concentrate all fluids start albumin x 3 levophed to keep MAP> 65 strict I/O fluid restriction increase lactulose Patient is pending intubation due to respiratory distress High likelihood of requiring renal replacement therapy in the near future. Rest of care and goals will be made by patient's further who has pending arrival. Critical care time 35 minutes Plan discussed with: Patient My Orders My Orders Orders - DENY TAPIA MD Procedure Category Date Status Time Communication Order ORDERS 11/08/24 Transmitted 11:35 Basic Metabolic Panel LAB 11/10/24 Verified 04:00 Ammonia LAB 11/09/24 In Process 09:39 Ammonia LAB 11/10/24 Verified 04:00 DENY TAPIA MD Nov 09, 2024 10:27
[2024-11-09] MEDS: MIDAZOLAM DRIP 50 mg/50mL 50 ML IV SCH (10:59)
--- NOTE | 2024-11-09 11:02 | DVH ---
CHEST RADIOGRAPH Indication: INTUBATED Technique: Single frontal view of the chest was obtained COMPARISON: XY CHEST PORTABLE on DOS: 11/09/24, XY CHEST PORTABLE on DOS: 11/08/24, XY CHEST XRAY 1 VIE W on DOS: 11/07/24, XY CHEST PORTABLE on DOS: 11/06/24, XY CHEST XRAY 1 VIEW on DOS: 11/05/24 FINDINGS: Lines and Tubes: Endotracheal tube and right central venous catheter in satisfactory position. Lungs: Multifocal airspace disease. Pleura: No effusion. No pneumothorax. Cardiomediastinal contours: Unremarkable Bones: Unremarkable IMPRESSION: Lines and tubes in satisfactory position. No significant interval change.
[2024-11-09] MEDS: fentaNYL Drip 2500mCg/250mlNS 250 ML IV SCH (11:05)
--- NOTE | 2024-11-09 11:20 | DVHPN2 ---
Subjective Patient tachypneic, dyspneic, able to follow simple commands. Reviewed: Care Plan, H&P, Labs, Medications Changes from previous H/P or p: No Changes General: Per HPI Objective Vitals Vital Signs Date Time Temp Pulse Resp B/P (MAP) Pulse Ox O2 Delivery O2 Flow Rate FiO2 11/09/24 11:05 112/58 11/09/24 10:41 99 20 95 100 11/09/24 07:30 Facial BiPAP Mask 11/09/24 06:57 8 11/09/24 05:45 97.1 97.1 Intake/Output Intake and Output 11/09/24 07:00 Intake Total 558.024 ml Output Total 1170 ml Balance -611.976 ml Intake Oral 80 ml IV Total 478.024 ml Output Urine Total 1170 ml General Appearance: Alert, Oriented X3, Cooperative HEENT: Atraumatic, PERRLA Lungs: Clear to auscultation, Normal air movement Cardiovascular: Normal S1, Normal S2 Musculoskeletal: Normal sensory function, Normal motor function Extremities: Other (Plus three ankle/pedal edema) Neuro: Other (Encephalopathic. Response to pain) Skin: Other (Jaundiced) Psych/Mental Status: Other (Encephalopathic. Response to pain) Medications Current Medications Medications Dose Ordered Sig/Sherron Route Start Time Stop Time Status Last Admin Dose Admin Nitroglycerin 0.4 mg Q5MINP PRN SL 11/05/24 21:30 Morphine Sulfate 2 mg Q30M PRN IV 11/05/24 21:30 Lactulose 30 ml Q6HR PO 11/06/24 00:00 11/08/24 18:10 30 ML Pantoprazole Sodium 40 mg DAILY IV 11/06/24 10:00 11/08/24 10:26 40 MG Albuterol 2.5 mg Q6HR NEB 11/06/24 12:00 11/09/24 06:57 2.5 MG Ipratropium [place] 0.5 mg Q6HR NEB 11/06/24 12:00 11/09/24 06:58 0.5 MG Hydrocortisone Sodium Succinate 50 mg Q6HR IV 11/06/24 06:15 11/09/24 05:02 50 MG Vasopressin 20 units/Sodium Chloride 100 ml @ 9 mls/hr Q11H7M IV 11/06/24 07:45 11/09/24 10:57 9 MLS/HR Phenylephrine HCl 80 mg/Sodium Chloride 250 ml @ 7.5 mls/hr Q24H IV 11/07/24 09:00 Norepinephrine Bitartrate 32 mg/ Sodium Chloride 250 ml @ 0.938 mls/ hr Q24H IV 11/07/24 09:00 11/08/24 06:57 7.5 MLS/HR Rifaximin 550 mg BID PO 11/07/24 10:00 11/08/24 10:26 550 MG Doxycycline Hyclate 100 ml @ 50 mls/hr Q12HR IV 11/08/24 11:45 11/08/24 23:36 50 MLS/HR Morphine Sulfate 1 mg Q3HP PRN IV 11/08/24 11:45 11/08/24 21:26 1 MG Midazolam HCl 50 ml @ 1 mls/hr Q24H IV 11/09/24 10:45 11/09/24 10:59 8 MLS/HR Fentanyl Citrate 250 ml @ 2.5 mls/hr Q24H IV 11/09/24 10:45 11/09/24 11:05 15 MLS/HR Laboratory Results Laboratory Tests 11/09/24 04:37 Chemistry Test 11/08/24 16:00 11/09/24 04:37 Calcium Level 6.7 mg/dL (8.7-10.4) L 6.8 mg/dL (8.7-10.4) L Urinalysis Test 11/05/24 04:07 11/06/24 04:07 Urine Color Dark-yellow (Yellow) Urine Clarity Ex.turbid (Clear) Urine pH 5.5 (5.0-9.0) Urine Specific [place] 1.018 (1.001-1.035) Urine Protein 1+ (Negative) H Urine Ketones Negative (Negative) Urine Blood 1+ /uL (Negative) H Urine Nitrite Negative (Negative) Urine Bilirubin 1+ (Negative) Urine Urobilinogen Normal mg/dL (Negative) Urine Leukocyte Esterase Trace /uL (Negative) Urine RBC 8 /hpf (0 - 3) Urine WBC 138 /hpf (0 - 3) Urine WBC Clumps Present /hpf (None Seen) Urine Squamous Epithelial Cells Few /hpf (<5) Urine Bacteria None seen /hpf (None Seen) Urine Mucus Few (None Seen) Urine Yeast (Budding) Many /hpf (None Seen) Urine Creatinine 169.31 mg/dL (30.0-125.0) H Urine Protein/Creatinine Ratio 0.48 Urine Sodium < 10 mmol/L (40-220) L Urine Glucose Normal mg/dL (Normal) Urine Total Protein 81.7 mg/dL (1-14) H Urine Osmolality 352 mOsm/kg Blood Gas Results Test 11/09/24 04:01 Arterial Blood pH 7.352 (7.350-7.450) FiO2 % 50.0 Microbiology Microbiology Date/Time Source Procedure Growth Status 11/06/24 07:53 Nose MRSA Screen - Final Complete 11/05/24 21:00 Blood Blood Culture - Preliminary Resulted Labs and/or images reviewed: Labs reviewed by me, Image(s) reviewed by me Assessment/Plan Assessment/Plan Impression: -sepsis with shock -hepatic/metabolic encephalopathy -acute kidney injury, questionable hepatorenal failure -obesity -liver cirrhosis with portal hypertension -severe protein malnutrition -polysubstance abuse including cannabinoids and opiates -obesity -thrombocytopenia Plan: -events: Patient had worsening respiratory status, now on BiPAP and tachypneic. FiO2 60%. Chest x-ray reveals worsening bilateral opacities. Long discussion made with the patient's brother, Jim regarding declining patient was status. At this time they wished everything to be done and are attempting to come to the hospital to see the patient. They were informed that the patient will be re- evaluated and probably placed on the ventilator if he has persistent respiratory failure. -pain management -Sandostatin drip -continue sedation -vent settings: AC 20, tidal volume 600, peep of eight -bronchodilators q.6 hours -nephrology consultation: Recommendations appreciated -continue empiric antibiotic therapy with meropenem, add doxycycline -continue lactulose q.6 hours -continue rifaximin -SCDs, ppi -repeat labs in a.m. Critical care time spent with patient discussing and formulating plan of care: 90 minutes. This does not include time spent performing procedures. This medical document was created using an electronic medical record system with [employer] system. Although this document has been carefully reviewed, there may still be some phonetic and typographical errors. These areas are purely typographical due to imperfections of the software programs, and do not reflect any compromise in the patient's medical care. Plan discussed with: Patient, Other (RN) My Orders Orders - ELIANE MONDRAGON NP Procedure Category Date Status Time Doxycycline PHA 11/08/24 In Process 100mg/100ml 11:45 Morphine Sulfate PHA 11/08/24 In Process Injection 11:45 Chest Xray 1 View XY 11/09/24 Resulted 10:42 Midazolam Drip 50 PHA 11/09/24 In Process Mg/50ml (Versed Drip 5 10:45 Fentanyl Drip PHA 11/09/24 In Process 2500mcg/250mlns 10:45 Rass Sedation Scale LIZA 11/09/24 In Process 10:42 Ventilator Setup RT 11/09/24 Logged 10:41 Respiratory Culture BANG 11/09/24 Logged W/ Gs 10:41 Abg W/ Co-Ox RT 11/09/24 Logged 12:00 Pantoprazole PHA 11/09/24 Logged (Protonix) 22:00 Sodium Chl 0.9% PHA 11/09/24 Logged (So... W/Octreotide 11:15 Octreotide Acetate PHA 11/09/24 Logged (Sandostatin) 11:15 Albuterol Medneb PHA 11/09/24 Verified (Ventolin Medneb) 12:00 Ipratropium Medneb PHA 11/09/24 Verified (Atrovent Medneb) 12:00 Date of Service: Nov 09, 2024 Billing Provider: ELIANE MONDRAGON NP Common Visit Codes: [id number] CARE 30-74 MIN ELIANE MONDRAGON NP Nov 09, 2024 11:20
--- NOTE | 2024-11-09 11:21 | CODING ---
Date of Service: Nov 09, 2024 Billing Provider: ELIANE MONDRAGON NP Common Visit Codes: [id number] CARE-EACH +30MIN ELIANE MONDRAGON NP Nov 09, 2024 11:21
--- NOTE | 2024-11-09 11:23 | DVHNC2 ---
Intubation Indication: Respiratory Insufficiency, Altered Mental Status Prep: Preoxygenation Pretreated with: Sedation (Etomidate 20 mg) Medicated with: Vecuronium Intubation Approach: Orotracheal Intubation size: cm Informed consent obtained: Yes Risks/benefits/alt described: Yes Notes Technically difficult intubation given patient had a tremendous amount of blood coming from his esophagus into his airway. Patient had copious suctioning. On 2nd attempt, airway was obtained using MAC 4, with 8.0 ET tube secured at 24 cm of the lip. Date of Service: Nov 09, 2024 Billing Provider: ELIANE MONDRAGON NP Common Visit Codes: PROCEDURE ONLY Procedure Codes: [id number] ELIANE MONDRAGON NP Nov 09, 2024 11:23
[2024-11-09] MEDS: IPRATROPIUM BROM 0.5 MG/2.5ML INH SOL NEB SCH (12:00)
[2024-11-09] MEDS: ALBUTEROL SULF 2.5 MG/0.5ML(0.5%) NEB SOLN NEB SCH (12:00)
[2024-11-09] MEDS: OCTREOTIDE ACETATE 100 MCG in SODIUM CHL 0.9% 50 ML IV ONE (12:53)
[2024-11-09] MEDS: OCTREOTIDE ACETATE 500 MCG in SODIUM CHL 0.9% 99 ML IV SCH (12:54)
[2024-11-09 13:29] LABS: Base Excess -6.8 mmol/L (-2.0-3.0)
[2024-11-09 16:13] LABS: Base Excess -8.5 mmol/L (-2.0-3.0)
[2024-11-09] MEDS: SODIUM BICARB 8.4% 50Meq/50ml SYR Vial IV ONE ×2 (16:49→17:24)
[2024-11-09] MEDS: MEROPENEM 1GM IVPB 50 ML IV SCH (17:58)
[2024-11-09 20:32] LABS: Anion Gap 11 (5-15); Carbon Dioxide 21 mmol/L (20-31); Chloride 100 mmol/L (98-107); Potassium 4.8 mmol/L (3.5-5.1)
[2024-11-09 20:50] LABS: BUN/Creatinine Ratio 26.1 (10.0-20.0); Calcium 6.8 mg/dL (8.7-10.4); Glucose 176 mg/dL (74-106); Sodium 132 mmol/L (136-145)
[2024-11-09 20:52] LABS: Blood Urea Nitrogen 91 mg/dL (9-23)
--- NOTE | 2024-11-09 21:51 | DVHPN2 ---
Progress Note - Dictate Date Seen: Nov 09, 2024 Medical Necessity Reason Pt with a Central, PICC or Fol: Yes The following are medically ne: Abreu Catheter Reason for abreu catheter: Strict I&O Subjective Patient was seen and evaluated in follow up in the ICU. Patient was intubated for airway protection this morning due to tachypnea and lethargy while on Bi- PAP. WBC 12.8, HGB 10.7, HCT 30, BUN 91, Windows Phone Developer 3.48CA 6.8, ammonia 111. Chest x- ray shows multifocal airspace disease. vital signs Vital Sign Date Time Temp Pulse Resp B/P (MAP) Pulse Ox O2 Delivery O2 Flow Rate FiO2 11/09/24 21:17 93/35 11/09/24 20:36 96 28 96 80 11/09/24 18:22 Mechanical Ventilator 11/09/24 16:45 98.3 98.3 11/09/24 10:00 6 Total Intake and Output 11/08/24 11/08/24 11/09/24 15:00 23:00 07:00 Intake Total 256.08 ml 196.316 ml 105.628 ml Output Total 550 ml 620 ml Balance 256.08 ml -353.684 ml -514.372 ml medications Current Medications Medications Dose Ordered Sig/Sherron Route Start Time Stop Time Status Last Admin Dose Admin Nitroglycerin 0.4 mg Q5MINP PRN SL 11/05/24 21:30 Morphine Sulfate 2 mg Q30M PRN IV 11/05/24 21:30 Lactulose 30 ml Q6HR PO 11/06/24 00:00 11/08/24 18:10 30 ML Albuterol 2.5 mg Q6HR NEB 11/06/24 12:00 11/09/24 18:22 2.5 MG Ipratropium [place] 0.5 mg Q6HR NEB 11/06/24 12:00 11/09/24 18:22 0.5 MG Hydrocortisone Sodium Succinate 50 mg Q6HR IV 11/06/24 06:15 11/09/24 17:57 50 MG Vasopressin 20 units/Sodium Chloride 100 ml @ 9 mls/hr Q11H7M IV 11/06/24 07:45 11/09/24 21:10 9 MLS/HR Phenylephrine HCl 80 mg/Sodium Chloride 250 ml @ 7.5 mls/hr Q24H IV 11/07/24 09:00 Norepinephrine Bitartrate 32 mg/ Sodium Chloride 250 ml @ 0.938 mls/ hr Q24H IV 11/07/24 09:00 11/08/24 06:57 7.5 MLS/HR Rifaximin 550 mg BID PO 11/07/24 10:00 11/08/24 10:26 550 MG Doxycycline Hyclate 100 ml @ 50 mls/hr Q12HR IV 11/08/24 11:45 11/09/24 12:18 50 MLS/HR Morphine Sulfate 1 mg Q3HP PRN IV 11/08/24 11:45 11/08/24 21:26 1 MG Midazolam HCl 50 ml @ 1 mls/hr Q24H IV 11/09/24 10:45 11/09/24 21:17 4 MLS/HR Fentanyl Citrate 250 ml @ 2.5 mls/hr Q24H IV 11/09/24 10:45 11/09/24 11:05 15 MLS/HR Pantoprazole Sodium 40 mg BID IV 11/09/24 22:00 Octreotide Acetate 500 mcg/ Sodium Chloride 100 ml @ 10 mls/hr Q10H IV 11/09/24 11:15 11/09/24 12:54 10 MLS/HR Meropenem 50 ml @ 17 mls/hr Q12H IV 11/09/24 19:00 11/09/24 17:58 17 MLS/HR objective GENERAL: Intubated on ventilator. LUNGS: Decreased breath sounds. CARDIOVASCULAR: Heart sounds are good. ABDOMEN: Soft. laboratory and microbiology Laboratory Tests 11/09/24 19:39 11/09/24 04:37 Test 11/09/24 19:39 Range/Units Serum Glucose 176 H 74-106 mg/dL Problem List NSTEMI, likely type 2. Acute on chronic HFpEF, fluid overload. Acute hypoxic respiratory failure in setting of pulmonary congestion, pneumonia?. Shock, septic versus cardiogenic?. Thrombocytopenia. Liver cirrhosis. Elevated LFTs. Hepatic encephalopathy. [place] on CKD. Hyperkalemia. Plan/Recommendation I agree with your ongoing assessment and care of plan. Patient has been seen by Anthony Lara ELECTROMEDICAL EQUIPMENT TECHNICIAN on my behalf, him and I discussed the plan with the patient. Continue supportive management with vasopressors now on Levophed, vasopressin, and Thierry-Synephrine. IV antibiotics. Unable to start on anticoagulation therapy. Follow-up limited echo showing normal EF. Follow up GI and Nephrology recommendations. Troponins trending stable, negative acute EKG changes. Continue monitoring kidney function, avoid nephrotoxic agents. Additional plan as per the hospital course. Assessment/Plan Continued all current supportive medical care. IV antibiotics as ordered. Morphine for pain management. Vasopressors for hemodynamic support. GI prophylactics. Nitro SL. Additional plan as per the hospital course. Critical care time of 45 minutes provided to include time spent evaluation of patient at bedside, when appropriate patient/family education for diagnosis, treatment plan, review of pertinent medical information and discussion of care with specialty providers and PCP. Mechanical ventilator parameters, treatment and adjustments have personally been reviewed by me and treatment plan by manager actuarial has also been reviewed. Plan discussed with: Other CHALINO ROCHA MD Nov 09, 2024 21:51
[2024-11-09] MEDS: PANTOPRAZOLE 40 MG/10 ML VIAL INJ IV SCH (22:00)
--- NOTE | 2024-11-09 22:49 | DVHPN2 ---
Progress Note - Dictate Date Seen: Nov 09, 2024 Medical Necessity Reason Pt with a Central, PICC or Fol: Yes The following are medically ne: Abreu Catheter Reason for abreu catheter: Strict I&O Subjective Patient seen and examined at bedside. Sedated, intubated on mechanical ventilator. Overnight events reviewed. vital signs Vital Sign Date Time Temp Pulse Resp B/P (MAP) Pulse Ox O2 Delivery O2 Flow Rate FiO2 11/09/24 22:12 98 28 102/60 (74) 96 80 11/09/24 18:22 Mechanical Ventilator 11/09/24 16:45 98.3 98.3 11/09/24 10:00 6 Total Intake and Output 11/08/24 11/08/24 11/09/24 15:00 23:00 07:00 Intake Total 256.08 ml 196.316 ml 105.628 ml Output Total 550 ml 620 ml Balance 256.08 ml -353.684 ml -514.372 ml medications Current Medications Medications Dose Ordered Sig/Sherron Route Start Time Stop Time Status Last Admin Dose Admin Nitroglycerin 0.4 mg Q5MINP PRN SL 11/05/24 21:30 Morphine Sulfate 2 mg Q30M PRN IV 11/05/24 21:30 Lactulose 30 ml Q6HR PO 11/06/24 00:00 11/08/24 18:10 30 ML Albuterol 2.5 mg Q6HR NEB 11/06/24 12:00 11/09/24 18:22 2.5 MG Ipratropium [place] 0.5 mg Q6HR NEB 11/06/24 12:00 11/09/24 18:22 0.5 MG Hydrocortisone Sodium Succinate 50 mg Q6HR IV 11/06/24 06:15 11/09/24 17:57 50 MG Vasopressin 20 units/Sodium Chloride 100 ml @ 9 mls/hr Q11H7M IV 11/06/24 07:45 11/09/24 21:10 9 MLS/HR Phenylephrine HCl 80 mg/Sodium Chloride 250 ml @ 7.5 mls/hr Q24H IV 11/07/24 09:00 Norepinephrine Bitartrate 32 mg/ Sodium Chloride 250 ml @ 0.938 mls/ hr Q24H IV 11/07/24 09:00 11/08/24 06:57 7.5 MLS/HR Rifaximin 550 mg BID PO 11/07/24 10:00 11/08/24 10:26 550 MG Doxycycline Hyclate 100 ml @ 50 mls/hr Q12HR IV 11/08/24 11:45 11/09/24 12:18 50 MLS/HR Morphine Sulfate 1 mg Q3HP PRN IV 11/08/24 11:45 11/08/24 21:26 1 MG Midazolam HCl 50 ml @ 1 mls/hr Q24H IV 11/09/24 10:45 11/09/24 21:17 4 MLS/HR Fentanyl Citrate 250 ml @ 2.5 mls/hr Q24H IV 11/09/24 10:45 11/09/24 11:05 15 MLS/HR Pantoprazole Sodium 40 mg BID IV 11/09/24 22:00 Octreotide Acetate 500 mcg/ Sodium Chloride 100 ml @ 10 mls/hr Q10H IV 11/09/24 11:15 11/09/24 22:48 10 MLS/HR Meropenem 50 ml @ 17 mls/hr Q12H IV 11/09/24 19:00 11/09/24 17:58 17 MLS/HR objective Gen.: Patient lying in bed in medical ICU. Sedated, intubated on mechanical ventilator. Head: Normocephalic, atraumatic. Eyes: PERRLA. Ears: Normal external anatomy. Throat: Endotracheal tube and orogastric tube in place. Neck: Supple, trachea midline. Chest: Transmitted breath sounds bilaterally. Decreased air entry bilaterally. No wheezing. Bibasilar crackles. Cardiovascular: Positive S1, positive S2. Regular rate and rhythm. Abdomen: Positive bowel sounds in all 4 quadrants. Soft, nontender, nondistended. : Abreu in place. Normal external genitalia. Rectal: Deferred. Skin: Warm, dry. Intact. Extremities: 2+ radial pulses bilaterally. No lower extremity edema. Neuro: Sedated. laboratory and microbiology Laboratory Tests 11/09/24 19:39 11/09/24 04:37 Test 11/09/24 19:39 Range/Units Serum Glucose 176 H 74-106 mg/dL Assessment/Plan Impression: Acute hypoxic respiratory failure On mechanical ventilator Septic shock Acute metabolic encephalopathy Morbid obesity BMI 44.5 Events: Patient was intubated this AM, possible aspiration Vent settings; A/C mode with RR 24 -->28, VT 450, PEEP 8, FiO2 100% Sedated on Fentanyl, Versed CXR reviewed; multifocal airspace disease. No pleural effusion or pneumothorax. On multiple pressors for hemodynamic support On Levophed 24 mcg/min, vasopressin 0.03 units/min Titrate to keep mean arterial pressure greater than 65 mmHg. Obtain GI consult Elevated ammonia Patient is not tolerating turns. Repeat ABG in 1 hour Continue bronchodilators Continue IV steroids Continue antibiotics Sandostatin drip WBC trending down- 12.8 K Monitor platelets - trending down at 35 K GI prophylaxis - Protonix BID Labs and imaging reviewed. Rest of plan as noted below. Plan: S/p intubation, on mechanical ventilator Vent settings; A/C mode with RR 24 -->28, VT 450, PEEP 8, FiO2 100% Sedated on Fentanyl, Versed On multiple pressors for hemodynamic support On Levophed 24 mcg/min, vasopressin 0.03 units/min Titrate to keep mean arterial pressure greater than 65 mmHg. Continue antibiotics Follow up cultures Hepatitis C positive. Monitor renal function. Monitor electrolytes. Supplement as necessary. Monitor ins and outs. Diet and lifestyle modifications for weight reduction Morbid obesity - complicates all care DVT prophylaxis. Prognosis: Poor given patient's multiple co-morbidities. Condition: Critical Rest of plan per hospitalist and other consultants. A total of 35 minutes of critical care time was spent reviewing the patient record, examining the patient, making a diagnostic and therapeutic plan, discussing this plan with the medical personnel, following up on diagnostic studies and following the patient for clinical stability excluding any and all procedures. At least 50% of this time was spent in direct, [id number] contact. Thank you, Dr. Vincent, for allowing me to participate in this patient's care. Further recommendations will depend on the patient's clinical course. Please do not hesitate to contact me if you have any questions or concerns. This medical document was created using an electronic medical record system with [employer] system. Although these documentations are being carefully reviewed, there may still be some phonetic and typographical changes. The errors are purely typographical, due to imperfection on the software program, and do not reflect any compromise in the patient's medical care. Plan discussed with: Other (RAMA Chacon) Critical Care Time(min): 35 SEYMOUR FINNEY MD Nov 09, 2024 22:49
[2024-11-10] VITALS (107 sets, daily range): BP systolic 80–130; BP diastolic 20–43; PULSE 96–120; RESP 28–38; TEMP 97.7–98.6; O2SAT 82–100
[2024-11-10] MEDS: ALBUMIN 5% 250 ML IV ONE (00:05)
[2024-11-10] MEDS: EPINEPHrine HCL 250 ML IV ONE (02:05)
[2024-11-10] MEDS: EPINEPHrine HCL 250 ML IV SCH (02:23)
--- NOTE | 2024-11-10 05:21 | DVH ---
CHEST RADIOGRAPH Indication: INTUBATED Technique: Single frontal view of the chest was obtained Comparison: XY CHEST XRAY 1 VIEW on DOS: 11/09/24, XY CHEST PORTABLE on DOS: 11/09/24, XY CHEST PORTABL E on DOS: 11/08/24, XY CHEST XRAY 1 VIEW on DOS: 11/07/24, XY CHEST PORTABLE on DOS: 11/06/24, XY CHEST XRAY 1 VIEW on DOS: 11/09/24 FINDINGS: Lines and Tubes: Endotracheal tube and right central venous catheter in satisfactory position. Lungs: Multifocal airspace disease. Pleura: No effusion. No pneumothorax. Cardiomediastinal contours: Unremarkable Bones: Unremarkable IMPRESSION: 1. Lines and tubes in satisfactory position. No significant interval change.
[2024-11-10] MEDS: DOPamine 1600MCG/ML D5W 250 ML IV SCH (05:52)
[2024-11-10 06:51] LABS: Base Excess -13.2 mmol/L (-2.0-3.0)
--- NOTE | 2024-11-10 08:22 | DVHPN2 ---
Subjective Patient intubated and sedated. Reviewed: Care Plan, H&P, Labs, Medications Changes from previous H/P or p: Changes General: Per HPI Eyes: Pain Objective Vitals Vital Signs Date Time Temp Pulse Resp B/P (MAP) Pulse Ox O2 Delivery O2 Flow Rate FiO2 11/10/24 06:45 118 32 111/33 (59) 94 11/10/24 06:00 Mechanical Ventilator+ 80.0 80.0 11/10/24 04:00 97.9 97.9 11/09/24 10:00 6 Intake/Output Intake and Output 11/10/24 07:00 Intake Total 506.379 ml Output Total 1030 ml Balance -523.621 ml IV Total 506.379 ml Output Urine Total 930 ml Emesis 100 ml General Appearance: Alert, Oriented X3, Cooperative HEENT: Atraumatic, PERRLA Lungs: Clear to auscultation, Normal air movement Cardiovascular: Normal S1, Normal S2 Musculoskeletal: Normal sensory function, Normal motor function Extremities: Other (Plus three ankle/pedal edema) Neuro: Other (Encephalopathic. Response to pain) Skin: Dry, Intact, Other (Jaundiced) Psych/Mental Status: Other (Encephalopathic. Response to pain) Medications Current Medications Medications Dose Ordered Sig/Sherron Route Start Time Stop Time Status Last Admin Dose Admin Nitroglycerin 0.4 mg Q5MINP PRN SL 11/05/24 21:30 Morphine Sulfate 2 mg Q30M PRN IV 11/05/24 21:30 Lactulose 30 ml Q6HR PO 11/06/24 00:00 11/08/24 18:10 30 ML Albuterol 2.5 mg Q6HR NEB 11/06/24 12:00 11/10/24 00:25 2.5 MG Ipratropium [place] 0.5 mg Q6HR NEB 11/06/24 12:00 11/10/24 00:25 0.5 MG Hydrocortisone Sodium Succinate 50 mg Q6HR IV 11/06/24 06:15 11/10/24 06:02 50 MG Vasopressin 20 units/Sodium Chloride 100 ml @ 9 mls/hr Q11H7M IV 11/06/24 07:45 11/10/24 06:34 9 MLS/HR Phenylephrine HCl 80 mg/Sodium Chloride 250 ml @ 7.5 mls/hr Q24H IV 11/07/24 09:00 Norepinephrine Bitartrate 32 mg/ Sodium Chloride 250 ml @ 0.938 mls/ hr Q24H IV 11/07/24 09:00 11/08/24 06:57 7.5 MLS/HR Rifaximin 550 mg BID PO 11/07/24 10:00 11/08/24 10:26 550 MG Doxycycline Hyclate 100 ml @ 50 mls/hr Q12HR IV 11/08/24 11:45 11/09/24 23:09 50 MLS/HR Morphine Sulfate 1 mg Q3HP PRN IV 11/08/24 11:45 11/08/24 21:26 1 MG Midazolam HCl 50 ml @ 1 mls/hr Q24H IV 11/09/24 10:45 11/10/24 03:13 6 MLS/HR Fentanyl Citrate 250 ml @ 2.5 mls/hr Q24H IV 11/09/24 10:45 11/09/24 11:05 15 MLS/HR Pantoprazole Sodium 40 mg BID IV 11/09/24 22:00 11/09/24 22:00 40 MG Octreotide Acetate 500 mcg/ Sodium Chloride 100 ml @ 10 mls/hr Q10H IV 11/09/24 11:15 11/09/24 22:48 10 MLS/HR Meropenem 50 ml @ 17 mls/hr Q12H IV 11/09/24 19:00 11/10/24 07:48 17 MLS/HR Epinephrine HCl 250 ml @ 7.5 mls/hr Q24H IV 11/10/24 02:00 11/10/24 02:23 7.5 MLS/HR Dopamine HCl/ Dextrose 250 ml @ 23.438 mls/ hr [id number] IV 11/10/24 05:45 11/10/24 05:52 23.438 MLS/HR Lactulose 300 ml Q6HR MS 11/10/24 12:00 UNV Laboratory Results Laboratory Tests 11/09/24 04:37 Chemistry Test 11/09/24 19:39 11/10/24 03:42 Calcium Level 6.8 mg/dL (8.7-10.4) L Pending Urinalysis Test 11/05/24 04:07 11/06/24 04:07 Urine Color Dark-yellow (Yellow) Urine Clarity Ex.turbid (Clear) Urine pH 5.5 (5.0-9.0) Urine Specific [place] 1.018 (1.001-1.035) Urine Protein 1+ (Negative) H Urine Ketones Negative (Negative) Urine Blood 1+ /uL (Negative) H Urine Nitrite Negative (Negative) Urine Bilirubin 1+ (Negative) Urine Urobilinogen Normal mg/dL (Negative) Urine Leukocyte Esterase Trace /uL (Negative) Urine RBC 8 /hpf (0 - 3) Urine WBC 138 /hpf (0 - 3) Urine WBC Clumps Present /hpf (None Seen) Urine Squamous Epithelial Cells Few /hpf (<5) Urine Bacteria None seen /hpf (None Seen) Urine Mucus Few (None Seen) Urine Yeast (Budding) Many /hpf (None Seen) Urine Creatinine 169.31 mg/dL (30.0-125.0) H Urine Protein/Creatinine Ratio 0.48 Urine Sodium < 10 mmol/L (40-220) L Urine Glucose Normal mg/dL (Normal) Urine Total Protein 81.7 mg/dL (1-14) H Urine Osmolality 352 mOsm/kg Blood Gas Results Test 11/09/24 13:14 11/09/24 16:05 11/10/24 06:40 Arterial Blood pH 7.220 (7.350-7.450) 7.214 (7.350-7.450) 7.185 (7.350-7.450) FiO2 % 100.0 100.0 80.0 Microbiology Microbiology Date/Time Source Procedure Growth Status 11/06/24 07:53 Nose MRSA Screen - Final Complete 11/05/24 21:00 Blood Blood Culture - Preliminary Resulted Labs and/or images reviewed: Labs reviewed by me, Image(s) reviewed by me Assessment/Plan Assessment/Plan Impression: -sepsis with shock -hepatic/metabolic encephalopathy -acute kidney injury, questionable hepatorenal failure -obesity -liver cirrhosis with portal hypertension -severe protein malnutrition -polysubstance abuse including cannabinoids and opiates -obesity -thrombocytopenia -hyperammonemia Plan: -events: Patient with worsening shock on multiple vasopressors. Patient also on mechanical ventilation with FiO2 of 75%. Patient continues to have metabolic acidosis. Discussion was made with Nephrology regarding possible hemodialysis, but given the patient's current instability, we will reassess for dialysis later today. Discussion was also made with the patient's daughter, Darlin, regarding patient's critical state. Code status was addressed. At this time she wishes to speak with her uncle before making a decision. Patient will be treated with sodium bicarbonate two amps at this time. -pain management -Sandostatin drip -continue sedation -continue current ventilator settings per pulmonology. -bronchodilators q.6 hours -nephrology consultation: Recommendations appreciated -continue empiric antibiotic therapy with meropenem, add doxycycline -continue current sedation. -when patient was stable, place rectal tube for lactulose. -continue rifaximin -SCDs, ppi -repeat labs in a.m. Critical care time spent with patient discussing and formulating plan of care: 90 minutes. This does not include time spent performing procedures. This medical document was created using an electronic medical record system with [employer] dictation system. Although this document has been carefully reviewed, there may still be some phonetic and typographical errors. These areas are purely typographical due to imperfections of the software programs, and do not reflect any compromise in the patient's medical care. Plan discussed with: Patient, Other (RN) My Orders Orders - ELIANE MONDRAGON TISSUE INSERTER Procedure Category Date Status Time Chest Xray 1 View XY 11/09/24 Resulted 10:42 Midazolam Drip 50 PHA 11/09/24 In Process Mg/50ml (Versed Drip 5 10:45 Fentanyl Drip PHA 11/09/24 In Process 2500mcg/250mlns 10:45 Rass Sedation Scale LIZA 11/09/24 In Process 10:42 Ventilator Setup RT 11/09/24 Logged 10:41 Respiratory Culture BANG 11/09/24 In Process W/ Gs 10:41 Abg W/ Co-Ox RT 11/09/24 Logged 12:00 Pantoprazole PHA 11/09/24 In Process (Protonix) 22:00 Sodium Chl 0.9% PHA 11/09/24 In Process (So... W/Octreotide 11:15 Ventilator Orders RT 11/09/24 Transmitted 11:30 Communication Order ORDERS 11/09/24 Transmitted 10:45 Sodium Bicarb PHA 11/10/24 Logged 50meq/50ml Vial 08:15 Lactulose Rectal PHA 11/10/24 Logged 12:00 Insert Rectal Tube ORDERS 11/10/24 Transmitted 08:07 Date of Service: Nov 10, 2024 Billing Provider: EILANE MONDRAGON NP Common Visit Codes: 34172-[id number] CARE 30-74 MIN, [id number] CARE-EACH +30MIN ELIANE MONDRAGON NP Nov 10, 2024 08:22
[2024-11-10 09:26] LABS: Mean Corpuscular Hgb Conc. 32.6 g/dL (32.0-36.0); White Blood Cell 13.6 10^3/uL (4.4-10.8)
[2024-11-10 09:30] LABS: Hematocrit 24.5 % (41.0-53.0); Mean Corpuscular Hemoglobin 35.2 pg (28.0-32.0); Red Blood Cells 2.27 10^6/uL (4.5-5.90); Red Cell Distribution Width 18.5 % (11.8-14.3)
[2024-11-10 09:36] LABS: Anion Gap 18 (5-15); Chloride 101 mmol/L (98-107)
[2024-11-10] MEDS: SODIUM BICARB 8.4% 50Meq/50ml SYR Vial IV ONE (09:42)
[2024-11-10 09:48] LABS: BUN/Creatinine Ratio 25.7 (10.0-20.0); Calcium 6.9 mg/dL (8.7-10.4); Carbon Dioxide 14 mmol/L (20-31); Glucose 163 mg/dL (74-106); Sodium 133 mmol/L (136-145)
[2024-11-10 09:49] LABS: Blood Urea Nitrogen 109 mg/dL (9-23); Potassium 5.7 mmol/L (3.5-5.1)
[2024-11-10 10:50] LABS: Basophils % (manual) 0 (0.0-2.0); Eosinophils % (manual) 0 (0-7); Metamyelocytes % 0; Myelocytes % 0; Platelet Count (auto) 40 10^3/uL (140-450); Promyelocytes % 0; Reactive Lymphocytes 0
[2024-11-10] MEDS ORDERED: LACTULOSE 10g/15ml SOLN 473ML PR SCH (12:00)
[2024-11-10 12:11] LABS: Band Neutrophils % (manual) 6; Blast Cells 3; Lymphocytes % (manual) 7 (10.0-50.0); Macrocytosis Moderate; Monocytes % (manual) 7 (0-12); Platelet Estimate Decreased
--- NOTE | 2024-11-10 14:43 | DVHPN2 ---
Progress Note Date Seen: Nov 10, 2024 Medical Necessity Reason Pt with a Central, PICC or Fol: Yes The following are medically ne: Abreu Catheter Reason for abreu catheter: Strict I&O Objective vital signs Vital Sign Date Time Temp Pulse Resp B/P (MAP) Pulse Ox O2 Delivery O2 Flow Rate FiO2 11/10/24 12:45 106 32 99/30 (53) 97 11/10/24 12:00 97.8 97.8 11/10/24 12:00 70 11/10/24 08:00 Mechanical Ventilator+ 11/09/24 10:00 6 Total Intake and Output 11/09/24 11/09/24 11/10/24 15:00 23:00 07:00 Intake Total 287.064 ml 542.819 ml 1303.441 ml Output Total 875 ml 155 ml Balance 287.064 ml -332.181 ml 1148.441 ml medications Current Medications Medications Dose Ordered Sig/Sherron Route Start Time Stop Time Status Last Admin Dose Admin Nitroglycerin 0.4 mg Q5MINP PRN SL 11/05/24 21:30 Morphine Sulfate 2 mg Q30M PRN IV 11/05/24 21:30 Albuterol 2.5 mg Q6HR NEB 11/06/24 12:00 11/10/24 08:35 2.5 MG Ipratropium [place] 0.5 mg Q6HR NEB 11/06/24 12:00 11/10/24 08:35 0.5 MG Hydrocortisone Sodium Succinate 50 mg Q6HR IV 11/06/24 06:15 11/10/24 06:02 50 MG Vasopressin 20 units/Sodium Chloride 100 ml @ 9 mls/hr Q11H7M IV 11/06/24 07:45 11/10/24 06:34 9 MLS/HR Phenylephrine HCl 80 mg/Sodium Chloride 250 ml @ 7.5 mls/hr Q24H IV 11/07/24 09:00 11/10/24 08:55 33.75 MLS/HR Norepinephrine Bitartrate 32 mg/ Sodium Chloride 250 ml @ 0.938 mls/ hr Q24H IV 11/07/24 09:00 11/08/24 06:57 7.5 MLS/HR Rifaximin 550 mg BID PO 11/07/24 10:00 11/08/24 10:26 550 MG Doxycycline Hyclate 100 ml @ 50 mls/hr Q12HR IV 11/08/24 11:45 11/09/24 23:09 50 MLS/HR Morphine Sulfate 1 mg Q3HP PRN IV 11/08/24 11:45 11/08/24 21:26 1 MG Midazolam HCl 50 ml @ 1 mls/hr Q24H IV 11/09/24 10:45 11/10/24 03:13 6 MLS/HR Fentanyl Citrate 250 ml @ 2.5 mls/hr Q24H IV 11/09/24 10:45 11/09/24 11:05 15 MLS/HR Pantoprazole Sodium 40 mg BID IV 11/09/24 22:00 11/09/24 22:00 40 MG Octreotide Acetate 500 mcg/ Sodium Chloride 100 ml @ 10 mls/hr Q10H IV 11/09/24 11:15 11/10/24 08:49 10 MLS/HR Meropenem 50 ml @ 17 mls/hr Q12H IV 11/09/24 19:00 11/10/24 07:48 17 MLS/HR Epinephrine HCl 250 ml @ 7.5 mls/hr Q24H IV 11/10/24 02:00 11/10/24 02:23 7.5 MLS/HR Dopamine HCl/ Dextrose 250 ml @ 23.438 mls/ hr [id number] IV 11/10/24 05:45 11/10/24 05:52 23.438 MLS/HR Lactulose 300 ml Q6HR ME 11/10/24 12:00 Hold laboratory and microbiology Laboratory Tests 11/10/24 08:45 Test 11/10/24 08:45 Range/Units Serum Glucose 163 H 74-106 mg/dL Microbiology Date/Time Source Procedure Growth Status 11/09/24 10:50 Sputum Gram Stain - Final Resulted 11/09/24 10:50 Sputum Respiratory Culture - Preliminary Resulted 11/06/24 07:53 Nose MRSA Screen - Final Complete 11/05/24 21:00 Blood Blood Culture - Preliminary Resulted Problem List/Assessment/Plan Problem List/Assessment/Plan Acute kidney injury hemodynamically mediated; prerenal Hep C cirrhosis w/o ascites Altered mental status in the setting of hepatic encephalopathy Sepsis secondary to pneumonia Acute respiratory failure secondary to pneumonia Morbid obesity Transaminitis Hyponatremia Hypervolemia with two to 3+ bilateral pitting edema anemia due to GIB multi organ failure on multiple pressors unstable patient now DNR levophed to keep MAP> 65 strict I/O fluid restriction increase lactulose Critical care time 35 minutes Plan discussed with: Other My Orders My Orders Orders - DENY TAPIA MD Procedure Category Date Status Time Hemodialysis Orders ORDERS 11/10/24 Transmitted 04:00 Dietary Evaluation Review Comments: 1. Pt has protein malnutrition, consider TPN per pharmacy and amino acid to meet 75% of protein and energy needs. . 2. Consider a peptide based TF Vital 1.2 @35ml/hr (63g protein 1008 kcal) supporting pt's needs at 120% protein and 72% kcal. 3. If pt is off vent and pass speech eval, offer Renal specific 50 g protein restriction if no dialysis is warranted. Offer Renal Standard diet if dialysis is scheduled. Expected Outcomes/Goals: Wt Loss, less uremic symptoms.Improved lab values DENY TAPIA MD Nov 10, 2024 14:43
--- NOTE | 2024-11-10 19:58 | DVHPN2 ---
Progress Note - Dictate Date Seen: Nov 10, 2024 Medical Necessity Reason Pt with a Central, PICC or Fol: Yes The following are medically ne: Abreu Catheter Reason for abreu catheter: Strict I&O Subjective Patient was seen and evaluated in follow up in the ICU. Patient is intubated and sedated on ventilator. 70% FiO2. Patient is receiving vasopressors for hemodynamic support. WBC 13.6, HGB 8, HCT 24.5, NA 133, K 5.7, BUN 109, SWITCHBOARD AND CONTROL ROOM OPERATOR 4.24. Chest x-ray is unchanged from previous. vital signs Vital Sign Date Time Temp Pulse Resp B/P (MAP) Pulse Ox O2 Delivery O2 Flow Rate FiO2 11/10/24 12:00 106 33 94/27 (49) 97 70 11/10/24 11:00 98.2 98.2 11/10/24 08:00 Mechanical Ventilator+ 11/09/24 10:00 6 Total Intake and Output 11/09/24 11/09/24 11/10/24 15:00 23:00 07:00 Intake Total 287.064 ml 542.819 ml 1290.941 ml Output Total 875 ml 155 ml Balance 287.064 ml -332.181 ml 1135.941 ml medications Current Medications Medications Dose Ordered Sig/Sherron Route Start Time Stop Time Status Last Admin Dose Admin Nitroglycerin 0.4 mg Q5MINP PRN SL 11/05/24 21:30 Morphine Sulfate 2 mg Q30M PRN IV 11/05/24 21:30 Albuterol 2.5 mg Q6HR NEB 11/06/24 12:00 11/10/24 08:35 2.5 MG Ipratropium [place] 0.5 mg Q6HR NEB 11/06/24 12:00 11/10/24 08:35 0.5 MG Hydrocortisone Sodium Succinate 50 mg Q6HR IV 11/06/24 06:15 11/10/24 06:02 50 MG Vasopressin 20 units/Sodium Chloride 100 ml @ 9 mls/hr Q11H7M IV 11/06/24 07:45 11/10/24 06:34 9 MLS/HR Phenylephrine HCl 80 mg/Sodium Chloride 250 ml @ 7.5 mls/hr Q24H IV 11/07/24 09:00 11/10/24 08:55 33.75 MLS/HR Norepinephrine Bitartrate 32 mg/ Sodium Chloride 250 ml @ 0.938 mls/ hr Q24H IV 11/07/24 09:00 11/08/24 06:57 7.5 MLS/HR Rifaximin 550 mg BID PO 11/07/24 10:00 11/08/24 10:26 550 MG Doxycycline Hyclate 100 ml @ 50 mls/hr Q12HR IV 11/08/24 11:45 11/09/24 23:09 50 MLS/HR Morphine Sulfate 1 mg Q3HP PRN IV 11/08/24 11:45 11/08/24 21:26 1 MG Midazolam HCl 50 ml @ 1 mls/hr Q24H IV 11/09/24 10:45 11/10/24 03:13 6 MLS/HR Fentanyl Citrate 250 ml @ 2.5 mls/hr Q24H IV 11/09/24 10:45 11/09/24 11:05 15 MLS/HR Pantoprazole Sodium 40 mg BID IV 11/09/24 22:00 11/09/24 22:00 40 MG Octreotide Acetate 500 mcg/ Sodium Chloride 100 ml @ 10 mls/hr Q10H IV 11/09/24 11:15 11/10/24 08:49 10 MLS/HR Meropenem 50 ml @ 17 mls/hr Q12H IV 11/09/24 19:00 11/10/24 07:48 17 MLS/HR Epinephrine HCl 250 ml @ 7.5 mls/hr Q24H IV 11/10/24 02:00 11/10/24 02:23 7.5 MLS/HR Dopamine HCl/ Dextrose 250 ml @ 23.438 mls/ hr [id number] IV 11/10/24 05:45 11/10/24 05:52 23.438 MLS/HR Lactulose 300 ml Q6HR AK 11/10/24 12:00 Hold objective GENERAL: Intubated on ventilator. LUNGS: Decreased breath sounds. CARDIOVASCULAR: Heart sounds are good. ABDOMEN: Soft. laboratory and microbiology Laboratory Tests 11/10/24 08:45 Test 11/10/24 08:45 Range/Units Serum Glucose 163 H 74-106 mg/dL Problem List NSTEMI, likely type 2. Acute on chronic HFpEF, fluid overload. Acute hypoxic respiratory failure in setting of pulmonary congestion, pneumonia?. Shock, septic versus cardiogenic?. Thrombocytopenia. Liver cirrhosis. Elevated LFTs. Hepatic encephalopathy. VALENTINA on CKD. Hyperkalemia. Plan/Recommendation I agree with your ongoing assessment and care of plan. Patient has been seen by Anthony Lara MEDICINE TECH on my behalf, him and I discussed the plan with the patient. Continue supportive management with vasopressors now on Levophed, vasopressin, and Thierry-Synephrine. IV antibiotics. Unable to start on anticoagulation therapy. Follow-up limited echo showing normal EF. Follow up GI and Nephrology recommendations. Troponins trending stable, negative acute EKG changes. Continue monitoring kidney function, avoid nephrotoxic agents. Additional plan as per the hospital course. Assessment/Plan Continued all current supportive medical care. IV antibiotics as ordered. Morphine for pain management. Vasopressors for hemodynamic support. GI prophylactics. Nitro SL. Additional plan as per the hospital course. Critical care time of 45 minutes provided to include time spent evaluation of patient at bedside, when appropriate patient/family education for diagnosis, treatment plan, review of pertinent medical information and discussion of care with specialty providers and PCP. Mechanical ventilator parameters, treatment and adjustments have personally been reviewed by me and treatment plan by collet gluer has also been reviewed. Plan discussed with: Other CHALINO ROCHA MD Nov 10, 2024 13:12
--- NOTE | 2024-11-10 22:07 | DVHPN2 ---
Progress Note - Dictate Date Seen: Nov 10, 2024 Medical Necessity Reason Pt with a Central, PICC or Fol: Yes The following are medically ne: Abreu Catheter Reason for abreu catheter: Strict I&O Subjective Patient seen and examined at bedside. Sedated, intubated on mechanical ventilator. Overnight events reviewed. vital signs Vital Sign Date Time Temp Pulse Resp B/P (MAP) Pulse Ox O2 Delivery O2 Flow Rate FiO2 11/10/24 21:48 119 34 116/35 (62) 95 85 11/10/24 20:00 Mechanical Ventilator+ 11/10/24 20:00 98.3 98.3 11/09/24 10:00 6 Total Intake and Output 11/09/24 11/09/24 11/10/24 15:00 23:00 07:00 Intake Total 287.064 ml 542.819 ml 1532.567 ml Output Total 875 ml 155 ml Balance 287.064 ml -332.181 ml 1377.567 ml medications Current Medications Medications Dose Ordered Sig/Sherron Route Start Time Stop Time Status Last Admin Dose Admin Nitroglycerin 0.4 mg Q5MINP PRN SL 11/05/24 21:30 Morphine Sulfate 2 mg Q30M PRN IV 11/05/24 21:30 Albuterol 2.5 mg Q6HR NEB 11/06/24 12:00 11/10/24 17:50 2.5 MG Ipratropium [place] 0.5 mg Q6HR NEB 11/06/24 12:00 11/10/24 17:50 0.5 MG Hydrocortisone Sodium Succinate 50 mg Q6HR IV 11/06/24 06:15 11/10/24 17:56 50 MG Vasopressin 20 units/Sodium Chloride 100 ml @ 9 mls/hr Q11H7M IV 11/06/24 07:45 11/10/24 17:05 9 MLS/HR Phenylephrine HCl 80 mg/Sodium Chloride 250 ml @ 7.5 mls/hr Q24H IV 11/07/24 09:00 11/10/24 16:50 33.75 MLS/HR Norepinephrine Bitartrate 32 mg/ Sodium Chloride 250 ml @ 0.938 mls/ hr Q24H IV 11/07/24 09:00 11/10/24 09:00 14.063 MLS/HR Rifaximin 550 mg BID PO 11/07/24 10:00 11/08/24 10:26 550 MG Doxycycline Hyclate 100 ml @ 50 mls/hr Q12HR IV 11/08/24 11:45 11/10/24 21:57 50 MLS/HR Morphine Sulfate 1 mg Q3HP PRN IV 11/08/24 11:45 11/08/24 21:26 1 MG Midazolam HCl 50 ml @ 1 mls/hr Q24H IV 11/09/24 10:45 11/10/24 16:57 2 MLS/HR Fentanyl Citrate 250 ml @ 2.5 mls/hr Q24H IV 11/09/24 10:45 11/10/24 10:45 7.5 MLS/HR Pantoprazole Sodium 40 mg BID IV 11/09/24 22:00 11/10/24 21:58 40 MG Octreotide Acetate 500 mcg/ Sodium Chloride 100 ml @ 10 mls/hr Q10H IV 11/09/24 11:15 11/10/24 17:04 10 MLS/HR Meropenem 50 ml @ 17 mls/hr Q12H IV 11/09/24 19:00 11/10/24 17:57 17 MLS/HR Epinephrine HCl 250 ml @ 7.5 mls/hr Q24H IV 11/10/24 02:00 11/10/24 16:56 37.5 MLS/HR Dopamine HCl/ Dextrose 250 ml @ 23.438 mls/ hr [id number] IV 11/10/24 05:45 11/10/24 05:52 23.438 MLS/HR Lactulose 300 ml Q6HR MS 11/10/24 12:00 Hold objective Gen.: Patient lying in bed in medical ICU. Sedated, intubated on mechanical ventilator. Head: Normocephalic, atraumatic. Eyes: PERRLA. Ears: Normal external anatomy. Throat: Endotracheal tube and orogastric tube in place. Neck: Supple, trachea midline. Chest: Transmitted breath sounds bilaterally. Decreased air entry bilaterally. No wheezing. Bibasilar crackles. Cardiovascular: Positive S1, positive S2. Regular rate and rhythm. Abdomen: Positive bowel sounds in all 4 quadrants. Soft, nontender, nondistended. : Abreu in place. Normal external genitalia. Rectal: Deferred. Skin: Warm, dry. Intact. Extremities: 2+ radial pulses bilaterally. No lower extremity edema. Neuro: Sedated. laboratory and microbiology Laboratory Tests 11/10/24 08:45 Test 11/10/24 08:45 Range/Units Serum Glucose 163 H 74-106 mg/dL Assessment/Plan Impression: Acute hypoxic respiratory failure On mechanical ventilator Septic shock Acute metabolic encephalopathy Morbid obesity BMI 44.5 Events: Remains on vent support Vent settings; A/C mode with RR 24 -->28, VT 450 -->500, PEEP 8 -->10, FiO2 100 --->70% Sedated on Fentanyl, Versed ABG notable for severe acidemia CXR reviewed; multifocal airspace disease. No pleural effusion or pneumothorax. On multiple pressors for hemodynamic support On Levophed 30 mcg/min, vasopressin 0.03 units/min, Thierry-Synephrine 180 mcg/min, epinephrine 10 mcg/min. Titrate to keep mean arterial pressure greater than 65 mmHg. Ammonia of 86. GI recs appreciated. Patient is not tolerating turns. Continue bronchodilators Continue IV steroids Continue antibiotics Sandostatin drip Monitor WBC Monitor platelets GI prophylaxis - Protonix BID Overall poor prognosis due to multiorgan dysfunction. Labs and imaging reviewed. Rest of plan as noted below. Plan: S/p intubation, on mechanical ventilator Vent settings; A/C mode with RR 28, VT 500, PEEP 10, FiO2 70% Sedated on Fentanyl, Versed On multiple pressors for hemodynamic support Titrate to keep mean arterial pressure greater than 65 mmHg. Continue antibiotics Follow up cultures Hepatitis C positive. Monitor renal function. Monitor electrolytes. Supplement as necessary. Monitor ins and outs. Morbid obesity - complicates all care DVT prophylaxis. Prognosis: Poor given patient's multiple co-morbidities. Condition: Critical Rest of plan per hospitalist and other consultants. A total of 35 minutes of critical care time was spent reviewing the patient record, examining the patient, making a diagnostic and therapeutic plan, discussing this plan with the medical personnel, following up on diagnostic studies and following the patient for clinical stability excluding any and all procedures. At least 50% of this time was spent in direct, [id number] contact. Thank you, Dr. Vincent, for allowing me to participate in this patient's care. Further recommendations will depend on the patient's clinical course. Please do not hesitate to contact me if you have any questions or concerns. This medical document was created using an electronic medical record system with [employer] computerized dictation system. Although these documentations are being carefully reviewed, there may still be some phonetic and typographical changes. The errors are purely typographical, due to imperfection on the software program, and do not reflect any compromise in the patient's medical care. Dietary Evaluation Review Comments: 1. Pt has protein malnutrition, consider TPN per pharmacy and amino acid to meet 75% of protein and energy needs. . 2. Consider a peptide based TF Vital 1.2 @35ml/hr (63g protein 1008 kcal) supporting pt's needs at 120% protein and 72% kcal. 3. If pt is off vent and pass speech eval, offer Renal specific 50 g protein restriction if no dialysis is warranted. Offer Renal Standard diet if dialysis is scheduled. Expected Outcomes/Goals: Wt Loss, less uremic symptoms.Improved lab values Plan discussed with: Other (RAMA Urbina) Critical Care Time(min): 35 SEYMOUR FINNEY MD Nov 10, 2024 22:07
[2024-11-11] VITALS (37 sets, daily range): BP systolic 77–122; BP diastolic 17–47; PULSE 0–118; RESP 28–36; TEMP 98.1–98.8; O2SAT 10–95
[2024-11-11 04:30] LABS: Hematocrit 27.7 % (41.0-53.0); Hemoglobin 8.4 g/dL (13.5-17.5); Mean Corpuscular Hemoglobin 35.5 pg (28.0-32.0); Mean Corpuscular Hgb Conc. 30.3 g/dL (32.0-36.0); Mean Corpuscular Volume 117.1 fL (80.0-100.0); Platelet Count (auto) 38 10^3/uL (140-450); Red Blood Cells 2.37 10^6/uL (4.5-5.90); White Blood Cell 16.7 10^3/uL (4.4-10.8)
[2024-11-11 04:32] LABS: Anion Gap 18 (5-15); Chloride 103 mmol/L (98-107); Glucose 100 mg/dL (74-106)
[2024-11-11 04:33] LABS: BUN/Creatinine Ratio 16.2 (10.0-20.0)
[2024-11-11 04:35] LABS: Red Cell Distribution Width 20.3 % (11.8-14.3)
[2024-11-11 04:36] LABS: Basophils % (manual) 0 (0.0-2.0); Blast Cells 0; Eosinophils % (manual) 0 (0-7); Metamyelocytes % 0; Promyelocytes % 0; Reactive Lymphocytes 0
[2024-11-11 05:01] LABS: Alkaline Phosphatase 240 U/L (46-116); Blood Urea Nitrogen 85 mg/dL (9-23); Carbon Dioxide 11 mmol/L (20-31); Potassium 7.2 mmol/L (3.5-5.1); Sodium 132 mmol/L (136-145)
[2024-11-11 05:02] LABS: Alanine Aminotransferase 1415 U/L (7-40); Albumin 2.4 g/dL (3.2-4.8); Bilirubin, Total 13.4 mg/dL (0.2-1.0); Calcium 6.7 mg/dL (8.7-10.4); Total Protein 4.5 g/dL (5.7-8.2)
--- NOTE | 2024-11-11 05:26 | DVH ---
CHEST RADIOGRAPH Indication: PROTOCOL Technique: Single frontal view of the chest was obtained Comparison: XY CHEST PORTABLE on DOS: 11/10/24 FINDINGS: Lines and Tubes: Right central venous catheter is present with its tip terminating in the superior ve na cava. Endotracheal tube terminates 3.0 cm above the bina. Lungs: Bilateral opacities. No significant interval change. Pleura: No effusion. No pneumothorax. Cardiomediastinal contours: Enlarged but stable. Bones: No acute osseous abnormality. IMPRESSION: 1. Stable position of the support lines and tubes. 2. Stable diffuse bilateral airspace disease.
[2024-11-11 05:52] LABS: Aspartate Aminotransferase 4616 U/L (13-40)
[2024-11-11] MEDS: BUMETANIDE INJECTION 25 MG in GIVE UN-DILUTED 0 ML IV SCH (06:00)
[2024-11-11] MEDS: DEXTROSE (50%) 50ML SYRG IV ONE (06:45)
[2024-11-11] MEDS: SODIUM BICARB 8.4% 50Meq/50ml SYR INJ IV ONE (06:46)
[2024-11-11] MEDS: InsuLIN REG 1unit/0.01ml Soln (100units/ml) IV ONE (06:46)
[2024-11-11] MEDS: CALCIUM GLUC 1,000mg/50ml-NS 50 ML IV SCH (06:47)
[2024-11-11 07:07] LABS: Monocytes % (manual) 7 (0-12); Myelocytes % 1
[2024-11-11 07:09] LABS: Anisocytosis Slight; Band Neutrophils % (manual) 10; Lymphocytes % (manual) 12 (10.0-50.0); Macrocytosis Marked
[2024-11-11] MEDS: ALBUTEROL SULF 2.5 MG/0.5ML(0.5%) NEB SOLN NEB ONE (07:20)
--- NOTE | 2024-11-11 09:17 | DVHDS2 ---
Discharge Summary Date of Admission Nov 05, 2024 at 21:23 Date of Discharge: Nov 11, 2024 Admitting Diagnosis Hepatic encephalopathy Labs/Diagnostic Data: Laboratory Results Test 11/11/24 06:31 11/11/24 03:30 11/10/24 08:45 11/10/24 06:40 POC Glucose 73 mg/dl (70-106) White Blood Count 16.7 10^3/uL (4.4-10.8) Red Blood Count 2.37 10^6/uL (4.5-5.90) Hemoglobin 8.4 g/dL (13.5-17.5) Hematocrit 27.7 % (41.0-53.0) Mean Corpuscular Volume 117.1 fL (80.0-100.0) Mean Corpuscular Hemoglobin 35.5 pg (28.0-32.0) Mean Corpuscular Hemoglobin Concent 30.3 g/dL (32.0-36.0) Red Cell Distribution Width 20.3 % (11.8-14.3) Platelet Count 38 10^3/uL (140-450) Mean Platelet Volume 10.1 fL (6.9-10.8) Neutrophils (%) (Auto) % (37.0-80.0) Lymphocytes (%) (Auto) % (10.0-50.0) Monocytes (%) (Auto) % (0.0-12.0) Basophils (%) (Auto) % (0.0-2.0) Neutrophils # (Auto) 10 ^3/uL (1.6-8.6) Lymphocytes # (Auto) 10 ^3/uL (0.4-5.4) Monocytes # (Auto) 10 ^3/uL (0-1.3) Differential Total Cells Counted 100.0 (100) Neutrophils % (Manual) 70 (37.0-80.0) Band Neutrophils % (Manual) 10 Lymphocytes % (Manual) 12 (10.0-50.0) Monocytes % (Manual) 7 (0-12) Eosinophils % (Manual) 0 (0-7) Basophils % (Manual) 0 (0.0-2.0) Metamyelocytes % (manual) 0 Myelocytes % (Manual) 1 Promyelocytes % (Manual) 0 Blast Cells % (Manual) 0 Nucleated Red Blood Cells 1.0 % Reactive Lymphocytes 0 Anisocytosis (manual) Slight Macrocytosis Marked Sodium Level 132 mmol/L (136-145) Potassium Level 7.2 mmol/L (3.5-5.1) Chloride Level 103 mmol/L (98-107) Carbon Dioxide Level 11 mmol/L (20-31) Anion Gap 18 (5-15) Blood Urea Nitrogen 85 mg/dL (9-23) Creatinine 5.26 mg/dL (0.700-1.30) Glomerular Filtration Rate Calc 12 mL/min (>90) BUN/Creatinine Ratio 16.2 (10.0-20.0) Serum Glucose 100 mg/dL (74-106) Calcium Level 6.7 mg/dL (8.7-10.4) Total Bilirubin 13.4 mg/dL (0.2-1.0) Aspartate Amino Transferase (AST) 4616 U/L (13-40) Alanine Aminotransferase (ALT) 1415 U/L (7-40) Alkaline Phosphatase 240 U/L (46-116) Total Protein 4.5 g/dL (5.7-8.2) Albumin 2.4 g/dL (3.2-4.8) Ammonia 86 umol/L (11-32) Blood Gas Specimen Type Arterial Blood Gas Sample Site Right radial Blood Gas Patient Temperature 37.0 Arterial Blood Date Drawn [id number] Arterial Blood pH 7.185 (7.350-7.450) Arterial Blood Partial Pressure CO2 38.4 mmHg (35.0-48.0) Arterial Blood Partial Pressure O2 78.0 mmHg (83.0-108.0) Arterial Blood HCO3 14.2 mmol/L (21.0-28.0) Arterial Blood Oxygen Saturation 91.5 % (94.0-98.0) Arterial Blood Base Excess -13.2 mmol/L (-2.0-3.0) Arterial Blood Oxyhemoglobin 90.8 % (94.0-98.0) Arterial Blood Carboxyhemoglobin 0.3 % (0.5-1.5) Arterial Blood Methemoglobin 0.5 % (0.0-1.5) Terence Test Modified Blood Gas Total Hemoglobin 9.60 g/dL (13.5-17.5) Blood Gas Set Respiration Rate 28.0 Blood Gas Modality Vent - ac FiO2 % 80.0 Blood Gas Tidal Volume 500.0 Blood Gas PEEP or CPAP 10.0 Blood Gas Critical Value Read Back Yes Blood Gas Notified Whom Bharat mondragon np Blood Gas Notified Time [id number] Blood Gas Notified By Michell john grinder set up operator thread tool Test 11/09/24 16:05 11/09/24 04:37 11/07/24 09:10 11/07/24 04:26 Blood Gas Spontaneous Rate 28 Eosinophils (%) (Auto) 0.3 % (0.0-7.0) Eosinophils # (Auto) 0 10 ^3/uL (0-0.8) Basophils # (Auto) 0 10 ^3/uL (0-0.2) Blood Gas Liter Flow 2.50 Random Vancomycin Level 23.1 ug/mL (5-10) Test 11/06/24 22:15 11/06/24 08:53 11/06/24 06:03 11/06/24 04:07 Influenza Type A Antigen Negative (Negative) Influenza Type B Antigen Negative (Negative) Lactic Acid Level 4.0 mmol/L (0.4-2.0) Troponin I High Sensitivity 264 ng/L (</=54) Urine Osmolality 352 mOsm/kg Test 11/06/24 03:10 11/06/24 00:00 11/05/24 19:12 11/05/24 04:07 Serum Osmolality 286 mOsm/kg (278-298) Hepatitis A IgM Antibody Negative Hepatitis B Surface Antigen Negative (Negative) Hepatitis B Core IgM Antibody Negative (Negative) Hepatitis C Antibody Reactive (Negative) SARS-CoV-2 Antigen (Rapid) Negative (NEGATIVE) Prothrombin Time 18.3 sec (9.3-11.8) Prothrombin Time INR 1.80 (0.9-1.15) Activated Partial Thromboplast Time 37.3 SEC (24.5-34.5) Magnesium Level 3.0 mg/dL (1.6-2.6) B-Type Natriuretic Peptide 30.50 pg/mL (0-100) Lipase 33 U/L (12-53) Urine Color Dark-yellow (Yellow) Urine Clarity Ex.turbid (Clear) Urine pH 5.5 (5.0-9.0) Urine Specific [place] 1.018 (1.001-1.035) Urine Protein 1+ (Negative) Urine Ketones Negative (Negative) Urine Blood 1+ /uL (Negative) Urine Nitrite Negative (Negative) Urine Bilirubin 1+ (Negative) Urine Urobilinogen Normal mg/dL (Negative) Urine Leukocyte Esterase Trace /uL (Negative) Urine RBC 8 /hpf (0 - 3) Urine WBC 138 /hpf (0 - 3) Urine WBC Clumps Present /hpf (None Seen) Urine Squamous Epithelial Cells Few /hpf (<5) Urine Bacteria None seen /hpf (None Seen) Urine Mucus Few (None Seen) Urine Yeast (Budding) Many /hpf (None Seen) Urine Creatinine 169.31 mg/dL (30.0-125.0) Urine Protein/Creatinine Ratio 0.48 Urine Sodium < 10 mmol/L (40-220) Urine Glucose Normal mg/dL (Normal) Urine Total Protein 81.7 mg/dL (1-14) Urine Opiates Screen Pos (NEGATIVE) Urine Fentanyl Screen Neg (NEGATIVE) Urine Barbiturates Screen Neg (NEGATIVE) Urine Phencyclidine Screen Neg (NEGATIVE) Urine Amphetamines Screen Neg (NEGATIVE) Urine Benzodiazepines Screen Neg (NEGATIVE) Urine Cocaine Screen Neg (NEGATIVE) Urine Cannabinoids Screen Pos (NEGATIVE) Other Laboratory Tests 11/11/24 03:30 Brief Hx & Hospital Course: History of Present Illness Patient is a 59-year-old male with a past medical history of 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 Patient was admitted recently for decompensated liver cirrhosis with hepatic encephalopathy and volume overload and was discharged to SNF for physical therapy rehab. Patient reports since the time he has been discharged ED he has been having worsening abdominal pain which is diffuse, dull associated with tenderness. Patient also reports associated nausea, vomiting and episodes of watery stools but no associated blood in vomitus or stool. Patient at the time of examination was lethargic and noncompliant so only limited history of present illness could be obtained. Course of hospitalization: Patient had worsening respiratory status requiring mechanical intubation. I, myself intubated the patient with findings of bleeding noted from the esophagus, going into the patient's trachea. Patient did have worsening bilateral pneumonia, as well as failure of noninvasive positive pressure ventilation prior to intubation. Patient was in septic shock from day one. Patient was placed on empiric antibiotic therapy. GI consultation was obtained. Patient was placed on Sandostatin, Protonix, banana bag, as well as Lokelma and lactulose for the patient was hyperkalemia and hyperammonemia. Long discussion was made with the patient's family regarding his poor prognosis. All consults including Nephrology, Gastroenterology and pulmonology feel the patient is critically ill with poor prognosis. Patient was made a DNR yesterday, with the patient having worsening clinical status including hyperkalemia, with the patient pronounced this a.m. at approximately 8:05 a.m.. Family were bedside. Critical care time spent with patient discussing and formulating plan of care: 40 minutes. This does not include time spent performing procedures. This medical document was created using an electronic medical record system with [employer] system. Although this document has been carefully reviewed, there may still be some phonetic and typographical errors. These areas are purely typographical due to imperfections of the software programs, and do not reflect any compromise in the patient's medical care. Consults/Reason for consult Pulmonology: Respiratory failure Gastroenterology: Portal hypertension with probable variceal bleeding Nephrology: Hepatorenal failure Condition at Discharge: Poor Final Diagnosis/Problems List Septic and hemorrhagic shock Secondary Diagnosis: -hepatic/metabolic encephalopathy -acute kidney injury, questionable hepatorenal failure -obesity -liver cirrhosis with portal hypertension -severe protein malnutrition -polysubstance abuse including cannabinoids and opiates -obesity -thrombocytopenia -hyperammonemia Discharge Disposition: at Hospital [facility] Discharge Statement: "Patient was advised to return to the ER or call 911 if any headaches, dizziness, shortness of breath, chest pain, abdominal pain, bleeding, fevers, or worsening of medical condition. Patient was counseled about treatment plan, medications, possible side effects, patientverbalized understanding. All questions were answered to the best of my ability. This discharge took greater then 30 minutes in planning, reviewing documentation, counseling the patient, and discussing with other team members." ASSESSMENT ASSESSMENT Assessment Date of Service: Nov 11, 2024 Billing Provider: ELIANE MONDRAGON NP Common Visit Codes: 12948-NSM/OBS DISCH DAY >30min ELIANE MONDRAGON NP Nov 11, 2024 09:17
[2024-11-11 09:46] LABS: Platelet Estimate Decreased
--- NOTE | 2024-11-11 15:34 | ECG ---
[facility] Test Date: 2024-11-10 Test Time: 13:50:23 Pat Name: SUSANNAH KAUFMAN Department: Room: [address] [place] [address] A Gender: M Stope Miner: : 1965 Requested By: ELIANE MONDRAGON Order Number: [id number] Reading MD: Celsa Arevalo Measurements Intervals [place] Rate: 112 P: 27 SC: 186 QRS: -29 QRSD: 90 T: 29 QT: 306 QTc: 417 Interpretive Statements Sinus tachycardia with fusion complexes Low voltage QRS Electronically Signed On 11-15-2024 10:12:25 PST by Celsa Arevalo Please click the below link to view image of tracing.
--- NOTE | 2024-11-11 21:34 | DVHPN2 ---
Progress Note - Dictate Date Seen: Nov 11, 2024 Medical Necessity Reason Pt with a Central, PICC or Fol: Yes The following are medically ne: Abreu Catheter Reason for abreu catheter: Strict I&O Subjective Patient seen and examined at bedside. Sedated, intubated on mechanical ventilator. Overnight events reviewed. vital signs Vital Sign Date Time Temp Pulse Resp B/P (MAP) Pulse Ox O2 Delivery O2 Flow Rate FiO2 11/11/24 08:00 0 28 60 Mechanical Ventilator+ 100 100 11/11/24 08:00 11/11/24 07:00 98.8 98.8 11/09/24 10:00 6 Total Intake and Output 11/10/24 11/10/24 11/11/24 15:00 23:00 07:00 Intake Total 1025.941 ml 1238.975 ml 4881.781 ml Output Total 15 ml Balance 1025.941 ml 1223.975 ml 4881.781 ml objective Gen.: Patient lying in bed in medical ICU. Sedated, intubated on mechanical ventilator. Head: Normocephalic, atraumatic. Eyes: PERRLA. Ears: Normal external anatomy. Throat: Endotracheal tube and orogastric tube in place. Neck: Supple, trachea midline. Chest: Transmitted breath sounds bilaterally. Decreased air entry bilaterally. No wheezing. Bibasilar crackles. Cardiovascular: Positive S1, positive S2. Regular rate and rhythm. Abdomen: Positive bowel sounds in all 4 quadrants. Soft, nontender, nondistended. : Abreu in place. Normal external genitalia. Rectal: Deferred. Skin: Warm, dry. Intact. Extremities: 2+ radial pulses bilaterally. No lower extremity edema. Neuro: Sedated. laboratory and microbiology Laboratory Tests 11/11/24 03:30 Test 11/11/24 03:30 Range/Units Serum Glucose 100 74-106 mg/dL Assessment/Plan Impression: Acute hypoxic respiratory failure On mechanical ventilator Septic shock Acute metabolic encephalopathy Morbid obesity BMI 44.5 Events: Remains on vent support Vent settings; A/C mode with RR 28, VT 500, PEEP 10, FiO2 70% Sedated on Fentanyl, Versed On multiple pressors for hemodynamic support On Levophed 30 mcg/min, vasopressin 0.03 units/min, Thierry-Synephrine 180 mcg/min, epinephrine 10 mcg/min. Titrate to keep mean arterial pressure greater than 65 mmHg. Patient is not tolerating turns. Continue bronchodilators Continue IV steroids Continue antibiotics Sandostatin drip Monitor WBC Monitor platelets GI prophylaxis - Protonix BID Labs and imaging reviewed. Poor prognosis due to multiorgan dysfunction. Patient on multiple pressors - high likelihood of demise. Addendum: I was informed by WARD ATTENDANT Ciara that patient after my rounds this morning at 08:00 AM. Plan: S/p intubation, on mechanical ventilator Vent settings; A/C mode with RR 28, VT 500, PEEP 10, FiO2 70% Sedated on Fentanyl, Versed On multiple pressors for hemodynamic support Titrate to keep mean arterial pressure greater than 65 mmHg. Continue antibiotics Follow up cultures Hepatitis C positive. Monitor renal function. Monitor electrolytes. Supplement as necessary. Monitor ins and outs. Morbid obesity - complicates all care DVT prophylaxis. Prognosis: Poor given patient's multiple co-morbidities. Condition: Critical Rest of plan per hospitalist and other consultants. A total of 35 minutes of critical care time was spent reviewing the patient record, examining the patient, making a diagnostic and therapeutic plan, discussing this plan with the medical personnel, following up on diagnostic studies and following the patient for clinical stability excluding any and all procedures. At least 50% of this time was spent in direct, [id number] contact. Thank you, Dr. Vincent, for allowing me to participate in this patient's care. Further recommendations will depend on the patient's clinical course. Please do not hesitate to contact me if you have any questions or concerns. This medical document was created using an electronic medical record system with [employer] computerized dictation system. Although these documentations are being carefully reviewed, there may still be some phonetic and typographical changes. The errors are purely typographical, due to imperfection on the software program, and do not reflect any compromise in the patient's medical care. Dietary Evaluation Review Comments: 1. Pt has protein malnutrition, consider TPN per pharmacy and amino acid to meet 75% of protein and energy needs. . 2. Consider a peptide based TF Vital 1.2 @35ml/hr (63g protein 1008 kcal) supporting pt's needs at 120% protein and 72% kcal. 3. If pt is off vent and pass speech eval, offer Renal specific 50 g protein restriction if no dialysis is warranted. Offer Renal Standard diet if dialysis is scheduled. Expected Outcomes/Goals: Wt Loss, less uremic symptoms.Improved lab values Plan discussed with: Other (RAMA Urbina) Critical Care Time(min): 35 SEYMOUR FINNEY MD Nov 11, 2024 21:34
--- NOTE | 2024-11-11 23:26 | DVHPN2 ---
Progress Note - Dictate Date Seen: Nov 11, 2024 Medical Necessity Reason Pt with a Central, PICC or Fol: Yes The following are medically ne: Abreu Catheter Reason for abreu catheter: Strict I&O Subjective Patient was seen and evaluated in follow up in the ICU earlier this morning. Patient is intubated on ventilator. FiO2 increased to 100%. Patient was made a DNR yesterday. The patient was pronounced this a.m. at approximately 8:05 a.m. Family members were present at bedside. vital signs Vital Sign Date Time Temp Pulse Resp B/P (MAP) Pulse Ox O2 Delivery O2 Flow Rate FiO2 11/11/24 08:00 0 28 60 Mechanical Ventilator+ 100 100 11/11/24 08:00 11/11/24 07:00 98.8 98.8 11/09/24 10:00 6 Total Intake and Output 11/10/24 11/10/24 11/11/24 15:00 23:00 07:00 Intake Total 1025.941 ml 1238.975 ml 4881.781 ml Output Total 15 ml Balance 1025.941 ml 1223.975 ml 4881.781 ml objective GENERAL: Intubated on ventilator. LUNGS: Decreased breath sounds. CARDIOVASCULAR: Heart sounds are good. ABDOMEN: Soft. laboratory and microbiology Laboratory Tests 11/11/24 03:30 Test 11/11/24 03:30 Range/Units Serum Glucose 100 74-106 mg/dL Problem List NSTEMI, likely type 2. Acute on chronic HFpEF, fluid overload. Acute hypoxic respiratory failure in setting of pulmonary congestion, pneumonia?. Shock, septic versus cardiogenic?. Thrombocytopenia. Liver cirrhosis. Elevated LFTs. Hepatic encephalopathy. [place] on CKD. Hyperkalemia. Plan/Recommendation I agree with your ongoing assessment and care of plan. Patient has been seen by Anthony Lara [facility] on my behalf, him and I discussed the plan with the patient. Continue supportive management with vasopressors now on Levophed, vasopressin, and Thierry-Synephrine. IV antibiotics. Unable to start on anticoagulation therapy. Follow-up limited echo showing normal EF. Follow up GI and Nephrology recommendations. Troponins trending stable, negative acute EKG changes. Continue monitoring kidney function, avoid nephrotoxic agents. Additional plan as per the hospital course. Assessment/Plan Continued all current supportive medical care. IV antibiotics as ordered. Morphine for pain management. Vasopressors for hemodynamic support. GI prophylactics. Nitro SL. Additional plan as per the hospital course. Critical care time of 45 minutes provided to include time spent evaluation of patient at bedside, when appropriate patient/family education for diagnosis, treatment plan, review of pertinent medical information and discussion of care with specialty providers and PCP. Mechanical ventilator parameters, treatment and adjustments have personally been reviewed by me and treatment plan by pulling unit floorhand has also been reviewed. Dietary Evaluation Review Comments: 1. Pt has protein malnutrition, consider TPN per pharmacy and amino acid to meet 75% of protein and energy needs. . 2. Consider a peptide based TF Vital 1.2 @35ml/hr (63g protein 1008 kcal) supporting pt's needs at 120% protein and 72% kcal. 3. If pt is off vent and pass speech eval, offer Renal specific 50 g protein restriction if no dialysis is warranted. Offer Renal Standard diet if dialysis is scheduled. Expected Outcomes/Goals: Wt Loss, less uremic symptoms.Improved lab values Plan discussed with: Other CHALINO ROCHA MD Nov 11, 2024 11:40
== END 2024-11-11 11:19 | DRG 720 ==
LOC: EDBD 18:10 → ER 18:10 → TELE 21:23 → ICU WEST 11-09 15:44
PROVIDERS: ADMIT Nurse Practitioner Acute Care; ATTEND Nurse Practitioner Acute Care
PROC: 02HV33Z Insertion of Infusion Device into Superior Vena Cava, Percutaneous Approach (ICD-10-PCS; principal; 2024-11-06)
PROC: 5A1945Z Respiratory Ventilation, 24-96 Consecutive Hours (ICD-10-PCS; 2024-11-09)
PROC: 0BH17EZ Insertion of Endotracheal Airway into Trachea, Via Natural or Artificial Opening (ICD-10-PCS; 2024-11-09)
DX: A41.50 Gram-negative sepsis, unspecified (principal); J96.01 Acute respiratory failure with hypoxia; K76.7 Hepatorenal syndrome; J69.0 Pneumonitis due to inhalation of food and vomit; G93.41 Metabolic encephalopathy; R65.21 Severe sepsis with septic shock; R57.8 Other shock; J15.69 Pneumonia due to other Gram-negative bacteria; I50.33 Acute on chronic diastolic (congestive) heart failure; E43 Unspecified severe protein-calorie malnutrition; D69.6 Thrombocytopenia, unspecified; K72.10 Chronic hepatic failure without coma; N17.9 Acute kidney failure, unspecified; E87.1 Hypo-osmolality and hyponatremia; E87.20 Acidosis, unspecified; I21.A1 Myocardial infarction type 2; K76.6 Portal hypertension; K76.82 Hepatic encephalopathy; Z66 Do not resuscitate; Z20.822 Contact with and (suspected) exposure to COVID-19; N18.9 Chronic kidney disease, unspecified; E87.5 Hyperkalemia; I13.0 Hypertensive heart and chronic kidney disease with heart failure and stage 1 through stage 4 chronic kidney disease, or unspecified chronic kidney disease; E11.22 Type 2 diabetes mellitus with diabetic chronic kidney disease; E66.01 Morbid (severe) obesity due to excess calories; E86.1 Hypovolemia; F10.20 Alcohol dependence, uncomplicated; J18.9 Pneumonia, unspecified organism; B19.20 Unspecified viral hepatitis C without hepatic coma; D75.89 Other specified diseases of blood and blood-forming organs; E88.09 Other disorders of plasma-protein metabolism, not elsewhere classified; R74.01 Elevation of levels of liver transaminase levels; F12.10 Cannabis abuse, uncomplicated; F11.10 Opioid abuse, uncomplicated; K74.60 Unspecified cirrhosis of liver; K92.2 Gastrointestinal hemorrhage, unspecified; Z99.81 Dependence on supplemental oxygen; Z96.653 Presence of artificial knee joint, bilateral; Z68.41 Body mass index [BMI] 40.0-44.9, adult; Z90.49 Acquired absence of other specified parts of digestive tract; Z86.718 Personal history of other venous thrombosis and embolism; Z91.199 Patient's noncompliance with other medical treatment and regimen due to unspecified reason; Z68.42 Body mass index [BMI] 45.0-49.9, adult; Z79.4 Long term (current) use of insulin; Z79.899 Other long term (current) drug therapy; Y90.9 Presence of alcohol in blood, level not specified; J15.9 Unspecified bacterial pneumonia
CPT/HCPCS: 31500; 36415; 36556; 36600; 70450; 71045; 74176; 76705; 80048; 80053; 80074; 80202; 80307; 81001; 82140; 82570; 82805; 82962; 83605; 83690; 83735; 83880; 83930; 83935; 84132; 84156; 84300; 84484; 85007; 85025; 85027; 85610; 85730; 87040; 87070; 87077; 87081; 87186; 87205; 87426; 87804; 92610; 93005; 93306; 94002; 94003; 94640; 99291; G0378; J0171; J1815; J2185; J2470; P9047